=== PATIENT | male | born 1950 | race Two or more races ===

== ENCOUNTER 2017-09-17 18:50 | Emergency (ER) | payer MEDICARE, MEDICAID ==
[~2017-09-17] VITALS: Ht 177.8 cm; Wt 95.3 kg
[2017-09-17 22:44] VITALS: BP 144/87
[2017-09-17] MEDS ORDERED: KETOROLAC TROMETH 60MG/2ML VIAL IM ONE (22:45)
[2017-09-17] MEDS ORDERED: LIDOCAINE 1% HCL (LOCAL ANESTH.) INJ 20ML MDV IJ ONE (23:15)
[2017-09-17] MEDS ORDERED: TRIAMCINOLONE 40MG/ML 1ML VIAL IM ONE (23:15)
[2017-10-03] MEDS ORDERED: ALPR1TAB2 PO (08:05)
== END 2017-09-18 00:03 | disposition home or self-care (01) ==
LOC: ER 18:50
DX: M25.551 Pain in right hip (principal); M54.9 Dorsalgia, unspecified
CPT/HCPCS: 72100; 73502; 96372; 99284; J1885; J2001; J3301

== ENCOUNTER 2017-09-26 13:59 | Emergency (ER) | payer MEDICARE, MEDICAID ==
[~2017-09-26] VITALS: Ht 177.8 cm; Wt 99.8 kg
[2017-09-26 15:50] VITALS: BP 137/92
[2017-09-26] MEDS ORDERED: KETOROLAC TROMETH 60MG/2ML VIAL IM ONE (16:00)
[2017-09-26] MEDS ORDERED: HYDROcodone-ACET 5/325MG TAB PO ONE (16:00)
[2017-10-03] MEDS ORDERED: ALPR1TAB2 PO (08:05)
== END 2017-09-26 17:28 | disposition home or self-care (01) ==
LOC: ER 13:59
DX: S49.92XA Unspecified injury of left shoulder and upper arm, initial encounter (principal); G89.29 Other chronic pain; F12.10 Cannabis abuse, uncomplicated; X58.XXXA Exposure to other specified factors, initial encounter; Y99.8 Other external cause status; Y93.89 Activity, other specified; Y92.89 Other specified places as the place of occurrence of the external cause
CPT/HCPCS: 73110; 93005; 99284; J1885

== ENCOUNTER 2018-03-07 19:40 | Inpatient (IN) | payer MEDICARE, MEDICAID ==
[~2018-03-07] VITALS: Ht 175.3 cm; Wt 91.3 kg
[~2018-03-07 19:40] MED LIST: ALPR1TAB2 PO
[2018-03-07] MEDS ORDERED: SODIUM CHLORIDE 0.9% 1,000 ML IV ONE (20:00)
[2018-03-07 21:17] LABS: Urine Bacteria FEW /hpf (None Seen); Urine Blood TRACE /uL (Negative); Urine Budding Yeast MODERATE /hpf (None Seen); Urine Specific Gravity 1.009 (1.001-1.035); Urine WBC 42 /hpf (0 - 3)
[2018-03-07 21:21] LABS: Basophils # (auto) 0 uL; Basophils % (auto) 0.2 % (0.0-2.0); Eosinophils # (auto) 0.2 uL; Eosinophils % (auto) 2.1 % (0.0-7.0); Hematocrit 30.7 % (41.0-53.0); Hemoglobin 10.3 g/dL (13.5-17.5); Lymphocytes # (auto) 0.9 uL; Lymphocytes % (auto) 10.9 % (10.0-50.0); Mean Corpuscular Hemoglobin 26.2 pg (28.0-32.0); Mean Corpuscular Hgb Conc. 33.6 g/dL (32.0-36.0); Mean Corpuscular Volume 77.8 fL (80.0-100.0); Monocytes # (auto) 0.9 uL; Monocytes % (auto) 10.6 % (0.0-12.0); Neutrophils # (auto) 6.3 uL; Neutrophils % (auto) 76.2 % (37.0-80.0); Nucleated Red Blood Cells % 0.1 %; Platelet Count (auto) 155 10^3/uL (140-450); Red Blood Cells 3.95 10^6/uL (4.5-5.90); Red Cell Distribution Width 17.6 % (11.8-14.3); White Blood Cell 8.3 10^3/uL (4.4-10.8)
[2018-03-07 21:30] LABS: INR 1.2 (0.9-1.15); Partial Thromboplastin Time 27.4 sec (23.78-33.04); Prothrombin Time 12.7 sec (9.27-12.13)
[2018-03-07 21:38] LABS: Albumin 1.5 g/dL (3.4-5.0); BUN/Creatinine Ratio 35.8; Bilirubin, Total 0.7 mg/dL (0.2-1.0); Calcium 6.5 mg/dL (8.5-10.1); Total Protein 6.1 g/dL (6.4-8.2)
[2018-03-07] MEDS ORDERED: MORPHINE SULFATE 4 MG/ML SYR/VIAL IV ONE (21:45)
[2018-03-07] MEDS ORDERED: ONDANSETRON HCL 4 MG/2 ML VIAL IV ONE (21:45)
[2018-03-07] MEDS ORDERED: POTASSIUM CHL 20MEQ/100ML 100 ML IV SCH (22:00)
[2018-03-07] MEDS ORDERED: POTASSIUM EFFERVESENT TAB 25 MEQ PO ONE (22:00)
[2018-03-07] MEDS: POTASSIUM CHL 20MEQ/100ML 100 ML IV SCH (23:00)
[2018-03-08] VITALS (29 sets, daily range): BP systolic 83–128; BP diastolic 46–95
[2018-03-08] MEDS ORDERED: cefTRIAXone 1GM/10ml IVPUSH 10 ML IV ONE (01:30)
[2018-03-08] MEDS ORDERED: VANCOMYCIN 1GM/250ML 250 ML IV ONE (02:00)
[2018-03-08] MEDS ORDERED: ONDANSETRON HCL 4 MG/2 ML VIAL IV ONE (02:00)
[2018-03-08] MEDS ORDERED: MORPHINE SULFATE 4 MG/ML SYR/VIAL IV ONE (02:00)
[2018-03-08] MEDS ORDERED: SODIUM CHLORIDE 0.9% 1,000 ML IV ONE ×2 (02:30→14:30)
[2018-03-08] MEDS ORDERED: ACETAMINOPHEN 500 MG TAB PO PRN (03:00)
[2018-03-08] MEDS ORDERED: DEXTROSE (50%) 50ML SYRG IV PRN (03:00)
[2018-03-08] MEDS: POTASSIUM CHL 20MEQ/100ML 100 ML IV SCH ×3 (03:00→18:00)
[2018-03-08] MEDS ORDERED: SODIUM CHLORIDE 0.9% 1,000 ML IV SCH (04:00)
[2018-03-08] MEDS ORDERED: DOXYCYCLINE 100MG/250ML 250 ML IV SCH (06:00)
[2018-03-08] MEDS: IPRATROPIUM BROM 0.5 MG/2.5ML INH SOL NEB SCH ×3 (06:50→19:06)
[2018-03-08] MEDS: ALBUTEROL SULF 2.5 MG/0.5ML(0.5%) NEB SOLN NEB SCH ×3 (06:50→19:06)
[2018-03-08] MEDS: InsuLIN REG 1unit/0.01ml Soln (100units/ml) SC SCH ×4 (06:53→22:00)
[2018-03-08] MEDS: ACCU-CHEK COMFORT CURVE STRIP VI SCH ×4 (06:53→22:00)
[2018-03-08 07:04] LABS: Basophils # (auto) 0 uL; Eosinophils # (auto) 0.1 uL; Mean Corpuscular Hemoglobin 26.3 pg (28.0-32.0); Nucleated Red Blood Cells % 0.1 %; Red Cell Distribution Width 17.7 % (11.8-14.3)
[2018-03-08 07:07] LABS: Basophils % (auto) 0.3 % (0.0-2.0); Eosinophils % (auto) 1.4 % (0.0-7.0); Hematocrit 35.6 % (41.0-53.0); Hemoglobin 11.9 g/dL (13.5-17.5); Lymphocytes % (auto) 12.8 % (10.0-50.0); Mean Corpuscular Hgb Conc. 33.4 g/dL (32.0-36.0); Mean Corpuscular Volume 78.8 fL (80.0-100.0); Monocytes # (auto) 0.9 uL; Monocytes % (auto) 12.3 % (0.0-12.0); Neutrophils # (auto) 5.4 uL; Neutrophils % (auto) 73.2 % (37.0-80.0); Platelet Count (auto) 162 10^3/uL (140-450); Red Blood Cells 4.51 10^6/uL (4.5-5.90); White Blood Cell 7.4 10^3/uL (4.4-10.8)
[2018-03-08 07:21] LABS: BUN/Creatinine Ratio 23.3; Potassium 3.1 mmol/L (3.5-5.1)
[2018-03-08] MEDS: HYDROcodone-ACET 5/325MG TAB PO PRN (12:31)
[2018-03-08] MEDS: ONDANSETRON HCL 4 MG/2 ML VIAL IV PRN (12:31)
[2018-03-08] MEDS ORDERED: POTASSIUM CHL 20 Meq TABLET PO ONE (13:30)
[2018-03-08] MEDS ORDERED: VANCOMYCIN PER PHARMACY 0 MG IV SCH (14:30)
[2018-03-08] MEDS ORDERED: PIPERACILLIN-TAZOB 3.375GM 100 ML IV ONE (14:45)
[2018-03-08] MEDS ORDERED: MORPHINE SULFATE 4 MG/ML SYR/VIAL IV PRN (15:00)
[2018-03-08] MEDS ORDERED: VANCOMYCIN 1GM/250ML 250 ML IV SCH (15:00)
[2018-03-08] MEDS ORDERED: PANTOPRAZOLE 40 MG/10 ML VIAL IV ONE (15:00)
[2018-03-08] MEDS ORDERED: NITROGLYCERIN 0.4 MG SL TAB SL PRN (15:00)
[2018-03-08 15:38] LABS: Magnesium 1.8 mg/dL (1.6-2.6)
[2018-03-08 16:06] LABS: Lactic Acid w/Reflex 2.3 mmol/L (0.4-2.0)
[2018-03-08] MEDS: ALBUMIN 25% 100 ML IV SCH ×2 (16:41→21:16)
[2018-03-08] MEDS ORDERED: LIDOCAINE 1% (LOCAL ANESTH.) PF 5ml SDV ID ONE (17:00)
[2018-03-08] MEDS: VANCOMYCIN 1GM/250ML 250 ML IV SCH (17:30)
[2018-03-08] MEDS: SODIUM CHLORIDE 0.9% 1,000 ML IV SCH ×2 (17:30→17:51)
[2018-03-08] MEDS: NOREPINEPHRINE 8 MG/250ML KIT 250 ML IV SCH (17:51)
[2018-03-08] MEDS: PIPERACILLIN-TAZOB 3.375GM 100 ML IV SCH (18:00)
[2018-03-08] MEDS: SODIUM CHLOR 0.9% PF (SALINE LOCK) 10ML VIAL/SYR IV SCH ×2 (22:00)
[2018-03-08] MEDS ORDERED: cefTRIAXone 1GM/10ml IVPUSH 10 ML IV SCH (22:00)
[2018-03-08] MEDS: MORPHINE SULF INJ 2 MG/ML SYRINGE 1ML IV PRN (23:10)
[2018-03-08] MEDS: LORazepam 2MG/ML-1ML VIAL IV PRN (23:10)
[2018-03-09] VITALS (57 sets, daily range): BP systolic 76–133; BP diastolic 41–87
[2018-03-09] MEDS: IPRATROPIUM BROM 0.5 MG/2.5ML INH SOL NEB SCH ×4 (00:46→19:50)
[2018-03-09] MEDS: ALBUTEROL SULF 2.5 MG/0.5ML(0.5%) NEB SOLN NEB SCH ×4 (00:46→19:51)
[2018-03-09] MEDS: SODIUM CHLORIDE 0.9% 1,000 ML IV SCH ×2 (01:15→01:40)
[2018-03-09] MEDS: POTASSIUM CHL 20MEQ/100ML 100 ML IV SCH ×2 (03:46→05:16)
[2018-03-09 04:18] LABS: Basophils # (auto) 0 uL; Basophils % (auto) 0.4 % (0.0-2.0); Hematocrit 29.8 % (41.0-53.0); Lymphocytes # (auto) 0.7 uL
[2018-03-09] MEDS: VANCOMYCIN 1GM/250ML 250 ML IV SCH ×2 (04:20→16:02)
[2018-03-09 04:21] LABS: Eosinophils # (auto) 0.2 uL; Eosinophils % (auto) 1.8 % (0.0-7.0); Hemoglobin 9.5 g/dL (13.5-17.5); Lymphocytes % (auto) 8.7 % (10.0-50.0); Mean Corpuscular Hemoglobin 25.7 pg (28.0-32.0); Mean Corpuscular Volume 80.5 fL (80.0-100.0); Monocytes # (auto) 0.8 uL; Monocytes % (auto) 9.1 % (0.0-12.0); Neutrophils # (auto) 6.8 uL; Platelet Count (auto) 170 10^3/uL (140-450); Red Cell Distribution Width 17.8 % (11.8-14.3); White Blood Cell 8.5 10^3/uL (4.4-10.8)
[2018-03-09 04:37] LABS: Albumin 2.1 g/dL (3.4-5.0); BUN/Creatinine Ratio 17.1; Calcium 6.8 mg/dL (8.5-10.1)
[2018-03-09 04:40] LABS: Bilirubin, Total 0.6 mg/dL (0.2-1.0); Total Protein 6.1 g/dL (6.4-8.2)
[2018-03-09] MEDS: ALBUMIN 25% 100 ML IV SCH ×3 (05:16→20:58)
[2018-03-09] MEDS: MORPHINE SULF INJ 2 MG/ML SYRINGE 1ML IV PRN ×5 (06:02→22:00)
[2018-03-09] MEDS: SODIUM CHLOR 0.9% PF (SALINE LOCK) 10ML VIAL/SYR IV SCH ×3 (06:02→22:22)
[2018-03-09] MEDS: PIPERACILLIN-TAZOB 3.375GM 100 ML IV SCH ×4 (06:30→17:57)
[2018-03-09] MEDS: ACCU-CHEK COMFORT CURVE STRIP VI SCH ×4 (07:09→22:22)
[2018-03-09] MEDS: InsuLIN REG 1unit/0.01ml Soln (100units/ml) SC SCH ×4 (07:10→22:24)
[2018-03-09] MEDS: D5W 5% 1,000 ML IV SCH ×2 (08:30→18:15)
[2018-03-09] MEDS: PANTOPRAZOLE 40 MG/10 ML VIAL IV SCH (09:46)
[2018-03-09] MEDS: HYDROcodone-ACET 5/325MG TAB PO PRN (09:52)
[2018-03-09] MEDS ORDERED: ARTIFICIAL TEARS 15ml EACHEYE PRN (11:45)
[2018-03-09] MEDS ORDERED: ENOXAPARIN SOD 40 MG/0.4 ML SYRINGE SC ONE (11:45)
[2018-03-09] MEDS: MAGNESIUM SULFATE 1GM/100ML 100 ML IV SCH ×2 (11:59→13:03)
[2018-03-09] MEDS ORDERED: POTASSIUM EFFERVESENT TAB 25 MEQ PO ONE (12:00)
[2018-03-09 12:16] LABS: Alcohol, Urine < 3.0 mg/dL (0-5); Amphetamine Screen, Urine NEGATIVE (NEGATIVE); Barbiturate Scree,Urine NEGATIVE (NEGATIVE); Benzodiazephine Screen, Urine POSITIVE (NEGATIVE); Cannabinoid Screen, Urine POSITIVE (NEGATIVE); Cocaine Screen, Urine NEGATIVE (NEGATIVE); Opiate Scree,Urine POSITIVE (NEGATIVE); Phencyclidine Screen, Urine NEGATIVE (NEGATIVE)
[2018-03-09] MEDS: NOREPINEPHRINE 8 MG/250ML KIT 250 ML IV SCH (14:52)
[2018-03-09] MEDS ORDERED: MULTCAP45 PO (17:37)
[2018-03-09] MEDS ORDERED: HYDR-4683 GT (17:37)
[2018-03-09] MEDS ORDERED: MORP60TA25 PO (17:37)
[2018-03-09] MEDS ORDERED: ASCO500T11 PO (17:37)
[2018-03-09] MEDS ORDERED: INSLANTI SC (17:37)
[2018-03-09] MEDS ORDERED: INSDRIP SC (17:37)
[2018-03-10] VITALS (30 sets, daily range): BP systolic 91–141; BP diastolic 47–80
[2018-03-10] MEDS: IPRATROPIUM BROM 0.5 MG/2.5ML INH SOL NEB SCH ×5 (00:39→23:44)
[2018-03-10] MEDS: ALBUTEROL SULF 2.5 MG/0.5ML(0.5%) NEB SOLN NEB SCH ×5 (00:39→23:44)
[2018-03-10] MEDS: PIPERACILLIN-TAZOB 3.375GM 100 ML IV SCH ×5 (01:00→23:43)
[2018-03-10] MEDS: ALBUMIN 25% 100 ML IV SCH (03:30)
[2018-03-10 03:58] LABS: Basophils # (auto) 0 uL; Eosinophils # (auto) 0.3 uL; Hematocrit 28.4 % (41.0-53.0); Mean Corpuscular Hgb Conc. 31.7 g/dL (32.0-36.0); Monocytes # (auto) 0.7 uL
[2018-03-10 04:02] LABS: Basophils % (auto) 0.4 % (0.0-2.0); Eosinophils % (auto) 4.7 % (0.0-7.0); Lymphocytes # (auto) 1.1 uL; Monocytes % (auto) 10.6 % (0.0-12.0); Neutrophils # (auto) 4.5 uL; Neutrophils % (auto) 68.3 % (37.0-80.0); Nucleated Red Blood Cells % 0.1 %; Platelet Count (auto) 164 10^3/uL (140-450); Red Blood Cells 3.47 10^6/uL (4.5-5.90); Red Cell Distribution Width 18.4 % (11.8-14.3); White Blood Cell 6.6 10^3/uL (4.4-10.8)
[2018-03-10 04:15] LABS: BUN/Creatinine Ratio 9.4; Calcium 7.2 mg/dL (8.5-10.1); Potassium 3.2 mmol/L (3.5-5.1)
[2018-03-10] MEDS: D5W 5% 1,000 ML IV SCH (04:15)
[2018-03-10] MEDS: VANCOMYCIN 1GM/250ML 250 ML IV SCH (05:00)
[2018-03-10] MEDS: InsuLIN REG 1unit/0.01ml Soln (100units/ml) SC SCH ×4 (07:00→22:09)
[2018-03-10] MEDS: ACCU-CHEK COMFORT CURVE STRIP VI SCH ×4 (07:00→22:08)
[2018-03-10] MEDS: HYDROcodone-ACET 5/325MG TAB PO PRN ×2 (08:13)
[2018-03-10] MEDS: PANTOPRAZOLE 40 MG/10 ML VIAL IV SCH (09:49)
[2018-03-10] MEDS: SODIUM CHLOR 0.9% PF (SALINE LOCK) 10ML VIAL/SYR IV SCH ×2 (09:50→22:08)
[2018-03-10] MEDS: ENOXAPARIN SOD 40 MG/0.4 ML SYRINGE SC SCH (09:50)
[2018-03-10] MEDS: MORPHINE SULF INJ 2 MG/ML SYRINGE 1ML IV PRN ×4 (10:48→23:53)
[2018-03-10] MEDS ORDERED: HYDROcodone-ACET 10/325MG TAB PO PRN (13:30)
[2018-03-10] MEDS ORDERED: POTASSIUM CHL 20 Meq TABLET PO ONE (13:30)
[2018-03-10] MEDS ORDERED: FLUCONAZOLE 200MG/100ML 100 ML IV ONE (13:45)
[2018-03-10] MEDS ORDERED: IOHEXOL 300 MG/ML 100ML BOTTLE IJ ONE (13:48)
[2018-03-10] MEDS: VANCOMYCIN 1,250 MG in D5W 5% 250 ML IV SCH (16:23)
[2018-03-11] VITALS (7 sets, daily range): BP systolic 113–133; BP diastolic 70–86
[2018-03-11] MEDS: VANCOMYCIN 1,250 MG in D5W 5% 250 ML IV SCH ×2 (04:04→16:04)
[2018-03-11] MEDS: MORPHINE SULF INJ 2 MG/ML SYRINGE 1ML IV PRN ×4 (04:14→21:27)
[2018-03-11 05:50] LABS: Basophils # (auto) 0 uL; Basophils % (auto) 0.4 % (0.0-2.0); Eosinophils # (auto) 0.3 uL; Hemoglobin 10.2 g/dL (13.5-17.5); Lymphocytes # (auto) 1.3 uL; Monocytes # (auto) 0.3 uL; Red Cell Distribution Width 18.9 % (11.8-14.3)
[2018-03-11 05:53] LABS: Eosinophils % (auto) 6.5 % (0.0-7.0); Lymphocytes % (auto) 27.7 % (10.0-50.0); Mean Corpuscular Hemoglobin 26.4 pg (28.0-32.0); Mean Corpuscular Hgb Conc. 32.8 g/dL (32.0-36.0); Mean Corpuscular Volume 80.7 fL (80.0-100.0); Monocytes % (auto) 5.7 % (0.0-12.0); Neutrophils # (auto) 2.8 uL; Neutrophils % (auto) 59.7 % (37.0-80.0); Nucleated Red Blood Cells % 0.1 %; Platelet Count (auto) 171 10^3/uL (140-450); Red Blood Cells 3.84 10^6/uL (4.5-5.90); White Blood Cell 4.7 10^3/uL (4.4-10.8)
[2018-03-11] MEDS: ALBUTEROL SULF 2.5 MG/0.5ML(0.5%) NEB SOLN NEB SCH ×3 (06:03→18:00)
[2018-03-11] MEDS: IPRATROPIUM BROM 0.5 MG/2.5ML INH SOL NEB SCH ×3 (06:03→18:00)
[2018-03-11 06:09] LABS: BUN/Creatinine Ratio 9.1; Calcium 7.6 mg/dL (8.5-10.1); Potassium 3.8 mmol/L (3.5-5.1)
[2018-03-11] MEDS: PIPERACILLIN-TAZOB 3.375GM 100 ML IV SCH (06:11)
[2018-03-11] MEDS: InsuLIN REG 1unit/0.01ml Soln (100units/ml) SC SCH ×4 (06:18→22:00)
[2018-03-11] MEDS: ACCU-CHEK COMFORT CURVE STRIP VI SCH ×4 (06:18→22:23)
[2018-03-11] MEDS: FLUCONAZOLE 200MG/100ML 100 ML IV SCH (09:51)
[2018-03-11] MEDS: PANTOPRAZOLE 40 MG/10 ML VIAL IV SCH (09:51)
[2018-03-11] MEDS: ENOXAPARIN SOD 40 MG/0.4 ML SYRINGE SC SCH (09:51)
[2018-03-11] MEDS: SODIUM CHLOR 0.9% PF (SALINE LOCK) 10ML VIAL/SYR IV SCH ×2 (09:57→22:04)
[2018-03-11] MEDS ORDERED: MORPHINE SULF INJ 2 MG/ML SYRINGE 1ML IV PRN (12:15)
[2018-03-11] MEDS: MORPHINE SULF 15mg ER tab PO SCH ×2 (12:31→22:04)
[2018-03-11] MEDS: cefTRIAXone 1GM/10ml IVPUSH 10 ML IV SCH (12:31)
[2018-03-12] MEDS: ACCU-CHEK COMFORT CURVE STRIP VI SCH ×4 (00:01→17:15)
[2018-03-12] MEDS: VANCOMYCIN 1,250 MG in D5W 5% 250 ML IV SCH ×2 (04:00→16:09)
[2018-03-12] MEDS: InsuLIN REG 1unit/0.01ml Soln (100units/ml) SC SCH ×4 (07:00→22:00)
[2018-03-12] MEDS: IPRATROPIUM BROM 0.5 MG/2.5ML INH SOL NEB SCH ×4 (08:07→19:21)
[2018-03-12] MEDS: ALBUTEROL SULF 2.5 MG/0.5ML(0.5%) NEB SOLN NEB SCH ×4 (08:07→19:22)
[2018-03-12] MEDS: MORPHINE SULF INJ 2 MG/ML SYRINGE 1ML IV PRN ×4 (08:49→21:51)
[2018-03-12] MEDS: PANTOPRAZOLE 40 MG/10 ML VIAL IV SCH (10:12)
[2018-03-12] MEDS: ENOXAPARIN SOD 40 MG/0.4 ML SYRINGE SC SCH (10:12)
[2018-03-12] MEDS: cefTRIAXone 1GM/10ml IVPUSH 10 ML IV SCH (10:12)
[2018-03-12] MEDS: SODIUM CHLOR 0.9% PF (SALINE LOCK) 10ML VIAL/SYR IV SCH ×2 (10:13→22:00)
[2018-03-12] MEDS: MORPHINE SULF 15mg ER tab PO SCH ×2 (10:13→20:30)
[2018-03-12] MEDS: FLUCONAZOLE 200MG/100ML 100 ML IV SCH (10:14)
[2018-03-12 11:50] VITALS: BP 127/97
[2018-03-12 15:01] VITALS: BP 118/80
[2018-03-12 16:53] VITALS: BP 134/83
[2018-03-12] MEDS: LORazepam 2MG/ML-1ML VIAL IV PRN (20:41)
[2018-03-12 22:00] VITALS: BP 120/75
[2018-03-12] MEDS: MORPHINE SULFATE 10 MG/5 ML ORAL SOLN PO PRN (22:45)
[2018-03-13] MEDS: MORPHINE SULF INJ 2 MG/ML SYRINGE 1ML IV PRN ×4 (02:00→17:08)
[2018-03-13 05:00] VITALS: BP 134/85
[2018-03-13] MEDS: MORPHINE SULFATE 10 MG/5 ML ORAL SOLN PO PRN (05:30)
[2018-03-13] MEDS: InsuLIN REG 1unit/0.01ml Soln (100units/ml) SC SCH ×4 (06:52→21:09)
[2018-03-13] MEDS: ACCU-CHEK COMFORT CURVE STRIP VI SCH ×4 (06:52→21:08)
[2018-03-13] MEDS: ALBUTEROL SULF 2.5 MG/0.5ML(0.5%) NEB SOLN NEB SCH ×4 (06:57→19:37)
[2018-03-13] MEDS: IPRATROPIUM BROM 0.5 MG/2.5ML INH SOL NEB SCH ×4 (06:57→19:37)
[2018-03-13 07:03] LABS: Basophils # (auto) 0 uL; Basophils % (auto) 0.4 % (0.0-2.0); Eosinophils # (auto) 0.2 uL; Eosinophils % (auto) 4.7 % (0.0-7.0); Hematocrit 28.8 % (41.0-53.0); Hemoglobin 10.2 g/dL (13.5-17.5); Lymphocytes # (auto) 0.9 uL; Lymphocytes % (auto) 23.6 % (10.0-50.0); Mean Corpuscular Hemoglobin 28.2 pg (28.0-32.0); Mean Corpuscular Hgb Conc. 35.4 g/dL (32.0-36.0); Mean Corpuscular Volume 79.6 fL (80.0-100.0); Monocytes # (auto) 0.3 uL; Monocytes % (auto) 7.4 % (0.0-12.0); Neutrophils # (auto) 2.5 uL; Neutrophils % (auto) 63.9 % (37.0-80.0); Platelet Count (auto) 143 10^3/uL (140-450); Red Blood Cells 3.62 10^6/uL (4.5-5.90); Red Cell Distribution Width 18.9 % (11.8-14.3); White Blood Cell 3.9 10^3/uL (4.4-10.8)
[2018-03-13 07:15] LABS: BUN/Creatinine Ratio 12.8; Calcium 7.9 mg/dL (8.5-10.1); Potassium 3.7 mmol/L (3.5-5.1)
[2018-03-13 08:35] VITALS: BP 132/90
[2018-03-13] MEDS: PANTOPRAZOLE 40 MG/10 ML VIAL IV SCH (09:45)
[2018-03-13] MEDS: SODIUM CHLOR 0.9% PF (SALINE LOCK) 10ML VIAL/SYR IV SCH ×2 (09:46→21:08)
[2018-03-13] MEDS: MORPHINE SULF 15mg ER tab PO SCH ×2 (09:46→21:04)
[2018-03-13] MEDS: cefTRIAXone 1GM/10ml IVPUSH 10 ML IV SCH (09:46)
[2018-03-13] MEDS: ENOXAPARIN SOD 40 MG/0.4 ML SYRINGE SC SCH (09:47)
[2018-03-13] MEDS: FLUCONAZOLE 200MG/100ML 100 ML IV SCH (09:48)
[2018-03-13 11:53] VITALS: BP 145/86
[2018-03-13 16:47] VITALS: BP 145/99
[2018-03-13] MEDS: VANCOMYCIN 1GM/250ML 250 ML IV SCH (18:28)
[2018-03-13 20:00] VITALS: BP 146/82
[2018-03-13 22:00] VITALS: BP 146/82
[2018-03-14] VITALS (7 sets, daily range): BP systolic 127–147; BP diastolic 78–94
[2018-03-14] MEDS: MORPHINE SULF INJ 2 MG/ML SYRINGE 1ML IV PRN ×6 (00:23→23:45)
[2018-03-14] MEDS: ALBUTEROL SULF 2.5 MG/0.5ML(0.5%) NEB SOLN NEB SCH ×5 (01:37→23:30)
[2018-03-14 06:14] LABS: Basophils # (auto) 0 uL; Eosinophils # (auto) 0.2 uL; Hemoglobin 11.1 g/dL (13.5-17.5); Lymphocytes # (auto) 1.4 uL; Monocytes # (auto) 0.4 uL; Nucleated Red Blood Cells % 0.1 %; Red Blood Cells 4.19 10^6/uL (4.5-5.90)
[2018-03-14 06:17] LABS: Basophils % (auto) 0.5 % (0.0-2.0); Eosinophils % (auto) 3.9 % (0.0-7.0); Hematocrit 33.6 % (41.0-53.0); Lymphocytes % (auto) 28.4 % (10.0-50.0); Mean Corpuscular Hemoglobin 26.5 pg (28.0-32.0); Mean Corpuscular Volume 80.2 fL (80.0-100.0); Monocytes % (auto) 8.3 % (0.0-12.0); Neutrophils # (auto) 2.9 uL; Neutrophils % (auto) 58.9 % (37.0-80.0); Platelet Count (auto) 145 10^3/uL (140-450); Red Cell Distribution Width 18.8 % (11.8-14.3)
[2018-03-14] MEDS: VANCOMYCIN 1GM/250ML 250 ML IV SCH (06:18)
[2018-03-14] MEDS: ACCU-CHEK COMFORT CURVE STRIP VI SCH ×4 (06:22→21:40)
[2018-03-14] MEDS: InsuLIN REG 1unit/0.01ml Soln (100units/ml) SC SCH ×4 (06:22→21:40)
[2018-03-14 06:25] LABS: BUN/Creatinine Ratio 9.7; Calcium 8.4 mg/dL (8.5-10.1)
[2018-03-14] MEDS: IPRATROPIUM BROM 0.5 MG/2.5ML INH SOL NEB SCH ×5 (06:32→23:30)
[2018-03-14] MEDS: cefTRIAXone 1GM/10ml IVPUSH 10 ML IV SCH (09:29)
[2018-03-14] MEDS ORDERED: MORPHINE SULF INJ 2 MG/ML SYRINGE 1ML IV PRN (10:00)
[2018-03-14] MEDS ORDERED: SENNA 8.6 MG TAB PO PRN (10:15)
[2018-03-14] MEDS: MORPHINE SULF 15mg ER tab PO SCH ×2 (10:51→21:38)
[2018-03-14] MEDS: FLUCONAZOLE 200MG/100ML 100 ML IV SCH (10:51)
[2018-03-14] MEDS: SODIUM CHLOR 0.9% PF (SALINE LOCK) 10ML VIAL/SYR IV SCH ×2 (10:51→21:38)
[2018-03-14] MEDS: ENOXAPARIN SOD 40 MG/0.4 ML SYRINGE SC SCH (10:51)
[2018-03-14] MEDS: ceFAZolin 2 GM in D5W 5% 100 ML IV SCH ×2 (14:12→19:48)
[2018-03-14] MEDS: Glucerna Carbsteady SHAKE Stawberry 8oz PO SCH (18:07)
[2018-03-15] MEDS: ceFAZolin 2 GM in D5W 5% 100 ML IV SCH ×3 (03:53→21:11)
[2018-03-15] MEDS: MORPHINE SULF INJ 2 MG/ML SYRINGE 1ML IV PRN ×5 (06:03→23:04)
[2018-03-15] MEDS: IPRATROPIUM BROM 0.5 MG/2.5ML INH SOL NEB SCH ×3 (06:11→20:17)
[2018-03-15] MEDS: ALBUTEROL SULF 2.5 MG/0.5ML(0.5%) NEB SOLN NEB SCH ×3 (06:11→20:17)
[2018-03-15 06:20] VITALS: BP 135/79
[2018-03-15] MEDS: ACCU-CHEK COMFORT CURVE STRIP VI SCH ×4 (06:50→21:11)
[2018-03-15] MEDS: InsuLIN REG 1unit/0.01ml Soln (100units/ml) SC SCH ×4 (06:51→21:15)
[2018-03-15 07:58] LABS: Basophils # (auto) 0 uL; Basophils % (auto) 0.2 % (0.0-2.0); Eosinophils # (auto) 0.1 uL; Hemoglobin 10.2 g/dL (13.5-17.5); Lymphocytes # (auto) 1.1 uL; Nucleated Red Blood Cells % 0.1 %; White Blood Cell 4.5 10^3/uL (4.4-10.8)
[2018-03-15 08:00] LABS: Eosinophils % (auto) 3.1 % (0.0-7.0); Hematocrit 31.6 % (41.0-53.0); Lymphocytes % (auto) 24.9 % (10.0-50.0); Mean Corpuscular Hgb Conc. 32.3 g/dL (32.0-36.0); Mean Corpuscular Volume 80.4 fL (80.0-100.0); Monocytes # (auto) 0.3 uL; Monocytes % (auto) 7.7 % (0.0-12.0); Neutrophils # (auto) 2.9 uL; Neutrophils % (auto) 64.1 % (37.0-80.0); Platelet Count (auto) 121 10^3/uL (140-450); Red Blood Cells 3.93 10^6/uL (4.5-5.90)
[2018-03-15 08:01] LABS: Red Cell Distribution Width 18.6 % (11.8-14.3)
[2018-03-15 08:07] VITALS: BP 127/69
[2018-03-15 08:20] LABS: BUN/Creatinine Ratio 10.9; Calcium 8.1 mg/dL (8.5-10.1); Potassium 3.6 mmol/L (3.5-5.1)
[2018-03-15] MEDS: Glucerna Carbsteady SHAKE Stawberry 8oz PO SCH ×3 (09:18→18:00)
[2018-03-15] MEDS: Pro-Stat SF 30ml Vanilla PO SCH ×2 (10:00→18:00)
[2018-03-15] MEDS: SODIUM CHLOR 0.9% PF (SALINE LOCK) 10ML VIAL/SYR IV SCH ×2 (10:00→21:11)
[2018-03-15] MEDS: FLUCONAZOLE 200MG/100ML 100 ML IV SCH (10:30)
[2018-03-15] MEDS: ENOXAPARIN SOD 40 MG/0.4 ML SYRINGE SC SCH (10:30)
[2018-03-15] MEDS: PANTOPRAZOLE 40 MG TAB PO SCH (12:10)
[2018-03-15] MEDS: MORPHINE SULF 15mg ER tab PO SCH ×2 (12:10→21:11)
[2018-03-15 12:30] VITALS: BP 129/82
[2018-03-15 16:36] VITALS: BP 142/83
[2018-03-15 20:00] VITALS: BP 136/87
[2018-03-15 22:00] VITALS: BP 136/87
[2018-03-16] MEDS: MORPHINE SULFATE 10 MG/5 ML ORAL SOLN PO PRN (00:44)
[2018-03-16] MEDS: MORPHINE SULF INJ 2 MG/ML SYRINGE 1ML IV PRN ×4 (03:28→20:43)
[2018-03-16] MEDS: ceFAZolin 2 GM in D5W 5% 100 ML IV SCH ×3 (03:28→20:27)
[2018-03-16 05:44] VITALS: BP 130/78
[2018-03-16 06:31] LABS: Basophils # (auto) 0 uL; Eosinophils # (auto) 0.1 uL; Hemoglobin 10.9 g/dL (13.5-17.5); Lymphocytes # (auto) 1.2 uL; Neutrophils # (auto) 2.9 uL
[2018-03-16 06:34] LABS: Basophils % (auto) 0.2 % (0.0-2.0); Eosinophils % (auto) 2.2 % (0.0-7.0); Hematocrit 33.7 % (41.0-53.0); Lymphocytes % (auto) 25.6 % (10.0-50.0); Mean Corpuscular Hemoglobin 26.3 pg (28.0-32.0); Mean Corpuscular Hgb Conc. 32.3 g/dL (32.0-36.0); Mean Corpuscular Volume 81.4 fL (80.0-100.0); Monocytes # (auto) 0.4 uL; Monocytes % (auto) 9.1 % (0.0-12.0); Neutrophils % (auto) 62.9 % (37.0-80.0); Platelet Count (auto) 117 10^3/uL (140-450); Red Blood Cells 4.14 10^6/uL (4.5-5.90); Red Cell Distribution Width 18.7 % (11.8-14.3); White Blood Cell 4.6 10^3/uL (4.4-10.8)
[2018-03-16 06:53] LABS: BUN/Creatinine Ratio 14.5; Calcium 8.1 mg/dL (8.5-10.1); Potassium 3.4 mmol/L (3.5-5.1)
[2018-03-16] MEDS: ACCU-CHEK COMFORT CURVE STRIP VI SCH ×4 (06:56→22:00)
[2018-03-16] MEDS: InsuLIN REG 1unit/0.01ml Soln (100units/ml) SC SCH ×4 (06:56→22:00)
[2018-03-16] MEDS: ALBUTEROL SULF 2.5 MG/0.5ML(0.5%) NEB SOLN NEB SCH ×3 (07:00→19:21)
[2018-03-16] MEDS: IPRATROPIUM BROM 0.5 MG/2.5ML INH SOL NEB SCH ×3 (07:00→19:21)
[2018-03-16] MEDS ORDERED: POTASSIUM CHL 20 Meq TABLET PO ONE (08:45)
[2018-03-16 09:00] VITALS: BP 124/77
[2018-03-16] MEDS ORDERED: HYDROmorphone HCL 2 MG/ML VL IV ONE (10:30)
[2018-03-16] MEDS ORDERED: LORazepam 2MG/ML-1ML VIAL IV ONE (10:30)
[2018-03-16] MEDS: ASCORBIC ACID 500 MG TAB PO SCH ×2 (10:50→22:54)
[2018-03-16] MEDS: FLUCONAZOLE 200MG/100ML 100 ML IV SCH (10:50)
[2018-03-16] MEDS: PANTOPRAZOLE 40 MG TAB PO SCH (10:50)
[2018-03-16] MEDS: MULTIPLE VITAMINS W/ MINERALS TAB PO SCH (10:50)
[2018-03-16] MEDS: SODIUM CHLOR 0.9% PF (SALINE LOCK) 10ML VIAL/SYR IV SCH ×2 (10:51→22:00)
[2018-03-16] MEDS: Pro-Stat SF 30ml Vanilla PO SCH ×2 (10:52→18:08)
[2018-03-16] MEDS: Glucerna Carbsteady SHAKE Stawberry 8oz PO SCH ×3 (10:52→18:08)
[2018-03-16] MEDS ORDERED: ENOXAPARIN SOD 40 MG/0.4 ML SYRINGE SC ONE (11:00)
[2018-03-16 13:00] VITALS: BP 141/79
[2018-03-16] MEDS ORDERED: fentaNYL 50MCG/HR 50 MCG/HR PAT TD SCH ×2 (13:45→15:00)
[2018-03-16 17:00] VITALS: BP 135/76
[2018-03-16 20:00] VITALS: BP 150/83
[2018-03-16 20:22] LABS: Albumin 2.7 g/dL (3.4-5.0); BUN/Creatinine Ratio 19.4; Bilirubin, Total 0.4 mg/dL (0.2-1.0); CRP High Sensitivity 4.18 mg/dL (< 0.3); Potassium 3.6 mmol/L (3.5-5.1); Total Protein 7.8 g/dL (6.4-8.2)
[2018-03-16 20:53] LABS: INR 1.07 (0.9-1.15); Partial Thromboplastin Time 29.3 sec (23.78-33.04); Prothrombin Time 11.4 sec (9.27-12.13)
[2018-03-16 21:58] VITALS: BP 150/83
[2018-03-16] MEDS ORDERED: MORPHINE SULF 15mg ER tab PO SCH (22:00)
[2018-03-17] VITALS (7 sets, daily range): BP systolic 127–144; BP diastolic 76–90
[2018-03-17] MEDS: IPRATROPIUM BROM 0.5 MG/2.5ML INH SOL NEB SCH ×4 (00:13→19:54)
[2018-03-17] MEDS: ALBUTEROL SULF 2.5 MG/0.5ML(0.5%) NEB SOLN NEB SCH ×4 (00:13→19:54)
[2018-03-17 03:50] LABS: Urine Bacteria NONE SEEN /hpf (None Seen); Urine Blood Negative /uL (Negative); Urine Specific Gravity 1.008 (1.001-1.035); Urine WBC 4 /hpf (0 - 3)
[2018-03-17] MEDS: ceFAZolin 2 GM in D5W 5% 100 ML IV SCH ×3 (03:57→19:56)
[2018-03-17] MEDS: MORPHINE SULF INJ 2 MG/ML SYRINGE 1ML IV PRN ×4 (03:57→23:37)
[2018-03-17] MEDS: InsuLIN REG 1unit/0.01ml Soln (100units/ml) SC SCH ×4 (07:00→20:54)
[2018-03-17] MEDS: ACCU-CHEK COMFORT CURVE STRIP VI SCH ×4 (07:09→20:51)
[2018-03-17] MEDS: Pro-Stat SF 30ml Vanilla PO SCH ×2 (08:00→18:00)
[2018-03-17] MEDS: Glucerna Carbsteady SHAKE Stawberry 8oz PO SCH ×3 (08:00→18:00)
[2018-03-17 08:14] LABS: Basophils # (auto) 0 uL; Eosinophils # (auto) 0.1 uL; Eosinophils % (auto) 1.5 % (0.0-7.0); Lymphocytes # (auto) 1.2 uL; Monocytes # (auto) 0.5 uL; Neutrophils # (auto) 3.5 uL; White Blood Cell 5.3 10^3/uL (4.4-10.8)
[2018-03-17 08:17] LABS: Basophils % (auto) 0.8 % (0.0-2.0); Hematocrit 29.8 % (41.0-53.0); Lymphocytes % (auto) 22.1 % (10.0-50.0); Mean Corpuscular Hgb Conc. 31.9 g/dL (32.0-36.0); Monocytes % (auto) 8.9 % (0.0-12.0); Neutrophils % (auto) 66.7 % (37.0-80.0); Platelet Count (auto) 113 10^3/uL (140-450); Red Cell Distribution Width 19.6 % (11.8-14.3)
[2018-03-17 08:18] LABS: Mean Corpuscular Hemoglobin 25.9 pg (28.0-32.0)
[2018-03-17 08:19] LABS: Hemoglobin 9.6 g/dL (13.5-17.5); Mean Corpuscular Volume 80.7 fL (80.0-100.0)
[2018-03-17 08:52] LABS: Anion Gap 4 (5-15); BUN/Creatinine Ratio 18.6; Blood Urea Nitrogen 11 mg/dL (7-18); Calcium 8.2 mg/dL (8.5-10.1); Carbon Dioxide 25 mmol/L (21-32); Chloride 110 mmol/L (98-107); GFR African American 177 mL/min; GFR Non-African American 146 mL/min; Glucose 113 mg/dL (74-106); Potassium 3.5 mmol/L (3.5-5.1); Sodium 139 mmol/L (136-145)
[2018-03-17] MEDS ORDERED: ceFAZolin 1GM/50ML 50 ML IV ONE (09:02)
[2018-03-17] MEDS: FLUCONAZOLE 200MG/100ML 100 ML IV SCH (10:00)
[2018-03-17] MEDS: PANTOPRAZOLE 40 MG TAB PO SCH (10:00)
[2018-03-17] MEDS: ASCORBIC ACID 500 MG TAB PO SCH ×2 (10:00→20:50)
[2018-03-17] MEDS: ENOXAPARIN SOD 40 MG/0.4 ML SYRINGE SC SCH (10:00)
[2018-03-17] MEDS: SODIUM CHLOR 0.9% PF (SALINE LOCK) 10ML VIAL/SYR IV SCH ×2 (10:00→20:50)
[2018-03-17] MEDS: MULTIPLE VITAMINS W/ MINERALS TAB PO SCH (10:00)
[2018-03-17] MEDS ORDERED: fentaNYL CITRATE 100 MCG/2 ML VL ONE ×3 (10:06→10:39)
[2018-03-17] MEDS ORDERED: MIDAZOLAM HCL 1MG/1ML-2 ML VIAL ONE (10:06)
[2018-03-17] MEDS ORDERED: PROPOFOL 10 MG/ML 20 ML IV ONE (10:09)
[2018-03-17] MEDS ORDERED: SUCCINYLCHOLINE CHLORIDE 20 MG/ML 10ML VIAL IV ONE (10:11)
[2018-03-17] MEDS ORDERED: ROCURONIUM 10MG/ML 10ML VIAL IV ONE (10:16)
[2018-03-17] MEDS ORDERED: HYDROmorphone HCL 2 MG/ML VL ONE ×2 (11:25→12:50)
[2018-03-17] MEDS ORDERED: hydrALAZINE HCL 20 MG/ML VL IV PRN (12:45)
[2018-03-17] MEDS ORDERED: ePHEDrine SULFATE 50 MG/ML AMP IV PRN (12:45)
[2018-03-17] MEDS ORDERED: ONDANSETRON HCL 4 MG/2 ML VIAL IV ONE (12:45)
[2018-03-17] MEDS: HYDROmorphone HCL 2 MG/ML VL IV PRN ×4 (12:49→13:29)
[2018-03-17] MEDS: MORPHINE SULFATE 10 MG/5 ML ORAL SOLN PO PRN ×2 (16:48→20:50)
[2018-03-18] MEDS: IPRATROPIUM BROM 0.5 MG/2.5ML INH SOL NEB SCH ×4 (00:47→18:36)
[2018-03-18] MEDS: ALBUTEROL SULF 2.5 MG/0.5ML(0.5%) NEB SOLN NEB SCH ×4 (00:47→18:36)
[2018-03-18] MEDS: MORPHINE SULFATE 10 MG/5 ML ORAL SOLN PO PRN ×2 (01:40→06:26)
[2018-03-18] MEDS: MORPHINE SULF INJ 2 MG/ML SYRINGE 1ML IV PRN (04:42)
[2018-03-18] MEDS: ceFAZolin 2 GM in D5W 5% 100 ML IV SCH ×3 (04:42→22:20)
[2018-03-18 05:00] VITALS: BP 119/74
[2018-03-18] MEDS: ACCU-CHEK COMFORT CURVE STRIP VI SCH ×4 (06:29→22:23)
[2018-03-18] MEDS: InsuLIN REG 1unit/0.01ml Soln (100units/ml) SC SCH ×4 (06:29→22:00)
[2018-03-18 07:46] LABS: Hematocrit 28.7 % (41.0-53.0); Hemoglobin 9.4 g/dL (13.5-17.5)
[2018-03-18] MEDS: Glucerna Carbsteady SHAKE Stawberry 8oz PO SCH ×3 (08:00→18:37)
[2018-03-18] MEDS: Pro-Stat SF 30ml Vanilla PO SCH ×2 (08:00→18:37)
[2018-03-18 09:00] VITALS: BP 110/65
[2018-03-18] MEDS: ENOXAPARIN SOD 40 MG/0.4 ML SYRINGE SC SCH (09:07)
[2018-03-18] MEDS: FLUCONAZOLE 200MG/100ML 100 ML IV SCH (09:07)
[2018-03-18] MEDS: ASCORBIC ACID 500 MG TAB PO SCH ×2 (09:07→22:22)
[2018-03-18] MEDS: MULTIPLE VITAMINS W/ MINERALS TAB PO SCH (09:07)
[2018-03-18] MEDS: PANTOPRAZOLE 40 MG TAB PO SCH (09:07)
[2018-03-18] MEDS: SODIUM CHLOR 0.9% PF (SALINE LOCK) 10ML VIAL/SYR IV SCH ×2 (09:07→22:20)
[2018-03-18] MEDS: LORazepam 2MG/ML-1ML VIAL IV PRN (10:13)
[2018-03-18] MEDS: HYDROmorphone HCL 2 MG/ML VL IV PRN ×3 (11:19→20:08)
[2018-03-18 11:52] VITALS: BP 115/77
[2018-03-18] MEDS: MORPHINE SULF 30 mg ER tab PO SCH ×2 (14:55→22:20)
[2018-03-18 16:51] VITALS: BP 114/64
[2018-03-18 22:00] VITALS: BP 128/83
[2018-03-18] MEDS: SENNA 8.6 MG TAB PO SCH (22:22)
[2018-03-19] MEDS: ALBUTEROL SULF 2.5 MG/0.5ML(0.5%) NEB SOLN NEB SCH ×4 (00:49→18:36)
[2018-03-19] MEDS: IPRATROPIUM BROM 0.5 MG/2.5ML INH SOL NEB SCH ×4 (00:49→18:36)
[2018-03-19] MEDS: HYDROmorphone HCL 2 MG/ML VL IV PRN ×5 (01:50→22:40)
[2018-03-19] MEDS: ceFAZolin 2 GM in D5W 5% 100 ML IV SCH ×3 (04:56→20:18)
[2018-03-19 05:06] VITALS: BP 109/67
[2018-03-19 06:35] LABS: Hemoglobin 9.8 g/dL (13.5-17.5)
[2018-03-19] MEDS: MORPHINE SULF 30 mg ER tab PO SCH ×3 (06:37→22:51)
[2018-03-19 06:38] LABS: Hematocrit 30.4 % (41.0-53.0)
[2018-03-19] MEDS: InsuLIN REG 1unit/0.01ml Soln (100units/ml) SC SCH ×4 (06:38→22:00)
[2018-03-19] MEDS: ACCU-CHEK COMFORT CURVE STRIP VI SCH ×4 (06:38→22:53)
[2018-03-19 08:55] VITALS: BP 103/59
[2018-03-19] MEDS: ASCORBIC ACID 500 MG TAB PO SCH ×3 (09:58→22:52)
[2018-03-19] MEDS: MULTIPLE VITAMINS W/ MINERALS TAB PO SCH (09:58)
[2018-03-19] MEDS: PANTOPRAZOLE 40 MG TAB PO SCH (09:58)
[2018-03-19] MEDS: ENOXAPARIN SOD 40 MG/0.4 ML SYRINGE SC SCH (10:00)
[2018-03-19] MEDS: Pro-Stat SF 30ml Vanilla PO SCH ×2 (10:08→17:46)
[2018-03-19] MEDS: Glucerna Carbsteady SHAKE Stawberry 8oz PO SCH ×3 (10:08→17:46)
[2018-03-19] MEDS: FLUCONAZOLE 200MG/100ML 100 ML IV SCH (10:41)
[2018-03-19] MEDS: SODIUM CHLOR 0.9% PF (SALINE LOCK) 10ML VIAL/SYR IV SCH ×2 (10:42→22:51)
[2018-03-19] MEDS: LORazepam 2MG/ML-1ML VIAL IV PRN (11:37)
[2018-03-19 12:55] VITALS: BP 105/65
[2018-03-19] MEDS ORDERED: LACTULOSE 20Gm/30ML SOLN PO PRN (13:15)
[2018-03-19 16:58] VITALS: BP 114/71
[2018-03-19 22:00] VITALS: BP 125/77
[2018-03-19] MEDS: SENNA 8.6 MG TAB PO SCH (22:51)
[2018-03-19] MEDS: ONDANSETRON HCL 4 MG/2 ML VIAL IV PRN (23:00)
[2018-03-20] MEDS: IPRATROPIUM BROM 0.5 MG/2.5ML INH SOL NEB SCH ×5 (00:27→23:38)
[2018-03-20] MEDS: ALBUTEROL SULF 2.5 MG/0.5ML(0.5%) NEB SOLN NEB SCH ×5 (00:27→23:38)
[2018-03-20] MEDS: HYDROmorphone HCL 2 MG/ML VL IV PRN ×5 (03:38→23:51)
[2018-03-20] MEDS: ceFAZolin 2 GM in D5W 5% 100 ML IV SCH ×3 (03:39→21:27)
[2018-03-20] MEDS: MORPHINE SULF 30 mg ER tab PO SCH ×3 (06:00→21:29)
[2018-03-20] MEDS: InsuLIN REG 1unit/0.01ml Soln (100units/ml) SC SCH ×4 (06:25→21:43)
[2018-03-20] MEDS: ACCU-CHEK COMFORT CURVE STRIP VI SCH ×4 (06:26→21:29)
[2018-03-20 09:00] VITALS: BP 122/73
[2018-03-20] MEDS: ASCORBIC ACID 500 MG TAB PO SCH ×2 (09:17→21:28)
[2018-03-20] MEDS: PANTOPRAZOLE 40 MG TAB PO SCH (09:18)
[2018-03-20] MEDS: MULTIPLE VITAMINS W/ MINERALS TAB PO SCH (09:18)
[2018-03-20] MEDS: ENOXAPARIN SOD 40 MG/0.4 ML SYRINGE SC SCH (09:19)
[2018-03-20] MEDS: FLUCONAZOLE 200MG/100ML 100 ML IV SCH (09:20)
[2018-03-20] MEDS: ONDANSETRON HCL 4 MG/2 ML VIAL IV PRN ×3 (09:21→23:50)
[2018-03-20] MEDS: Pro-Stat SF 30ml Vanilla PO SCH ×2 (09:37→18:25)
[2018-03-20] MEDS: Glucerna Carbsteady SHAKE Stawberry 8oz PO SCH ×3 (09:37→18:25)
[2018-03-20 10:31] VITALS: BP 122/73
[2018-03-20] MEDS: SODIUM CHLOR 0.9% PF (SALINE LOCK) 10ML VIAL/SYR IV SCH ×2 (12:40→21:28)
[2018-03-20 12:43] LABS: Hematocrit 29.7 % (41.0-53.0); Hemoglobin 9.7 g/dL (13.5-17.5)
[2018-03-20 12:44] VITALS: BP 117/81
[2018-03-20 17:24] VITALS: BP 128/70
[2018-03-20] MEDS ORDERED: HYDROmorphone HCL 2 MG/ML VL IV PRN (20:00)
[2018-03-20] MEDS: SENNA 8.6 MG TAB PO SCH (21:28)
[2018-03-20 22:00] VITALS: BP 116/68
[2018-03-20 23:54] VITALS: BP 110/60
[2018-03-21 04:32] VITALS: BP 117/67
[2018-03-21] MEDS: ceFAZolin 2 GM in D5W 5% 100 ML IV SCH ×3 (04:42→20:38)
[2018-03-21] MEDS: HYDROmorphone HCL 2 MG/ML VL IV PRN ×4 (05:23→17:24)
[2018-03-21 05:25] VITALS: BP 97/63
[2018-03-21] MEDS: InsuLIN REG 1unit/0.01ml Soln (100units/ml) SC SCH ×4 (06:33→22:00)
[2018-03-21] MEDS: ACCU-CHEK COMFORT CURVE STRIP VI SCH ×4 (06:33→22:13)
[2018-03-21 06:39] VITALS: BP 102/61
[2018-03-21] MEDS: MORPHINE SULF 30 mg ER tab PO SCH ×4 (06:41→22:13)
[2018-03-21] MEDS: IPRATROPIUM BROM 0.5 MG/2.5ML INH SOL NEB SCH ×3 (06:42→18:41)
[2018-03-21] MEDS: ALBUTEROL SULF 2.5 MG/0.5ML(0.5%) NEB SOLN NEB SCH ×3 (06:43→18:41)
[2018-03-21 07:59] VITALS: BP 90/54
[2018-03-21] MEDS: Pro-Stat SF 30ml Vanilla PO SCH ×2 (08:00→18:00)
[2018-03-21] MEDS ORDERED: CATHFLO ACTIVASE (ALTEPLASE) 2 MG VIAL IV ONE (09:15)
[2018-03-21] MEDS: Glucerna Carbsteady SHAKE Stawberry 8oz PO SCH ×3 (09:40→18:39)
[2018-03-21] MEDS: PANTOPRAZOLE 40 MG TAB PO SCH (09:41)
[2018-03-21] MEDS: ASCORBIC ACID 500 MG TAB PO SCH ×2 (09:41→22:13)
[2018-03-21] MEDS: SODIUM CHLOR 0.9% PF (SALINE LOCK) 10ML VIAL/SYR IV SCH ×2 (09:41→22:13)
[2018-03-21] MEDS: ENOXAPARIN SOD 40 MG/0.4 ML SYRINGE SC SCH (09:42)
[2018-03-21] MEDS: MULTIPLE VITAMINS W/ MINERALS TAB PO SCH (09:42)
[2018-03-21] MEDS: LORazepam 0.5 MG TAB PO PRN (09:59)
[2018-03-21] MEDS: DULoxetine HCL 30 MG CAP PO SCH ×2 (09:59→22:13)
[2018-03-21] MEDS ORDERED: FLUCONAZOLE 200MG/100ML 100 ML IV SCH (10:00)
[2018-03-21 10:02] LABS: Hemoglobin 8.3 g/dL (13.5-17.5)
[2018-03-21 10:06] LABS: Hematocrit 25.4 % (41.0-53.0)
[2018-03-21] MEDS: FLUCONAZOLE 100 MG TAB PO SCH (10:12)
[2018-03-21 12:22] VITALS: BP 99/59
[2018-03-21 17:05] VITALS: BP 107/68
[2018-03-21] MEDS: SENNA 8.6 MG TAB PO SCH (22:14)
[2018-03-22] VITALS (11 sets, daily range): BP systolic 102–141; BP diastolic 64–96
[2018-03-22] MEDS: IPRATROPIUM BROM 0.5 MG/2.5ML INH SOL NEB SCH ×4 (00:23→18:52)
[2018-03-22] MEDS: ALBUTEROL SULF 2.5 MG/0.5ML(0.5%) NEB SOLN NEB SCH ×4 (00:23→18:52)
[2018-03-22] MEDS: HYDROmorphone HCL 2 MG/ML VL IV PRN ×5 (02:22→18:26)
[2018-03-22] MEDS: ceFAZolin 2 GM in D5W 5% 100 ML IV SCH (04:04)
[2018-03-22] MEDS: InsuLIN REG 1unit/0.01ml Soln (100units/ml) SC SCH ×4 (05:54→22:00)
[2018-03-22] MEDS: ACCU-CHEK COMFORT CURVE STRIP VI SCH ×4 (05:55→22:17)
[2018-03-22 06:03] LABS: Hemoglobin 7.6 g/dL (13.5-17.5)
[2018-03-22] MEDS: MORPHINE SULF 30 mg ER tab PO SCH ×3 (06:09→22:17)
[2018-03-22] MEDS: Glucerna Carbsteady SHAKE Stawberry 8oz PO SCH ×3 (08:56→18:26)
[2018-03-22] MEDS: Pro-Stat SF 30ml Vanilla PO SCH ×2 (08:56→18:26)
[2018-03-22] MEDS: DULoxetine HCL 30 MG CAP PO SCH ×2 (09:13→22:17)
[2018-03-22] MEDS: MULTIPLE VITAMINS W/ MINERALS TAB PO SCH (09:14)
[2018-03-22] MEDS: PANTOPRAZOLE 40 MG TAB PO SCH (09:14)
[2018-03-22] MEDS: ASCORBIC ACID 500 MG TAB PO SCH ×2 (09:14→22:00)
[2018-03-22] MEDS: ENOXAPARIN SOD 40 MG/0.4 ML SYRINGE SC SCH (09:15)
[2018-03-22] MEDS: FLUCONAZOLE 100 MG TAB PO SCH (09:15)
[2018-03-22] MEDS: SODIUM CHLOR 0.9% PF (SALINE LOCK) 10ML VIAL/SYR IV SCH ×2 (09:28→22:17)
[2018-03-22] MEDS: LEVOFLOXACIN 750MG 150 ML IV SCH (12:00)
[2018-03-22] MEDS: ONDANSETRON HCL 4 MG/2 ML VIAL IV PRN (14:27)
[2018-03-22] MEDS: SENNA 8.6 MG TAB PO SCH (22:17)
[2018-03-23] VITALS (7 sets, daily range): BP systolic 139–156; BP diastolic 76–97
[2018-03-23] MEDS: HYDROmorphone HCL 2 MG/ML VL IV PRN ×5 (00:35→19:56)
[2018-03-23] MEDS: ALBUTEROL SULF 2.5 MG/0.5ML(0.5%) NEB SOLN NEB SCH ×3 (00:54→12:00)
[2018-03-23] MEDS: IPRATROPIUM BROM 0.5 MG/2.5ML INH SOL NEB SCH ×3 (00:54→12:00)
[2018-03-23] MEDS: ACCU-CHEK COMFORT CURVE STRIP VI SCH ×3 (05:56→14:15)
[2018-03-23] MEDS: InsuLIN REG 1unit/0.01ml Soln (100units/ml) SC SCH ×3 (05:56→14:15)
[2018-03-23] MEDS: MORPHINE SULF 30 mg ER tab PO SCH ×3 (06:24→21:54)
[2018-03-23 08:05] LABS: Hematocrit 35.7 % (41.0-53.0); Hemoglobin 11.9 g/dL (13.5-17.5)
[2018-03-23] MEDS ORDERED: ENOXAPARIN SOD 40 MG/0.4 ML SYRINGE SC SCH (10:00)
[2018-03-23] MEDS: DULoxetine HCL 30 MG CAP PO SCH ×2 (10:01→21:53)
[2018-03-23] MEDS: ASCORBIC ACID 500 MG TAB PO SCH ×2 (10:01→21:54)
[2018-03-23] MEDS: LEVOFLOXACIN 750MG 150 ML IV SCH (10:01)
[2018-03-23] MEDS: MULTIPLE VITAMINS W/ MINERALS TAB PO SCH (10:01)
[2018-03-23] MEDS: Pro-Stat SF 30ml Vanilla PO SCH ×2 (10:02→18:20)
[2018-03-23] MEDS: FLUCONAZOLE 100 MG TAB PO SCH (10:02)
[2018-03-23] MEDS: Glucerna Carbsteady SHAKE Stawberry 8oz PO SCH ×3 (10:02→18:20)
[2018-03-23] MEDS: SODIUM CHLOR 0.9% PF (SALINE LOCK) 10ML VIAL/SYR IV SCH ×2 (10:03→21:54)
[2018-03-23] MEDS: PANTOPRAZOLE 40 MG TAB PO SCH (10:03)
[2018-03-23] MEDS: ENOXAPARIN SOD 40 MG/0.4 ML SYRINGE SC SCH (10:04)
[2018-03-23] MEDS ORDERED: ALBUTEROL SULF 2.5 MG/0.5ML(0.5%) NEB SOLN NEB PRN (13:15)
[2018-03-23] MEDS ORDERED: IPRATROPIUM BROM 0.5 MG/2.5ML INH SOL NEB PRN (13:15)
[2018-03-23] MEDS ORDERED: DEXTROSE (50%) 50ML SYRG IV PRN (14:15)
[2018-03-23] MEDS: ceFAZolin 1GM/50ML 50 ML IV SCH (21:52)
[2018-03-23] MEDS: SENNA 8.6 MG TAB PO SCH (21:53)
[2018-03-24] MEDS: ACCU-CHEK COMFORT CURVE STRIP VI SCH ×3 (01:09→23:58)
[2018-03-24] MEDS: InsuLIN REG 1unit/0.01ml Soln (100units/ml) SC SCH ×3 (01:09→23:58)
[2018-03-24] MEDS: HYDROmorphone HCL 2 MG/ML VL IV PRN ×2 (01:09→06:05)
[2018-03-24 05:00] VITALS: BP 148/78
[2018-03-24] MEDS: ceFAZolin 1GM/50ML 50 ML IV SCH (06:05)
[2018-03-24] MEDS: MORPHINE SULF 30 mg ER tab PO SCH ×3 (06:20→21:29)
[2018-03-24 08:00] VITALS: BP 143/94
[2018-03-24 08:25] VITALS: BP 143/94
[2018-03-24] MEDS: Pro-Stat SF 30ml Vanilla PO SCH ×2 (10:12→18:25)
[2018-03-24] MEDS: Glucerna Carbsteady SHAKE Stawberry 8oz PO SCH ×3 (10:12→18:25)
[2018-03-24] MEDS: LEVOFLOXACIN 750MG 150 ML IV SCH (10:13)
[2018-03-24] MEDS: SODIUM CHLOR 0.9% PF (SALINE LOCK) 10ML VIAL/SYR IV SCH ×2 (10:13→21:29)
[2018-03-24] MEDS: FLUCONAZOLE 100 MG TAB PO SCH (10:14)
[2018-03-24] MEDS: DULoxetine HCL 30 MG CAP PO SCH ×2 (10:14→21:29)
[2018-03-24] MEDS: ASCORBIC ACID 500 MG TAB PO SCH ×2 (10:15→21:29)
[2018-03-24] MEDS: PANTOPRAZOLE 40 MG TAB PO SCH (10:15)
[2018-03-24] MEDS: ENOXAPARIN SOD 40 MG/0.4 ML SYRINGE SC SCH (10:16)
[2018-03-24 12:31] VITALS: BP 124/87
[2018-03-24] MEDS: MULTIPLE VITAMINS W/ MINERALS TAB PO SCH (14:51)
[2018-03-24] MEDS: HYDROmorphone HCL 2 MG TAB PO PRN ×3 (15:05→23:58)
[2018-03-24 17:05] VITALS: BP 148/89
[2018-03-24] MEDS: SENNA 8.6 MG TAB PO SCH (21:29)
[2018-03-24 21:36] VITALS: BP 156/96
[2018-03-25] VITALS (7 sets, daily range): BP systolic 136–153; BP diastolic 87–98
[2018-03-25] MEDS: HYDROmorphone HCL 2 MG TAB PO PRN ×4 (04:37→18:50)
[2018-03-25] MEDS: MORPHINE SULF 30 mg ER tab PO SCH ×3 (06:22→21:48)
[2018-03-25] MEDS: Pro-Stat SF 30ml Vanilla PO SCH ×2 (09:05→18:35)
[2018-03-25] MEDS: LEVOFLOXACIN 750MG 150 ML IV SCH (09:05)
[2018-03-25] MEDS: ASCORBIC ACID 500 MG TAB PO SCH ×2 (09:06→21:47)
[2018-03-25] MEDS: SODIUM CHLOR 0.9% PF (SALINE LOCK) 10ML VIAL/SYR IV SCH ×2 (09:06→21:46)
[2018-03-25] MEDS: Glucerna Carbsteady SHAKE Stawberry 8oz PO SCH ×3 (09:06→18:35)
[2018-03-25] MEDS: FLUCONAZOLE 100 MG TAB PO SCH (09:06)
[2018-03-25] MEDS: PANTOPRAZOLE 40 MG TAB PO SCH (09:07)
[2018-03-25] MEDS: DULoxetine HCL 30 MG CAP PO SCH ×2 (09:07→21:48)
[2018-03-25] MEDS: ENOXAPARIN SOD 40 MG/0.4 ML SYRINGE SC SCH (09:07)
[2018-03-25] MEDS: MULTIPLE VITAMINS W/ MINERALS TAB PO SCH (09:07)
[2018-03-25] MEDS: InsuLIN REG 1unit/0.01ml Soln (100units/ml) SC SCH (14:15)
[2018-03-25] MEDS: ACCU-CHEK COMFORT CURVE STRIP VI SCH (15:12)
[2018-03-25] MEDS: SENNA 8.6 MG TAB PO SCH (21:51)
[2018-03-26] VITALS (7 sets, daily range): BP systolic 111–150; BP diastolic 65–95
[2018-03-26] MEDS: HYDROmorphone HCL 2 MG TAB PO PRN ×3 (00:07→09:57)
[2018-03-26] MEDS: ACCU-CHEK COMFORT CURVE STRIP VI SCH ×2 (02:15→14:15)
[2018-03-26] MEDS: InsuLIN REG 1unit/0.01ml Soln (100units/ml) SC SCH ×2 (02:15→14:15)
[2018-03-26 05:22] LABS: Basophils # (auto) 0 uL; Basophils % (auto) 0.2 % (0.0-2.0); Eosinophils # (auto) 0.1 uL; Hematocrit 35.8 % (41.0-53.0); Hemoglobin 11.7 g/dL (13.5-17.5); Lymphocytes # (auto) 1.3 uL; Lymphocytes % (auto) 28.5 % (10.0-50.0); Mean Corpuscular Hemoglobin 27.5 pg (28.0-32.0); Mean Corpuscular Hgb Conc. 32.7 g/dL (32.0-36.0); Mean Corpuscular Volume 84.1 fL (80.0-100.0); Monocytes # (auto) 0.7 uL; Monocytes % (auto) 16.1 % (0.0-12.0); Neutrophils # (auto) 2.3 uL; Neutrophils % (auto) 52.2 % (37.0-80.0); Nucleated Red Blood Cells % 0.1 %; Platelet Count (auto) 177 10^3/uL (140-450); Red Blood Cells 4.25 10^6/uL (4.5-5.90); Red Cell Distribution Width 19.3 % (11.8-14.3); White Blood Cell 4.5 10^3/uL (4.4-10.8)
[2018-03-26] MEDS: MORPHINE SULF 30 mg ER tab PO SCH ×3 (06:50→22:02)
[2018-03-26] MEDS: Pro-Stat SF 30ml Vanilla PO SCH ×2 (08:18→18:00)
[2018-03-26] MEDS: Glucerna Carbsteady SHAKE Stawberry 8oz PO SCH ×3 (08:18→18:00)
[2018-03-26] MEDS: MULTIPLE VITAMINS W/ MINERALS TAB PO SCH (09:56)
[2018-03-26] MEDS: DULoxetine HCL 30 MG CAP PO SCH ×2 (09:56→22:02)
[2018-03-26] MEDS: LEVOFLOXACIN 750MG 150 ML IV SCH (09:56)
[2018-03-26] MEDS: PANTOPRAZOLE 40 MG TAB PO SCH (09:56)
[2018-03-26] MEDS: ASCORBIC ACID 500 MG TAB PO SCH ×2 (09:57→22:02)
[2018-03-26] MEDS: ENOXAPARIN SOD 40 MG/0.4 ML SYRINGE SC SCH (09:57)
[2018-03-26] MEDS: SODIUM CHLOR 0.9% PF (SALINE LOCK) 10ML VIAL/SYR IV SCH ×2 (09:57→22:03)
[2018-03-26] MEDS ORDERED: PROMETHAZINE HCL 25 MG/ML 1ML IV PRN (10:45)
[2018-03-26] MEDS: LORazepam 0.5 MG TAB PO PRN (11:29)
[2018-03-26 19:31] LABS: Albumin 2.6 g/dL (3.4-5.0); BUN/Creatinine Ratio 7.7; Bilirubin, Total 0.5 mg/dL (0.2-1.0); Calcium 8.3 mg/dL (8.5-10.1); Potassium 3.4 mmol/L (3.5-5.1); Total Protein 7.7 g/dL (6.4-8.2)
[2018-03-26] MEDS: SENNA 8.6 MG TAB PO SCH (22:00)
[2018-03-27] MEDS: InsuLIN REG 1unit/0.01ml Soln (100units/ml) SC SCH ×2 (02:15→14:55)
[2018-03-27] MEDS: ACCU-CHEK COMFORT CURVE STRIP VI SCH ×2 (02:22→14:55)
[2018-03-27] MEDS: HYDROmorphone HCL 2 MG TAB PO PRN ×3 (02:23→18:53)
[2018-03-27 04:17] VITALS: BP 117/80
[2018-03-27] MEDS: MORPHINE SULF 30 mg ER tab PO SCH ×3 (06:34→22:29)
[2018-03-27 08:08] VITALS: BP 137/80
[2018-03-27] MEDS: Glucerna Carbsteady SHAKE Stawberry 8oz PO SCH ×3 (09:46→18:52)
[2018-03-27] MEDS: Pro-Stat SF 30ml Vanilla PO SCH ×2 (09:47→18:00)
[2018-03-27] MEDS: SODIUM CHLOR 0.9% PF (SALINE LOCK) 10ML VIAL/SYR IV SCH ×2 (09:47→22:28)
[2018-03-27] MEDS: LEVOFLOXACIN 750MG 150 ML IV SCH (09:47)
[2018-03-27] MEDS: MULTIPLE VITAMINS W/ MINERALS TAB PO SCH (09:48)
[2018-03-27] MEDS: ASCORBIC ACID 500 MG TAB PO SCH ×2 (09:48→22:29)
[2018-03-27] MEDS: PANTOPRAZOLE 40 MG TAB PO SCH (09:48)
[2018-03-27] MEDS: DULoxetine HCL 30 MG CAP PO SCH ×2 (09:48→22:28)
[2018-03-27] MEDS: ENOXAPARIN SOD 40 MG/0.4 ML SYRINGE SC SCH (09:49)
[2018-03-27] MEDS ORDERED: HYDROmorphone HCL 2 MG TAB PO PRN (10:00)
[2018-03-27] MEDS ORDERED: KETOROLAC TROMETH 30 MG/ML 1ML VIAL IV PRN (10:00)
[2018-03-27] MEDS ORDERED: KETOROLAC TROMETH 30 MG/ML 1ML VIAL IV ONE (10:00)
[2018-03-27 12:14] VITALS: BP 126/84
[2018-03-27] MEDS ORDERED: TEMAZEPAM 15 MG CAP PO PRN (16:30)
[2018-03-27] MEDS: SODIUM CHLORIDE 0.9% 1,000 ML IV SCH (18:52)
[2018-03-27 21:40] VITALS: BP 117/75
[2018-03-27] MEDS: SENNA 8.6 MG TAB PO SCH (22:29)
[2018-03-28] MEDS: InsuLIN REG 1unit/0.01ml Soln (100units/ml) SC SCH ×2 (02:15→14:15)
[2018-03-28] MEDS: ACCU-CHEK COMFORT CURVE STRIP VI SCH ×2 (03:04→14:15)
[2018-03-28] MEDS: HYDROmorphone HCL 2 MG TAB PO PRN ×5 (03:07→20:53)
[2018-03-28] MEDS: SODIUM CHLORIDE 0.9% 1,000 ML IV SCH ×3 (03:08→22:18)
[2018-03-28 04:40] VITALS: BP 142/90
[2018-03-28] MEDS: MORPHINE SULF 30 mg ER tab PO SCH ×3 (06:00→19:04)
[2018-03-28 09:20] VITALS: BP 137/81
[2018-03-28] MEDS ORDERED: LORazepam 0.5 MG TAB PO PRN (09:30)
[2018-03-28] MEDS: MULTIPLE VITAMINS W/ MINERALS TAB PO SCH (10:00)
[2018-03-28] MEDS: PANTOPRAZOLE 40 MG TAB PO SCH (10:00)
[2018-03-28] MEDS: SODIUM CHLOR 0.9% PF (SALINE LOCK) 10ML VIAL/SYR IV SCH ×2 (10:00→22:18)
[2018-03-28] MEDS: Glucerna Carbsteady SHAKE Stawberry 8oz PO SCH ×3 (10:00→19:04)
[2018-03-28] MEDS: DULoxetine HCL 30 MG CAP PO SCH ×2 (10:00→22:18)
[2018-03-28] MEDS: LEVOFLOXACIN 750MG 150 ML IV SCH (10:00)
[2018-03-28] MEDS: ASCORBIC ACID 500 MG TAB PO SCH ×2 (10:00→22:18)
[2018-03-28] MEDS: Pro-Stat SF 30ml Vanilla PO SCH ×2 (10:00→19:05)
[2018-03-28 12:30] VITALS: BP 135/68
[2018-03-28 13:55] LABS: Urine Bacteria FEW /hpf (None Seen); Urine Blood 2+ /uL (Negative); Urine Mucus FEW (None Seen); Urine Specific Gravity 1.014 (1.001-1.035); Urine WBC 40 /hpf (0 - 3)
[2018-03-28 16:42] VITALS: BP 136/85
[2018-03-28 22:04] VITALS: BP 137/87
[2018-03-28] MEDS: SENNA 8.6 MG TAB PO SCH (22:18)
[2018-03-29] MEDS: MORPHINE SULF 30 mg ER tab PO SCH ×4 (00:49→18:09)
[2018-03-29] MEDS: InsuLIN REG 1unit/0.01ml Soln (100units/ml) SC SCH ×2 (01:41→14:15)
[2018-03-29] MEDS: ACCU-CHEK COMFORT CURVE STRIP VI SCH ×2 (01:41→15:16)
[2018-03-29 04:40] VITALS: BP 147/94
[2018-03-29] MEDS: Glucerna Carbsteady SHAKE Stawberry 8oz PO SCH ×3 (07:55→18:10)
[2018-03-29] MEDS: Pro-Stat SF 30ml Vanilla PO SCH ×2 (07:56→18:10)
[2018-03-29 08:00] VITALS: BP 131/82
[2018-03-29] MEDS: SODIUM CHLORIDE 0.9% 1,000 ML IV SCH ×2 (09:03→18:10)
[2018-03-29] MEDS: ASCORBIC ACID 500 MG TAB PO SCH (09:20)
[2018-03-29] MEDS: LEVOFLOXACIN 750MG 150 ML IV SCH (09:20)
[2018-03-29] MEDS: PANTOPRAZOLE 40 MG TAB PO SCH (09:20)
[2018-03-29] MEDS: MULTIPLE VITAMINS W/ MINERALS TAB PO SCH (09:20)
[2018-03-29] MEDS: DULoxetine HCL 30 MG CAP PO SCH (09:20)
[2018-03-29] MEDS: HYDROmorphone HCL 2 MG TAB PO PRN ×2 (09:23→16:35)
[2018-03-29] MEDS: SODIUM CHLOR 0.9% PF (SALINE LOCK) 10ML VIAL/SYR IV SCH (09:27)
[2018-03-29 12:00] VITALS: BP 140/87
[2018-03-29 16:00] VITALS: BP 141/88
== END 2018-03-29 19:00 | disposition short-term general hospital (02) | DRG 853 ==
LOC: EDBD 19:40 → ER 19:40 → TELE 19:41 → TELE-EAST 03-08 13:33 → ICU WEST 03-08 18:26 → DOU IN ICU 03-10 17:04 → TELE-WESTW 03-12 14:44 → WEST WING 03-14 10:12
PROVIDERS: ADMIT Nurse Practitioner Family; ATTEND Internal Medicine
PROC: 0DBB0ZZ Excision of Ileum, Open Approach (ICD-10-PCS; 2018-03-17)
PROC: 0QB40ZZ Excision of Right Acetabulum, Open Approach (ICD-10-PCS; principal; 2018-03-17 08:45)
PROC: 30233N1 Transfusion of Nonautologous Red Blood Cells into Peripheral Vein, Percutaneous Approach (ICD-10-PCS; 2018-03-22)
DX: A41.01 Sepsis due to Methicillin susceptible Staphylococcus aureus (principal); E43 Unspecified severe protein-calorie malnutrition; R65.21 Severe sepsis with septic shock; J69.0 Pneumonitis due to inhalation of food and vomit; G93.41 Metabolic encephalopathy; J15.6 Pneumonia due to other Gram-negative bacteria; E87.1 Hypo-osmolality and hyponatremia; N30.00 Acute cystitis without hematuria; M87.9 Osteonecrosis, unspecified; B37.49 Other urogenital candidiasis; J98.19 Other pulmonary collapse; M00.9 Pyogenic arthritis, unspecified; T83.83XA Hemorrhage due to genitourinary prosthetic devices, implants and grafts, initial encounter; M86.8X6 Other osteomyelitis, lower leg; E87.6 Hypokalemia; D64.9 Anemia, unspecified; E86.0 Dehydration; E11.69 Type 2 diabetes mellitus with other specified complication; Z68.29 Body mass index [BMI] 29.0-29.9, adult; D50.9 Iron deficiency anemia, unspecified; E11.22 Type 2 diabetes mellitus with diabetic chronic kidney disease; E11.42 Type 2 diabetes mellitus with diabetic polyneuropathy; F12.90 Cannabis use, unspecified, uncomplicated; F17.200 Nicotine dependence, unspecified, uncomplicated; G89.4 Chronic pain syndrome; I12.9 Hypertensive chronic kidney disease with stage 1 through stage 4 chronic kidney disease, or unspecified chronic kidney disease; K59.00 Constipation, unspecified; M21.379 Foot drop, unspecified foot; M47.816 Spondylosis without myelopathy or radiculopathy, lumbar region; M54.18 Radiculopathy, sacral and sacrococcygeal region; M19.90 Unspecified osteoarthritis, unspecified site; M77.9 Enthesopathy, unspecified; N18.9 Chronic kidney disease, unspecified; Y84.6 Urinary catheterization as the cause of abnormal reaction of the patient, or of later complication, without mention of misadventure at the time of the procedure; Z82.3 Family history of stroke; Z79.4 Long term (current) use of insulin; Z83.3 Family history of diabetes mellitus; Z91.19 Patient's noncompliance with other medical treatment and regimen
CPT/HCPCS: 36415; 36569; 36600; 70450; 71045; 71260; 72125; 72131; 72192; 73502; 74176; 80048; 80053; 80202; 80307; 81001; 82550; 82805; 82962; 83036; 83605; 83615; 83735; 83880; 84132; 84484; 85014; 85018; 85025; 85610; 85652; 85730; 86141; 86850; 86900; 86901; 86920; 87040; 87070; 87075; 87077; 87081; 87086; 87147; 87186; 87205; 87493; 93005; 94640; 94761; 96361; 96365; 96375; 96376; 97110; 97163; 97530; C9113; J0330; J0690; J0696; J1450; J1815; J1885; J1956; J2250; J2405; J2543; J2704; J3480; J3490; J7060; P9047

== ENCOUNTER 2019-06-07 10:05 | Emergency (ER) | payer MEDICARE, MEDICAID ==
[~2019-06-07] VITALS: Ht 177.8 cm; Wt 99.8 kg
[2019-06-07] MEDS ORDERED: SODIUM CHLORIDE 0.9% 1,000 ML IVB ONE (10:27)
[2019-06-07] MEDS ORDERED: SODIUM CHLORIDE 0.9% 1,000 ML IV ONE ×2 (10:27→12:46)
[2019-06-07 11:01] LABS: Basophils # (auto) 0 uL; Basophils % (auto) 0.5 % (0.0-2.0); Eosinophils # (auto) 0.2 uL; Eosinophils % (auto) 2.2 % (0.0-7.0); Hematocrit 42.2 % (41.0-53.0); Hemoglobin 14.7 g/dL (13.5-17.5); Lymphocytes % (auto) 25.7 % (10.0-50.0); Mean Corpuscular Hemoglobin 29.4 pg (28.0-32.0); Mean Corpuscular Hgb Conc. 34.8 g/dL (32.0-36.0); Mean Corpuscular Volume 84.5 fL (80.0-100.0); Monocytes # (auto) 0.4 uL; Monocytes % (auto) 5.6 % (0.0-12.0); Neutrophils # (auto) 5.1 uL; Nucleated Red Blood Cells % 0.1 %; Platelet Count (auto) 140 10^3/uL (140-450); Red Blood Cells 4.99 10^6/uL (4.5-5.90); Red Cell Distribution Width 14.2 % (11.8-14.3); White Blood Cell 7.7 10^3/uL (4.4-10.8)
[2019-06-07 11:14] LABS: INR 1.16 (0.9-1.15); Partial Thromboplastin Time 27.4 sec (23.64-32.05)
[2019-06-07 11:34] VITALS: BP 133/74
[2019-06-07 11:40] LABS: Alanine Aminotransferase 37 U/L (16-61); Albumin 3.3 g/dL (3.4-5.0); Anion Gap 5 (5-15); Aspartate Aminotransferase 25 U/L (15-37); BUN/Creatinine Ratio 16.5; Blood Alcohol < 3.0 mg/dL (0-5); Blood Urea Nitrogen 14 mg/dL (7-18); Calcium 8.1 mg/dL (8.5-10.1); Carbon Dioxide 27 mmol/L (21-32); Chloride 108 mmol/L (98-107); GFR African American 116 mL/min; GFR Non-African American 96 mL/min; Glucose 107 mg/dL (74-106); Potassium 3.8 mmol/L (3.5-5.1); Sodium 140 mmol/L (136-145)
[2019-06-07 11:44] LABS: Alkaline Phosphatase 78 U/L (45-117); Bilirubin, Total 0.6 mg/dL (0.2-1.0); Total Protein 8.8 g/dL (6.4-8.2)
[2019-06-07 11:45] LABS: Lactic Acid w/Reflex 2.3 mmol/L (0.4-2.0)
[2019-06-07 12:13] LABS: Urine Bacteria FEW /hpf (None Seen); Urine Blood 1+ /uL (Negative); Urine Budding Yeast MODERATE /hpf (None Seen); Urine Mucus FEW (None Seen); Urine Specific Gravity 1.017 (1.001-1.035); Urine WBC 1099 /hpf (0 - 3); Urine WBC Clumps PRESENT /hpf (None Seen)
[2019-06-07 12:26] LABS: Alcohol, Urine < 3.0 mg/dL (0-5); Amphetamine Screen, Urine NEGATIVE (NEGATIVE); Barbiturate Scree,Urine NEGATIVE (NEGATIVE); Benzodiazephine Screen, Urine NEGATIVE (NEGATIVE); Cannabinoid Screen, Urine POSITIVE (NEGATIVE); Cocaine Screen, Urine NEGATIVE (NEGATIVE); Phencyclidine Screen, Urine NEGATIVE (NEGATIVE)
[2019-06-07 12:34] LABS: Opiate Scree,Urine POSITIVE (NEGATIVE)
[2019-06-07] MEDS ORDERED: cefTRIAXone 1GM/50ML D5W 50 ML IV ONE ×2 (13:00)
== END 2019-06-07 14:47 | disposition home or self-care (01) ==
LOC: EDBD 10:05 → ER 10:11
DX: F41.9 Anxiety disorder, unspecified (principal); K74.60 Unspecified cirrhosis of liver; N39.0 Urinary tract infection, site not specified; E87.2 Acidosis; E46 Unspecified protein-calorie malnutrition; I50.9 Heart failure, unspecified; E11.9 Type 2 diabetes mellitus without complications; Z68.31 Body mass index [BMI] 31.0-31.9, adult; Z90.49 Acquired absence of other specified parts of digestive tract
CPT/HCPCS: 36415; 70450; 71045; 74176; 80053; 80307; 80320; 81001; 82962; 83605; 84484; 85025; 85610; 85730; 87040; 87086; 96361; 96365; 99284; J0696; J7030

== ENCOUNTER 2019-07-17 15:22 | Inpatient (IN) | payer MEDICARE, MEDICAID ==
[~2019-07-17] VITALS: Ht 175.3 cm; Wt 91.0 kg
[2019-07-17] MEDS ORDERED: cloNIDine HCL 0.1 MG TAB PO ONE (16:00)
[2019-07-17] MEDS ORDERED: ASPirin 81 mg TAB PO ONE ×2 (16:00→16:15)
[2019-07-17 16:29] LABS: Basophils # (auto) 0 uL; Basophils % (auto) 0.3 % (0.0-2.0); Eosinophils # (auto) 0.1 uL; Eosinophils % (auto) 1.3 % (0.0-7.0); Hemoglobin 15.2 g/dL (13.5-17.5); Lymphocytes # (auto) 1.6 uL; Lymphocytes % (auto) 20.2 % (10.0-50.0); Mean Corpuscular Hemoglobin 29.1 pg (28.0-32.0); Mean Corpuscular Hgb Conc. 33.8 g/dL (32.0-36.0); Mean Corpuscular Volume 86.1 fL (80.0-100.0); Monocytes # (auto) 0.5 uL; Monocytes % (auto) 6.5 % (0.0-12.0); Neutrophils # (auto) 5.7 uL; Neutrophils % (auto) 71.7 % (37.0-80.0); Nucleated Red Blood Cells % 0.1 %; Platelet Count (auto) 152 10^3/uL (140-450); Red Blood Cells 5.23 10^6/uL (4.5-5.90); Red Cell Distribution Width 14.6 % (11.8-14.3); White Blood Cell 7.9 10^3/uL (4.4-10.8)
[2019-07-17 16:45] LABS: Alanine Aminotransferase 32 U/L (16-61); Albumin 3.5 g/dL (3.4-5.0); Anion Gap 4 (5-15); BUN/Creatinine Ratio 21.3; Blood Urea Nitrogen 17 mg/dL (7-18); Calcium 9.2 mg/dL (8.5-10.1); Carbon Dioxide 26 mmol/L (21-32); Chloride 107 mmol/L (98-107); GFR African American 124 mL/min; GFR Non-African American 102 mL/min; Glucose 171 mg/dL (74-106); Sodium 137 mmol/L (136-145)
[2019-07-17 16:54] LABS: Alkaline Phosphatase 79 U/L (45-117); Aspartate Aminotransferase 20 U/L (15-37); Bilirubin, Total 0.9 mg/dL (0.2-1.0); Total Protein 9.2 g/dL (6.4-8.2)
[2019-07-17] MEDS ORDERED: INSREGI (21:30)
[2019-07-17] MEDS ORDERED: HYDR2TAB2 PO (21:30)
[2019-07-17] MEDS ORDERED: INSU1INJ19 SC (21:30)
[2019-07-17] MEDS ORDERED: DULO1CAP5 PO (21:30)
[2019-07-17] MEDS ORDERED: LEV25T PO (21:30)
[2019-07-17] MEDS ORDERED: NITR100C6 PO (21:30)
[2019-07-17] MEDS ORDERED: MORP30TA5 PO (21:30)
[2019-07-17] MEDS ORDERED: NITROGLYCERIN 0.4 MG SL TAB SL PRN (21:45)
[2019-07-17] MEDS ORDERED: hydrALAZINE HCL 20 MG/ML VL IV PRN (21:45)
[2019-07-17] MEDS ORDERED: MORPHINE SULF INJ 2 MG/ML SYRINGE 1ML IV PRN (21:45)
--- NOTE | 2019-07-17 23:00 | NUR ---
Telemetry admit from [facility] admitted to Telemetry unit after SBAR received. Patient oriented to ABDIAZIZ QUIROS RN primary RN, unit, room, bed, and unit policies regarding patient care and visiting hours. Patient now on continuous telemetry monitoring, tele box # 3. Patient placed on bedside oxygen, weighed by bedscale and encouraged to call if they need something. All questions and concerns addressed, patient verbalized understanding.
--- NOTE | 2019-07-18 00:11 | NUR ---
Dr. Sanches paged: Dr. Sanches paged d/t patient complaining of back pain that is tolerable at this time but would like PRN pain medication in case his pain increases and is no longer tolerable.
[2019-07-18] MEDS ORDERED: DEXTROSE (50%) 50ML SYRG IV ONE (00:45)
--- NOTE | 2019-07-18 00:47 | NUR ---
Dr. Sanches returned page: informed of patient admission to [facility] floor and New orders received and verified.
[2019-07-18] MEDS ORDERED: PNEUMOCOCCAL VACC POLYS 25 MCG/0.5 ML VIAL IM ONE (01:15)
[2019-07-18 02:27] LABS: Urine Bacteria FEW /hpf (None Seen); Urine Blood Negative /uL (Negative); Urine Specific Gravity 1.017 (1.001-1.035); Urine WBC 236 /hpf (0 - 3); Urine WBC Clumps PRESENT /hpf (None Seen)
[2019-07-18] MEDS: HYDROmorphone HCL 2 MG/ML VL IV PRN ×4 (03:45→21:12)
[2019-07-18 04:53] VITALS: BP 133/89
[2019-07-18 06:27] LABS: Basophils # (auto) 0 uL; Basophils % (auto) 0.2 % (0.0-2.0); Eosinophils # (auto) 0.2 uL; Eosinophils % (auto) 2.7 % (0.0-7.0); Hematocrit 42.5 % (41.0-53.0); Hemoglobin 14.6 g/dL (13.5-17.5); Lymphocytes # (auto) 2.4 uL; Lymphocytes % (auto) 32.7 % (10.0-50.0); Mean Corpuscular Hemoglobin 29.2 pg (28.0-32.0); Mean Corpuscular Hgb Conc. 34.2 g/dL (32.0-36.0); Mean Corpuscular Volume 85.3 fL (80.0-100.0); Monocytes # (auto) 0.5 uL; Monocytes % (auto) 6.6 % (0.0-12.0); Neutrophils # (auto) 4.2 uL; Neutrophils % (auto) 57.8 % (37.0-80.0); Nucleated Red Blood Cells % 0.1 %; Platelet Count (auto) 166 10^3/uL (140-450); Red Blood Cells 4.99 10^6/uL (4.5-5.90); Red Cell Distribution Width 14.6 % (11.8-14.3); White Blood Cell 7.3 10^3/uL (4.4-10.8)
[2019-07-18 06:40] LABS: Albumin 3.3 g/dL (3.4-5.0); Calcium 8.8 mg/dL (8.5-10.1); Potassium 3.8 mmol/L (3.5-5.1)
[2019-07-18 06:44] LABS: BUN/Creatinine Ratio 25.8; Total Protein 8.8 g/dL (6.4-8.2)
[2019-07-18] MEDS ORDERED: InsuLIN REG 1unit/0.01ml Soln (100units/ml) SC ONE (07:00)
[2019-07-18] MEDS ORDERED: ACCU-CHEK COMFORT CURVE STRIP VI ONE (07:00)
[2019-07-18 08:00] VITALS: BP 145/92
[2019-07-18] MEDS ORDERED: DEXTROSE (50%) 50ML SYRG IV PRN (08:00)
[2019-07-18] MEDS ORDERED: LEVOTHYROXINE SODIUM 25 MCG TAB PO ONE (08:00)
--- NOTE | 2019-07-18 08:00 | NUR ---
ASSESSMENT NOTE PT IS ALERT ORIENTED X4, RESTING IN BED COMFORTABLY, NO DISTRESS NOTED, ABLE TO VERBALIS HIS NEEDS,SELF REPOSITION, PT SUFFER FROM CHRONIC PAIN ON FEET, RT HIP, AND BOTH FEET, CONTINUE ON PAIN MEDS AT ALL TIMES, CALL LIGHT WITHIN REACH
[2019-07-18 08:58] VITALS: BP 137/79
--- NOTE | 2019-07-18 11:15 | NUR ---
COMMERCIAL LAWN SPECIALIST AT BEDS DAMIEN
[2019-07-18] MEDS: InsuLIN REG 1unit/0.01ml Soln (100units/ml) SC SCH ×3 (11:37→21:39)
[2019-07-18] MEDS: ACCU-CHEK COMFORT CURVE STRIP VI SCH ×3 (11:37→21:39)
[2019-07-18 12:30] VITALS: BP 129/93
--- NOTE | 2019-07-18 14:21 | NUR ---
DR FRANKLIN THE [employer] BODY BUILDER AT BED SIDE FOLLOWING UP ON PT, ENCOURAGE PT TO FOLLOW UP WITH HIM OUTPATIENT AND HIS OFFICE IS CLOSE TO DR STANTON, MAY DISCHARGE HOME TOMORROW
--- NOTE | 2019-07-18 14:45 | NUR ---
DR STANTON AT BED SIDE FOLLOWING UP ON PT WITH NEW LAB ORDERS, INFORM PT THAT HE IS GOING HOME TOMORROW
--- NOTE | 2019-07-18 16:26 | NUR ---
assessment Patient is a 68 year old male who is alert and oriented. Patients cognitive abilities are intact. Prior to admission patient lived home with family and functioned with assistance. Per patient he will return home to his prior living arrangements post discharge and family will transport him home. Patient informed me his PCP is Dr Sanches. Patient informed me he is on service with [facility]. Patient will need a resumption order on discharge. Patient has a wheelchair for home use. I informed patient he has a right to speak to a social professionals regarding all care. I informed patient he has a right to participate in any and all discharge planning. Patient does not have a POA and advanced directive. I have offered patient information on POA and advanced directives. I informed the patient the advantages and benefits of having an Advanced Directive. Patient verbalized understanding and agreed to discharge plan. Addendum: 07/18/19 at 1629 by Carolyn YEN Amended: Links added.
--- NOTE | 2019-07-18 16:28 | NUR ---
Discharge planning per SS consult, patient has orders to resume home health. Patient was on services with [facility] [phone], and he was in agreement to return to them. Referral faxed, placed a follow up call, spoke with Rosalinda, and was advised that patient is okay to return to services upon discharge. Advised that patient is tentatively scheduled to discharge tomorrow 07.19.2019 per Jade-Nurse.
[2019-07-18 17:19] VITALS: BP 119/80
--- NOTE | 2019-07-18 18:47 | NUR ---
PATIENT CONTINUE STABLE, CONTINUE MONITORING
--- NOTE | 2019-07-18 19:00 | NUR ---
Opening Shift Note Assumed care of patient, awake and alert. No S/S of distress/SOB or pain. Instructed on POC and to call for assist PRN, will continue to monitor for changes Q1hr and PRN.
[2019-07-18 22:00] VITALS: BP 150/78
[2019-07-18] MEDS ORDERED: DULoxetine HCL 30 MG CAP PO SCH (22:00)
[2019-07-18] MEDS ORDERED: BISACODYL 5 MG EC TAB PO SCH (22:00)
[2019-07-19] MEDS: HYDROmorphone HCL 2 MG/ML VL IV PRN ×4 (02:07→14:11)
[2019-07-19 05:00] VITALS: BP 131/74
[2019-07-19] MEDS: ACCU-CHEK COMFORT CURVE STRIP VI SCH ×2 (06:32→13:21)
[2019-07-19] MEDS: InsuLIN REG 1unit/0.01ml Soln (100units/ml) SC SCH ×2 (06:33→11:30)
[2019-07-19] MEDS ORDERED: LEVOTHYROXINE SODIUM 25 MCG TAB PO SCH (07:00)
[2019-07-19 07:13] LABS: Cholesterol 114 mg/dL (< 200); HDL Cholesterol 33 mg/dL (40-59); LDL Cholesterol 66 mg/dL (< 100); Triglycerides 82 mg/dL (< 150)
[2019-07-19 08:00] VITALS: BP 145/92
--- NOTE | 2019-07-19 08:00 | NUR ---
ASSESSMENT NOTE PT IS ALERT ORIENTED X4, RESTING IN BED COMFORTABLY, NO DISTRESS NOTED, ABLE TO VERBALIS HIS NEEDS,SELF REPOSITION NEEDED, CONTINUE ON PAIN MEDS AT ALL TIMES, PT AWARE THAT DR STANTON WILL DISCHARGE HIM HOME [facility] [place] WITHIN REACH
[2019-07-19 09:16] VITALS: BP 124/88
[2019-07-19 12:52] VITALS: BP 138/83
--- NOTE | 2019-07-19 13:20 | NUR ---
NAUSEA AND VOMITING NEW ORDERS FOR NAUSEA MEDS OBTAIN, GIVEN TO PT, RE ENFORCE SIDE EFFECT OF DILAUDID
[2019-07-19] MEDS ORDERED: PROMETHAZINE HCL 25 MG/ML 1ML IV PRN (13:30)
[2019-07-19 13:35] VITALS: BP 145/92
--- NOTE | 2019-07-19 14:14 | NUR ---
FAMILY PATIENT'S AT BED SIDE AWARE OF THE DISCHARGE HOME
[2019-07-19] MEDS ORDERED: PNEUMOCOCCAL VACC POLYS 25 MCG/0.5 ML VIAL IM ONE (16:15)
--- NOTE | 2019-07-19 16:38 | NUR ---
Discharge instructions given as ordered. Encourage to follow up with PMD as instructed. All questions and concerns addressed. Patient verbalized understanding. Medication reconciliation form completed and copy given to patient. Home medications held in Pharmacy returned to patient, and needed vaccines given. IV removed with catheter intact, pressure dressing applied.Telemetry unit returned to ICU. Patient taken to vehicle via wheelchair with all personal belongings, accompanied by staff and family member. No distress noted at time of departure.
== END 2019-07-19 16:40 | disposition home or self-care (01) | DRG 683 ==
LOC: ER 15:22 → TELE 15:23 → TELE-EAST 23:06
PROVIDERS: ADMIT Internal Medicine; ATTEND Internal Medicine
DX: I12.9 Hypertensive chronic kidney disease with stage 1 through stage 4 chronic kidney disease, or unspecified chronic kidney disease (principal); I20.0 Unstable angina; N39.0 Urinary tract infection, site not specified; N18.9 Chronic kidney disease, unspecified; E11.22 Type 2 diabetes mellitus with diabetic chronic kidney disease; E11.40 Type 2 diabetes mellitus with diabetic neuropathy, unspecified; Z99.3 Dependence on wheelchair; M19.90 Unspecified osteoarthritis, unspecified site; E03.9 Hypothyroidism, unspecified; M54.9 Dorsalgia, unspecified; G89.29 Other chronic pain; Z23 Encounter for immunization; Z83.3 Family history of diabetes mellitus; Z87.442 Personal history of urinary calculi; Z90.49 Acquired absence of other specified parts of digestive tract
CPT/HCPCS: 36415; 70450; 71045; 80053; 80061; 81001; 82962; 83036; 84443; 84484; 85025; 93306; 96372; 96374; 96375; 99291; G0378; J1815

== ENCOUNTER → 2019-09-09 | Emergency (ER) | payer MEDICARE, MEDICAID ==
[~2019-09-09] MED LIST changes: -ALPR1TAB2 PO; +DULO1CAP5 PO; +HYDR2TAB2 PO; +INSREGI; +INSU1INJ19 SC; +LEV25T PO; +MORP30TA5 PO; +NITR100C6 PO
== END | disposition left against medical advice (07) ==
LOC: ER 01:04
DX: R05 Cough (principal); Z53.21 Procedure and treatment not carried out due to patient leaving prior to being seen by health care provider

== ENCOUNTER 2020-11-25 13:18 | Inpatient (IN) | payer MEDICARE, MEDICAID ==
[~2020-11-25] VITALS: Ht 177.8 cm; Wt 111.0 kg
[2020-11-25 13:57] LABS: Basophils # (auto) 0 10 ^3/uL (0-0.2); Basophils % (auto) 0.1 % (0.0-2.0); Eosinophils # (auto) 0.1 10 ^3/uL (0-0.8); Eosinophils % (auto) 1.4 % (0.0-7.0); Hematocrit 44.2 % (41.0-53.0); Lymphocytes # (auto) 1.3 10 ^3/uL (0.4-5.4); Lymphocytes % (auto) 16.2 % (10.0-50.0); Mean Corpuscular Hemoglobin 28.4 pg (28.0-32.0); Mean Corpuscular Hgb Conc. 33.9 g/dL (32.0-36.0); Mean Corpuscular Volume 83.8 fL (80.0-100.0); Monocytes # (auto) 0.5 10 ^3/uL (0-1.3); Neutrophils # (auto) 6.2 10 ^3/uL (1.6-8.6); Neutrophils % (auto) 76.3 % (37.0-80.0); Nucleated Red Blood Cells % 0.2 %; Platelet Count (auto) 145 10^3/uL (140-450); Red Blood Cells 5.28 10^6/uL (4.5-5.90); Red Cell Distribution Width 16.2 % (11.8-14.3); White Blood Cell 8.1 10^3/uL (4.4-10.8)
[2020-11-25 14:20] LABS: Albumin 3.5 g/dL (3.4-5.0); Calcium 8.3 mg/dL (8.5-10.1); Potassium 3.9 mmol/L (3.5-5.1)
[2020-11-25 14:26] LABS: BUN/Creatinine Ratio 22.8; Bilirubin, Total 1.1 mg/dL (0.2-1.0)
[2020-11-25] MEDS ORDERED: PANTOPRAZOLE 40 MG/10 ML VIAL INJ IV STA (14:27)
[2020-11-25 16:23] LABS: Urine Bacteria FEW /hpf (None Seen); Urine Blood Negative /uL (Negative); Urine Specific Gravity 1.022 (1.001-1.035); Urine WBC 563 /hpf (0 - 3)
[2020-11-25] MEDS ORDERED: cefTRIAXone 1GM/50ML D5W 50 ML IV ONE (17:15)
[2020-11-25] MEDS ORDERED: DEXTROSE (50%) 50ML SYRG IV PRN (18:45)
[2020-11-25] MEDS ORDERED: MORPHINE SULF INJ 2 MG/ML SYRINGE 1ML IV PRN (18:45)
[2020-11-25] MEDS ORDERED: NITROGLYCERIN 0.4 MG SL TAB SL PRN (18:45)
[2020-11-25] MEDS ORDERED: HYDROcodone-ACET 5/325MG TAB PO PRN (18:45)
[2020-11-25] MEDS ORDERED: DOCUSATE SOD 100 MG CAP PO PRN (18:45)
[2020-11-25] MEDS: MORPHINE SULF INJ 2 MG/ML SYRINGE 1ML IV PRN (20:40)
[2020-11-25] MEDS: ONDANSETRON HCL 4 MG/2 ML VIAL IV PRN (20:40)
[2020-11-25] MEDS ORDERED: TEMAZEPAM 15 MG CAP PO PRN (22:00)
[2020-11-25] MEDS: InsuLIN REG 1unit/0.01ml Soln (100units/ml) SC SCH (22:16)
[2020-11-25] MEDS: ACCU-CHEK COMFORT CURVE STRIP VI SCH (22:16)
[2020-11-25] MEDS: FAMOTIDINE 20 MG TAB PO SCH (22:16)
[2020-11-25] MEDS: DULoxetine HCL 30 MG CAP PO SCH (22:16)
[2020-11-25 22:45] VITALS: BP 134/54
[2020-11-26] MEDS ORDERED: CHOL20007 PO (00:47)
[2020-11-26] MEDS ORDERED: HYDR2TAB58 PO (00:47)
[2020-11-26] MEDS: ONDANSETRON HCL 4 MG/2 ML VIAL IV PRN ×2 (03:04→13:38)
[2020-11-26] MEDS: MORPHINE SULF INJ 2 MG/ML SYRINGE 1ML IV PRN ×4 (03:04→22:02)
[2020-11-26 05:00] VITALS: BP 165/96
[2020-11-26] MEDS: LEVOTHYROXINE SODIUM 25 MCG TAB PO SCH (06:00)
[2020-11-26] MEDS: InsuLIN REG 1unit/0.01ml Soln (100units/ml) SC SCH ×4 (06:00→22:06)
[2020-11-26] MEDS: ACCU-CHEK COMFORT CURVE STRIP VI SCH ×4 (06:00→22:02)
[2020-11-26] MEDS: ACETAMINOPHEN 325 MG TAB PO PRN ×2 (06:35→13:22)
[2020-11-26 06:47] LABS: Basophils # (auto) 0 10 ^3/uL (0-0.2); Eosinophils # (auto) 0 10 ^3/uL (0-0.8); Eosinophils % (auto) 0.4 % (0.0-7.0); Hematocrit 39.8 % (41.0-53.0); Hemoglobin 14.1 g/dL (13.5-17.5); Lymphocytes % (auto) 12.9 % (10.0-50.0); Mean Corpuscular Hemoglobin 29.5 pg (28.0-32.0); Mean Corpuscular Hgb Conc. 35.4 g/dL (32.0-36.0); Mean Corpuscular Volume 83.4 fL (80.0-100.0); Monocytes # (auto) 0.5 10 ^3/uL (0-1.3); Monocytes % (auto) 6.2 % (0.0-12.0); Neutrophils # (auto) 6.5 10 ^3/uL (1.6-8.6); Neutrophils % (auto) 80.5 % (37.0-80.0); Nucleated Red Blood Cells % 0.2 %; Platelet Count (auto) 121 10^3/uL (140-450); Red Blood Cells 4.77 10^6/uL (4.5-5.90); Red Cell Distribution Width 15.6 % (11.8-14.3); White Blood Cell 8.1 10^3/uL (4.4-10.8)
[2020-11-26 07:05] LABS: Potassium 3.9 mmol/L (3.5-5.1)
[2020-11-26 07:12] LABS: Albumin 3.4 g/dL (3.4-5.0); BUN/Creatinine Ratio 20.6; Bilirubin, Total 1.2 mg/dL (0.2-1.0); Calcium 8.3 mg/dL (8.5-10.1); Total Protein 8.5 g/dL (6.4-8.2)
[2020-11-26 08:00] VITALS: BP 156/90
[2020-11-26 08:56] VITALS: BP 156/90
[2020-11-26] MEDS: cefTRIAXone 1GM/50ML D5W 50 ML IV SCH (10:02)
[2020-11-26] MEDS: FAMOTIDINE 20 MG TAB PO SCH ×2 (10:02→22:01)
[2020-11-26] MEDS: LISINOPRIL 10 MG TAB PO SCH (10:03)
[2020-11-26] MEDS ORDERED: hydrALAZINE HCL 20 MG/ML VL IV PRN (11:45)
[2020-11-26 12:38] VITALS: BP 151/86
[2020-11-26 16:43] VITALS: BP 143/89
[2020-11-26] MEDS: DULoxetine HCL 30 MG CAP PO SCH (22:01)
[2020-11-26 22:03] VITALS: BP 159/87
[2020-11-27] MEDS: ACETAMINOPHEN 325 MG TAB PO PRN ×2 (00:31→09:17)
[2020-11-27] MEDS: MORPHINE SULF INJ 2 MG/ML SYRINGE 1ML IV PRN ×4 (02:48→15:25)
[2020-11-27 05:09] VITALS: BP 142/79
[2020-11-27] MEDS: LEVOTHYROXINE SODIUM 25 MCG TAB PO SCH (06:30)
[2020-11-27] MEDS: ACCU-CHEK COMFORT CURVE STRIP VI SCH ×2 (06:31→11:37)
[2020-11-27] MEDS: InsuLIN REG 1unit/0.01ml Soln (100units/ml) SC SCH ×2 (06:32→11:38)
[2020-11-27] MEDS ORDERED: SODIUM CHLORIDE 0.9% 1,000 ML IV SCH (07:30)
[2020-11-27] MEDS ORDERED: TAMSULOSIN HYDROCHLORIDE 0.4 MG CAP PO ONE (07:30)
[2020-11-27 09:00] VITALS: BP 151/93
[2020-11-27] MEDS: FAMOTIDINE 20 MG TAB PO SCH (09:15)
[2020-11-27] MEDS: cefTRIAXone 1GM/50ML D5W 50 ML IV SCH (09:15)
[2020-11-27] MEDS: LISINOPRIL 10 MG TAB PO SCH (09:16)
[2020-11-27 12:18] VITALS: BP 151/93
[2020-11-27 13:00] VITALS: BP 129/81
[2020-11-27 17:00] VITALS: BP 125/66
== END 2020-11-27 17:00 | disposition home or self-care (01) | DRG 690 ==
LOC: ER 13:18 → TELE 18:40 → TELE-WESTW 22:44
PROVIDERS: ADMIT Nurse Practitioner; ATTEND Nurse Practitioner
DX: N39.0 Urinary tract infection, site not specified (principal); E11.65 Type 2 diabetes mellitus with hyperglycemia; Z20.822 Contact with and (suspected) exposure to COVID-19; E11.40 Type 2 diabetes mellitus with diabetic neuropathy, unspecified; N18.9 Chronic kidney disease, unspecified; E11.22 Type 2 diabetes mellitus with diabetic chronic kidney disease; K74.60 Unspecified cirrhosis of liver; I12.9 Hypertensive chronic kidney disease with stage 1 through stage 4 chronic kidney disease, or unspecified chronic kidney disease; Z80.9 Family history of malignant neoplasm, unspecified; Z79.4 Long term (current) use of insulin; Z86.73 Personal history of transient ischemic attack (TIA), and cerebral infarction without residual deficits; Z87.442 Personal history of urinary calculi; N20.0 Calculus of kidney
CPT/HCPCS: 36415; 74176; 80053; 81001; 82962; 83690; 85025; 87086; 87426; 93005; 96365; 96366; 96375; C9113; G0378; J0696; J1815; J2405

== ENCOUNTER 2021-05-18 03:29 | Emergency (ER) | payer MEDICARE, MEDICAID ==
[~2021-05-18] VITALS: Ht 180.3 cm; Wt 124.7 kg
[~2021-05-18 03:29] MED LIST changes: +CHOL20007 PO; -HYDR2TAB2 PO; +HYDR2TAB58 PO; -NITR100C6 PO
[2021-05-18 05:39] VITALS: BP 127/80
== END 2021-05-18 06:16 | disposition home or self-care (01) ==
LOC: ER 03:29
DX: J18.9 Pneumonia, unspecified organism (principal); J02.9 Acute pharyngitis, unspecified; R51.9 Headache, unspecified; R53.83 Other fatigue; E11.9 Type 2 diabetes mellitus without complications; I10 Essential (primary) hypertension; Z87.442 Personal history of urinary calculi; Z90.89 Acquired absence of other organs; Z87.440 Personal history of urinary (tract) infections
CPT/HCPCS: 71045

== ENCOUNTER 2021-11-14 00:59 | Inpatient (IN) | payer MEDICARE, MEDICAID ==
[~2021-11-14] VITALS: Ht 177.8 cm; Wt 107.0 kg
[2021-11-14] MEDS ORDERED: fentaNYL CITRATE 100 MCG/2 ML VL IV ONE ×2 (02:45→06:15)
[2021-11-14] MEDS ORDERED: SODIUM CHLORIDE 0.9% 1,000 ML IV ONE (02:45)
[2021-11-14 03:08] LABS: Urine Bacteria NONE SEEN /hpf (None Seen); Urine Blood Negative /uL (Negative); Urine Specific Gravity 1.021 (1.001-1.035); Urine WBC 111 /hpf (0 - 3)
[2021-11-14 04:50] LABS: Basophils # (auto) 0 10 ^3/uL (0-0.2); Basophils % (auto) 0.1 % (0.0-2.0); Eosinophils # (auto) 0 10 ^3/uL (0-0.8); Eosinophils % (auto) 0.2 % (0.0-7.0); Hematocrit 37.3 % (41.0-53.0); Hemoglobin 12.9 g/dL (13.5-17.5); Lymphocytes # (auto) 0.8 10 ^3/uL (0.4-5.4); Lymphocytes % (auto) 8.4 % (10.0-50.0); Mean Corpuscular Hemoglobin 28.5 pg (28.0-32.0); Mean Corpuscular Hgb Conc. 34.5 g/dL (32.0-36.0); Mean Corpuscular Volume 82.6 fL (80.0-100.0); Monocytes # (auto) 0.5 10 ^3/uL (0-1.3); Monocytes % (auto) 6.1 % (0.0-12.0); Neutrophils # (auto) 7.6 10 ^3/uL (1.6-8.6); Neutrophils % (auto) 85.2 % (37.0-80.0); Nucleated Red Blood Cells % 0.1 %; Red Blood Cells 4.52 10^6/uL (4.5-5.90); Red Cell Distribution Width 15.1 % (11.8-14.3); White Blood Cell 8.9 10^3/uL (4.4-10.8)
[2021-11-14 05:03] LABS: Potassium 4.1 mmol/L (3.5-5.1)
[2021-11-14 05:12] LABS: Albumin 3.1 g/dL (3.4-5.0); BUN/Creatinine Ratio 16.2; Calcium 8.4 mg/dL (8.5-10.1)
[2021-11-14 05:19] LABS: Bilirubin, Total 1.3 mg/dL (0.2-1.0); Total Protein 7.9 g/dL (6.4-8.2)
[2021-11-14] MEDS ORDERED: cefTRIAXone 1GM/50ML D5W 50 ML IV ONE (05:30)
[2021-11-14] MEDS ORDERED: hydrALAZINE HCL 20 MG/ML VL IV PRN (09:45)
[2021-11-14] MEDS ORDERED: MORPHINE SULFATE INJECTION 2 MG/ML SYRG IV PRN (09:45)
[2021-11-14] MEDS ORDERED: NITROGLYCERIN 0.4 MG SL TAB SL PRN (09:45)
[2021-11-14] MEDS ORDERED: ONDANSETRON HCL 4 MG/2 ML VIAL IV PRN (09:45)
[2021-11-14] MEDS: SODIUM CHLORIDE 0.9% 1,000 ML IV SCH ×2 (10:13→16:25)
[2021-11-14] MEDS ORDERED: ACCU-CHEK COMFORT CURVE STRIP VI ONE ×2 (12:15→12:30)
[2021-11-14] MEDS ORDERED: DEXTROSE (50%) 50ML SYRG IV PRN ×2 (12:15)
[2021-11-14] MEDS ORDERED: DEXTROSE (50%) 50ML SYRG IV ONE ×2 (12:15→12:30)
[2021-11-14 13:00] VITALS: BP 133/76
[2021-11-14 13:06] VITALS: BP 161/85
[2021-11-14] MEDS ORDERED: LISI2.5T47 PO (13:34)
[2021-11-14] MEDS ORDERED: PRAV20TA3 PO (13:35)
[2021-11-14] MEDS: MORPHINE SULFATE INJECTION 2 MG/ML SYRG IV PRN ×2 (14:30→20:43)
[2021-11-14] MEDS ORDERED: ACCU-CHEK COMFORT CURVE STRIP VI SCH ×2 (16:00→17:00)
[2021-11-14] MEDS: InsuLIN REG 1unit/0.01ml Soln (100units/ml) SC SCH ×3 (16:00→23:59)
[2021-11-14 17:13] VITALS: BP 145/76
[2021-11-14] MEDS: HYDROmorphone HCL 2 MG/ML VL/or syr IV PRN ×2 (17:45→22:55)
[2021-11-14 21:53] VITALS: BP 157/75
[2021-11-14] MEDS: DULoxetine HCL 30 MG CAP PO SCH (22:00)
[2021-11-14] MEDS ORDERED: InsuLIN REG 1unit/0.01ml Soln (100units/ml) SC SCH (22:00)
[2021-11-15] MEDS: MORPHINE SULFATE INJECTION 2 MG/ML SYRG IV PRN (03:23)
[2021-11-15] MEDS: SODIUM CHLORIDE 0.9% 1,000 ML IV SCH ×4 (03:45→19:05)
[2021-11-15] MEDS: InsuLIN REG 1unit/0.01ml Soln (100units/ml) SC SCH ×6 (03:50→23:42)
[2021-11-15 05:00] VITALS: BP 166/72
[2021-11-15 06:20] LABS: Basophils # (auto) 0 10 ^3/uL (0-0.2); Basophils % (auto) 0.1 % (0.0-2.0); Eosinophils # (auto) 0.2 10 ^3/uL (0-0.8); Eosinophils % (auto) 2.7 % (0.0-7.0); Hematocrit 38.6 % (41.0-53.0); Hemoglobin 13.8 g/dL (13.5-17.5); Lymphocytes # (auto) 1.5 10 ^3/uL (0.4-5.4); Lymphocytes % (auto) 16.9 % (10.0-50.0); Mean Corpuscular Hemoglobin 29.2 pg (28.0-32.0); Mean Corpuscular Hgb Conc. 35.6 g/dL (32.0-36.0); Mean Corpuscular Volume 81.8 fL (80.0-100.0); Monocytes # (auto) 0.7 10 ^3/uL (0-1.3); Monocytes % (auto) 7.3 % (0.0-12.0); Neutrophils # (auto) 6.6 10 ^3/uL (1.6-8.6); Nucleated Red Blood Cells % 0.1 %; Potassium 3.9 mmol/L (3.5-5.1); Red Blood Cells 4.72 10^6/uL (4.5-5.90); Red Cell Distribution Width 14.9 % (11.8-14.3)
[2021-11-15 06:26] LABS: BUN/Creatinine Ratio 16.9; Bilirubin, Total 1.4 mg/dL (0.2-1.0); Calcium 8.8 mg/dL (8.5-10.1); Total Protein 8.4 g/dL (6.4-8.2)
[2021-11-15] MEDS: HYDROmorphone HCL 2 MG/ML VL/or syr IV PRN ×4 (06:32→23:43)
[2021-11-15 09:28] VITALS: BP 130/91
[2021-11-15] MEDS ORDERED: LEVOTHYROXINE SODIUM 25 MCG TAB PO SCH (10:00)
[2021-11-15] MEDS: LEVOTHYROXINE SODIUM 25 MCG TAB PO SCH (10:57)
[2021-11-15 13:00] VITALS: BP 132/98
[2021-11-15 17:13] VITALS: BP 152/92
[2021-11-15] MEDS: DULoxetine HCL 30 MG CAP PO SCH (21:15)
[2021-11-15 22:00] VITALS: BP 154/95
[2021-11-16] MEDS: SODIUM CHLORIDE 0.9% 1,000 ML IV SCH ×4 (01:59→21:45)
[2021-11-16] MEDS: InsuLIN REG 1unit/0.01ml Soln (100units/ml) SC SCH ×5 (04:00→20:29)
[2021-11-16] MEDS: HYDROmorphone HCL 2 MG/ML VL/or syr IV PRN (04:13)
[2021-11-16 05:00] VITALS: BP 152/86
[2021-11-16 06:28] LABS: Potassium 3.7 mmol/L (3.5-5.1)
[2021-11-16 06:45] LABS: Albumin 2.9 g/dL (3.4-5.0); BUN/Creatinine Ratio 20.6; Bilirubin, Total 1.1 mg/dL (0.2-1.0); Calcium 8.2 mg/dL (8.5-10.1)
[2021-11-16 08:00] VITALS: BP 137/95
[2021-11-16] MEDS: MORPHINE SULFATE INJECTION 2 MG/ML SYRG IV PRN ×4 (08:15→20:37)
[2021-11-16] MEDS: LEVOTHYROXINE SODIUM 25 MCG TAB PO SCH (08:15)
[2021-11-16 12:51] VITALS: BP 129/81
[2021-11-16 16:00] VITALS: BP 149/88
[2021-11-16] MEDS: levoFLOXacin 500MG 100 ML IV SCH (16:04)
[2021-11-16] MEDS: LISINOPRIL 10 MG TAB PO SCH (16:06)
[2021-11-16] MEDS: DULoxetine HCL 30 MG CAP PO SCH (21:24)
[2021-11-16 22:00] VITALS: BP 163/95
[2021-11-17] MEDS: MORPHINE SULFATE INJECTION 2 MG/ML SYRG IV PRN ×4 (00:24→12:45)
[2021-11-17] MEDS: SODIUM CHLORIDE 0.9% 1,000 ML IV SCH ×2 (03:34→11:36)
[2021-11-17] MEDS: InsuLIN REG 1unit/0.01ml Soln (100units/ml) SC SCH ×4 (04:35→11:42)
[2021-11-17 05:00] VITALS: BP 151/71
[2021-11-17] MEDS ORDERED: LEVO500T31 PO (07:13)
[2021-11-17] MEDS: LEVOTHYROXINE SODIUM 25 MCG TAB PO SCH (07:54)
[2021-11-17 08:41] VITALS: BP 168/88
[2021-11-17] MEDS: levoFLOXacin 500MG 100 ML IV SCH (08:46)
[2021-11-17] MEDS: LISINOPRIL 10 MG TAB PO SCH (08:47)
[2021-11-17 12:12] VITALS: BP 155/92
[2021-11-17 13:00] VITALS: BP 164/89
[2021-11-17 13:15] VITALS: BP 155/82
== END 2021-11-17 14:50 | disposition home or self-care (01) | DRG 689 ==
LOC: EDUNIT# 00:59 → EDBD 00:59 → ER 01:13 → TELE 09:44 → TELE-WESTW 11:08
PROVIDERS: ADMIT Nurse Practitioner; ATTEND Nurse Practitioner
DX: N39.0 Urinary tract infection, site not specified (principal); K85.90 Acute pancreatitis without necrosis or infection, unspecified; E11.22 Type 2 diabetes mellitus with diabetic chronic kidney disease; E78.5 Hyperlipidemia, unspecified; I12.9 Hypertensive chronic kidney disease with stage 1 through stage 4 chronic kidney disease, or unspecified chronic kidney disease; N18.9 Chronic kidney disease, unspecified; Z87.442 Personal history of urinary calculi; Z90.49 Acquired absence of other specified parts of digestive tract; Z83.3 Family history of diabetes mellitus; Z82.49 Family history of ischemic heart disease and other diseases of the circulatory system; Z82.3 Family history of stroke; Z80.41 Family history of malignant neoplasm of ovary; Z81.8 Family history of other mental and behavioral disorders; Z20.822 Contact with and (suspected) exposure to COVID-19; Z79.4 Long term (current) use of insulin
CPT/HCPCS: 36415; 74176; 74181; 80053; 81001; 82962; 83690; 84484; 85025; 93005; 96361; 96365; 96375; 96376; 99291; G0378; J0696; J1815; J1956

== ENCOUNTER 2021-12-22 18:56 | Inpatient (IN) | payer MEDICARE, MEDICAID ==
[~2021-12-22] VITALS: Ht 170.2 cm; Wt 109.5 kg
[~2021-12-22 18:56] MED LIST changes: -HYDR2TAB58 PO; +LEVO500T31 PO; +LISI2.5T47 PO; +PRAV20TA3 PO
[2021-12-22] MEDS ORDERED: AZITHROMYCIN 500MG/ 250ML 250 ML IV ONE (19:30)
[2021-12-22] MEDS ORDERED: cefTRIAXone 1GM/50ML D5W 50 ML IV ONE (19:30)
[2021-12-22] MEDS ORDERED: SODIUM CHLORIDE 0.9% 1,000 ML IV ONE ×3 (19:30→21:30)
[2021-12-22 20:07] LABS: Basophils # (auto) 0.2 10 ^3/uL (0-0.2); Basophils % (auto) 1.4 % (0.0-2.0); Eosinophils # (auto) 0.1 10 ^3/uL (0-0.8); Eosinophils % (auto) 0.4 % (0.0-7.0); Hematocrit 41.8 % (41.0-53.0); Hemoglobin 13.8 g/dL (13.5-17.5); Lymphocytes # (auto) 1.5 10 ^3/uL (0.4-5.4); Lymphocytes % (auto) 9.6 % (10.0-50.0); Mean Corpuscular Hemoglobin 28.3 pg (28.0-32.0); Mean Corpuscular Volume 85.9 fL (80.0-100.0); Monocytes % (auto) 6.4 % (0.0-12.0); Neutrophils # (auto) 12.7 10 ^3/uL (1.6-8.6); Neutrophils % (auto) 82.2 % (37.0-80.0); Red Blood Cells 4.86 10^6/uL (4.5-5.90); Red Cell Distribution Width 15.4 % (11.8-14.3); White Blood Cell 15.4 10^3/uL (4.4-10.8)
[2021-12-22 20:29] LABS: Alanine Aminotransferase 33 U/L (16-61); Albumin 3.6 g/dL (3.4-5.0); Anion Gap 10 (5-15); Aspartate Aminotransferase 22 U/L (15-37); BUN/Creatinine Ratio 9.1; Blood Urea Nitrogen 18 mg/dL (7-18); Calcium 8.5 mg/dL (8.5-10.1); Carbon Dioxide 23 mmol/L (21-32); Chloride 107 mmol/L (98-107); GFR African American 43 mL/min; GFR Non-African American 36 mL/min; Glucose 166 mg/dL (74-106); Potassium 4.2 mmol/L (3.5-5.1); Sodium 140 mmol/L (136-145)
[2021-12-22 20:31] LABS: Alkaline Phosphatase 78 U/L (45-117); Bilirubin, Total 1.6 mg/dL (0.2-1.0); Total Protein 8.7 g/dL (6.4-8.2)
[2021-12-22 20:34] LABS: Lactic Acid w/Reflex 4.6 mmol/L (0.4-2.0)
[2021-12-22] MEDS ORDERED: HYDROcodone-ACET 10/325MG TAB PO ONE (21:30)
[2021-12-22] MEDS ORDERED: IOHEXOL 350 MG/ML 100ML IJ ONE (21:41)
[2021-12-22] MEDS ORDERED: HYDROcodone-ACET 5/325MG TAB PO PRN (22:15)
[2021-12-22] MEDS ORDERED: MORPHINE SULFATE INJ 2 MG/ml SYRG IV PRN (22:15)
[2021-12-22] MEDS ORDERED: ACETAMINOPHEN 325 MG TAB PO PRN (22:15)
[2021-12-22] MEDS ORDERED: NITROGLYCERIN 0.4 MG SL TAB SL PRN (22:15)
[2021-12-23 01:05] LABS: Urine Bacteria NONE SEEN /hpf (None Seen); Urine Blood 1+ /uL (Negative); Urine Budding Yeast FEW /hpf (None Seen); Urine Hyaline Cast FEW /lpf (0 - 2); Urine Mucus FEW (None Seen); Urine Specific Gravity 1.011 (1.001-1.035); Urine WBC 61 /hpf (0 - 3)
[2021-12-23 01:35] VITALS: BP 120/45
[2021-12-23] MEDS: MORPHINE SULFATE INJ 2 MG/ml SYRG IV PRN ×4 (01:59→14:36)
[2021-12-23 04:44] LABS: Basophils # (auto) 0 10 ^3/uL (0-0.2); Basophils % (auto) 0.2 % (0.0-2.0); Eosinophils # (auto) 0 10 ^3/uL (0-0.8); Eosinophils % (auto) 0.5 % (0.0-7.0); Hematocrit 33.8 % (41.0-53.0); Hemoglobin 11.3 g/dL (13.5-17.5); Lymphocytes % (auto) 13.7 % (10.0-50.0); Mean Corpuscular Hemoglobin 28.5 pg (28.0-32.0); Mean Corpuscular Hgb Conc. 33.5 g/dL (32.0-36.0); Monocytes # (auto) 0.6 10 ^3/uL (0-1.3); Monocytes % (auto) 8.6 % (0.0-12.0); Neutrophils # (auto) 5.8 10 ^3/uL (1.6-8.6); Red Blood Cells 3.98 10^6/uL (4.5-5.90); Red Cell Distribution Width 15.5 % (11.8-14.3); White Blood Cell 7.6 10^3/uL (4.4-10.8)
[2021-12-23 05:00] VITALS: BP 122/75
[2021-12-23 05:08] LABS: Albumin 2.7 g/dL (3.4-5.0); Anion Gap 5 (5-15); Blood Urea Nitrogen 18 mg/dL (7-18); Calcium 7.4 mg/dL (8.5-10.1); Carbon Dioxide 23 mmol/L (21-32); Chloride 109 mmol/L (98-107); Glucose 294 mg/dL (74-106); Sodium 137 mmol/L (136-145)
[2021-12-23 05:10] LABS: BUN/Creatinine Ratio 11.6; GFR African American 57 mL/min; GFR Non-African American 47 mL/min
[2021-12-23 05:18] LABS: Alanine Aminotransferase 26 U/L (16-61); Alkaline Phosphatase 61 U/L (45-117); Aspartate Aminotransferase 32 U/L (15-37); Bilirubin, Total 0.8 mg/dL (0.2-1.0); Total Protein 6.5 g/dL (6.4-8.2)
[2021-12-23 05:34] LABS: Potassium 5.9 mmol/L (3.5-5.1)
[2021-12-23 09:00] VITALS: BP 125/65
[2021-12-23] MEDS: ASCORBIC ACID 500 MG TAB PO SCH ×2 (09:06→23:13)
[2021-12-23] MEDS: ZINC SULFATE 220mg CAP or TAB PO SCH (09:06)
[2021-12-23] MEDS: ENOXAPARIN SOD 40 MG/0.4 ML SYRINGE SC SCH (09:06)
[2021-12-23] MEDS: MULTIPLE VITAMIN TAB PO SCH (09:06)
[2021-12-23 13:00] VITALS: BP 106/46
[2021-12-23] MEDS ORDERED: DEXTROSE (50%) 50ML SYRG IV PRN (15:30)
[2021-12-23] MEDS ORDERED: HYDR2TAB2 PO (16:37)
[2021-12-23] MEDS ORDERED: CALCIUM GLUC 1,000mg/50ml-NS 50 ML IV ONE (16:45)
[2021-12-23] MEDS ORDERED: SODIUM ZIRCONIUM CYCL 10 GM PAK PO ONE (16:45)
[2021-12-23] MEDS ORDERED: ALBUTEROL SULF 2.5 MG/0.5ML(0.5%) NEB SOLN NEB ONE (16:45)
[2021-12-23] MEDS ORDERED: InsuLIN REG 1unit/0.01ml Soln (100units/ml) IV ONE (16:45)
[2021-12-23] MEDS ORDERED: DEXTROSE (50%) 50ML SYRG IV ONE (16:45)
[2021-12-23] MEDS: PIPERACILLIN-TAZOB 3.375GM 100 ML IV SCH ×2 (16:50→23:10)
[2021-12-23 17:00] VITALS: BP 131/65
[2021-12-23] MEDS: InsuLIN REG 1unit/0.01ml Soln (100units/ml) SC SCH ×2 (17:00→23:14)
[2021-12-23] MEDS: ACCU-CHEK COMFORT CURVE STRIP VI SCH ×2 (17:00→22:00)
[2021-12-23] MEDS: HYDROmorphone HCL 2 MG TAB PO SCH ×2 (18:39→23:10)
[2021-12-23 22:00] VITALS: BP 111/65
[2021-12-23] MEDS: MUPIROCIN 2% OINT 15gm or 22gm EACHNOSTRI SCH (23:11)
[2021-12-23] MEDS: DULoxetine HCL 30 MG CAP PO SCH (23:12)
[2021-12-23] MEDS: MORPHINE SULF 30 mg ER tab PO SCH (23:13)
[2021-12-23] MEDS: INSULIN LANTUS (GLARGINE) 1 /0.01ml (100units/ml) SC SCH (23:15)
[2021-12-24 04:34] VITALS: BP 155/78
[2021-12-24] MEDS: InsuLIN REG 1unit/0.01ml Soln (100units/ml) SC SCH ×4 (06:34→21:33)
[2021-12-24] MEDS: ACCU-CHEK COMFORT CURVE STRIP VI SCH ×4 (06:36→21:21)
[2021-12-24] MEDS: PIPERACILLIN-TAZOB 3.375GM 100 ML IV SCH ×3 (06:47→21:21)
[2021-12-24] MEDS: HYDROmorphone HCL 2 MG TAB PO SCH ×4 (06:47→21:20)
[2021-12-24 09:00] VITALS: BP 163/85
[2021-12-24] MEDS: MULTIPLE VITAMIN TAB PO SCH (09:46)
[2021-12-24] MEDS: ASCORBIC ACID 500 MG TAB PO SCH ×2 (09:46→21:21)
[2021-12-24] MEDS: ZINC SULFATE 220mg CAP or TAB PO SCH (09:46)
[2021-12-24] MEDS: LEVOTHYROXINE SODIUM 25 MCG TAB PO SCH (09:46)
[2021-12-24] MEDS: PRAVASTATIN SODIUM 20 MG TAB PO SCH (09:46)
[2021-12-24] MEDS: MORPHINE SULF 30 mg ER tab PO SCH ×2 (09:47→22:30)
[2021-12-24] MEDS: CHOLECALCIFEROL (VITD3) 2,000 UNIT CAP/TAB PO SCH (09:47)
[2021-12-24] MEDS: ENOXAPARIN SOD 40 MG/0.4 ML SYRINGE SC SCH (09:48)
[2021-12-24] MEDS: MUPIROCIN 2% OINT 15gm or 22gm EACHNOSTRI SCH ×2 (09:50→21:21)
[2021-12-24 12:49] VITALS: BP 140/75
[2021-12-24] MEDS ORDERED: ONDANSETRON HCL 4 MG/2 ML VIAL IV PRN (15:30)
[2021-12-24 16:51] VITALS: BP 125/67
[2021-12-24] MEDS: DULoxetine HCL 30 MG CAP PO SCH (21:21)
[2021-12-24] MEDS: INSULIN LANTUS (GLARGINE) 1 /0.01ml (100units/ml) SC SCH (21:34)
[2021-12-24 22:00] VITALS: BP 130/80
[2021-12-25 04:34] VITALS: BP 136/83
[2021-12-25 05:46] LABS: Basophils # (auto) 0 10 ^3/uL (0-0.2); Basophils % (auto) 0.1 % (0.0-2.0); Eosinophils # (auto) 0.3 10 ^3/uL (0-0.8); Eosinophils % (auto) 6.9 % (0.0-7.0); Hematocrit 36.4 % (41.0-53.0); Hemoglobin 12.5 g/dL (13.5-17.5); Lymphocytes # (auto) 1.1 10 ^3/uL (0.4-5.4); Mean Corpuscular Hemoglobin 28.5 pg (28.0-32.0); Mean Corpuscular Hgb Conc. 34.4 g/dL (32.0-36.0); Mean Corpuscular Volume 82.8 fL (80.0-100.0); Monocytes # (auto) 0.4 10 ^3/uL (0-1.3); Monocytes % (auto) 8.2 % (0.0-12.0); Neutrophils # (auto) 3.2 10 ^3/uL (1.6-8.6); Neutrophils % (auto) 62.8 % (37.0-80.0); Nucleated Red Blood Cells % 0.1 %; Red Blood Cells 4.39 10^6/uL (4.5-5.90)
[2021-12-25 06:00] LABS: Albumin 2.9 g/dL (3.4-5.0); Calcium 8.1 mg/dL (8.5-10.1); Potassium 4.5 mmol/L (3.5-5.1)
[2021-12-25] MEDS: ACCU-CHEK COMFORT CURVE STRIP VI SCH ×2 (06:02→11:45)
[2021-12-25] MEDS: HYDROmorphone HCL 2 MG TAB PO SCH ×2 (06:02→11:45)
[2021-12-25] MEDS: PIPERACILLIN-TAZOB 3.375GM 100 ML IV SCH (06:03)
[2021-12-25 06:04] LABS: BUN/Creatinine Ratio 13.1; Bilirubin, Total 0.9 mg/dL (0.2-1.0); Total Protein 7.6 g/dL (6.4-8.2)
[2021-12-25] MEDS: InsuLIN REG 1unit/0.01ml Soln (100units/ml) SC SCH ×2 (06:09→11:46)
[2021-12-25] MEDS ORDERED: CEPH-322 PO (07:50)
[2021-12-25 08:00] VITALS: BP 143/76
[2021-12-25] MEDS: MULTIPLE VITAMIN TAB PO SCH (09:55)
[2021-12-25] MEDS: ZINC SULFATE 220mg CAP or TAB PO SCH (09:55)
[2021-12-25] MEDS: MUPIROCIN 2% OINT 15gm or 22gm EACHNOSTRI SCH (09:55)
[2021-12-25] MEDS: LEVOTHYROXINE SODIUM 25 MCG TAB PO SCH (09:56)
[2021-12-25] MEDS: ENOXAPARIN SOD 40 MG/0.4 ML SYRINGE SC SCH (09:56)
[2021-12-25] MEDS: PRAVASTATIN SODIUM 20 MG TAB PO SCH (09:56)
[2021-12-25] MEDS: CHOLECALCIFEROL (VITD3) 2,000 UNIT CAP/TAB PO SCH (09:56)
[2021-12-25] MEDS: ASCORBIC ACID 500 MG TAB PO SCH (09:56)
[2021-12-25] MEDS: MORPHINE SULF 30 mg ER tab PO SCH (09:56)
[2021-12-25 10:41] VITALS: BP 145/76
[2021-12-25 12:00] VITALS: BP 150/90
== END 2021-12-25 12:32 | disposition home health service (06) | DRG 872 ==
LOC: EDBD 18:56 → ER 18:56 → TELE 22:15 → TELE-EAST 23:47
PROVIDERS: ADMIT Internal Medicine; ATTEND Internal Medicine
DX: A41.9 Sepsis, unspecified organism (principal); N39.0 Urinary tract infection, site not specified; N17.9 Acute kidney failure, unspecified; E11.65 Type 2 diabetes mellitus with hyperglycemia; R06.03 Acute respiratory distress; Z20.822 Contact with and (suspected) exposure to COVID-19; I12.9 Hypertensive chronic kidney disease with stage 1 through stage 4 chronic kidney disease, or unspecified chronic kidney disease; E11.22 Type 2 diabetes mellitus with diabetic chronic kidney disease; N18.31 Chronic kidney disease, stage 3a; Z87.442 Personal history of urinary calculi; Z83.3 Family history of diabetes mellitus; Z82.49 Family history of ischemic heart disease and other diseases of the circulatory system; Z81.8 Family history of other mental and behavioral disorders; Z82.3 Family history of stroke
CPT/HCPCS: 36415; 71045; 80053; 81001; 82962; 83605; 83880; 84132; 84484; 85025; 85379; 87040; 87081; 87086; 87088; 87186; 93005; 94640; 96361; 96365; 96368; 99291; G0378; J0696; J1815; J2405; J2543

== ENCOUNTER 2022-10-27 00:06 | Inpatient (IN) | payer MEDICARE, MEDICAID ==
[~2022-10-27] VITALS: Ht 177.8 cm; Wt 102.0 kg
[~2022-10-27 00:06] MED LIST changes: +HYDR2TAB2 PO; -LEVO500T31 PO; +LISI-716 PO; -LISI2.5T47 PO; -MORP30TA5 PO
[2022-10-27 00:59] LABS: Basophils # (auto) 0 10 ^3/uL (0-0.2); Basophils % (auto) 0.2 % (0.0-2.0); Eosinophils # (auto) 0 10 ^3/uL (0-0.8); Eosinophils % (auto) 0.2 % (0.0-7.0); Hematocrit 43.3 % (41.0-53.0); Hemoglobin 14.4 g/dL (13.5-17.5); Lymphocytes # (auto) 0.9 10 ^3/uL (0.4-5.4); Lymphocytes % (auto) 10.8 % (10.0-50.0); Mean Corpuscular Hemoglobin 28.1 pg (28.0-32.0); Mean Corpuscular Hgb Conc. 33.4 g/dL (32.0-36.0); Mean Corpuscular Volume 84.2 fL (80.0-100.0); Monocytes # (auto) 0.4 10 ^3/uL (0-1.3); Monocytes % (auto) 4.6 % (0.0-12.0); Neutrophils # (auto) 6.7 10 ^3/uL (1.6-8.6); Neutrophils % (auto) 84.2 % (37.0-80.0); Nucleated Red Blood Cells % 0.3 %; Red Blood Cells 5.14 10^6/uL (4.5-5.90); Red Cell Distribution Width 15.3 % (11.8-14.3)
[2022-10-27 01:14] LABS: INR 1.13 (0.9-1.15); Partial Thromboplastin Time 24.9 sec (24.6-33.4)
[2022-10-27 01:37] LABS: Alanine Aminotransferase 72 U/L (16-61); Albumin 3.3 g/dL (3.4-5.0); Anion Gap 7 (5-15); Aspartate Aminotransferase 45 U/L (15-37); Blood Urea Nitrogen 16 mg/dL (7-18); Calcium 8.8 mg/dL (8.5-10.1); Carbon Dioxide 20 mmol/L (21-32); Chloride 110 mmol/L (98-107); GFR African American 109 mL/min; GFR Non-African American 90 mL/min; Glucose 154 mg/dL (74-106); Lipase 69 U/L (73-393); Sodium 137 mmol/L (136-145)
[2022-10-27 01:39] LABS: Alkaline Phosphatase 63 U/L (45-117); Bilirubin, Total 0.9 mg/dL (0.2-1.0); Total Protein 8.7 g/dL (6.4-8.2)
[2022-10-27] MEDS ORDERED: LACTATED RINGER'S 1,000 ML IV ONE (03:00)
[2022-10-27] MEDS ORDERED: cefTRIAXone 1GM/50ML D5W 50 ML IV ONE (03:00)
[2022-10-27] MEDS ORDERED: ONDANSETRON HCL 4 MG/2 ML VIAL IV ONE (04:30)
[2022-10-27] MEDS ORDERED: fentaNYL CITRATE 100 MCG/2 ML VL IV ONE (04:30)
[2022-10-27] MEDS ORDERED: MORPHINE SULFATE INJ 2 MG/ml SYRG IV PRN (07:00)
[2022-10-27] MEDS ORDERED: ACCU-CHEK COMFORT CURVE STRIP VI SCH (07:00)
[2022-10-27] MEDS: ACCU-CHEK COMFORT CURVE STRIP VI SCH ×4 (07:23→21:41)
[2022-10-27] MEDS: InsuLIN REG 1unit/0.01ml Soln (100units/ml) SC SCH ×4 (07:36→22:00)
[2022-10-27] MEDS: PIPERACILLIN-TAZOB 3.375GM 100 ML IV SCH ×3 (07:54→22:55)
[2022-10-27] MEDS ORDERED: MANNITOL FTV 25% 12.5 GM/50 ML 50 ML IV ONE (09:00)
[2022-10-27] MEDS ORDERED: PIPERACILLIN-TAZOB 2.25GM 50 ML IV SCH (10:00)
[2022-10-27] MEDS: SODIUM CHLORIDE 0.9% 1,000 ML IV SCH ×2 (12:27→20:15)
[2022-10-27] MEDS: TAMSULOSIN HYDROCHLORIDE 0.4 MG CAP PO SCH (12:38)
[2022-10-27] MEDS: ONDANSETRON HCL 4 MG/2 ML VIAL IV PRN ×2 (13:43→18:33)
[2022-10-27] MEDS: HYDROmorphone HCL 2 MG/ML VL/or syr IV PRN ×3 (13:46→22:54)
[2022-10-27 16:00] VITALS: BP 115/69
[2022-10-27 16:40] VITALS: BP 115/69
[2022-10-27 18:02] LABS: Urine Bacteria NONE SEEN /hpf (None Seen); Urine Blood 1+ /uL (Negative); Urine Budding Yeast OCCASIONAL /hpf (None Seen); Urine Specific Gravity 1.023 (1.001-1.035); Urine WBC 191 /hpf (0 - 3)
[2022-10-27 20:00] VITALS: BP 98/54
[2022-10-27] MEDS: DULoxetine HCL 30 MG CAP PO SCH (21:38)
[2022-10-27 22:00] VITALS: BP 98/54
[2022-10-27] MEDS ORDERED: InsuLIN REG 1unit/0.01ml Soln (100units/ml) SC SCH (22:00)
[2022-10-28] MEDS: HYDROmorphone HCL 2 MG/ML VL/or syr IV PRN ×4 (02:56→19:43)
[2022-10-28] MEDS: SODIUM CHLORIDE 0.9% 1,000 ML IV SCH ×3 (04:15→19:49)
[2022-10-28 05:00] VITALS: BP 132/61
[2022-10-28] MEDS: ACCU-CHEK COMFORT CURVE STRIP VI SCH ×4 (06:41→21:34)
[2022-10-28] MEDS: InsuLIN REG 1unit/0.01ml Soln (100units/ml) SC SCH ×4 (06:43→22:00)
[2022-10-28] MEDS ORDERED: ceFAZolin 1GM/50ML 100 ML IV ONE (07:11)
[2022-10-28] MEDS ORDERED: SUCCINYLCHOLINE CHLORIDE 20 MG/ML 10ML VIAL IV ONE (07:34)
[2022-10-28] MEDS ORDERED: fentaNYL CITRATE 100 MCG/2 ML VL ONE (07:38)
[2022-10-28] MEDS ORDERED: ONDANSETRON HCL 4 MG/2 ML VIAL ONE (07:40)
[2022-10-28] MEDS ORDERED: LIDOCAINE 2% (LOCAL ANESTH.) PF 5ml SDV ONE (07:40)
[2022-10-28] MEDS ORDERED: MIDAZOLAM HCL 2MG/2ML 2ml VIAL (1mg/ml) ONE (07:40)
[2022-10-28] MEDS: PIPERACILLIN-TAZOB 3.375GM 100 ML IV SCH ×3 (07:44→22:35)
[2022-10-28] MEDS ORDERED: HYDROmorphone HCL 2 MG/ML VL/or syr IV PRN ×2 (08:30)
[2022-10-28] MEDS ORDERED: ONDANSETRON HCL 4 MG/2 ML VIAL IV PRN (08:30)
[2022-10-28] MEDS ORDERED: MANNITOL FTV 25% 12.5 GM/50 ML 50 ML IV ONE (08:45)
[2022-10-28] MEDS ORDERED: PROPOFOL 10 MG/ML 20 ML IV ONE (08:49)
[2022-10-28] MEDS: ONDANSETRON HCL 4 MG/2 ML VIAL IV PRN ×2 (09:57→15:34)
[2022-10-28] MEDS: LEVOTHYROXINE SODIUM 25 MCG TAB PO SCH (09:58)
[2022-10-28] MEDS: TAMSULOSIN HYDROCHLORIDE 0.4 MG CAP PO SCH (09:58)
[2022-10-28] MEDS: LISINOPRIL 10 MG TAB PO SCH (09:58)
[2022-10-28] MEDS: PRAVASTATIN SODIUM 20 MG TAB PO SCH (09:58)
[2022-10-28] MEDS ORDERED: PANTOPRAZOLE 40 MG TAB PO SCH (10:00)
[2022-10-28 12:39] VITALS: BP 133/59
[2022-10-28 16:51] VITALS: BP 138/69
[2022-10-28 20:00] VITALS: BP 132/61
[2022-10-28] MEDS: DULoxetine HCL 30 MG CAP PO SCH (22:36)
[2022-10-28 23:15] VITALS: BP 133/70
[2022-10-29] MEDS: HYDROmorphone HCL 2 MG/ML VL/or syr IV PRN ×4 (00:08→14:20)
[2022-10-29] MEDS: SODIUM CHLORIDE 0.9% 1,000 ML IV SCH ×2 (04:15→12:15)
[2022-10-29 04:37] VITALS: BP 141/71
[2022-10-29] MEDS: ACCU-CHEK COMFORT CURVE STRIP VI SCH ×3 (06:30→17:43)
[2022-10-29] MEDS: InsuLIN REG 1unit/0.01ml Soln (100units/ml) SC SCH ×3 (06:31→17:43)
[2022-10-29 09:00] VITALS: BP 139/82
[2022-10-29] MEDS: TAMSULOSIN HYDROCHLORIDE 0.4 MG CAP PO SCH (09:01)
[2022-10-29] MEDS: LEVOTHYROXINE SODIUM 25 MCG TAB PO SCH (09:01)
[2022-10-29] MEDS: PRAVASTATIN SODIUM 20 MG TAB PO SCH (09:01)
[2022-10-29] MEDS: LISINOPRIL 10 MG TAB PO SCH (09:05)
[2022-10-29] MEDS: PIPERACILLIN-TAZOB 3.375GM 100 ML IV SCH ×2 (09:09→17:42)
[2022-10-29 13:00] VITALS: BP 141/76
[2022-10-29] MEDS ORDERED: TAM04C PO (14:13)
[2022-10-29] MEDS ORDERED: OXY5T GT (14:13)
[2022-10-29 17:00] VITALS: BP 139/78
[2022-10-29 17:16] VITALS: BP 141/76
[2022-10-30] MEDS ORDERED: CEPH500C PO (14:57)
[2022-10-30] MEDS ORDERED: CYCL-611 PO (14:57)
[2022-10-30] MEDS ORDERED: MELO1TAB56 PO (14:57)
== END 2022-10-29 18:20 | disposition home or self-care (01) | DRG 694 ==
LOC: ER 00:06 → TELE 06:52 → TELE-WESTW 15:18
PROVIDERS: ADMIT Internal Medicine; ATTEND Internal Medicine
PROC: BT171ZZ Fluoroscopy of Left Ureter using Low Osmolar Contrast (ICD-10-PCS; 2022-10-28)
PROC: 0TF7XZZ Fragmentation in Left Ureter, External Approach (ICD-10-PCS; principal; 2022-10-28 07:35)
DX: N13.2 Hydronephrosis with renal and ureteral calculous obstruction (principal); D69.6 Thrombocytopenia, unspecified; E11.65 Type 2 diabetes mellitus with hyperglycemia; E78.5 Hyperlipidemia, unspecified; E87.5 Hyperkalemia; F32.A Depression, unspecified; I10 Essential (primary) hypertension; K74.60 Unspecified cirrhosis of liver; Z81.8 Family history of other mental and behavioral disorders; Z82.3 Family history of stroke; Z82.49 Family history of ischemic heart disease and other diseases of the circulatory system; Z83.3 Family history of diabetes mellitus; Z87.442 Personal history of urinary calculi
CPT/HCPCS: 36415; 71045; 74176; 80053; 81001; 82962; 83690; 83735; 83880; 84484; 85025; 85610; 85730; 87081; 93005; 96361; 96365; 96375; G0378; J0330; J0690; J0696; J1815; J2001; J2250; J2405; J2543; J2704

== ENCOUNTER 2022-10-30 00:06 | Emergency (ER) | payer MEDICARE, MEDICAID ==
[~2022-10-30] VITALS: Ht 180.3 cm; Wt 125.0 kg
[~2022-10-30 00:06] MED LIST changes: +OXY5T GT; +TAM04C PO
[2022-10-30 01:38] LABS: Basophils # (auto) 0 10 ^3/uL (0-0.2); Basophils % (auto) 0.2 % (0.0-2.0); Eosinophils # (auto) 0 10 ^3/uL (0-0.8); Eosinophils % (auto) 0.2 % (0.0-7.0); Hematocrit 41.5 % (41.0-53.0); Lymphocytes # (auto) 0.6 10 ^3/uL (0.4-5.4); Lymphocytes % (auto) 8.7 % (10.0-50.0); Mean Corpuscular Hemoglobin 28.4 pg (28.0-32.0); Mean Corpuscular Hgb Conc. 33.8 g/dL (32.0-36.0); Monocytes # (auto) 0.4 10 ^3/uL (0-1.3); Monocytes % (auto) 6.3 % (0.0-12.0); Neutrophils # (auto) 5.8 10 ^3/uL (1.6-8.6); Neutrophils % (auto) 84.6 % (37.0-80.0); Nucleated Red Blood Cells % 0.1 %; Red Blood Cells 4.94 10^6/uL (4.5-5.90); Red Cell Distribution Width 14.9 % (11.8-14.3); White Blood Cell 6.9 10^3/uL (4.4-10.8)
[2022-10-30 02:23] LABS: Albumin 3.2 g/dL (3.4-5.0); Calcium 8.6 mg/dL (8.5-10.1); Potassium 3.6 mmol/L (3.5-5.1)
[2022-10-30 02:25] LABS: BUN/Creatinine Ratio 13.8 (10.0-20.0)
[2022-10-30 02:28] LABS: Bilirubin, Total 1.9 mg/dL (0.2-1.0); Total Protein 8.4 g/dL (6.4-8.2)
[2022-10-30] MEDS ORDERED: KETOROLAC TROMETH 60MG/2ML VIAL IM ONE (05:30)
[2022-10-30] MEDS ORDERED: CYCLOBENZAPRINE HCL 10 MG TAB PO ONE (06:30)
[2022-10-30] MEDS ORDERED: SODIUM CHLORIDE 0.9% 500 ML IV ONE (09:45)
[2022-10-30 12:14] LABS: Urine Bacteria NONE SEEN /hpf (None Seen); Urine Blood 1+ /uL (Negative); Urine Budding Yeast MODERATE /hpf (None Seen); Urine Specific Gravity 1.014 (1.001-1.035); Urine WBC 80 /hpf (0 - 3)
[2022-10-30] MEDS ORDERED: MELO1TAB56 PO (14:57)
[2022-10-30] MEDS ORDERED: CYCL-611 PO (14:57)
[2022-10-30] MEDS ORDERED: CEPH500C PO (14:57)
[2022-10-30 15:05] VITALS: BP 136/73
== END 2022-10-30 15:44 | disposition home or self-care (01) ==
LOC: ER 00:06 → EDBD 00:06 → ER 15:44
DX: R10.9 Unspecified abdominal pain (principal); N99.89 Other postprocedural complications and disorders of genitourinary system
CPT/HCPCS: 36415; 80053; 81001; 83690; 83880; 84484; 85025; 93005; 96360; 96372; 99285; J1885; J7040

== ENCOUNTER 2023-08-09 09:01 | Emergency (ER) | payer MEDICARE, OTHER ==
[~2023-08-09] VITALS: Ht 177.8 cm; Wt 102.0 kg
[~2023-08-09 09:01] MED LIST changes: +CEPH500C PO; +CYCL-611 PO; -LISI-716 PO; +LISI10TA34 PO; +MELO-335 PO; -TAM04C PO; +TAMS-35 PO
[2023-08-09 10:27] LABS: Basophils # (auto) 0 10 ^3/uL (0-0.2); Basophils % (auto) 0.2 % (0.0-2.0); Eosinophils # (auto) 0.1 10 ^3/uL (0-0.8); Eosinophils % (auto) 1.3 % (0.0-7.0); Hematocrit 43.5 % (41.0-53.0); Lymphocytes # (auto) 0.8 10 ^3/uL (0.4-5.4); Mean Corpuscular Hemoglobin 27.8 pg (28.0-32.0); Mean Corpuscular Hgb Conc. 32.3 g/dL (32.0-36.0); Monocytes # (auto) 0.4 10 ^3/uL (0-1.3); Monocytes % (auto) 5.7 % (0.0-12.0); Neutrophils # (auto) 5.6 10 ^3/uL (1.6-8.6); Neutrophils % (auto) 80.8 % (37.0-80.0); Nucleated Red Blood Cells % 0.1 %; Red Blood Cells 5.06 10^6/uL (4.5-5.90); Red Cell Distribution Width 15.1 % (11.8-14.3)
[2023-08-09] MEDS: ONDANSETRON ODT 4 MG TAB PO ONE (10:33)
[2023-08-09 10:47] LABS: Alanine Aminotransferase 10 U/L (7-40); Albumin 4.1 g/dL (3.2-4.8); Alkaline Phosphatase 72 U/L (46-116); Anion Gap 5 (5-15); Aspartate Aminotransferase 17 U/L (13-40); BUN/Creatinine Ratio 12.2 (10.0-20.0); Bilirubin, Total 1.3 mg/dL (0.2-1.0); Blood Urea Nitrogen 11 mg/dL (9-23); Carbon Dioxide 24 mmol/L (20-30); Chloride 108 mmol/L (98-107); Glucose 186 mg/dL (74-106); Lipase 29 U/L (12-53); Potassium 4.3 mmol/L (3.5-5.1); Sodium 137 mmol/L (136-145); Total Protein 8.2 g/dL (5.7-8.2)
[2023-08-09 12:38] LABS: Urine Bacteria NONE SEEN /hpf (None Seen); Urine Blood 1+ /uL (Negative); Urine Clarity HAZY (Clear); Urine Color Yellow (Yellow); Urine Protein, UAD 1+ (Negative); Urine Specific Gravity 1.018 (1.001-1.035); Urine Urobilinogen Normal (Negative); Urine WBC 323 /hpf (0 - 3); Urine WBC Clumps PRESENT /hpf (None Seen); Urine pH 6.5 (5.0-8.0)
[2023-08-09] MEDS ORDERED: NITR-87 PO (12:59)
[2023-08-09] MEDS ORDERED: POLY335015 PO (13:01)
[2023-08-09] MEDS ORDERED: LIDOCAINE 1% HCL (LOCAL ANESTH.) INJ 20ML MDV ONE (13:14)
[2023-08-09 13:18] VITALS: BP 130/83; PULSE 81; RESP 19; TEMP 98.3; O2SAT 96
[2023-08-09] MEDS: cefTRIAXone SOD 1,000 MG VL IM ONE (13:18)
== END 2023-08-09 13:29 | disposition home or self-care (01) ==
LOC: ER 09:01
DX: N39.0 Urinary tract infection, site not specified (principal); K59.00 Constipation, unspecified; E11.22 Type 2 diabetes mellitus with diabetic chronic kidney disease; I12.9 Hypertensive chronic kidney disease with stage 1 through stage 4 chronic kidney disease, or unspecified chronic kidney disease; N18.9 Chronic kidney disease, unspecified; E78.5 Hyperlipidemia, unspecified; Z87.891 Personal history of nicotine dependence; Z57.31 Occupational exposure to environmental tobacco smoke; Z77.22 Contact with and (suspected) exposure to environmental tobacco smoke (acute) (chronic); Z87.442 Personal history of urinary calculi
CPT/HCPCS: 36415; 74018; 76705; 80053; 81001; 83690; 84484; 85025; 96372; 99285; J0696; J2001

== ENCOUNTER 2024-11-17 18:31 | Inpatient (IN) | payer MEDICARE, OTHER ==
[~2024-11-17] VITALS: Ht 177.8 cm; Wt 112.5 kg
[~2024-11-17 18:31] MED LIST changes: -MELO-335 PO; +MELO15TA29 PO; +NITR-87 PO; +POLY335015 PO
[2024-11-17 19:10] LABS: Basophils # (auto) 0 10 ^3/uL (0-0.2); Basophils % (auto) 0.1 % (0.0-2.0); Eosinophils # (auto) 0.2 10 ^3/uL (0-0.8); Eosinophils % (auto) 0.9 % (0.0-7.0); Hematocrit 41.6 % (41.0-53.0); Hemoglobin 13.8 g/dL (13.5-17.5); Lymphocytes # (auto) 1.7 10 ^3/uL (0.4-5.4); Lymphocytes % (auto) 9.7 % (10.0-50.0); Mean Corpuscular Hemoglobin 27.7 pg (28.0-32.0); Mean Corpuscular Hgb Conc. 33.1 g/dL (32.0-36.0); Mean Corpuscular Volume 83.8 fL (80.0-100.0); Monocytes # (auto) 0.8 10 ^3/uL (0-1.3); Monocytes % (auto) 4.5 % (0.0-12.0); Neutrophils # (auto) 14.6 10 ^3/uL (1.6-8.6); Neutrophils % (auto) 84.8 % (37.0-80.0); Nucleated Red Blood Cells % 0.2 %; Platelet Count (auto) 221 10^3/uL (140-450); Red Blood Cells 4.96 10^6/uL (4.5-5.90); Red Cell Distribution Width 15.2 % (11.8-14.3); White Blood Cell 17.2 10^3/uL (4.4-10.8)
[2024-11-17 19:24] LABS: Albumin 4.3 g/dL (3.2-4.8); Alkaline Phosphatase 69 U/L (46-116); Anion Gap 12 (5-15); BUN/Creatinine Ratio 16.5 (10.0-20.0); Calcium 9.6 mg/dL (8.7-10.4); Carbon Dioxide 24 mmol/L (20-31); Potassium 3.5 mmol/L (3.5-5.1); Sodium 144 mmol/L (136-145); Total Protein 7.9 g/dL (5.7-8.2)
[2024-11-17 19:25] LABS: Bilirubin, Total 0.7 mg/dL (0.2-1.0)
[2024-11-17 19:30] VITALS: PULSE 94; O2SAT 94
[2024-11-17 19:56] LABS: Alanine Aminotransferase 9 U/L (7-40); Aspartate Aminotransferase 13 U/L (13-40); Blood Urea Nitrogen 32 mg/dL (9-23); Chloride 108 mmol/L (98-107); Glucose 51 mg/dL (74-106)
[2024-11-17 19:57] LABS: Blood Alcohol < 3.0 mg/dL (<10)
[2024-11-17 20:00] LABS: Lactic Acid w/Reflex 3.5 mmol/L (0.4-2.0)
[2024-11-17] MEDS: DEXTROSE (50%) 50ML SYRG IV ONE (20:54)
[2024-11-17] MEDS: ACCU-CHEK COMFORT CURVE STRIP VI SCH (21:00)
[2024-11-17] MEDS: DexAMETHasone INJECTION 10 MG in D5W 5% 50 ML IV ONE (21:30)
[2024-11-17] MEDS: SODIUM CHLORIDE 0.9% 2,000 ML IV ONE (21:30)
[2024-11-17] MEDS ORDERED: VANCOMYCIN PER PHARMACY 0 MG IV SCH (21:30)
[2024-11-17] MEDS: ALBUTEROL SULF 2.5 MG/0.5ML(0.5%) NEB SOLN NEB ONE (21:33)
[2024-11-17] MEDS: IPRATROPIUM BROM 0.5 MG/2.5ML INH SOL NEB ONE (21:33)
--- NOTE | 2024-11-17 21:42 | ED.PDOC ---
History of Present Illness HPI Comments This patient is a morbidly obese 74-year-old male who is in poor overall health who arrives to the ED today via EMS due to complaints of a LOC at home approximately 1 hour prior to arrival. According to , patient was at home and passed out. Patient is an insulin-dependent diabetic and may have dispensed additional insulin. At time of arrival to the home, EMS states the patient was hypoglycemic and hypotensive. Patient received glucose in route as well as fluids. Patient was coherent at time of evaluation. Patient was hypotensive and tachycardic. Chief Complaint: Low Blood Pressure Time Seen by MD: 18:39 Primary Care Provider: MAXIMINO Reviewed Notes: Nurses Notes, Medical Artist Notes Allergies: Coded Allergies: NO KNOWN ALLERGIES (Unverified , 12/22/21) Home Meds Active Scripts Polyethylene Glycol 3350 (Miralax) 17 Gm Pow, 17 GM PO DAILY@BREAKFAST for 30 Days, #120 POW Prov:JR WYATT MD 08/09/23 Nitrofurantoin Monohydrate Mac (Macrobid) 100 Mg Cap, 100 MG PO BID for 10 Days, #20 CAP Prov:JR WYATT MD 08/09/23 Cephalexin Monohydrate (Cephalexin) 500 Mg Cap, 1 CAP PO QID, #20 CAP Prov:MARGIE MARSHALL MD 10/30/22 Cyclobenzaprine HCl (Cyclobenzaprine Hydrochlo) 10 Mg Tab, 10 MG PO BID PRN, #20 TAB Prov:MARGIE MARSHALL MD 10/30/22 Meloxicam (Meloxicam) 15 Mg Tab, 15 MG PO DAILY PRN, #10 TAB Prov:MARGIE MARSHALL MD 10/30/22 Tamsulosin Hcl (Flomax) 0.4 Mg Cap, 1 CAP PO DAILY, #30 CAP 11 Refills Prov:SALINA GARCIA NP 10/29/22 Oxycodone Hcl (OXYCODONE HCL) 5 Mg Tb, 5 MG GT Q6HP PRN for 5 Days, #20 TAB Prov:SALINA GARCIA NP 10/29/22 Reported Medications Lisinopril (Lisinopril) 10 Mg Tab, 10 MG PO DAILY for 30 Days, MG 09/05/22 Hydromorphone Hcl (Hydromorphone Hcl) 2 Mg Tab, 1 TAB PO QID 12/23/21 Pravastatin Sodium (PRAVACHOL TABLET) 20 Mg Tb, 20 MG PO DAILY, TAB 11/14/21 Cholecalciferol (VITAMIN D3) 2,000 Unit Tab, 1 TAB PO DAILY, #30 TAB 5 Refills 11/26/20 Duloxetine HCl (Duloxetine HCl) 30 Mg Cap, 30 MG PO HS 07/17/19 Levothyroxine Sodium (Levothyroxine Sodium) 25 Mcg Tab, 25 MG PO DAILY 07/17/19 Insulin Regular (Human) (Novolin R) 100 Unit/Ml Inj SLIDING SCALE 07/17/19 Insulin Glargine (Basaglar Kwikpen) 100 Unit/Ml Inj, 25 UNITS SC HS 07/17/19 Information Source: Patient, Emergency Med Personnel Mode of Arrival: EMS Severity: Moderate Timing: Minutes Duration: Since onset Prehospital treatment: Treatment Past Medical History PAST MEDICAL HISTORY: CKF, DM, High Lipids, HTN, Kidney Stones, Thyroid, UTI'S Surgical History: Appendectomy, Tonsillectomy Family History Family History: Reviewed,noncontributory to illness, Family hx of DM, Family hx of Cancer, Family hx of stroke Social History Smoker: Non-Smoker Alcohol: Denies ETOH Use Drugs: Denies Drug Use Lives In: Home Constitutional: reports: fatigue, weakness; denies: chills, diaphoresis, fever, malaise, sweats, others EENTM: denies: blurred vision, double vision, ear bleeding, ear discharge, ear drainage, ear pain, ear ringing, eye pain, eye redness, hearing loss, mouth pain, mouth swelling, nasal discharge, nose bleeding, nose congestion, nose pain, photophobia, tearing, throat pain, throat swelling, voice changes, others Respiratory: denies: cough, hemoptysis, orthopnea, SOB at rest, shortness of breath, SOB with excertion, stridor, wheezing, others Cardiovascular: denies: chest pain, dizzy spells, diaphoresis, Dyspnea on exertion, edema, irregular heart beat, left arm pain, lightheadedness, palpitations, PND, syncope, others Gastrointestinal: denies: abdomen distended, abdominal pain, blood streaked bowels, constipated, diarrhea, dysphagia, difficulty swallowing, hematemesis, melena, nausea, poor appetite, poor fluid intake, rectal bleeding, rectal pain, vomiting, others Genitourinary: denies: burning, dysuria, flank pain, frequency, hematuria, incontinence, penile discharge, penile sore, pain, testicle pain, testicle sw elling, urgency, others Neurological: denies: dizziness, fainting, headache, left sided numbness, left sided weakness, numbness, paresthesia, pre-existing deficit, right sided numbness, right sided weakness, seizure, speech problems, tingling, tremors, weakness, others Musculoskeletal: denies: back pain, gout, joint pain, joint swelling, muscle pain, muscle stiffness, neck pain, others Integumetry: denies: bruises, change in color, change in hair/nails, dryness, laceration, lesions, lumps, rash, wounds, others Allergic/Immunocompromised: denies: Difficulty Healing, Frequent Infections, Hives, Itching, others Hematologic/Lymphatic: denies: anemia, blood clots, easy bleeding, easy bruising, swollen glands, others Endocrine: denies: excessive hunger, excessive sweating, excessive thirst, excessive urination, flushing, intolerance to cold, intolerance to heat, unexplained weight gain, unexplained weight loss, others Psychiatric: denies: anxiety, bipolar disorder, depression, hopeless, panic disorder, schizophrenia, sleepless, suicidal, others Unable to Obtain due to: Altered Mental Status Physical Exam General Appearance: Moderate Distress (Patient was in kebg-ob-bdryumdn distress due to glucose concerns. Patient appears to be in poor overall health.) HEENT: Normal ENT Inspection, Pharynx Normal, TMs Normal Neck: Full Range of Motion, Non-Tender, Normal, Normal Inspection Respiratory: Chest Non-Tender, No Accessory Muscle Use, No Respiratory Distress, Wheezing (Patient displays some patchy wheezing and right middle lobe, right upper lobe and left upper lobe. No accessory muscle use. No signs of respiratory distress.) Cardiovascular: No Edema, No JVD, No Murmur, No Gallop, Normal Peripheral Pulses, Regular Rate/Rhythm Breast Exam: Deferred Gastrointestinal: No Organomegaly, Non Tender, No Pulsatile Mass, Normal Bowel Sounds, Soft Genitalia: Deferred Pelvic: Deferred Rectal: Deferred Extremities: NOT DONE Neurologic: Alert Cerebellar Function: NOT DONE Reflexes: NOT DONE Skin: Dry, Normal Color, Warm Lymphatic: No Adenopathy Was a procedure done? Was a procedure done?: No Differential Dx Considerations may include: Insulin overdose, hyperglycemia, hypotension, sepsis, electrolyte abnormality, urinary tract infection X-Ray, Labs, Meds, VS Vital Signs Date Time Temp Pulse Resp B/P (MAP) Pulse Ox O2 Delivery O2 Flow Rate FiO2 11/17/24 20:00 105 11/17/24 18:49 98.2 112 16 75/43 (54) 96 98.2 Lab Test 11/17/24 20:05 11/17/24 18:59 Range/Units Troponin I High Sensitivity 7 5 </=54 ng/L White Blood Count 17.2 H 4.4-10.8 10^3/uL Red Blood Count 4.96 4.5-5.90 10^6/uL Hemoglobin 13.8 13.5-17.5 g/dL Hematocrit 41.6 41.0-53.0 % Mean Corpuscular Volume 83.8 80.0-100.0 fL Mean Corpuscular Hemoglobin 27.7 L 28.0-32.0 pg Mean Corpuscular Hemoglobin Concent 33.1 32.0-36.0 g/dL Red Cell Distribution Width 15.2 H 11.8-14.3 % Platelet Count 221 140-450 10^3/uL Mean Platelet Volume 8.7 6.9-10.8 fL Neutrophils (%) (Auto) 84.8 H 37.0-80.0 % Lymphocytes (%) (Auto) 9.7 L 10.0-50.0 % Monocytes (%) (Auto) 4.5 0.0-12.0 % Eosinophils (%) (Auto) 0.9 0.0-7.0 % Basophils (%) (Auto) 0.1 0.0-2.0 % Neutrophils # (Auto) 14.6 H 1.6-8.6 10 ^3/uL Lymphocytes # (Auto) 1.7 0.4-5.4 10 ^3/uL Monocytes # (Auto) 0.8 0-1.3 10 ^3/uL Eosinophils # (Auto) 0.2 0-0.8 10 ^3/uL Basophils # (Auto) 0 0-0.2 10 ^3/uL Nucleated Red Blood Cells 0.2 % Sodium Level 144 136-145 mmol/L Potassium Level 3.5 3.5-5.1 mmol/L Chloride Level 108 H 98-107 mmol/L Carbon Dioxide Level 24 20-31 mmol/L Anion Gap 12 5-15 Blood Urea Nitrogen 32 H 9-23 mg/dL Creatinine 1.94 H 0.700-1.30 mg/dL Glomerular Filtration Rate Calc 36 >90 mL/min BUN/Creatinine Ratio 16.5 10.0-20.0 Serum Glucose 51 L 74-106 mg/dL Lactic Acid Level 3.5 *H 0.4-2.0 mmol/L Calcium Level 9.6 8.7-10.4 mg/dL Total Bilirubin 0.7 0.2-1.0 mg/dL Aspartate Amino Transferase (AST) 13 13-40 U/L Alanine Aminotransferase (ALT) 9 7-40 U/L Alkaline Phosphatase 69 46-116 U/L B-Type Natriuretic Peptide 106.25 0-100 pg/mL Total Protein 7.9 5.7-8.2 g/dL Albumin 4.3 3.2-4.8 g/dL Plasma/Serum Blood Alcohol < 3.0 <10 mg/dL Current Medications Medications (Trade) Dose Ordered Sig/Ren Route Start Time Stop Time Status Last Admin Dextrose 50 ml ONCE ONCE IV 11/17/24 18:45 11/17/24 18:46 DC 11/17/24 20:54 X-Ray, Labs, Meds, VS Comment While at the facility, patient continued to decompensate to the point of initiating a septic protocol. Laboratories that had returned at time of this note revealed a hypoglycemia, leukocytosis of 70.2, elevated lactic acid and w hat appears to be in acute on chronic renal concern. EKG revealed a sinus tachycardia with a rate of 100. Low voltage in the precordial leads as well as abnormal R-wave progression. CT interval of 143 and QT interval of 347. Patient will be admitted for sepsis as well as needing nephrology consultation deal with kidney concerns. Additional laboratories and studies will be eval uated as received. Time of 1ST Reevaluation: 21:39 Reevaluation 1ST: Improved Consultation: PCP, Cardiology, Pulmonary Patient Education/Counseling: Diagnosis, Treatment Family Education/Counseling: Diagnosis, Treatment Sepsis Sepsis Reasesment Focused Exam Sepsis focused exam: time: (21:30) Departure 1 Departure Time of Disposition: 21:41 Impression: Primary Impression: Sepsis Additional Impressions: Acute respiratory distress Hypoglycemia Lrbid-zh-sqokkek kidney injury Hypotension Disposition: ADMITTED INPATIENT Condition: Fair Discharged With: Self Critical Care Note Critical Care Time?: Yes (1 hr-critical care time only) Critical care comment: Due to the high probability of a clinically significant and possibly life- threatening deterioration, the patient required my highest level preparedness to intervene emergently and therefore, I personally provided 1 hour of critical care time exclusive of time spent on separate billable procedures. This critical care time includes, but is not limited to, obtaining additional history, re-examination of the patient, evaluation of pulse oximetry, ordering and reviewing of additional studies, arrangement of an urgent treatment with the development of a management plan, evaluation of the patient's response to treatment as well as frequent reassessments and discussions with other providers. Stability Stability form required: No Heart Score Heart Score: Heart Score Response (Comments) Value History Slightly Suspicious 0 EKG Repolarization Disturb 1 Age >65 2 Risk Factors 1 or 2 risk factors 1 Troponin Normal limit 0 Total 4 MICHAEL ROGER PAC November 17, 2024 21:42
--- NOTE | 2024-11-17 22:05 | DVH ---
CHEST RADIOGRAPH Indication: Shortness of breath Technique: Single frontal view of the chest was obtained COMPARISON: XY CHEST PORTABLE on DOS: 10/28/22 FINDINGS: Lines and Tubes: None Lungs: Clear Pleura: No effusion. No pneumothorax. Cardiomediastinal contours: Unremarkable IMPRESSION: No acute disease. No significant change compared to the prior chest x-ray from October 2022.
[2024-11-17] MEDS: PIPERACILLIN-TAZOB 3.375GM 100 ML IV ONE (22:06)
[2024-11-17] MEDS ORDERED: DEXTROSE (50%) 50ML SYRG IV PRN (23:00)
[2024-11-17] MEDS ORDERED: ONDANSETRON HCL 4 MG/2 ML VIAL IV PRN (23:00)
[2024-11-17] MEDS ORDERED: MORPHINE SULFATE INJ 2 MG/ml SYRG IV PRN (23:00)
[2024-11-17] MEDS ORDERED: DOCUSATE SOD 100 MG CAP PO PRN (23:00)
[2024-11-17] MEDS ORDERED: NITROGLYCERIN 0.4 MG SL TAB SL PRN (23:00)
--- NOTE | 2024-11-17 23:09 | DVHHP2 ---
History of Present Illness Reason for Visit: Acute respiratory distress History of Present Illness The patient is a 74-year-old male morbidly obese with multiple past medical history including DM, hyperlipidemia, hypertension, and thyroid disease who presented to [facility] ED for evaluation of altered level of consciousness and shortness of breaths. As reported by , patient was at home when he passed out, currently he is an insulin-dependent diabetic and may have dispense additional insulin. Patient was seen and evaluated in the ED, laboratory data shows WBC 17.2, platelets 221, sodium 144, potassium 3.5, BUN 32, creatinine 1.94, glucose 51, lactic acid 3.5 trending down to 2.5, BNP 106.25, troponin 7 trending up to 58, blood pressure 74/43 trending up to 117/95, heart rate 104, temperature 98.2 F, O2 saturation 97% on simple mask. Patient was started on IV antibiotic regimen vancomycin, please see medication orders section in the computer. On my assessment, patient denied chest pain, no headache, no dizziness, no diaphoresis, currently on oxygen, no nausea, no vomiting, no fever, no chills. Patient was admitted for further evaluation and medical management. Past Medical History CKF, DM, High Lipids, HTN, Kidney Stones, Thyroid, UTI'S Past Surgical History Appendectomy, Tonsillectomy Family History Reviewed, noncontributory to the management of this case. Past Social History The patient lives at home, denies smoking, alcohol or illicit drugs abuse. Review of Systems Constitutional: Yes: Weakness, Other (Fatigue); No: Fever, Chills, Sweats, Malaise Eyes: No: Pain, Vision change, Conjunctivae inflammation, Eyelid inflammation, Other, Redness ENT: No: Ear pain, Ear discharge, Nose pain, Nose discharge, Nose congestion, M outh pain, Mouth swelling, Throat pain, Throat swelling, Other Respiratory: Shortness of breath, Other (SOB at rest); No: Cough, Dry, SOB with excertion, Wheezing, Hemoptysis, Pleuritic Pain, Sputum, Wheezing Cardiovascular: No: Chest Pain, Palpitations, Orthopnea, Paroxysmal Noc. Dyspnea, Edema, Lt Headedness, Other Gastrointestinal: No: Nausea, Vomiting, Abdominal Pain, Diarrhea, Constipation, Melena, Hematochezia, Other Genitourinary: No Dysuria, No Frequency, No Incontinence, No Hematuria, No Retention, No Other Musculoskeletal: No: other, neck pain, shoulder pain, arm pain, back pain, hand pain, leg pain, foot pain Skin: No: Rash, Lesions, Jaundice, Bruising, Other Neurological: No: Weakness, Numbness, Incoordination, Change in speech, Confusion, Seizures, Other Allergies: Coded Allergies: NO KNOWN ALLERGIES (Unverified , 12/22/21) Medications Current Medications Medications Dose Ordered Sig/Ren Route Start Time Stop Time Status Last Admin Dose Admin Vancomycin HCl 0 ml @ 0 mls/hr UD IV 11/17/24 21:30 UNV Vancomycin HCl 200 ml @ 200 mls/hr Q2H IV 11/17/24 21:30 11/18/24 00:29 Exam Vital Signs Vital Signs Date Time Temp Pulse Resp B/P (MAP) Pulse Ox O2 Delivery O2 Flow Rate FiO2 11/17/24 21:36 18 98 Simple Mask* 10 99 11/17/24 20:00 105 11/17/24 18:49 98.2 75/43 (54) 98.2 General Appearance: Alert, Oriented X3, Cooperative, No acute distress HEENT: Atraumatic, PERRLA, EOMI, Mucous membr. moist/pink Respiratory: Clear to auscultation, Normal air movement Cardiovascular: Regular rate, Normal S1, Normal S2, No murmurs Abdominal: Normal bowel sounds, Soft, No tenderness, No hepatospenomegaly, No masses Extremities: No clubbing, No cyanosis, No edema, Normal pulses, No tenderness/swelling Skin: No rashes, No breakdown, No significant lesion Neuro: Normal speech, Normal tone, Sensation intact, Cranial nerves 3-12 NL, Reflexes 2+, Other (Generalized weakness) Psych/Mental Status: Mental status NL, Mood NL Labs/Xrays Labs Test 11/17/24 22:00 11/17/24 18:59 Range/Units Lactic Acid Level 2.5 *H 0.4-2.0 mmol/L Troponin I High Sensitivity 58 *H </=54 ng/L White Blood Count 17.2 H 4.4-10.8 10^3/uL Red Blood Count 4.96 4.5-5.90 10^6/uL Hemoglobin 13.8 13.5-17.5 g/dL Hematocrit 41.6 41.0-53.0 % Mean Corpuscular Volume 83.8 80.0-100.0 fL Mean Corpuscular Hemoglobin 27.7 L 28.0-32.0 pg Mean Corpuscular Hemoglobin Concent 33.1 32.0-36.0 g/dL Red Cell Distribution Width 15.2 H 11.8-14.3 % Platelet Count 221 140-450 10^3/uL Mean Platelet Volume 8.7 6.9-10.8 fL Neutrophils (%) (Auto) 84.8 H 37.0-80.0 % Lymphocytes (%) (Auto) 9.7 L 10.0-50.0 % Monocytes (%) (Auto) 4.5 0.0-12.0 % Eosinophils (%) (Auto) 0.9 0.0-7.0 % Basophils (%) (Auto) 0.1 0.0-2.0 % Neutrophils # (Auto) 14.6 H 1.6-8.6 10 ^3/uL Lymphocytes # (Auto) 1.7 0.4-5.4 10 ^3/uL Monocytes # (Auto) 0.8 0-1.3 10 ^3/uL Eosinophils # (Auto) 0.2 0-0.8 10 ^3/uL Basophils # (Auto) 0 0-0.2 10 ^3/uL Nucleated Red Blood Cells 0.2 % Sodium Level 144 136-145 mmol/L Potassium Level 3.5 3.5-5.1 mmol/L Chloride Level 108 H 98-107 mmol/L Carbon Dioxide Level 24 20-31 mmol/L Anion Gap 12 5-15 Blood Urea Nitrogen 32 H 9-23 mg/dL Creatinine 1.94 H 0.700-1.30 mg/dL Glomerular Filtration Rate Calc 36 >90 mL/min BUN/Creatinine Ratio 16.5 10.0-20.0 Serum Glucose 51 L 74-106 mg/dL Calcium Level 9.6 8.7-10.4 mg/dL Total Bilirubin 0.7 0.2-1.0 mg/dL Aspartate Amino Transferase (AST) 13 13-40 U/L Alanine Aminotransferase (ALT) 9 7-40 U/L Alkaline Phosphatase 69 46-116 U/L B-Type Natriuretic Peptide 106.25 0-100 pg/mL Total Protein 7.9 5.7-8.2 g/dL Albumin 4.3 3.2-4.8 g/dL Plasma/Serum Blood Alcohol < 3.0 <10 mg/dL PATIENT: MARCUS GUNTER ACCT: [id number] UNIT: [id number] : 1950 LOC: ER ROOM / BED: / AGE / SEX: 74 / M ADM STATUS: REG ER SERVICE 26 ORDERING PHYSICIAN: MICHAEL ROGER PAC PROCEDURE(s): CXRP - CHEST PORTABLE REASON: Shortness of breath ORDER NUMBER(s): [id number], ACCESSION NUMBER(s): [id number] CHEST RADIOGRAPH Indication: Shortness of breath Technique: Single frontal view of the chest was obtained COMPARISON: XY CHEST PORTABLE on DOS: 10/28/22 FINDINGS: Lines and Tubes: None Lungs: Clear Pleura: No effusion. No pneumothorax. Cardiomediastinal contours: Unremarkable IMPRESSION: No acute disease. No significant change compared to the prior chest x-ray from October 2022. Assessment/Plan Assessment/Plan Sepsis, unspecified organism Hypotension Acute respiratory distress Hypoglycemia Cotnh-eq-xsykifl kidney injury Plan 1. Admit to telemetry unit 2. Breathing treatment 3. Pain control management 4. IV antibiotic management 5. Management of fluids and electrolytes 6. Consultation for hospitalist 7. Diagnostic test chest x-ray 8. DVT prophylaxis-on aspirin 9. Repeat labs CBC, CMP in a.m. 10. Home medication reviewed and reconciled 11. Continue with current medical management 12. Treatment plan discussed with patient and RN. Patient verbalized understanding. Plan discussed with: Patient, Other (RN) Problem List: (1) Sepsis, unspecified organism (2) Hypotension (3) Acute respiratory distress (4) Hypoglycemia (5) Bjkdw-ox-rowokqv kidney injury Date of Service: November 17, 2024 Billing Provider: BARI OCHOA DNP Common Visit Codes: [id number] INP/OBS CARE (HIGH) BARI OCHOA DNP November 17, 2024 23:09
[2024-11-17 23:45] LABS: Base Excess -6.6 mmol/L (-2.0-3.0)
[2024-11-17 23:46] VITALS: BP 75/43; PULSE 105; RESP 16; TEMP 98.2; O2SAT 98
[2024-11-18] MEDS: InsuLIN REG 1unit/0.01ml Soln (100units/ml) SC SCH (00:27)
[2024-11-18 01:33] LABS: Urine Bacteria FEW /hpf (None Seen); Urine Blood 1+ /uL (Negative); Urine Budding Yeast LOADED /hpf (None Seen); Urine Clarity Ex.Turbid (Clear); Urine Color Light-Brown (Yellow); Urine Protein, UAD 1+ (Negative); Urine Specific Gravity 1.016 (1.001-1.035); Urine Squamous Epithelial Cell FEW /hpf (<5); Urine Urobilinogen Normal (Negative); Urine WBC 4064 /HPF (0-3); Urine WBC Clumps PRESENT /hpf (None Seen); Urine pH 5.5 (5.0-9.0)
[2024-11-18 01:43] LABS: Amphetamine Screen, Urine Neg (NEGATIVE); Barbiturate Scree,Urine Neg (NEGATIVE); Benzodiazephine Screen, Urine Neg (NEGATIVE); Cannabinoid Screen, Urine Neg (NEGATIVE); Cocaine Screen, Urine Neg (NEGATIVE); Opiate Scree,Urine Pos (NEGATIVE); Phencyclidine Screen, Urine Neg (NEGATIVE)
[2024-11-18 02:42] VITALS: BP 90/55; PULSE 78; RESP 16; RESP 57; TEMP 98.4; O2SAT 95
[2024-11-18 03:37] LABS: Alanine Aminotransferase < 9 U/L (7-40); Albumin 3.6 g/dL (3.2-4.8); Alkaline Phosphatase 55 U/L (46-116); Anion Gap 10 (5-15); Aspartate Aminotransferase 14 U/L (13-40); BUN/Creatinine Ratio 15.5 (10.0-20.0); Bilirubin, Total 1.2 mg/dL (0.2-1.0); Blood Urea Nitrogen 32 mg/dL (9-23); Calcium 8.2 mg/dL (8.7-10.4); Carbon Dioxide 22 mmol/L (20-31); Chloride 106 mmol/L (98-107); Glucose 159 mg/dL (74-106); Potassium 4.7 mmol/L (3.5-5.1); Sodium 138 mmol/L (136-145); Total Protein 6.5 g/dL (5.7-8.2)
[2024-11-18] MEDS: ASPirin 81 mg TAB PO ONE (03:42)
[2024-11-18] MEDS: DexAMETHasone INJECTION 10 MG in D5W 5% 50 ML IV ONE (03:52)
[2024-11-18] MEDS: DexAMETHasone SOD PHOS 10MG/1ML VIAL INJ ONE (03:53)
[2024-11-18] MEDS ORDERED: cefTRIAXone 1GM/50ML D5W 50 ML IV SCH (04:00)
[2024-11-18 04:17] LABS: Basophils # (auto) 0 10 ^3/uL (0-0.2); Basophils % (auto) 0.1 % (0.0-2.0); Eosinophils # (auto) 0 10 ^3/uL (0-0.8); Eosinophils % (auto) 0.2 % (0.0-7.0); Hematocrit 36.9 % (41.0-53.0); Lymphocytes # (auto) 1.1 10 ^3/uL (0.4-5.4); Lymphocytes % (auto) 8.2 % (10.0-50.0); Mean Corpuscular Hemoglobin 27.6 pg (28.0-32.0); Mean Corpuscular Hgb Conc. 32.6 g/dL (32.0-36.0); Mean Corpuscular Volume 84.6 fL (80.0-100.0); Monocytes # (auto) 0.7 10 ^3/uL (0-1.3); Monocytes % (auto) 4.9 % (0.0-12.0); Neutrophils # (auto) 11.9 10 ^3/uL (1.6-8.6); Neutrophils % (auto) 86.6 % (37.0-80.0); Nucleated Red Blood Cells % 0.1 %; Platelet Count (auto) 104 10^3/uL (140-450); Red Blood Cells 4.36 10^6/uL (4.5-5.90); Red Cell Distribution Width 15.3 % (11.8-14.3); White Blood Cell 13.8 10^3/uL (4.4-10.8)
[2024-11-18] MEDS: SODIUM CHLORIDE 0.9% 500 ML IV ONE (04:49)
[2024-11-18] MEDS: SODIUM CHLOR 0.9% PF (SALINE LOCK) 10ML VIAL/SYR IV SCH (06:14)
[2024-11-18] MEDS: methylPREDNISolone SOD SUCC 40 MG/ML VL IV SCH (06:18)
[2024-11-18] MEDS: cefTRIAXone 1GM/50ML D5W 50 ML IV SCH (06:18)
[2024-11-18] MEDS: LEVOTHYROXINE SODIUM 25 MCG TAB PO SCH (06:18)
[2024-11-18 07:07] VITALS: O2SAT 98
--- NOTE | 2024-11-18 07:14 | ECG ---
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
[2024-11-18] MEDS: ASPirin 81 mg TAB PO SCH (10:17)
[2024-11-18] MEDS: FAMOTIDINE (10MG/ML) 2ML VL IV SCH (10:17)
--- NOTE | 2024-11-18 13:17 | DVHPN2 ---
Reviewed: Care Plan, H&P, Labs, Medications, Previous Orders, Radiology Changes from previous H/P or p: No Changes Eyes: No Pain, No Vision change, No Conjunctivae inflammation, No Eyelid inflammation, No Other, No Redness ENT: No Ear pain, No Ear discharge, No Nose pain, No Nose discharge, No Nose congestion, No Mouth pain, No Mouth swelling, No Throat pain, No Throat swelling, No Other Cardiovascular: No Chest Pain, No Palpitations, No Orthopnea, No Paroxysmal Noc. Dyspnea, No Edema, No Lt Headedness, No Other Respiratory: No Cough, No Dry; Shortness of breath; No SOB with excertion, No Wheezing, No Hemoptysis, No Pleuritic Pain, No Sputum; Other (SOB at rest) Gastrointestinal: No Nausea, No Vomiting, No Abdominal Pain, No Diarrhea, No Constipation, No Melena, No Hematochezia, No Other Genitourinary: No Dysuria, No Frequency, No Incontinence, No Hematuria, No Retention, No Other Musculoskeletal: No other, No neck pain, No shoulder pain, No arm pain, No back pain, No hand pain, No leg pain, No foot pain Skin: No Rash, No Lesions, No Jaundice, No Bruising, No Other Objective Vitals Vital Signs Date Time Temp Pulse Resp B/P (MAP) Pulse Ox O2 Delivery O2 Flow Rate FiO2 11/18/24 12:00 55 11/18/24 08:00 98.3 14 116/71 (86) 96 98.3 11/18/24 08:00 Nasal Cannula* 4 36 Intake/Output Intake and Output 11/18/24 07:00 Intake Total 2350 ml Balance 2350 ml Intake IV Total 2350 ml Medications Current Medications Medications Dose Ordered Sig/Ren Route Start Time Stop Time Status Last Admin Dose Admin Vancomycin HCl 0 ml @ 0 mls/hr UD IV 11/17/24 21:30 Albuterol 2.5 mg Q4HPRN PRN NEB 11/17/24 23:00 Ipratropium [place] 0.5 mg Q4HPRN PRN NEB 11/17/24 23:00 Levothyroxine Sodium 25 mcg QAM@0600 PO 11/18/24 06:00 11/18/24 06:18 25 MCG Methylprednisolone Sodium Succinate 40 mg Q8HR IV 11/18/24 06:00 11/18/24 06:18 40 MG Famotidine 20 mg DAILY IV 11/18/24 10:00 11/18/24 10:17 20 MG Atorvastatin Calcium 10 mg HS PO 11/18/24 22:00 Diagnostic Test (Pha) 1 strip IQ4HR 11/18/24 00:00 11/18/24 12:30 1 STRIP Insulin Human Regular IQ4HR SC 11/18/24 00:00 11/18/24 12:34 6 UNITS Dextrose 50 ml UD PRN IV 11/17/24 23:00 Sodium Chloride 10 ml Q8HR IV 11/18/24 06:00 11/18/24 06:14 10 ML Acetaminophen/ Hydrocodone Bitart 1 tab Q4HP PRN PO 11/17/24 23:00 Ondansetron HCl 4 mg Q4HP PRN IV 11/17/24 23:00 Docusate Sodium 100 mg BIDPRN PRN PO 11/17/24 23:00 Acetaminophen 650 mg Q6HP PRN PO 11/17/24 23:00 Nitroglycerin 0.4 mg Q5MINP PRN SL 11/17/24 23:00 Morphine Sulfate 2 mg Q30M PRN IV 11/17/24 23:00 Aspirin 81 mg DAILY PO 11/18/24 10:00 11/18/24 10:17 81 MG Ceftriaxone Sodium 50 ml @ 100 mls/hr DAILY@0600 IV 11/18/24 06:00 11/18/24 06:18 100 MLS/HR Laboratory Results Laboratory Tests 11/18/24 02:37 11/18/24 04:02 Chemistry Test 11/17/24 18:59 11/18/24 02:37 Albumin 4.3 g/dL (3.2-4.8) 3.6 g/dL (3.2-4.8) Calcium Level 9.6 mg/dL (8.7-10.4) 8.2 mg/dL (8.7-10.4) L Total Protein 7.9 g/dL (5.7-8.2) 6.5 g/dL (5.7-8.2) Cardiac Markers Test 11/17/24 18:59 B-Type Natriuretic Peptide 106.25 pg/mL (0-100) LFT Test 11/17/24 18:59 11/18/24 02:37 Alanine Aminotransferase (ALT) 9 U/L (7-40) < 9 U/L (7-40) Alkaline Phosphatase 69 U/L (46-116) 55 U/L (46-116) Aspartate Amino Transferase (AST) 13 U/L (13-40) 14 U/L (13-40) Total Bilirubin 0.7 mg/dL (0.2-1.0) 1.2 mg/dL (0.2-1.0) H HgA1c, TSH Test 11/18/24 02:37 Thyroid Stimulating Hormone (TSH) 2.97 uIU/mL (0.55-4.78) Urinalysis Test 11/18/24 01:02 Urine Color Light-brown (Yellow) Urine Clarity Ex.turbid (Clear) Urine pH 5.5 (5.0-9.0) Urine Specific [place] 1.016 (1.001-1.035) Urine Protein 1+ (Negative) H Urine Ketones Negative (Negative) Urine Blood 1+ /uL (Negative) H Urine Nitrite Negative (Negative) Urine Bilirubin Negative (Negative) Urine Urobilinogen Normal mg/dL (Negative) Urine Leukocyte Esterase 3+ /uL (Negative) Urine RBC 50 /hpf (0 - 3) Urine WBC Clumps Present /hpf (None Seen) Urine Microscopic WBC 4064 /HPF (0-3) H Urine Squamous Epithelial Cells Few /hpf (<5) Urine Bacteria Few /hpf (None Seen) H Urine Yeast (Budding) Loaded /hpf (None Seen) Urine Glucose Normal mg/dL (Normal) Blood Gas Results Test 11/17/24 22:43 Arterial Blood pH 7.319 (7.350-7.450) FiO2 % 50.0 Labs and/or images reviewed: Labs reviewed by me, Image(s) reviewed by me Assessment/Plan Assessment/Plan Septic shock secondary to urinary tract infection Metabolic encephalopathy Acute urinary tract infection: Blood cultures urine cultures Rocephin Uncontrolled diabetes: Insulin sliding scale Hypercholesterolemia Hypertension Hypothyroidism History of kidney stones Chronic kidney disease X-ray negative Flu test pending Nguyen test pending D-dimer pending Time spent 70 minutes Patient is full code Advanced care planning time 20 minutes Plan discussed with: Patient My Orders Orders - CHAVEZ ARRIAZA MD Procedure Category Date Status Time Hemoglobin A1c LAB 11/18/24 Logged 13:10 Urine Bacterial GAURAV 11/18/24 Transmitted Culture 13:11 Rapid Influenza A&B LAB 11/18/24 Verified 13:12 Covid19 Antigen Divya LAB 11/18/24 Verified Date of Service: November 18, 2024 Billing Provider: CHAVEZ ARRIAZA MD Common Visit Codes: [id number] CARE 30-74 MIN CHAVEZ ARRIAZA MD November 18, 2024 13:17
--- NOTE | 2024-11-18 14:02 | DVH ---
CLINICAL INFORMATION: 74 years old, Male; Syncope and fall. TECHNIQUE: Axial imaging was obtained through the brain without contrast. Coronal and sagittal reform atted images were obtained, reviewed, and stored. Images were reviewed in brain and bone windows. Al l CT scans at this medical facility are performed using dose modulation techniques as appropriate to a performed exam including the following: Automated exposure control was utilized; adjustment of the MA and/or KV according to patient size; and use of iterative reconstruction technique. CTDIvol = 58.1 6 mGy DLP = 1048.64 mGy-cm COMPARISON: None FINDINGS: There is no acute intracranial hemorrhage. No mass effect or midline shift. Scattered areas of hypoattenuation are seen in the periventricular and subcortical white matter, which are nonspecif ic but most likely sequelae of small vessel ischemic disease.The ventricles and sulci are within norm al limits in size for age. Basal cisterns are patent. The calvarium is unremarkable. Paranasal sinus es and mastoid air cells are clear. IMPRESSION: 1. No CT evidence of acute intracranial abnormality. 2. Nonacute findings as described above.
[2024-11-18 19:45] VITALS: PULSE 82; RESP 23; O2SAT 93
[2024-11-18 20:10] VITALS: O2SAT 94
[2024-11-18] MEDS: HYDROcodone-ACET 5/325MG TAB PO PRN (20:36)
[2024-11-18] MEDS: ATORVASTATIN 20 MG TAB PO SCH (20:36)
[2024-11-18] MEDS ORDERED: TAMS1CAP25 PO (23:18)
[2024-11-18] MEDS ORDERED: LIDO3CRE35 TOP (23:18)
[2024-11-18] MEDS ORDERED: LEVO25TA6 PO (23:18)
[2024-11-18] MEDS ORDERED: GABA-1250 PO (23:18)
[2024-11-19] VITALS (9 sets, daily range): BP systolic 141–159; BP diastolic 16–82; PULSE 48–60; RESP 17–19; TEMP 97.5–98.3; O2SAT 93–96
[2024-11-19 00:16] LABS: COVID19 ANTIGEN SOFIA FIA NEGATIVE (NEGATIVE); Rapid Influenza A Negative (Negative); Rapid Influenza B Negative (Negative)
--- NOTE | 2024-11-19 13:01 | DVHPN2 ---
Reviewed: Care Plan, H&P, Labs, Medications, Previous Orders, Radiology Changes from previous H/P or p: No Changes Eyes: No Pain, No Vision change, No Conjunctivae inflammation, No Eyelid inflammation, No Other, No Redness ENT: No Ear pain, No Ear discharge, No Nose pain, No Nose discharge, No Nose congestion, No Mouth pain, No Mouth swelling, No Throat pain, No Throat swelling, No Other Cardiovascular: No Chest Pain, No Palpitations, No Orthopnea, No Paroxysmal Noc. Dyspnea, No Edema, No Lt Headedness, No Other Respiratory: No Cough, No Dry; Shortness of breath; No SOB with excertion, No Wheezing, No Hemoptysis, No Pleuritic Pain, No Sputum; Other (SOB at rest) Gastrointestinal: No Nausea, No Vomiting, No Abdominal Pain, No Diarrhea, No Constipation, No Melena, No Hematochezia, No Other Genitourinary: No Dysuria, No Frequency, No Incontinence, No Hematuria, No Retention, No Other Musculoskeletal: No other, No neck pain, No shoulder pain, No arm pain, No back pain, No hand pain, No leg pain, No foot pain Skin: No Rash, No Lesions, No Jaundice, No Bruising, No Other Objective Vitals Vital Signs Date Time Temp Pulse Resp B/P (MAP) Pulse Ox O2 Delivery O2 Flow Rate FiO2 11/19/24 09:00 97.9 52 17 141/16 (57) 93 97.9 11/19/24 08:00 Nasal Cannula* 2 28 Intake/Output Intake and Output 11/19/24 07:00 Intake Total 50 ml Output Total 1700 ml Balance -1650 ml Intake Oral 0 ml IV Total 50 ml Output Urine Total 1700 ml Medications Current Medications Medications Dose Ordered Sig/Ren Route Start Time Stop Time Status Last Admin Dose Admin Vancomycin HCl 0 ml @ 0 mls/hr UD IV 11/17/24 21:30 Albuterol 2.5 mg Q4HPRN PRN NEB 11/17/24 23:00 Ipratropium [place] 0.5 mg Q4HPRN PRN NEB 11/17/24 23:00 Levothyroxine Sodium 25 mcg QAM@0600 PO 11/18/24 06:00 11/19/24 06:03 25 MCG Methylprednisolone Sodium Succinate 40 mg Q8HR IV 11/18/24 06:00 11/19/24 06:03 40 MG Famotidine 20 mg DAILY IV 11/18/24 10:00 11/19/24 11:34 20 MG Atorvastatin Calcium 10 mg HS PO 11/18/24 22:00 11/18/24 20:36 10 MG Diagnostic Test (Pha) 1 strip IQ4HR 11/18/24 00:00 11/19/24 11:35 1 STRIP Insulin Human Regular IQ4HR SC 11/18/24 00:00 11/19/24 12:00 4 UNITS Dextrose 50 ml UD PRN IV 11/17/24 23:00 Sodium Chloride 10 ml Q8HR IV 11/18/24 06:00 11/19/24 12:00 10 ML Acetaminophen/ Hydrocodone Bitart 1 tab Q4HP PRN PO 11/17/24 23:00 11/19/24 08:06 1 TAB Ondansetron HCl 4 mg Q4HP PRN IV 11/17/24 23:00 Docusate Sodium 100 mg BIDPRN PRN PO 11/17/24 23:00 Acetaminophen 650 mg Q6HP PRN PO 11/17/24 23:00 Nitroglycerin 0.4 mg Q5MINP PRN SL 11/17/24 23:00 Morphine Sulfate 2 mg Q30M PRN IV 11/17/24 23:00 Aspirin 81 mg DAILY PO 11/18/24 10:00 11/19/24 11:34 81 MG Ceftriaxone Sodium 50 ml @ 100 mls/hr DAILY@0600 IV 11/18/24 06:00 11/19/24 06:04 100 MLS/HR Laboratory Results Laboratory Tests 11/18/24 02:37 11/18/24 04:02 11/19/24 06:05 Coagulation Test 11/18/24 14:01 D-Dimer, Quantitative 0.51 mg/L FEU (0.0-0.49) H Urinalysis Test 11/18/24 01:02 Urine Color Light-brown (Yellow) Urine Clarity Ex.turbid (Clear) Urine pH 5.5 (5.0-9.0) Urine Specific [place] 1.016 (1.001-1.035) Urine Protein 1+ (Negative) H Urine Ketones Negative (Negative) Urine Blood 1+ /uL (Negative) H Urine Nitrite Negative (Negative) Urine Bilirubin Negative (Negative) Urine Urobilinogen Normal mg/dL (Negative) Urine Leukocyte Esterase 3+ /uL (Negative) Urine RBC 50 /hpf (0 - 3) Urine WBC Clumps Present /hpf (None Seen) Urine Microscopic WBC 4064 /HPF (0-3) H Urine Squamous Epithelial Cells Few /hpf (<5) Urine Bacteria Few /hpf (None Seen) H Urine Yeast (Budding) Loaded /hpf (None Seen) Urine Glucose Normal mg/dL (Normal) Microbiology Microbiology Date/Time Source Procedure Growth Status 11/18/24 01:02 Voided Urine Urine Culture - Preliminary Resulted 11/17/24 22:00 Blood Blood Culture - Preliminary Resulted Labs and/or images reviewed: Labs reviewed by me, Image(s) reviewed by me Assessment/Plan Assessment/Plan Septic shock secondary to urinary tract infection Metabolic encephalopathy Acute urinary tract infection: Blood cultures pending, urine cultures growing history, start Diflucan 200 mg IV daily, continue Rocephin Uncontrolled diabetes: Insulin sliding scale Hypercholesterolemia Hypertension Hypothyroidism History of kidney stones Chronic kidney disease X-ray negative Flu test negative Nguyen test negative D-dimer normal Time spent 50 minutes Patient is full code Advanced care planning time 20 minutes Plan discussed with: Patient My Orders Orders - CHAVEZ ARRIAZA MD Procedure Category Date Status Time Urine Bacterial GAURAV 11/18/24 In Process Culture 13:[address] 11/18/24 Resulted 13:14 Date of Service: November 19, 2024 Billing Provider: CHAVEZ ARRIAZA MD Common Visit Codes: [id number] INP/OBS CARE(HIGH) CHAVEZ ARRIAZA MD November 19, 2024 13:01
[2024-11-19] MEDS: SODIUM CHLORIDE 0.9% 1,000 ML IV SCH (15:54)
[2024-11-19] MEDS: VANCOMYCIN 1GM/200ML PM 200 ML IV ONE (17:44)
[2024-11-20] VITALS (15 sets, daily range): BP systolic 119–176; BP diastolic 63–89; PULSE 46–88; RESP 14–20; TEMP 97.7–98; O2SAT 96–100
[2024-11-20] MEDS: IPRATROPIUM BROM 0.5 MG/2.5ML INH SOL NEB PRN (02:18)
[2024-11-20] MEDS: ALBUTEROL SULF 2.5 MG/0.5ML(0.5%) NEB SOLN NEB PRN (02:18)
[2024-11-20 07:52] LABS: Alanine Aminotransferase 12 U/L (7-40); Albumin 3.9 g/dL (3.2-4.8); Alkaline Phosphatase 53 U/L (46-116); Anion Gap 9 (5-15); Aspartate Aminotransferase 15 U/L (13-40); BUN/Creatinine Ratio 24.8 (10.0-20.0); Bilirubin, Total 0.7 mg/dL (0.2-1.0); Calcium 9.2 mg/dL (8.7-10.4); Carbon Dioxide 22 mmol/L (20-31); Potassium 4.2 mmol/L (3.5-5.1); Sodium 144 mmol/L (136-145); Total Protein 7.3 g/dL (5.7-8.2)
[2024-11-20 07:53] LABS: Blood Urea Nitrogen 34 mg/dL (9-23); Chloride 113 mmol/L (98-107); Glucose 207 mg/dL (74-106)
[2024-11-20 07:57] LABS: Hematocrit 37.4 % (41.0-53.0); Hemoglobin 12.4 g/dL (13.5-17.5); Mean Corpuscular Hemoglobin 27.9 pg (28.0-32.0); Mean Corpuscular Hgb Conc. 33.3 g/dL (32.0-36.0); Mean Corpuscular Volume 83.8 fL (80.0-100.0); Platelet Count (auto) 106 10^3/uL (140-450); Red Blood Cells 4.46 10^6/uL (4.5-5.90); Red Cell Distribution Width 15.4 % (11.8-14.3); White Blood Cell 13.9 10^3/uL (4.4-10.8)
[2024-11-20 08:17] LABS: Band Neutrophils % (manual) 0; Basophils % (manual) 0 (0.0-2.0); Blast Cells 0; Eosinophils % (manual) 0 (0-7); Metamyelocytes % 0; Myelocytes % 0; Promyelocytes % 0; Reactive Lymphocytes 0
[2024-11-20 09:16] LABS: Lymphocytes % (manual) 2 (10.0-50.0); Monocytes % (manual) 1 (0-12)
[2024-11-20 09:17] LABS: Large Platelets FEW; Platelet Estimate Decreased
[2024-11-20] MEDS: FAMOTIDINE (10MG/ML) 2ML VL IV SCH (12:19)
[2024-11-20] MEDS ORDERED: DEXTROSE (50%) 50ML SYRG IV PRN (13:00)
--- NOTE | 2024-11-20 13:09 | DVHPN2 ---
Reviewed: Care Plan, H&P, Labs, Medications, Previous Orders, Radiology Changes from previous H/P or p: No Changes Eyes: No Pain, No Vision change, No Conjunctivae inflammation, No Eyelid inflammation, No Other, No Redness ENT: No Ear pain, No Ear discharge, No Nose pain, No Nose discharge, No Nose congestion, No Mouth pain, No Mouth swelling, No Throat pain, No Throat swelling, No Other Cardiovascular: No Chest Pain, No Palpitations, No Orthopnea, No Paroxysmal Noc. Dyspnea, No Edema, No Lt Headedness, No Other Respiratory: No Cough, No Dry; Shortness of breath; No SOB with excertion, No Wheezing, No Hemoptysis, No Pleuritic Pain, No Sputum; Other (SOB at rest) Gastrointestinal: No Nausea, No Vomiting, No Abdominal Pain, No Diarrhea, No Constipation, No Melena, No Hematochezia, No Other Genitourinary: No Dysuria, No Frequency, No Incontinence, No Hematuria, No Retention, No Other Musculoskeletal: No other, No neck pain, No shoulder pain, No arm pain, No back pain, No hand pain, No leg pain, No foot pain Skin: No Rash, No Lesions, No Jaundice, No Bruising, No Other Objective Vitals Vital Signs Date Time Temp Pulse Resp B/P (MAP) Pulse Ox O2 Delivery O2 Flow Rate FiO2 11/20/24 09:50 98 Nasal Cannula* 2 28 11/20/24 09:00 98.0 55 16 119/86 (97) 98.0 Intake/Output Intake and Output 11/20/24 07:00 Intake Total 700 ml Output Total 500 ml Balance 200 ml Intake Oral 500 ml IV Total 200 ml Output Urine Total 500 ml Medications Current Medications Medications Dose Ordered Sig/Ren Route Start Time Stop Time Status Last Admin Dose Admin Vancomycin HCl 0 ml @ 0 mls/hr UD IV 11/17/24 21:30 Albuterol 2.5 mg Q4HPRN PRN NEB 11/17/24 23:00 11/20/24 02:18 2.5 MG Ipratropium [place] 0.5 mg Q4HPRN PRN NEB 11/17/24 23:00 11/20/24 02:18 0.5 MG Levothyroxine Sodium 25 mcg QAM@0600 PO 11/18/24 06:00 11/20/24 05:41 25 MCG Methylprednisolone Sodium Succinate 40 mg Q8HR IV 11/18/24 06:00 11/20/24 05:40 40 MG Atorvastatin Calcium 10 mg HS PO 11/18/24 22:00 11/19/24 21:25 10 MG Diagnostic Test (Pha) 1 strip IQ4HR 11/18/24 00:00 11/20/24 12:22 1 STRIP Insulin Human Regular IQ4HR SC 11/18/24 00:00 11/20/24 12:23 8 UNITS Dextrose 50 ml UD PRN IV 11/17/24 23:00 Sodium Chloride 10 ml Q8HR IV 11/18/24 06:00 11/20/24 05:40 10 ML Acetaminophen/ Hydrocodone Bitart 1 tab Q4HP PRN PO 11/17/24 23:00 11/20/24 09:17 1 TAB Ondansetron HCl 4 mg Q4HP PRN IV 11/17/24 23:00 Docusate Sodium 100 mg BIDPRN PRN PO 11/17/24 23:00 Acetaminophen 650 mg Q6HP PRN PO 11/17/24 23:00 Nitroglycerin 0.4 mg Q5MINP PRN SL 11/17/24 23:00 Morphine Sulfate 2 mg Q30M PRN IV 11/17/24 23:00 Aspirin 81 mg DAILY PO 11/18/24 10:00 11/20/24 09:17 81 MG Ceftriaxone Sodium 50 ml @ 100 mls/hr DAILY@0600 IV 11/18/24 06:00 11/20/24 05:40 100 MLS/HR Fluconazole 100 ml @ 100 mls/hr DAILY IV 11/20/24 10:00 Sodium Chloride 1,000 ml @ 125 mls/hr Q8H IV 11/19/24 13:15 11/20/24 05:40 125 MLS/HR Famotidine 10 mg DAILY IV 11/20/24 10:00 Laboratory Results Laboratory Tests 11/20/24 07:05 Chemistry Test 11/20/24 07:05 Albumin 3.9 g/dL (3.2-4.8) Calcium Level 9.2 mg/dL (8.7-10.4) Total Protein 7.3 g/dL (5.7-8.2) LFT Test 11/20/24 07:05 Alanine Aminotransferase (ALT) 12 U/L (7-40) Alkaline Phosphatase 53 U/L (46-116) Aspartate Amino Transferase (AST) 15 U/L (13-40) Total Bilirubin 0.7 mg/dL (0.2-1.0) Urinalysis Test 11/18/24 01:02 Urine Color Light-brown (Yellow) Urine Clarity Ex.turbid (Clear) Urine pH 5.5 (5.0-9.0) Urine Specific [place] 1.016 (1.001-1.035) Urine Protein 1+ (Negative) H Urine Ketones Negative (Negative) Urine Blood 1+ /uL (Negative) H Urine Nitrite Negative (Negative) Urine Bilirubin Negative (Negative) Urine Urobilinogen Normal mg/dL (Negative) Urine Leukocyte Esterase 3+ /uL (Negative) Urine RBC 50 /hpf (0 - 3) Urine WBC Clumps Present /hpf (None Seen) Urine Microscopic WBC 4064 /HPF (0-3) H Urine Squamous Epithelial Cells Few /hpf (<5) Urine Bacteria Few /hpf (None Seen) H Urine Yeast (Budding) Loaded /hpf (None Seen) Urine Glucose Normal mg/dL (Normal) Microbiology Microbiology Date/Time Source Procedure Growth Status 11/18/24 01:02 Voided Urine Urine Culture - Preliminary Presumptive [place] albicans Resulted 11/17/24 22:00 Blood Blood Culture - Final Staphylococcus epidermidis Complete Labs and/or images reviewed: Labs reviewed by me, Image(s) reviewed by me Assessment/Plan Assessment/Plan Septic shock secondary to urinary tract infection Metabolic encephalopathy Acute urinary tract infection: Blood cultures contaminated, urine cultures growing yeast start Diflucan 200 mg IV daily, continue Rocephin Uncontrolled diabetes: Insulin sliding scale Hypercholesterolemia Hypertension Hypothyroidism History of kidney stones Chronic kidney disease X-ray negative Flu test negative Nguyen test negative D-dimer normal Time spent 50 minutes Patient is full code Advanced care planning time 20 minutes Repeat Blood cultures CT chest without contrast, pulmonary consult for Increase insulin to aggressive sliding scale, add Lantus DC vancomycin Plan discussed with: Patient My Orders Orders - CHAVEZ ARRIAZA MD Procedure Category Date Status Time Fluconazole PHA 11/20/24 In Process 200mg/100ml (Diflucan 10:00 Sodium Chloride 0.9% PHA 11/19/24 In Process 13:15 Date of Service: November 20, 2024 Billing Provider: CHAVEZ ARRIAZA MD Common Visit Codes: [id number] INP/OBS CARE(HIGH) CHAVEZ ARRIAZA MD November 20, 2024 13:09
--- NOTE | 2024-11-20 13:21 | ECG ---
[facility] Test Date: 2024-11-20 Test Time: 02:27:33 Pat Name: MARCUS GUNTER Department: Room: [facility] A Gender: M Protective Clothing Issuer: [email or web address] : 1950 Requested By: ARCHANA WEI Order Number: [id number] Reading MD: Rui Olmos Measurements Intervals [place] Rate: 53 P: 178 MD: 160 QRS: 177 QRSD: 92 T: 180 QT: 438 QTc: 412 Interpretive Statements Right and left arm electrode reversal, interpretation assumes no reversal Sinus or ectopic atrial rhythm Probable lateral infarct, age indeterminate Abnrm T, probable ischemia, anterolateral lds Electronically Signed On 11-21-2024 11:59:19 PDT by Rui Olmos Please click the below link to view image of tracing.
[2024-11-20] MEDS ORDERED: VANCOMYCIN 750mg/150ml 150 ML IV ONE (14:00)
--- NOTE | 2024-11-20 14:12 | DVH ---
Procedure: CT CHEST WITHOUT CONTRAST Study Date and Requested Time: 11/20 01:21 PM History: sob Comparison: None Dose: CTDI: 25.24 mGy DLP: 1000.61 mGycm Technique: Multiplanar images obtained through the chest without contrast. Findings: The thyroid gland is unremarkable. Heart size is within normal limits. No evidence of aortic aneurysm. Dilated pulmonary trunk measuring up to 3.9 cm. Correlate for pulmonary arterial hypertension. No significant lymphadenopathy. Patchy bilateral upper lobe opacities with right lower lobe ground-glass opacity. Lingula atelectasis . Trace bilateral pleural effusions with associated atelectasis. No pneumothorax. Mild emphysematous changes. Right middle lobe and right lower lobe blebs. Micronodular contour of the liver with recanalization of the umbilical vein. Correlate for cirrhosis . Questionable mild fat stranding adjacent to the pancreatic head. Mild wall thickening of the mid an d distal esophagus. Mild gastric wall thickening. Otherwise, Partial view of the upper abdomen is un remarkable. Minimal body wall edema. Multiple right-sided old rib fracture deformities. Multilevel [id number] te degenerative changes of the thoracic spine. Impression: Patchy opacities of bilateral upper lobes with ground-glass opacity of the right lower lobe which ma y represent pneumonia in the right clinical setting. Trace bilateral pleural effusions with associated atelectasis. Cirrhotic appearing liver. Mild wall thickening of the distal esophagus and stomach. Correlate for esophagitis and gastritis re spectively. Questionable minimal fat stranding adjacent to The pancreatic head. Correlation with lipase is recomm ended.
[2024-11-20] MEDS: FLUCONAZOLE 200MG/100ML 100 ML IV SCH (16:24)
[2024-11-20] MEDS ORDERED: ACCU-CHEK COMFORT CURVE STRIP VI SCH (17:00)
[2024-11-20] MEDS: InsuLIN REG 1unit/0.01ml Soln (100units/ml) SC SCH ×2 (18:00→21:54)
[2024-11-20] MEDS: ACCU-CHEK COMFORT CURVE STRIP VI SCH (18:00)
--- NOTE | 2024-11-20 21:33 | DVHINCON2 ---
Date of service: November 20, [address] Axel Horowitz Reason for Consultation Abnormal CT chest History of Present Illness 74-year-old man history of morbid obesity, diabetes mellitus type 2, hyperlipidemia, hypertension, thyroid disease who presented with altered mental status and shortness of breath. He was found to have leukocytosis in the emergency department. He had an abnormal chest x-ray. He was initiated on antibiotics and antifungals. He is also initiated on bronchodilators and IV steroids. Pulmonary consultation is called for evaluation of pneumonia and shortness of breath. Review of systems: 14 point review of systems is negative unless otherwise noted above. Past medical history: Chronic kidney disease, hyperlipidemia, hypertension, nephrolithiasis, thyroiditis, diabetes mellitus type 2 Past surgical history: Appendectomy, tonsillectomy Medications: Reviewed Allergies: No known drug allergies. Family history: No family history of premature CAD. No family history of lung disease Social history: None smoker. No alcohol or illicit drug use. Lives at home with family. Family History: Cerebrovascular accident (CVA) G8 FATHER Depression G8 MOTHER Diabetes mellitus FH: ovarian cancer G8 MOTHER Hypertension G8 MOTHER Allergies: Coded Allergies: NO KNOWN ALLERGIES (Unverified , 12/22/21) Home Meds Active Scripts Polyethylene Glycol 3350 (Miralax) 17 Gm Pow, 17 GM PO DAILY@BREAKFAST for 30 Days, #120 POW Prov:JR WYATT MD 08/09/23 Nitrofurantoin Monohydrate Mac (Macrobid) 100 Mg Cap, 100 MG PO BID for 10 Days, #20 CAP Prov:JR WYATT MD 08/09/23 Cephalexin Monohydrate (Cephalexin) 500 Mg Cap, 1 CAP PO QID, #20 CAP Prov:MARGIE MARSHALL MD 10/30/22 Cyclobenzaprine HCl (Cyclobenzaprine Hydrochlo) 10 Mg Tab, 10 MG PO BID PRN, #20 TAB Prov:MARGIE MARSHALL MD 10/30/22 Meloxicam (Meloxicam) 15 Mg Tab, 15 MG PO DAILY PRN, #10 TAB Prov:MARGIE MARSHALL MD 10/30/22 Tamsulosin Hcl (Flomax) 0.4 Mg Cap, 1 CAP PO DAILY, #30 CAP 11 Refills Prov:SALINA GARCIA NP 10/29/22 Oxycodone Hcl (OXYCODONE HCL) 5 Mg Tb, 5 MG GT Q6HP PRN for 5 Days, #20 TAB Prov:SALINA GARCIA FOOD SAFETY MANAGER 10/29/22 Reported Medications Lidocaine HCl (Lidocaine Hydrochloride) 3 % Cre, TOP 11/18/24 Tamsulosin HCl (Tamsulosin Hydrochloride) 0.4 Mg Cap, CAP PO 11/18/24 Levothyroxine Sodium (Levothyroxine Sodium) 25 Mcg Tab, 1 TAB PO DAILY 11/18/24 Gabapentin (Gabapentin) 300 Mg Cap, 1 CAP PO TID 11/18/24 Lisinopril (Lisinopril) 10 Mg Tab, 10 MG PO DAILY for 30 Days, MG 09/05/22 Hydromorphone Hcl (Hydromorphone Hcl) 2 Mg Tab, 1 TAB PO QID 12/23/21 Pravastatin Sodium (PRAVACHOL TABLET) 20 Mg Tb, 20 MG PO DAILY, TAB 11/14/21 Cholecalciferol (VITAMIN D3) 2,000 Unit Tab, 1 TAB PO DAILY, #30 TAB 5 Refills 11/26/20 Duloxetine HCl (Duloxetine HCl) 30 Mg Cap, 30 MG PO HS 07/17/19 Levothyroxine Sodium (Levothyroxine Sodium) 25 Mcg Tab, 25 MG PO DAILY 07/17/19 Insulin Regular (Human) (Novolin R) 100 Unit/Ml Inj SLIDING SCALE 07/17/19 Insulin Glargine (Basaglar Kwikpen) 100 Unit/Ml Inj, 25 UNITS SC HS 07/17/19 Current Medications Current Medications Medications (Trade) Dose Ordered Sig/Ren Route PRN Reason Start Time Stop Time Status Last Admin Fluconazole 100 ml @ 100 mls/hr DAILY IV 11/20/24 10:00 11/20/24 16:24 Famotidine (Pepcid Injection) 10 mg DAILY IV 11/20/24 10:00 Diagnostic Test (Pha) (Accu-Chek Comfort Curve T) 1 strip ACHS 11/20/24 17:00 11/20/24 13:00 DC Diagnostic Test (Pha) (Accu-Chek Comfort Curve T) 1 strip ACHS 11/20/24 17:00 11/20/24 18:00 Insulin Human Regular (InsuLIN R) AC SC 11/20/24 17:00 11/20/24 18:00 Insulin Human Regular (InsuLIN R) HS SC 11/20/24 22:00 Dextrose 50 ml UD PRN IV Blood Sugar LESS THAN 60 11/20/24 13:00 Insulin Glargine (Lantus) 30 units [facility] 11/20/24 22:00 Vital Signs Vital Signs Date Time Temp Pulse Resp B/P (MAP) Pulse Ox O2 Delivery O2 Flow Rate FiO2 11/20/24 16:55 97.8 53 16 145/63 (90) 96 97.8 11/20/24 09:50 Nasal Cannula* 2 28 Physical Exam Gen.: Patient lying in bed in no apparent distress. On supplemental oxygen. Head: Normocephalic, atraumatic Eyes: EOMI/PERRLA. Ears: Normal hearing. Normal anatomy. Neck/trachea: Trachea midline, supple. Nose: Normal external anatomy. Mouth: Moist mucous membranes. Chest: Decreased air entry bilaterally. No wheezing or rhonchi. Cardio vascular: Positive S1, positive S2. Regular rate and rhythm. Abdomen: Positive bowel sounds in all 4 quadrants. Soft, non-tender, non- distended. : Deferred. Rectal: Deferred Skin: Warm, dry. Extremities: 2+ radial pulses bilaterally. No lower extremity edema. Neuro: Awake, alert. No gross motor or sensory deficits. Cranial nerves II through XII intact. Gait not assessed. Labs/Diagnostic Data Labs Test 11/20/24 17:30 11/20/24 07:05 11/18/24 23:45 11/18/24 14:01 Range/Units POC Glucose 308 H 70-106 mg/dl White Blood Count 13.9 H 4.4-10.8 10^3/uL Red Blood Count 4.46 L 4.5-5.90 10^6/uL Hemoglobin 12.4 L 13.5-17.5 g/dL Hematocrit 37.4 L 41.0-53.0 % Mean Corpuscular Volume 83.8 80.0-100.0 fL Mean Corpuscular Hemoglobin 27.9 L 28.0-32.0 pg Mean Corpuscular Hemoglobin Concent 33.3 32.0-36.0 g/dL Red Cell Distribution Width 15.4 H 11.8-14.3 % Platelet Count 106 L 140-450 10^3/uL Mean Platelet Volume 9.3 6.9-10.8 fL Neutrophils (%) (Auto) 37.0-80.0 % Lymphocytes (%) (Auto) 10.0-50.0 % Monocytes (%) (Auto) 0.0-12.0 % Basophils (%) (Auto) 0.0-2.0 % Neutrophils # (Auto) 1.6-8.6 10 ^3/uL Lymphocytes # (Auto) 0.4-5.4 10 ^3/uL Monocytes # (Auto) 0-1.3 10 ^3/uL Differential Total Cells Counted 100.0 100 Neutrophils % (Manual) 97 H 37.0-80.0 Band Neutrophils % (Manual) 0 Lymphocytes % (Manual) 2 L 10.0-50.0 Monocytes % (Manual) 1 0-12 Eosinophils % (Manual) 0 0-7 Basophils % (Manual) 0 0.0-2.0 Metamyelocytes % (manual) 0 Myelocytes % (Manual) 0 Promyelocytes % (Manual) 0 Blast Cells % (Manual) 0 Reactive Lymphocytes 0 Platelet Estimate Decreased Large Platelets Few Sodium Level 144 # 136-145 mmol/L Potassium Level 4.2 3.5-5.1 mmol/L Chloride Level 113 H 98-107 mmol/L Carbon Dioxide Level 22 20-31 mmol/L Anion Gap 9 5-15 Blood Urea Nitrogen 34 H 9-23 mg/dL Creatinine 1.37 H 0.700-1.30 mg/dL Glomerular Filtration Rate Calc 54 >90 mL/min BUN/Creatinine Ratio 24.8 H 10.0-20.0 Serum Glucose 207 H 74-106 mg/dL Calcium Level 9.2 8.7-10.4 mg/dL Total Bilirubin 0.7 0.2-1.0 mg/dL Aspartate Amino Transferase (AST) 15 13-40 U/L Alanine Aminotransferase (ALT) 12 7-40 U/L Alkaline Phosphatase 53 46-116 U/L Total Protein 7.3 5.7-8.2 g/dL Albumin 3.9 3.2-4.8 g/dL Random Vancomycin Level 14.4 H 5-10 ug/mL Influenza Type A Antigen Negative Negative Influenza Type B Antigen Negative Negative SARS-CoV-2 Antigen (Rapid) Negative NEGATIVE D-Dimer, Quantitative 0.51 H 0.0-0.49 mg/L FEU Test 11/18/24 04:02 11/18/24 02:37 11/18/24 01:02 11/17/24 22:43 Range/Units Eosinophils (%) (Auto) 0.2 0.0-7.0 % Eosinophils # (Auto) 0 0-0.8 10 ^3/uL Basophils # (Auto) 0 0-0.2 10 ^3/uL Nucleated Red Blood Cells 0.1 % Hemoglobin A1c 7.4 H <5.7 % A1C Thyroid Stimulating Hormone (TSH) 2.97 0.55-4.78 uIU/mL Hepatitis B Surface Antigen Negative Negative Urine Color Light-brown Yellow Urine Clarity Ex.turbid Clear Urine pH 5.5 5.0-9.0 Urine Specific [place] 1.016 1.001-1.035 Urine Protein 1+ H Negative Urine Ketones Negative Negative Urine Blood 1+ H Negative /uL Urine Nitrite Negative Negative Urine Bilirubin Negative Negative Urine Urobilinogen Normal Negative mg/dL Urine Leukocyte Esterase 3+ Negative /uL Urine RBC 50 0 - 3 /hpf Urine WBC Clumps Present None Seen /hpf Urine Microscopic WBC 4064 H 0-3 /HPF Urine Squamous Epithelial Cells Few <5 /hpf Urine Bacteria Few H None Seen /hpf Urine Yeast (Budding) Loaded None Seen /hpf Urine Glucose Normal Normal mg/dL Urine Opiates Screen Pos NEGATIVE Urine Fentanyl Screen Neg NEGATIVE Urine Barbiturates Screen Neg NEGATIVE Urine Phencyclidine Screen Neg NEGATIVE Urine Amphetamines Screen Neg NEGATIVE Urine Benzodiazepines Screen Neg NEGATIVE Urine Cocaine Screen Neg NEGATIVE Urine Cannabinoids Screen Neg NEGATIVE Blood Gas Specimen Type Arterial Blood Gas Sample Site Right radial Blood Gas Patient Temperature 37.0 Arterial Blood Date Drawn [id number] Arterial Blood pH 7.319 L 7.350-7.450 Arterial Blood Partial Pressure CO2 37.5 35.0-48.0 mmHg Arterial Blood Partial Pressure O2 162.2 H 83.0-108.0 mmHg Arterial Blood HCO3 18.8 L 21.0-28.0 mmol/L Arterial Blood Oxygen Saturation 99.0 H 94.0-98.0 % Arterial Blood Base Excess -6.6 L -2.0-3.0 mmol/L Arterial Blood Oxyhemoglobin 98.4 H 94.0-98.0 % Arterial Blood Carboxyhemoglobin 0.0 L 0.5-1.5 % Arterial Blood Methemoglobin 0.6 0.0-1.5 % Terrell Test Yes Blood Gas Total Hemoglobin 13.10 L 13.5-17.5 g/dL Blood Gas Modality Mask - simple FiO2 % 50.0 Test 11/17/24 22:00 11/17/24 18:59 Range/Units Lactic Acid Level 2.5 *H 0.4-2.0 mmol/L Troponin I High Sensitivity 58 *H </=54 ng/L B-Type Natriuretic Peptide 106.25 0-100 pg/mL Plasma/Serum Blood Alcohol < 3.0 <10 mg/dL Microbiology Date/Time Source Procedure Growth Status 11/18/24 01:02 Voided Urine Urine Culture - Preliminary Presumptive [place] albicans Resulted 11/17/24 22:00 Blood Blood Culture - Final Staphylococcus epidermidis Complete Assessment Impression: Acute hypoxic respiratory failure Pneumonia likely Gram-negative/Gram-positive Ground-glass opacities on imaging Pleural effusions, trace Atelectasis Cirrhosis of the liver Plan: ABG reviewed. Acidemia due to metabolic acidosis. On 2 L/min via nasal cannula Keep O2 saturation above 92%. Continue bronchodilators Continue IV steroids Continue Antibiotics and antifungal. Follow up cultures WBC count trending down Monitor hemoglobin Monitor platelets Monitor renal function Creatinine trending down. Monitor ins and outs Monitor electrolytes. Supplement as necessary. Accu-Cheks, insulin sliding scale Diet and lifestyle modifications recommended for weight loss Obesity complicates all care GI prophylaxis Prognosis: Poor given multiple comorbidities. Rest of plan per hospitalist and other consultants. Thank you Dr. Axel Horowitz for allowing me to participate in this patient's care. Further recommendations will depend on patient's clinical course. Please do not hesitate to contact me if you have any questions or concerns. This medical document was created using an electronic medical record system with [employer] dictation system. Although this document has been carefully reviewed, there may still be some phonetic and typographical errors. These areas are purely typographical due to imperfections of the software programs, and do not reflect any compromise in the patient's medical care. Plan discussed with: Patient, Other (COLTON Peñaloza MD) JUDY FORMAN MD November 20, 2024 21:33
[2024-11-20] MEDS: INSULIN LANTUS (GLARGINE) 1 /0.01ml (100units/ml) SC SCH (21:54)
[2024-11-20] MEDS: hydrALAZINE HCL 20 MG/ML VL IV ONE (23:47)
[2024-11-21] VITALS (10 sets, daily range): BP systolic 111–171; BP diastolic 67–97; PULSE 48–81; RESP 16–20; TEMP 97.8–98.3; O2SAT 91–100
[2024-11-21] MEDS: ACETAMINOPHEN 325 MG TAB PO PRN (05:54)
--- NOTE | 2024-11-21 11:07 | DVHPN2 ---
Reviewed: Care Plan, H&P, Labs, Medications, Previous Orders, Radiology Changes from previous H/P or p: No Changes Eyes: No Pain, No Vision change, No Conjunctivae inflammation, No Eyelid inflammation, No Other, No Redness ENT: No Ear pain, No Ear discharge, No Nose pain, No Nose discharge, No Nose congestion, No Mouth pain, No Mouth swelling, No Throat pain, No Throat swelling, No Other Cardiovascular: No Chest Pain, No Palpitations, No Orthopnea, No Paroxysmal Noc. Dyspnea, No Edema, No Lt Headedness, No Other Respiratory: No Cough, No Dry; Shortness of breath; No SOB with excertion, No Wheezing, No Hemoptysis, No Pleuritic Pain, No Sputum; Other (SOB at rest) Gastrointestinal: No Nausea, No Vomiting, No Abdominal Pain, No Diarrhea, No Constipation, No Melena, No Hematochezia, No Other Genitourinary: No Dysuria, No Frequency, No Incontinence, No Hematuria, No Retention, No Other Musculoskeletal: No other, No neck pain, No shoulder pain, No arm pain, No back pain, No hand pain, No leg pain, No foot pain Skin: No Rash, No Lesions, No Jaundice, No Bruising, No Other Objective Vitals Vital Signs Date Time Temp Pulse Resp B/P (MAP) Pulse Ox O2 Delivery O2 Flow Rate FiO2 11/21/24 08:36 100 Nasal Cannula* 4 36 11/21/24 08:36 80 16 11/21/24 07:52 98.2 171/97 (121) 98.2 Intake/Output Intake and Output 11/21/24 07:00 Intake Total 2225 ml Output Total 750 ml Balance 1475 ml Intake Oral 1125 ml IV Total 1100 ml Output Urine Total 750 ml # Voids 3 # Bowel Movements 1 Medications Current Medications Medications Dose Ordered Sig/Ren Route Start Time Stop Time Status Last Admin Dose Admin Albuterol 2.5 mg Q4HPRN PRN NEB 11/17/24 23:00 11/21/24 08:36 2.5 MG Ipratropium [place] 0.5 mg Q4HPRN PRN NEB 11/17/24 23:00 11/21/24 08:36 0.5 MG Levothyroxine Sodium 25 mcg QAM@0600 PO 11/18/24 06:00 11/21/24 05:38 25 MCG Methylprednisolone Sodium Succinate 40 mg Q8HR IV 11/18/24 06:00 11/21/24 05:38 40 MG Atorvastatin Calcium 10 mg HS PO 11/18/24 22:00 11/20/24 21:55 10 MG Dextrose 50 ml UD PRN IV 11/17/24 23:00 Cancel Sodium Chloride 10 ml Q8HR IV 11/18/24 06:00 11/21/24 05:45 10 ML Acetaminophen/ Hydrocodone Bitart 1 tab Q4HP PRN PO 11/17/24 23:00 11/21/24 00:53 1 TAB Ondansetron HCl 4 mg Q4HP PRN IV 11/17/24 23:00 Docusate Sodium 100 mg BIDPRN PRN PO 11/17/24 23:00 Acetaminophen 650 mg Q6HP PRN PO 11/17/24 23:00 11/21/24 05:54 650 MG Nitroglycerin 0.4 mg Q5MINP PRN SL 11/17/24 23:00 Morphine Sulfate 2 mg Q30M PRN IV 11/17/24 23:00 Aspirin 81 mg DAILY PO 11/18/24 10:00 11/21/24 09:12 81 MG Ceftriaxone Sodium 50 ml @ 100 mls/hr DAILY@0600 IV 11/18/24 06:00 11/21/24 05:39 100 MLS/HR Fluconazole 100 ml @ 100 mls/hr DAILY IV 11/20/24 10:00 11/21/24 09:12 100 MLS/HR Sodium Chloride 1,000 ml @ 125 mls/hr Q8H IV 11/19/24 13:15 11/20/24 16:24 125 MLS/HR Famotidine 10 mg DAILY IV 11/20/24 10:00 11/21/24 09:12 10 MG Diagnostic Test (Pha) 1 strip ACHS 11/20/24 17:00 11/21/24 05:40 1 STRIP Insulin Human Regular AC SC 11/20/24 17:00 11/21/24 06:09 16 UNITS Insulin Human Regular HS SC 11/20/24 22:00 11/20/24 21:54 8 UNITS Dextrose 50 ml UD PRN IV 11/20/24 13:00 Insulin Glargine 30 units HS SC 11/20/24 22:00 11/20/24 21:54 30 UNITS Laboratory Results Laboratory Tests 11/20/24 07:05 Urinalysis Test 11/18/24 01:02 Urine Color Light-brown (Yellow) Urine Clarity Ex.turbid (Clear) Urine pH 5.5 (5.0-9.0) Urine Specific [place] 1.016 (1.001-1.035) Urine Protein 1+ (Negative) H Urine Ketones Negative (Negative) Urine Blood 1+ /uL (Negative) H Urine Nitrite Negative (Negative) Urine Bilirubin Negative (Negative) Urine Urobilinogen Normal mg/dL (Negative) Urine Leukocyte Esterase 3+ /uL (Negative) Urine RBC 50 /hpf (0 - 3) Urine WBC Clumps Present /hpf (None Seen) Urine Microscopic WBC 4064 /HPF (0-3) H Urine Squamous Epithelial Cells Few /hpf (<5) Urine Bacteria Few /hpf (None Seen) H Urine Yeast (Budding) Loaded /hpf (None Seen) Urine Glucose Normal mg/dL (Normal) Microbiology Microbiology Date/Time Source Procedure Growth Status 11/18/24 01:02 Voided Urine Urine Culture - Final Presumptive [place] albicans Complete 11/17/24 22:00 Blood Blood Culture - Final Staphylococcus epidermidis Complete Labs and/or images reviewed: Labs reviewed by me, Image(s) reviewed by me Assessment/Plan Assessment/Plan Septic shock secondary to urinary tract infection Metabolic encephalopathy Bilateral Community-acquired pneumonia: Rocephin azithromycin albuterol Atrovent Solu-Medrol, pulmonary consult by Dr. You appreciated Acute urinary tract infection: Blood cultures contaminated, urine cultures growing yeast start Diflucan 200 mg IV daily, continue Rocephin repeat blood cultures pending Uncontrolled diabetes: Insulin sliding scale Hypercholesterolemia Hypertension Cirrhosis of liver. Patient says he never drinks alcohol. Liver function tests normal Hypothyroidism History of kidney stones Chronic kidney disease BPH: Flomax X-ray negative Flu test negative Nguyen test negative Rule out congestive heart failure: Echocardiogram cardiology consult D-dimer normal Time spent 70 minutes Patient is full code Advanced care planning time 20 minutes Repeat Blood cultures Increase insulin to aggressive sliding scale, add Lantus Plan discussed with: Patient My Orders Orders - CHAVEZ ARRIAZA MD Procedure Category Date Status Time Chest Without Contrast CT 11/20/24 Resulted 12:53 *Consult CONS 11/20/24 Transmitted / 12:53 Blood Culture GAURAV 11/20/24 In Process 12:53 Glucose Blood PHA 11/20/24 In Process (Accu-Chek Comfort 17:00 Insulin R (Human) PHA 11/20/24 In Process (Insulin R) 17:00 Insulin R (Human) PHA 11/20/24 In Process (Insulin R) 22:00 Dextrose 50% Syringe PHA 11/20/24 In Process 13:00 Insulin Lantus PHA 11/20/24 In Process (Glargine) (Lantus) 22:00 Date of Service: November 21, 2024 Billing Provider: CHAVEZ ARRIAZA MD Common Visit Codes: 19671-GHM/OBS DISCH DAY <30MIN CHAVEZ ARRIAZA MD November 21, 2024 11:07
[2024-11-21] MEDS: KETOROLAC TROMETH 30 MG/ML 1ML VIAL IV PRN (12:28)
[2024-11-21] MEDS: AZITHROMYCIN 500MG/ 250ML 250 ML IV ONE (12:28)
--- NOTE | 2024-11-21 13:34 | DVHINCON2 ---
JANAK MORSE RESDIENT 11/21/24 1334: Date Seen: November 21, 2024 Referring Physician MD Carlos Manuel Reason for Consultation SOB History of Present Illness This is a 74-year-old obese male with past medical history of hypertension, diabetes, dyslipidemia, hypothyroidism brought to the hospital due to altered mental status. Patient was admitted to the hospital 5 days back on the line of septic shock secondary to pulmonary infection/UTI. Cardiology is consulted for shortness of breath and possible heart failure. Currently, the patient is oriented reports and reports mild shortness of breaths. Per patient, before admission he had cough, shortness of breaths, fever, dysuria, and urgency. He denies chest pain, palpitation, orthopnea, PND, nausea and vomiting. PMHx: hypertension, diabetes, dyslipidemia, hypothyroidism PSHx: Back surgery, due to traumatic injury Family history: Noncontributory Social history: Ex-smoker with 5 pack year history, denies current smoking or any other drug use Home medication: Omeprazole 20 mg, gabapentin 300 mg t.i.d., levothyroxine 25 mEq daily neck, vitamin-D, lisinopril 10 mg daily, tamsulosin 0.4 mg, vitamin B12, hydromorphone and morphine sulfate for back pain Allergic history: No known allergy Patient seen and examined at the bedside. Patient is complaining of mild shortness of breaths. Past Medical History Per H&P Past Surgical History Per H&P Family History: Cerebrovascular accident (CVA) G8 FATHER Depression G8 MOTHER Diabetes mellitus FH: ovarian cancer G8 MOTHER Hypertension G8 MOTHER Family History Per H&P Social History Per H&P Allergies: Coded Allergies: NO KNOWN ALLERGIES (Unverified , 12/22/21) Allergies Per H&P Home Meds Active Scripts Polyethylene Glycol 3350 (Miralax) 17 Gm Pow, 17 GM PO DAILY@BREAKFAST for 30 Days, #120 POW Prov:JR WYATT MD 08/09/23 Nitrofurantoin Monohydrate Mac (Macrobid) 100 Mg Cap, 100 MG PO BID for 10 Days, #20 CAP Prov:JR WYATT MD 08/09/23 Cephalexin Monohydrate (Cephalexin) 500 Mg Cap, 1 CAP PO QID, #20 CAP Prov:MARGIE MARSHALL MD 10/30/22 Cyclobenzaprine HCl (Cyclobenzaprine Hydrochlo) 10 Mg Tab, 10 MG PO BID PRN, #20 TAB Prov:MARGIE MARSHALL MD 10/30/22 Meloxicam (Meloxicam) 15 Mg Tab, 15 MG PO DAILY PRN, #10 TAB Prov:MARGIE MARSHALL MD 10/30/22 Tamsulosin Hcl (Flomax) 0.4 Mg Cap, 1 CAP PO DAILY, #30 CAP 11 Refills Prov:SALINA GARCIA Boris SPRAY MIXER 10/29/22 Oxycodone Hcl (OXYCODONE HCL) 5 Mg Tb, 5 MG GT Q6HP PRN for 5 Days, #20 TAB Prov:JOSEMISTYSALINA Escalante SPRAY MIXER 10/29/22 Reported Medications Lidocaine HCl (Lidocaine Hydrochloride) 3 % Cre, TOP 11/18/24 Tamsulosin HCl (Tamsulosin Hydrochloride) 0.4 Mg Cap, CAP PO 11/18/24 Levothyroxine Sodium (Levothyroxine Sodium) 25 Mcg Tab, 1 TAB PO DAILY 11/18/24 Gabapentin (Gabapentin) 300 Mg Cap, 1 CAP PO TID 11/18/24 Lisinopril (Lisinopril) 10 Mg Tab, 10 MG PO DAILY for 30 Days, MG 09/05/22 Hydromorphone Hcl (Hydromorphone Hcl) 2 Mg Tab, 1 TAB PO QID 12/23/21 Pravastatin Sodium (PRAVACHOL TABLET) 20 Mg Tb, 20 MG PO DAILY, TAB 11/14/21 Cholecalciferol (VITAMIN D3) 2,000 Unit Tab, 1 TAB PO DAILY, #30 TAB 5 Refills 11/26/20 Duloxetine HCl (Duloxetine HCl) 30 Mg Cap, 30 MG PO HS 07/17/19 Levothyroxine Sodium (Levothyroxine Sodium) 25 Mcg Tab, 25 MG PO DAILY 07/17/19 Insulin Regular (Human) (Novolin R) 100 Unit/Ml Inj SLIDING SCALE 07/17/19 Insulin Glargine (Basaglar Kwikpen) 100 Unit/Ml Inj, 25 UNITS SC HS 07/17/19 Current Medications Current Medications Medications (Trade) Dose Ordered Sig/Ren Route PRN Reason Start Time Stop Time Status Last Admin Diagnostic Test (Pha) (Accu-Chek Comfort Curve T) 1 strip ACHS 11/20/24 17:00 11/20/24 13:00 DC Diagnostic Test (Pha) (Accu-Chek Comfort Curve T) 1 strip ACHS 11/20/24 17:00 11/21/24 11:30 Insulin Human Regular (InsuLIN R) AC SC 11/20/24 17:00 11/21/24 12:29 Insulin Human Regular (InsuLIN R) HS SC 11/20/24 22:00 11/20/24 21:54 Insulin Glargine (Lantus) 30 units HS SC 11/20/24 22:00 11/20/24 21:54 Azithromycin 250 ml @ 125 mls/hr DAILY@1200 IV 11/22/24 12:00 Ketorolac Tromethamine (Toradol Injection) 15 mg Q6HPRN PRN IV MODERATE PAIN (4-6 PAIN SCALE) 11/21/24 11:00 11/26/24 10:59 11/21/24 12:28 Hydralazine HCl (Apresoline Injection) 10 mg Q6HP PRN IV SBP>150 11/21/24 11:00 Tamsulosin HCl (Flomax) 0.4 mg QPM PO 11/21/24 18:00 Lisinopril (Zestril Tablet) 20 mg DAILY PO 11/22/24 10:00 Gabapentin (Neurontin Capsule) 300 mg TID PO 11/21/24 14:00 Duloxetine HCl (Cymbalta Capsule) 30 mg DAILY PO 11/22/24 10:00 Cyclobenzaprine HCl (Flexeril Tablet) 10 mg BID PO 11/21/24 22:00 Review of Systems Per H&P Vital Signs Vital Signs Date Time Temp Pulse Resp B/P (MAP) Pulse Ox O2 Delivery O2 Flow Rate FiO2 11/21/24 12:33 98.3 72 18 111/67 (82) 91 98.3 11/21/24 08:36 Nasal Cannula* 4 36 Physical Exam General Appearance: Alert, Oriented X3, Cooperative, No acute distress HEENT: Atraumatic, PERRLA, EOMI, Mucous membrane moist/pink Respiratory: Bilateral mid and lower zone crackles Cardiovascular: Regular rate, Normal S1, Normal S2, No murmurs, no chest wall tenderness Abdominal: Normal bowel sounds, Soft, No tenderness, No hepatospenomegaly, No masses Extremities: No clubbing, No cyanosis, No edema, Normal pulses, No tenderness/swelling Skin: No rashes, No breakdown, No significant lesion Neuro: Normal gait, Normal speech, Strength at 5/5 X4 ext, Normal tone, Sensation intact, Cranial nerves 3-12 NL, Reflexes 2+ Psych/Mental Status: Mental status NL, Mood NL Labs/Diagnostic Data Labs Test 11/21/24 12:00 11/20/24 07:05 11/18/24 23:45 11/18/24 14:01 Range/Units POC Glucose 242 H 70-106 mg/dl White Blood Count 13.9 H 4.4-10.8 10^3/uL Red Blood Count 4.46 L 4.5-5.90 10^6/uL Hemoglobin 12.4 L 13.5-17.5 g/dL Hematocrit 37.4 L 41.0-53.0 % Mean Corpuscular Volume 83.8 80.0-100.0 fL Mean Corpuscular Hemoglobin 27.9 L 28.0-32.0 pg Mean Corpuscular Hemoglobin Concent 33.3 32.0-36.0 g/dL Red Cell Distribution Width 15.4 H 11.8-14.3 % Platelet Count 106 L 140-450 10^3/uL Mean Platelet Volume 9.3 6.9-10.8 fL Neutrophils (%) (Auto) 37.0-80.0 % Lymphocytes (%) (Auto) 10.0-50.0 % Monocytes (%) (Auto) 0.0-12.0 % Basophils (%) (Auto) 0.0-2.0 % Neutrophils # (Auto) 1.6-8.6 10 ^3/uL Lymphocytes # (Auto) 0.4-5.4 10 ^3/uL Monocytes # (Auto) 0-1.3 10 ^3/uL Differential Total Cells Counted 100.0 100 Neutrophils % (Manual) 97 H 37.0-80.0 Band Neutrophils % (Manual) 0 Lymphocytes % (Manual) 2 L 10.0-50.0 Monocytes % (Manual) 1 0-12 Eosinophils % (Manual) 0 0-7 Basophils % (Manual) 0 0.0-2.0 Metamyelocytes % (manual) 0 Myelocytes % (Manual) 0 Promyelocytes % (Manual) 0 Blast Cells % (Manual) 0 Reactive Lymphocytes 0 Platelet Estimate Decreased Large Platelets Few Sodium Level 144 # 136-145 mmol/L Potassium Level 4.2 3.5-5.1 mmol/L Chloride Level 113 H 98-107 mmol/L Carbon Dioxide Level 22 20-31 mmol/L Anion Gap 9 5-15 Blood Urea Nitrogen 34 H 9-23 mg/dL Creatinine 1.37 H 0.700-1.30 mg/dL Glomerular Filtration Rate Calc 54 >90 mL/min BUN/Creatinine Ratio 24.8 H 10.0-20.0 Serum Glucose 207 H 74-106 mg/dL Calcium Level 9.2 8.7-10.4 mg/dL Total Bilirubin 0.7 0.2-1.0 mg/dL Aspartate Amino Transferase (AST) 15 13-40 U/L Alanine Aminotransferase (ALT) 12 7-40 U/L Alkaline Phosphatase 53 46-116 U/L Total Protein 7.3 5.7-8.2 g/dL Albumin 3.9 3.2-4.8 g/dL Random Vancomycin Level 14.4 H 5-10 ug/mL Influenza Type A Antigen Negative Negative Influenza Type B Antigen Negative Negative SARS-CoV-2 Antigen (Rapid) Negative NEGATIVE D-Dimer, Quantitative 0.51 H 0.0-0.49 mg/L FEU Test 11/18/24 04:02 11/18/24 02:37 11/18/24 01:02 11/17/24 22:43 Range/Units Eosinophils (%) (Auto) 0.2 0.0-7.0 % Eosinophils # (Auto) 0 0-0.8 10 ^3/uL Basophils # (Auto) 0 0-0.2 10 ^3/uL Nucleated Red Blood Cells 0.1 % Hemoglobin A1c 7.4 H <5.7 % A1C Thyroid Stimulating Hormone (TSH) 2.97 0.55-4.78 uIU/mL Hepatitis B Surface Antigen Negative Negative Urine Color Light-brown Yellow Urine Clarity Ex.turbid Clear Urine pH 5.5 5.0-9.0 Urine Specific [place] 1.016 1.001-1.035 Urine Protein 1+ H Negative Urine Ketones Negative Negative Urine Blood 1+ H Negative /uL Urine Nitrite Negative Negative Urine Bilirubin Negative Negative Urine Urobilinogen Normal Negative mg/dL Urine Leukocyte Esterase 3+ Negative /uL Urine RBC 50 0 - 3 /hpf Urine WBC Clumps Present None Seen /hpf Urine Microscopic WBC 4064 H 0-3 /HPF Urine Squamous Epithelial Cells Few <5 /hpf Urine Bacteria Few H None Seen /hpf Urine Yeast (Budding) Loaded None Seen /hpf Urine Glucose Normal Normal mg/dL Urine Opiates Screen Pos NEGATIVE Urine Fentanyl Screen Neg NEGATIVE Urine Barbiturates Screen Neg NEGATIVE Urine Phencyclidine Screen Neg NEGATIVE Urine Amphetamines Screen Neg NEGATIVE Urine Benzodiazepines Screen Neg NEGATIVE Urine Cocaine Screen Neg NEGATIVE Urine Cannabinoids Screen Neg NEGATIVE Blood Gas Specimen Type Arterial Blood Gas Sample Site Right radial Blood Gas Patient Temperature 37.0 Arterial Blood Date Drawn [id number] Arterial Blood pH 7.319 L 7.350-7.450 Arterial Blood Partial Pressure CO2 37.5 35.0-48.0 mmHg Arterial Blood Partial Pressure O2 162.2 H 83.0-108.0 mmHg Arterial Blood HCO3 18.8 L 21.0-28.0 mmol/L Arterial Blood Oxygen Saturation 99.0 H 94.0-98.0 % Arterial Blood Base Excess -6.6 L -2.0-3.0 mmol/L Arterial Blood Oxyhemoglobin 98.4 H 94.0-98.0 % Arterial Blood Carboxyhemoglobin 0.0 L 0.5-1.5 % Arterial Blood Methemoglobin 0.6 0.0-1.5 % Terrell Test Yes Blood Gas Total Hemoglobin 13.10 L 13.5-17.5 g/dL Blood Gas Modality Mask - simple FiO2 % 50.0 Test 11/17/24 22:00 11/17/24 18:59 Range/Units Lactic Acid Level 2.5 *H 0.4-2.0 mmol/L Troponin I High Sensitivity 58 *H </=54 ng/L B-Type Natriuretic Peptide 106.25 0-100 pg/mL Plasma/Serum Blood Alcohol < 3.0 <10 mg/dL Microbiology Date/Time Source Procedure Growth Status 11/18/24 01:02 Voided Urine Urine Culture - Final Presumptive [place] albicans Complete 11/17/24 22:00 Blood Blood Culture - Final Staphylococcus epidermidis Complete Assessment Acute Metabolic encephalopathy due to septic shock, improved Septic shock, likely due to pneumonia/UTI, improved Acute hypoxic respiratory failure, likely due to pneumonia, on oxygen through NC Shortness of breaths, likely due to pneumonia NSTEMI likely type 2, due to above Complicated UTI Hypertension Hypothyroidism Dyslipidemia SCOT, on CKD, likely via VMN Uncontrolled diabetes type 2 with hyperglycemia * CT scan shows, patchy opacities of bilateral upper lobes with ground-glass opacity of the right lower lobe which may represent pneumonia , trace b ilateral pleural effusions with associated atelectasis.Cirrhotic appearing liver * EKGs shows, normal sinus rhythm with no significant ST or T-wave changes * Trop I is mild raised, BNP in mild raised at 106 Plan/Recommendation (Case discussed with Dr. Marie) * Radiant HF Creteria is negative for HF * Continue lisinopril * Keep K above 4, and Mag above 2 * Considering patient's current status, EKG, echo, and labs, no cardiology workup needed at the moment, follow up on out patient basis * Rest of plan, per primary team/vessel liner Thank you for allowing us to participate in this patient's care. Please call if you have any questions or concerns. Plan discussed with: Patient, Other (RN) NYHA Physical activity limitations: NA Date of Service: November 21, 2024 Billing Provider: DANIELLA MARIE DO Cardiology Common Codes: [id number] INP/OBS CARE (High) DANIELLA MARIE DO 11/21/242134: Date Seen: November 21, 2024 Family History: Cerebrovascular accident (CVA) G8 FATHER Depression G8 MOTHER Diabetes mellitus FH: ovarian cancer G8 MOTHER Hypertension G8 MOTHER Allergies: Coded Allergies: NO KNOWN ALLERGIES (Unverified , 12/22/21) Home Meds Active Scripts Polyethylene Glycol 3350 (Miralax) 17 Gm Pow, 17 GM PO DAILY@BREAKFAST for 30 Days, #120 POW Prov:JR WYATT MD 08/09/23 Nitrofurantoin Monohydrate Mac (Macrobid) 100 Mg Cap, 100 MG PO BID for 10 Days, #20 CAP Prov:JR WYATT MD 08/09/23 Cephalexin Monohydrate (Cephalexin) 500 Mg Cap, 1 CAP PO QID, #20 CAP Prov:MARGIE MARSHALL MD 10/30/22 Cyclobenzaprine HCl (Cyclobenzaprine Hydrochlo) 10 Mg Tab, 10 MG PO BID PRN, #20 TAB Prov:MARGIE MARSHALL MD 10/30/22 Meloxicam (Meloxicam) 15 Mg Tab, 15 MG PO DAILY PRN, #10 TAB Prov:MARGIE MARSHALL MD 10/30/22 Tamsulosin Hcl (Flomax) 0.4 Mg Cap, 1 CAP PO DAILY, #30 CAP 11 Refills Prov:SALINA GARCIA SPRAY M[employer]ER 10/29/22 Oxycodone Hcl (OXYCODONE HCL) 5 Mg Tb, 5 MG GT Q6HP PRN for 5 Days, #20 TAB Prov:SALINA GARCIA SPRAY M[employer]ER 10/29/22 Reported Medications Lidocaine HCl (Lidocaine Hydrochloride) 3 % Cre, TOP 11/18/24 Tamsulosin HCl (Tamsulosin Hydrochloride) 0.4 Mg Cap, CAP PO 11/18/24 Levothyroxine Sodium (Levothyroxine Sodium) 25 Mcg Tab, 1 TAB PO DAILY 11/18/24 Gabapentin (Gabapentin) 300 Mg Cap, 1 CAP PO TID 11/18/24 Lisinopril (Lisinopril) 10 Mg Tab, 10 MG PO DAILY for 30 Days, MG 09/05/22 Hydromorphone Hcl (Hydromorphone Hcl) 2 Mg Tab, 1 TAB PO QID 12/23/21 Pravastatin Sodium (PRAVACHOL TABLET) 20 Mg Tb, 20 MG PO DAILY, TAB 11/14/21 Cholecalciferol (VITAMIN D3) 2,000 Unit Tab, 1 TAB PO DAILY, #30 TAB 5 Refills 11/26/20 Duloxetine HCl (Duloxetine HCl) 30 Mg Cap, 30 MG PO HS 07/17/19 Levothyroxine Sodium (Levothyroxine Sodium) 25 Mcg Tab, 25 MG PO DAILY 07/17/19 Insulin Regular (Human) (Novolin R) 100 Unit/Ml Inj SLIDING SCALE 07/17/19 Insulin Glargine (Basaglar Kwikpen) 100 Unit/Ml Inj, 25 UNITS SC HS 07/17/19 Plan/Recommendation Patient was discussed with Resident Physician Dr. Janak Morse. I agree with his Assessment and Plan, which was formulated with me. Plan discussed with: Patient Date of Service: November 21, 2024 Billing Provider: DANIELLA MARIE DO Cardiology Common Codes: [id number] INP/OBS CARE (High) JANAK MORSE RESDIENT November 21, 2024 13:34 DANIELLA MARIE DO November 21, 2024 21:35
[2024-11-21] MEDS: GABAPENTIN 300 MG CAP PO SCH (17:41)
[2024-11-21] MEDS: hydrALAZINE HCL 20 MG/ML VL IV PRN (17:42)
[2024-11-21] MEDS: TAMSULOSIN HYDROCHLORIDE 0.4 MG CAP PO SCH (17:58)
--- NOTE | 2024-11-21 22:17 | DVHPN2 ---
Progress Note - Dictate Date Seen: November 21, 2024 Medical Necessity Reason Pt with a Central, PICC or Fol: No Subjective Patient seen and examined at bedside. Remains on supplemental oxygen Overnight events reviewed. vital signs Vital Sign Date Time Temp Pulse Resp B/P (MAP) Pulse Ox O2 Delivery O2 Flow Rate FiO2 11/21/24 21:00 97.8 55 19 154/72 (99) 98 97.8 11/21/24 18:35 Nasal Cannula 4.0 11/21/24 18:35 36 Total Intake and Output 11/20/24 11/20/24 11/21/24 15:00 23:00 07:00 Intake Total 1600 ml 625 ml Output Total 750 ml Balance 1600 ml -125 ml medications Current Medications Medications Dose Ordered Sig/Ren Route Start Time Stop Time Status Last Admin Dose Admin Albuterol 2.5 mg Q4HPRN PRN NEB 11/17/24 23:00 11/21/24 18:35 2.5 MG Ipratropium [place] 0.5 mg Q4HPRN PRN NEB 11/17/24 23:00 11/21/24 18:35 0.5 MG Levothyroxine Sodium 25 mcg QAM@0600 PO 11/18/24 06:00 11/21/24 05:38 25 MCG Methylprednisolone Sodium Succinate 40 mg Q8HR IV 11/18/24 06:00 11/21/24 17:41 40 MG Atorvastatin Calcium 10 mg HS PO 11/18/24 22:00 11/20/24 21:55 10 MG Dextrose 50 ml UD PRN IV 11/17/24 23:00 Cancel Sodium Chloride 10 ml Q8HR IV 11/18/24 06:00 11/21/24 14:00 10 ML Acetaminophen/ Hydrocodone Bitart 1 tab Q4HP PRN PO 11/17/24 23:00 11/21/24 00:53 1 TAB Ondansetron HCl 4 mg Q4HP PRN IV 11/17/24 23:00 Docusate Sodium 100 mg BIDPRN PRN PO 11/17/24 23:00 Acetaminophen 650 mg Q6HP PRN PO 11/17/24 23:00 11/21/24 05:54 650 MG Nitroglycerin 0.4 mg Q5MINP PRN SL 11/17/24 23:00 Morphine Sulfate 2 mg Q30M PRN IV 11/17/24 23:00 Aspirin 81 mg DAILY PO 11/18/24 10:00 11/21/24 09:12 81 MG Ceftriaxone Sodium 50 ml @ 100 mls/hr DAILY@0600 IV 11/18/24 06:00 11/21/24 05:39 100 MLS/HR Fluconazole 100 ml @ 100 mls/hr DAILY IV 11/20/24 10:00 11/21/24 09:12 100 MLS/HR Sodium Chloride 1,000 ml @ 125 mls/hr Q8H IV 11/19/24 13:15 11/21/24 13:15 125 MLS/HR Famotidine 10 mg DAILY IV 11/20/24 10:00 11/21/24 09:12 10 MG Diagnostic Test (Pha) 1 strip ACHS 11/20/24 17:00 11/21/24 17:00 1 STRIP Insulin Human Regular AC SC 11/20/24 17:00 11/21/24 17:46 12 UNITS Insulin Human Regular HS SC 11/20/24 22:00 11/20/24 21:54 8 UNITS Dextrose 50 ml UD PRN IV 11/20/24 13:00 Insulin Glargine 30 units HS SC 11/20/24 22:00 11/20/24 21:54 30 UNITS Azithromycin 250 ml @ 125 mls/hr DAILY@1200 IV 11/22/24 12:00 Ketorolac Tromethamine 15 mg Q6HPRN PRN IV 11/21/24 11:00 11/26/24 10:59 11/21/24 12:28 15 MG Hydralazine HCl 10 mg Q6HP PRN IV 11/21/24 11:00 11/21/24 17:42 10 MG Tamsulosin HCl 0.4 mg QPM PO 11/21/24 18:00 11/21/24 17:58 0.4 MG Lisinopril 20 mg DAILY PO 11/22/24 10:00 Gabapentin 300 mg TID PO 11/21/24 14:00 11/21/24 17:41 300 MG Duloxetine HCl 30 mg DAILY PO 11/22/24 10:00 Cyclobenzaprine HCl 10 mg BID PO 11/21/24 22:00 objective Gen.: Patient lying in bed in no apparent distress. On supplemental oxygen. Head: Normocephalic, atraumatic. Eyes: EOMI/PERRLA. Ears: Normal hearing. Normal anatomy. Neck/trachea: Trachea midline, supple. Nose: Normal external anatomy. Mouth: Moist mucous membranes. Chest: Decreased air entry bilaterally. No wheezing or rhonchi. Cardiovascular: Positive S1, positive S2. Regular rate and rhythm. Abdomen: Positive bowel sounds in all 4 quadrants. Soft, non-tender, non- distended. : Deferred. Rectal: Deferred. Skin: Warm, dry. Intact. Extremities: 2+ radial pulses bilaterally. No lower extremity edema. Neuro: Awake, alert, oriented x3. No gross motor or sensory deficits. Cranial nerves II through XII intact. Gait not assessed. laboratory and microbiology Laboratory Tests 11/20/24 07:05 Test 11/20/24 07:05 Range/Units Serum Glucose 207 H 74-106 mg/dL Assessment/Plan Impression: Acute hypoxic respiratory failure Pneumonia likely Gram-negative/Gram-positive Ground-glass opacities on imaging Pleural effusions, trace Atelectasis Cirrhosis of the liver Events: Remains on supplemental oxygen, 2 LPM NC Taper O2 as tolerated Continue bronchodilators Continue IV steroids Continue antibiotics Continue Diflucan Incentive spirometry Labs and imaging reviewed. Rest of plan as noted below. Plan: ABG reviewed. Acidemia due to metabolic acidosis. Supplemental oxygen via nasal cannula Keep O2 saturation above 92%. Continue bronchodilators Continue IV steroids Continue Antibiotics and antifungal. Follow up cultures WBC count trending down Monitor hemoglobin Monitor platelets Monitor renal function Creatinine trending down. Monitor ins and outs Monitor electrolytes. Supplement as necessary. Accu-Cheks, insulin sliding scale Diet and lifestyle modifications recommended for weight loss Obesity complicates all care GI prophylaxis Prognosis: Poor given multiple comorbidities. Rest of plan per hospitalist and other consultants. Thank you Dr. Axel Horowitz for allowing me to participate in this patient's care. Further recommendations will depend on patient's clinical course. Please do not hesitate to contact me if you have any questions or concerns. This medical document was created using an electronic medical record system with [employer] system. Although this document has been carefully reviewed, there may still be some phonetic and typographical errors. These areas are purely typographical due to imperfections of the software programs, and do not reflect any compromise in the patient's medical care. Plan discussed with: Patient, Other (COLTON Arana) JUDY FORMAN MD November 21, 2024 22:17
[2024-11-21] MEDS: CYCLOBENZAPRINE HCL 10 MG TAB PO SCH (22:23)
[2024-11-22] VITALS (12 sets, daily range): BP systolic 112–174; BP diastolic 62–90; PULSE 49–63; RESP 16–20; TEMP 97.8–98.4; O2SAT 93–99
[2024-11-22] MEDS: DULoxetine HCL 30 MG CAP PO SCH (10:01)
[2024-11-22] MEDS: LISINOPRIL 20 MG TAB PO SCH (10:01)
--- NOTE | 2024-11-22 11:05 | DVHPN2 ---
Progress Note - Dictate Date Seen: November 22, 2024 Medical Necessity Reason Pt with a Central, PICC or Fol: No vital signs Vital Sign Date Time Temp Pulse Resp B/P (MAP) Pulse Ox O2 Delivery O2 Flow Rate FiO2 11/22/24 10:01 137/62 11/22/24 09:00 98.3 62 16 93 98.3 11/22/24 08:10 Nasal Cannula* 2 28 Total Intake and Output 11/21/24 11/21/24 11/22/24 15:00 23:00 07:00 Intake Total 2300 ml 290 ml Output Total 1200 ml 440 ml Balance 1100 ml -150 ml medications Current Medications Medications Dose Ordered Sig/Ren Route Start Time Stop Time Status Last Admin Dose Admin Albuterol 2.5 mg Q4HPRN PRN NEB 11/17/24 23:00 11/21/24 18:35 2.5 MG Ipratropium [place] 0.5 mg Q4HPRN PRN NEB 11/17/24 23:00 11/21/24 18:35 0.5 MG Levothyroxine Sodium 25 mcg QAM@0600 PO 11/18/24 06:00 11/22/24 05:59 25 MCG Methylprednisolone Sodium Succinate 40 mg Q8HR IV 11/18/24 06:00 11/22/24 05:58 40 MG Atorvastatin Calcium 10 mg HS PO 11/18/24 22:00 11/21/24 22:23 10 MG Dextrose 50 ml UD PRN IV 11/17/24 23:00 Cancel Sodium Chloride 10 ml Q8HR IV 11/18/24 06:00 11/22/24 06:00 10 ML Acetaminophen/ Hydrocodone Bitart 1 tab Q4HP PRN PO 11/17/24 23:00 11/22/24 07:03 1 TAB Ondansetron HCl 4 mg Q4HP PRN IV 11/17/24 23:00 Docusate Sodium 100 mg BIDPRN PRN PO 11/17/24 23:00 Acetaminophen 650 mg Q6HP PRN PO 11/17/24 23:00 11/21/24 05:54 650 MG Nitroglycerin 0.4 mg Q5MINP PRN SL 11/17/24 23:00 Morphine Sulfate 2 mg Q30M PRN IV 11/17/24 23:00 Aspirin 81 mg DAILY PO 11/18/24 10:00 11/22/24 10:01 81 MG Ceftriaxone Sodium 50 ml @ 100 mls/hr DAILY@0600 IV 11/18/24 06:00 11/22/24 05:58 100 MLS/HR Fluconazole 100 ml @ 100 mls/hr DAILY IV 11/20/24 10:00 11/22/24 10:02 100 MLS/HR Sodium Chloride 1,000 ml @ 125 mls/hr Q8H IV 11/19/24 13:15 11/21/24 13:15 125 MLS/HR Famotidine 10 mg DAILY IV 11/20/24 10:00 11/22/24 10:02 10 MG Diagnostic Test (Pha) 1 strip ACHS 11/20/24 17:00 11/22/24 05:59 1 STRIP Insulin Human Regular AC SC 11/20/24 17:00 11/22/24 06:24 12 UNITS Insulin Human Regular HS SC 11/20/24 22:00 11/21/24 22:33 6 UNITS Dextrose 50 ml UD PRN IV 11/20/24 13:00 Insulin Glargine 30 units HS SC 11/20/24 22:00 11/21/24 22:34 30 UNITS Azithromycin 250 ml @ 125 mls/hr DAILY@1200 IV 11/22/24 12:00 Ketorolac Tromethamine 15 mg Q6HPRN PRN IV 11/21/24 11:00 11/26/24 10:59 11/21/24 12:28 15 MG Hydralazine HCl 10 mg Q6HP PRN IV 11/21/24 11:00 11/21/24 17:42 10 MG Tamsulosin HCl 0.4 mg QPM PO 11/21/24 18:00 11/21/24 17:58 0.4 MG Lisinopril 20 mg DAILY PO 11/22/24 10:00 11/22/24 10:01 20 MG Gabapentin 300 mg TID PO 11/21/24 14:00 11/22/24 05:59 300 MG Duloxetine HCl 30 mg DAILY PO 11/22/24 10:00 11/22/24 10:01 30 MG Cyclobenzaprine HCl 10 mg BID PO 11/21/24 22:00 11/22/24 10:00 10 MG objective General Appearance: alert, no distress HEENT: EOMI, PERRLA, normal external inspect of ears, no icterus, no nasal drainage Neck: no carotid bruit, no jugular venous distention (JVD), no lymphadenopathy Chest: normal thorax Respiratory: clear to auscultation, normal air movement Cardiovascular: regular rate and rhythm, no diastolic murmur, no jugular venous distention (JVD), no rub, no systolic murmur Abdominal: soft, no hepatomegaly, no mass, no splenomegaly, no tenderness Genitourinary: grossly normal external Musculoskeletal: no joint tenderness, no swelling Extremities: normal pulses, no calf tenderness, no clubbing, no cyanosis, no edema Skin: no bruising, no jaundice, no rash Neurological: alert, No focal deficit laboratory and microbiology Laboratory Tests 11/20/24 07:05 Test 11/20/24 07:05 Range/Units Serum Glucose 207 H 74-106 mg/dL Problem List 1. Sepsis Monitor, continue antibiotics 2. Septic shock Monitor, IV fluids 3. Metabolic encephalopathy Monitor neurostatus 4. Uncontrolled diabetes Monitor, insulin ss 5. Hypoglycemia Monitor, glucose checks: resolved 6. Liver cirrhosis Monitor 7. SCOT superimposed on CKD III A Monitor 8. BPH Monitor, Flomax 9. Hypothyroid Monitor, continue Synthroid 10. Thrombocytopenia Monitor 11. Community acquired pneumonia Monitor 12. Complicated UTI Monitor 13. Acute hypoxic respiratory failure Monitor, continue supplemental O2 Assessment/Plan Subjective: Patient is awake and alert. Objective: Patient was admitted for sepsis and septic shock related to community-acquired pneumonia and complicated UTI. Patient had hypoglycemia on first admission, however that has since resolved. Patient has a history of diabetes, hemoglobin A1c 7.1. Patient found to have a cirrhotic liver. He denies any alcohol abuse. Platelet count is 106. Plan: Continue current treatment. Repeat chest x-ray ordered. Continue incentive spirometer and DC planning. Plan discussed with: Patient, Other SALINA GARCIA NP November 22, 2024 11:05
[2024-11-22] MEDS: AZITHROMYCIN 500MG/ 250ML 250 ML IV SCH (12:17)
--- NOTE | 2024-11-22 15:07 | DVH ---
CLINICAL INFORMATION: 74 years old, Male; f/u. TECHNIQUE: Single AP portable chest radiograph was obtained. COMPARISON: XY CHEST PORTABLE on DOS: 11/17/24, XY CHEST PORTABLE on DOS: 10/28/22, CXRP on DOS: 2 FINDINGS: Small left pleural effusion, more conspicuous compared to the prior radiographs, with overlying atele ctasis and consolidation. Mild ground-glass opacities and patchy opacities in the right lung base. Lo w lung volumes. No pneumothorax. No other significant interval change. IMPRESSION: 1. Small left pleural effusion with overlying atelectasis and consolidation, more conspicuous compare d to the prior radiographs. 2. Ground-glass opacities and ill-defined opacities in the right lung base, possibly infectious or in flammatory in nature.
--- NOTE | 2024-11-22 17:45 | DVHSR ---
APPROVED REPORT EXAM: Two-dimensional and M-mode echocardiogram with Doppler and color Doppler. Blood Pressure: 171/97 mmHg INDICATION possible CHF RISK FACTORS Height: 70, Weight: 226 DIMENSIONS LVDd4.8 (3.8-5.7cm)LA (2D)4.9 (1.9-4.0cm)Aortic Root3.7 (2.0-3.7cm) LVDs2.9 (2.5-4.0cm)LA (MM) (1.9-4.0cm)Aortic Cusp Exc1.7 (1.5-2.0cm) EF (%) 70.0 (55-70%)Rt. Atrium4.2 (1.9-4.0cm)Asc. Aorta cm IVSd1.3 (0.7-1.1cm)RV (D) (1.8-2.4cm) PWd1.5 (0.7-1.1cm) Mitral Valve MitralMitral Stenosis E wave0.98m/sMV Mean GR.mmHg A wave0.62m/sMV Peak GR.119mmHg E/A ratio1.62D MVAcm2 DECEL [id number] 1/2 [id number] IVRTmsDop MVA3.63cm2 Aortic Valve Aortic ValveAortic Stenosis V11.20m/Eveline Mean GR.5mmHg V21.49m/Eveline Peak GR.9mmHg LVOT Diameter2.2 (1.8-2.4cm)Doppler AVA3.06cm2 Pulmonic Valve V20.95m/s Tricuspid Valve TR Velocity2.85m/s [id number] Conclusion Technically good study. Sinus rhythm. Biatrial enlargement with concentric left ventricular hypertrophy. The mitral valve appears to be st ructurally normal. There is no significant thickening of the anterior posterior mitral leaflets. Ao rtic valve appears to be structurally normal. It is a trileaflet valve. The tricuspid is structural ly normal. The pulmonic valve appears to be normal. Left ventricular systolic performance is preserved. EF is approximately 65% with normal right ventri cular function. Interventricular straightening/doming of the interventricular septum in systole and diastole suggest a both pressure and volume overload of the left ventricle. Inflow patterns suggest adequate diastolic function. There appears to be moderate pulmonic insuffici ency. Moderate tricuspid insufficiency with right ventricular systolic pressures of up to 60 mmHg co nsistent with pulmonary hypertension. No intracardiac masses thrombi and/or vegetations discernible. Pericardial fat pad noted.
--- NOTE | 2024-11-22 23:01 | DVHPN2 ---
Progress Note - Dictate Date Seen: November 22, 2024 Medical Necessity Reason Pt with a Central, PICC or Fol: No Subjective Patient seen and examined at bedside. Remains on supplemental oxygen Overnight events reviewed. vital signs Vital Sign Date Time Temp Pulse Resp B/P (MAP) Pulse Ox O2 Delivery O2 Flow Rate FiO2 11/22/24 22:00 58 20 98 Nasal Cannula* 2 28 11/22/24 20:49 172/84 11/22/24 17:00 98.4 98.4 Total Intake and Output 11/21/24 11/21/24 11/22/24 15:00 23:00 07:00 Intake Total 2300 ml 290 ml Output Total 1200 ml 440 ml Balance 1100 ml -150 ml medications Current Medications Medications Dose Ordered Sig/Ren Route Start Time Stop Time Status Last Admin Dose Admin Albuterol 2.5 mg Q4HPRN PRN NEB 11/17/24 23:00 11/21/24 18:35 2.5 MG Levothyroxine Sodium 25 mcg QAM@0600 PO 11/18/24 06:00 11/22/24 05:59 25 MCG Methylprednisolone Sodium Succinate 40 mg Q8HR IV 11/18/24 06:00 11/22/24 21:30 40 MG Atorvastatin Calcium 10 mg HS PO 11/18/24 22:00 11/22/24 21:31 10 MG Dextrose 50 ml UD PRN IV 11/17/24 23:00 Cancel Sodium Chloride 10 ml Q8HR IV 11/18/24 06:00 11/22/24 22:20 10 ML Acetaminophen/ Hydrocodone Bitart 1 tab Q4HP PRN PO 11/17/24 23:00 11/22/24 11:58 1 TAB Ondansetron HCl 4 mg Q4HP PRN IV 11/17/24 23:00 Docusate Sodium 100 mg BIDPRN PRN PO 11/17/24 23:00 Acetaminophen 650 mg Q6HP PRN PO 11/17/24 23:00 11/21/24 05:54 650 MG Nitroglycerin 0.4 mg Q5MINP PRN SL 11/17/24 23:00 Morphine Sulfate 2 mg Q30M PRN IV 11/17/24 23:00 Aspirin 81 mg DAILY PO 11/18/24 10:00 11/22/24 10:01 81 MG Ceftriaxone Sodium 50 ml @ 100 mls/hr DAILY@0600 IV 11/18/24 06:00 11/22/24 05:58 100 MLS/HR Fluconazole 100 ml @ 100 mls/hr DAILY IV 11/20/24 10:00 11/22/24 10:02 100 MLS/HR Sodium Chloride 1,000 ml @ 125 mls/hr Q8H IV 11/19/24 13:15 11/21/24 13:15 125 MLS/HR Famotidine 10 mg DAILY IV 11/20/24 10:00 11/22/24 10:02 10 MG Diagnostic Test (Pha) 1 strip ACHS 11/20/24 17:00 11/22/24 21:31 1 STRIP Insulin Human Regular AC SC 11/20/24 17:00 11/22/24 17:00 12 UNITS Insulin Human Regular HS SC 11/20/24 22:00 11/22/24 21:38 6 UNITS Dextrose 50 ml UD PRN IV 11/20/24 13:00 Insulin Glargine 30 units HS SC 11/20/24 22:00 11/22/24 21:38 30 UNITS Azithromycin 250 ml @ 125 mls/hr DAILY@1200 IV 11/22/24 12:00 11/22/24 12:17 125 MLS/HR Ketorolac Tromethamine 15 mg Q6HPRN PRN IV 11/21/24 11:00 11/26/24 10:59 11/22/24 20:40 15 MG Hydralazine HCl 10 mg Q6HP PRN IV 11/21/24 11:00 11/22/24 20:49 10 MG Tamsulosin HCl 0.4 mg QPM PO 11/21/24 18:00 11/22/24 17:52 0.4 MG Lisinopril 20 mg DAILY PO 11/22/24 10:00 11/22/24 10:01 20 MG Gabapentin 300 mg TID PO 11/21/24 14:00 11/22/24 21:30 300 MG Duloxetine HCl 30 mg DAILY PO 11/22/24 10:00 11/22/24 10:01 30 MG Cyclobenzaprine HCl 10 mg BID PO 11/21/24 22:00 11/22/24 21:30 10 MG Ipratropium [place] 0.5 mg BID NEB 11/22/24 22:00 objective Gen.: Patient lying in bed in no apparent distress. On supplemental oxygen. Head: Normocephalic, atraumatic. Eyes: EOMI/PERRLA. Ears: Normal hearing. Normal anatomy. Neck/trachea: Trachea midline, supple. Nose: Normal external anatomy. Mouth: Moist mucous membranes. Chest: Decreased air entry bilaterally. No wheezing or rhonchi. Cardiovascular: Positive S1, positive S2. Regular rate and rhythm. Abdomen: Positive bowel sounds in all 4 quadrants. Soft, non-tender, non- distended. : Deferred. Rectal: Deferred. Skin: Warm, dry. Intact. Extremities: 2+ radial pulses bilaterally. No lower extremity edema. Neuro: Awake, alert, oriented x3. No gross motor or sensory deficits. Cranial nerves II through XII intact. Gait not assessed. laboratory and microbiology Laboratory Tests 11/20/24 07:05 Test 11/20/24 07:05 Range/Units Serum Glucose 207 H 74-106 mg/dL Assessment/Plan Impression: Acute hypoxic respiratory failure Pneumonia likely Gram-negative/Gram-positive Ground-glass opacities on imaging Pleural effusions, trace Atelectasis Cirrhosis of the liver Events: Remains on supplemental oxygen, 2 LPM NC Taper O2 as tolerated Obtain chest x-ray in AM for interval changes. Continue bronchodilators PRN Continue IV steroids Continue antibiotics Continue Diflucan Antitussive for cough Incentive spirometry Labs and imaging reviewed. Rest of plan as noted below. Plan: Supplemental oxygen via nasal cannula Keep O2 saturation above 92%. Continue bronchodilators Continue IV steroids Continue Antibiotics and antifungal. Follow up cultures WBC count trending down Monitor hemoglobin Monitor platelets Monitor renal function Creatinine trending down. Monitor ins and outs Monitor electrolytes. Supplement as necessary. Accu-Cheks, insulin sliding scale Diet and lifestyle modifications recommended for weight loss Obesity complicates all care GI prophylaxis Prognosis: Poor given multiple comorbidities. Rest of plan per hospitalist and other consultants. Thank you Dr. Axel Horowitz for allowing me to participate in this patient's care. Further recommendations will depend on patient's clinical course. Please do not hesitate to contact me if you have any questions or concerns. This medical document was created using an electronic medical record system with [employer] system. Although this document has been carefully reviewed, there may still be some phonetic and typographical errors. These areas are purely typographical due to imperfections of the software programs, and do not reflect any compromise in the patient's medical care. Plan discussed with: Patient, Other (COLTON Mcpherson) JUDY FORMAN MD November 22, 2024 23:01
[2024-11-23] VITALS (9 sets, daily range): BP systolic 132–151; BP diastolic 70–86; PULSE 50–65; RESP 12–19; TEMP 97.7–98.3; O2SAT 95–100
[2024-11-23] MEDS: IPRATROPIUM BROM 0.5 MG/2.5ML INH SOL NEB SCH (06:21)
--- NOTE | 2024-11-23 10:41 | DVH ---
EXAM: XY CHEST PORTABLE Indication: INTERVAL CHANGES Technique: Single frontal view of the chest was obtained Comparison: XY CHEST XRAY 1 VIEW on DOS: 11/22/24, XY CHEST PORTABLE on DOS: 11/17/24, XY CHEST PORTABL E on DOS: 10/28/22, CXRP on DOS: 12/22/21, CHEST PORTABLE on DOS: 12/22/21 FINDINGS: Lines and Tubes: None Lungs: Small left pleural effusion left basilar opacity. No pneumothorax. Cardiomediastinal contours: Unchanged. Bones: No acute osseous abnormality. IMPRESSION: Small left pleural effusion and left basilar opacity.
[2024-11-23] MEDS ORDERED: CEPH500C PO (10:54)
[2024-11-23] MEDS ORDERED: DOXY100C79 PO (10:54)
--- NOTE | 2024-11-23 10:57 | DVHDS2 ---
Discharge Summary Date of Admission November 17, 2024 at 22:59 Date of Discharge: November 23, 2024 Labs/Diagnostic Data: Laboratory Results Test 11/23/24 06:09 11/20/24 07:05 11/18/24 23:45 11/18/24 14:01 POC Glucose 161 mg/dl (70-106) White Blood Count 13.9 10^3/uL (4.4-10.8) Red Blood Count 4.46 10^6/uL (4.5-5.90) Hemoglobin 12.4 g/dL (13.5-17.5) Hematocrit 37.4 % (41.0-53.0) Mean Corpuscular Volume 83.8 fL (80.0-100.0) Mean Corpuscular Hemoglobin 27.9 pg (28.0-32.0) Mean Corpuscular Hemoglobin Concent 33.3 g/dL (32.0-36.0) Red Cell Distribution Width 15.4 % (11.8-14.3) Platelet Count 106 10^3/uL (140-450) Mean Platelet Volume 9.3 fL (6.9-10.8) Neutrophils (%) (Auto) % (37.0-80.0) Lymphocytes (%) (Auto) % (10.0-50.0) Monocytes (%) (Auto) % (0.0-12.0) Basophils (%) (Auto) % (0.0-2.0) Neutrophils # (Auto) 10 ^3/uL (1.6-8.6) Lymphocytes # (Auto) 10 ^3/uL (0.4-5.4) Monocytes # (Auto) 10 ^3/uL (0-1.3) Differential Total Cells Counted 100.0 (100) Neutrophils % (Manual) 97 (37.0-80.0) Band Neutrophils % (Manual) 0 Lymphocytes % (Manual) 2 (10.0-50.0) Monocytes % (Manual) 1 (0-12) Eosinophils % (Manual) 0 (0-7) Basophils % (Manual) 0 (0.0-2.0) Metamyelocytes % (manual) 0 Myelocytes % (Manual) 0 Promyelocytes % (Manual) 0 Blast Cells % (Manual) 0 Reactive Lymphocytes 0 Platelet Estimate Decreased Large Platelets Few Sodium Level 144 mmol/L (136-145) Potassium Level 4.2 mmol/L (3.5-5.1) Chloride Level 113 mmol/L (98-107) Carbon Dioxide Level 22 mmol/L (20-31) Anion Gap 9 (5-15) Blood Urea Nitrogen 34 mg/dL (9-23) Creatinine 1.37 mg/dL (0.700-1.30) Glomerular Filtration Rate Calc 54 mL/min (>90) BUN/Creatinine Ratio 24.8 (10.0-20.0) Serum Glucose 207 mg/dL (74-106) Calcium Level 9.2 mg/dL (8.7-10.4) Total Bilirubin 0.7 mg/dL (0.2-1.0) Aspartate Amino Transferase (AST) 15 U/L (13-40) Alanine Aminotransferase (ALT) 12 U/L (7-40) Alkaline Phosphatase 53 U/L (46-116) Total Protein 7.3 g/dL (5.7-8.2) Albumin 3.9 g/dL (3.2-4.8) Random Vancomycin Level 14.4 ug/mL (5-10) Influenza Type A Antigen Negative (Negative) Influenza Type B Antigen Negative (Negative) SARS-CoV-2 Antigen (Rapid) Negative (NEGATIVE) D-Dimer, Quantitative 0.51 mg/L FEU (0.0-0.49) Test 11/18/24 04:02 11/18/24 02:37 11/18/24 01:02 11/17/24 22:43 Eosinophils (%) (Auto) 0.2 % (0.0-7.0) Eosinophils # (Auto) 0 10 ^3/uL (0-0.8) Basophils # (Auto) 0 10 ^3/uL (0-0.2) Nucleated Red Blood Cells 0.1 % Hemoglobin A1c 7.4 % A1C (<5.7) Thyroid Stimulating Hormone (TSH) 2.97 uIU/mL (0.55-4.78) Hepatitis B Surface Antigen Negative (Negative) Urine Color Light-brown (Yellow) Urine Clarity Ex.turbid (Clear) Urine pH 5.5 (5.0-9.0) Urine Specific [place] 1.016 (1.001-1.035) Urine Protein 1+ (Negative) Urine Ketones Negative (Negative) Urine Blood 1+ /uL (Negative) Urine Nitrite Negative (Negative) Urine Bilirubin Negative (Negative) Urine Urobilinogen Normal mg/dL (Negative) Urine Leukocyte Esterase 3+ /uL (Negative) Urine RBC 50 /hpf (0 - 3) Urine WBC Clumps Present /hpf (None Seen) Urine Microscopic WBC 4064 /HPF (0-3) Urine Squamous Epithelial Cells Few /hpf (<5) Urine Bacteria Few /hpf (None Seen) Urine Yeast (Budding) Loaded /hpf (None Seen) Urine Glucose Normal mg/dL (Normal) Urine Opiates Screen Pos (NEGATIVE) Urine Fentanyl Screen Neg (NEGATIVE) Urine Barbiturates Screen Neg (NEGATIVE) Urine Phencyclidine Screen Neg (NEGATIVE) Urine Amphetamines Screen Neg (NEGATIVE) Urine Benzodiazepines Screen Neg (NEGATIVE) Urine Cocaine Screen Neg (NEGATIVE) Urine Cannabinoids Screen Neg (NEGATIVE) Blood Gas Specimen Type Arterial Blood Gas Sample Site Right radial Blood Gas Patient Temperature 37.0 Arterial Blood Date Drawn [id number] Arterial Blood pH 7.319 (7.350-7.450) Arterial Blood Partial Pressure CO2 37.5 mmHg (35.0-48.0) Arterial Blood Partial Pressure O2 162.2 mmHg (83.0-108.0) Arterial Blood HCO3 18.8 mmol/L (21.0-28.0) Arterial Blood Oxygen Saturation 99.0 % (94.0-98.0) Arterial Blood Base Excess -6.6 mmol/L (-2.0-3.0) Arterial Blood Oxyhemoglobin 98.4 % (94.0-98.0) Arterial Blood Carboxyhemoglobin 0.0 % (0.5-1.5) Arterial Blood Methemoglobin 0.6 % (0.0-1.5) Terrell Test Yes Blood Gas Total Hemoglobin 13.10 g/dL (13.5-17.5) Blood Gas Modality Mask - simple FiO2 % 50.0 Test 11/17/24 22:00 11/17/24 18:59 Lactic Acid Level 2.5 mmol/L (0.4-2.0) Troponin I High Sensitivity 58 ng/L (</=54) B-Type Natriuretic Peptide 106.25 pg/mL (0-100) Plasma/Serum Blood Alcohol < 3.0 mg/dL (<10) Other Laboratory Tests 11/20/24 07:05 Brief Hx & Hospital Course: The patient is a 74-year-old male morbidly obese with multiple past medical history including DM, hyperlipidemia, hypertension, and thyroid disease who presented to [facility] ED for evaluation of altered level of consciousness and shortness of breaths. As reported by , patient was at home when he passed out, currently he is an insulin-dependent diabetic and may have dispense additional insulin. Patient was seen and evaluated in the ED, laboratory data shows WBC 17.2, platelets 221, sodium 144, potassium 3.5, BUN 32, creatinine 1.94, glucose 51, lactic acid 3.5 trending down to 2.5, BNP 106.25, troponin 7 trending up to 58, blood pressure 74/43 trending up to 117/95, heart rate 104, temperature 98.2 F, O2 saturation 97% on simple mask. Patient was started on IV antibiotic regimen vancomycin, please see medication orders section in the computer. On my assessment, patient denied chest pain, no headache, no dizziness, no diaphoresis, currently on oxygen, no nausea, no vomiting, no fever, no chills. Patient was admitted for further evaluation and medical management. While in the emergency department the patient was evaluated by the provider, As per provider: Labs, vital signs, and imagining monitored. Patient was admitted on November 17, 2024 with sepsis and septic shock related to community acquired pneumonia and complicated UTI. Patient had metabolic encephalopathy, which has since resolved. Patient was noted to have hypoglycemia upon arrival to the emergency room, and it has also since resolved. Patient had acute renal failure superimposed on CKD stage 3A. Patient was at his baseline at the time of discharge. Patient also found to have liver cirrhosis. Patient denies any alcohol use. Patient most likely has ROSS and he will have GI follow up outpatient. Patient was given antibiotics and med neb treatments during hospital stay. Oxygen was weaned off. Patient was deemed stable. Home health was arranged for hospital discharge follow up. Patient was prescribed keflex and doxycycline. He will follow up with Doctor Sanches in one week. There were no complaints or new complaints upon discharge, all questions and concerns were answered. Patient was advised to return to the ER or call 911 if any headaches, dizziness, shortness of breath, chest pain, bleeding, fevers, or worsening of medical condition. Patient/Family was counseled about treatment plan, medications, possible side effects, patientverbalized understanding. All questions were answered to the best of my ability. The patient symptoms improved and they are okay to be DC. Condition at Discharge: Stable Final Diagnosis/Problems List Sepsis wit septic shock Community aquired PNA Complicated UTI SCOT-resolved Hypoglycemia-resolved Liver cirrhosis- outpt follow up Discharge Disposition: Home with Health Services Discharge Instruct/Medications Diet: Cardiac 2g Na,low cholest Activity: No Restrictions, As Tolerated Discharge Statement: "Patient was advised to return to the ER or call 911 if any headaches, dizziness, shortness of breath, chest pain, abdominal pain, bleeding, fevers, or worsening of medical condition. Patient was counseled about treatment plan, medications, possible side effects, patientverbalized understanding. All questions were answered to the best of my ability. This discharge took greater then 30 minutes in planning, reviewing documentation, counseling the patient, and discussing with other team members." ASSESSMENT ASSESSMENT Assessment Sepsis wit septic shock Community aquired PNA Complicated UTI SCOT-resolved Hypoglycemia-resolved Liver cirrhosis- outpt follow up SALINA GARCIA NP November 23, 2024 10:57
--- NOTE | 2024-11-23 22:17 | DVHPN2 ---
Progress Note - Dictate Date Seen: November 23, 2024 Medical Necessity Reason Pt with a Central, PICC or Fol: No Subjective Patient seen and examined at bedside. Breathing comfortably on room air. Overnight events reviewed. vital signs Vital Sign Date Time Temp Pulse Resp B/P (MAP) Pulse Ox O2 Delivery O2 Flow Rate FiO2 11/23/24 13:35 97.7 65 18 95 11/23/24 13:00 148/86 (106) 11/23/24 08:08 Nasal Cannula* 2 28 Total Intake and Output 11/22/24 11/22/24 11/23/24 15:00 23:00 07:00 Intake Total 350 ml 1175 ml 150 ml Output Total 1055 ml 500 ml Balance 350 ml 120 ml -350 ml medications Current Medications Medications Dose Ordered Sig/Ren Route Start Time Stop Time Status Last Admin Dose Admin Dextrose 50 ml UD PRN IV 11/17/24 23:00 Cancel objective Gen.: Patient lying in bed in no apparent distress. Breathing on room air. Head: Normocephalic, atraumatic. Eyes: EOMI/PERRLA. Ears: Normal hearing. Normal anatomy. Neck/trachea: Trachea midline, supple. Nose: Normal external anatomy. Mouth: Moist mucous membranes. Chest: Decreased air entry bilaterally. No wheezing or rhonchi. Cardiovascular: Positive S1, positive S2. Regular rate and rhythm. Abdomen: Positive bowel sounds in all 4 quadrants. Soft, non-tender, non- distended. : Deferred. Rectal: Deferred. Skin: Warm, dry. Intact. Extremities: 2+ radial pulses bilaterally. No lower extremity edema. Neuro: Awake, alert, oriented x3. No gross motor or sensory deficits. Cranial nerves II through XII intact. Gait not assessed. laboratory and microbiology Laboratory Tests 11/20/24 07:05 Test 11/20/24 07:05 Range/Units Serum Glucose 207 H 74-106 mg/dL Assessment/Plan Impression: Acute hypoxic respiratory failure Pneumonia likely Gram-negative/Gram-positive Ground-glass opacities on imaging Pleural effusions, trace Atelectasis Cirrhosis of the liver Events: Tapered off supplemental oxygen 2 LPM NC --> room air. Supplemental oxygen PRN No distress Chest x-ray reviewed, demonstrates small left pleural effusion and left basilar opacity. Continue bronchodilators PRN Continue IV steroids Continue antibiotics Continue Diflucan Antitussive for cough Incentive spirometry Patient is stable for discharge from the pulmonary standpoint. Follow up in 2-3 weeks in Pulmonary Clinic. Labs and imaging reviewed. Rest of plan as noted below. Plan: Supplemental oxygen PRN Keep O2 saturation above 92%. Continue bronchodilators Continue IV steroids Continue antibiotics and antifungal. Follow up cultures WBC count trending down Monitor hemoglobin Monitor platelets Monitor renal function Creatinine trending down. Monitor ins and outs Monitor electrolytes. Supplement as necessary. Accu-Cheks, insulin sliding scale Diet and lifestyle modifications recommended for weight loss Obesity complicates all care GI prophylaxis Prognosis: Poor given multiple comorbidities. Rest of plan per hospitalist and other consultants. Thank you Dr. Axel Horowitz for allowing me to participate in this patient's care. Further recommendations will depend on patient's clinical course. Please do not hesitate to contact me if you have any questions or concerns. This medical document was created using an electronic medical record system with [employer] dictation system. Although this document has been carefully reviewed, there may still be some phonetic and typographical errors. These areas are purely typographical due to imperfections of the software programs, and do not reflect any compromise in the patient's medical care. Plan discussed with: Patient, Other (COLTON Linder) JUDY FORMAN MD November 23, 2024 22:17
== END 2024-11-23 16:20 | disposition home health service (06) | DRG 871 ==
LOC: ER 18:31 → EDUNIT# 18:31 → EDBD 18:31 → OVERFLOW 22:59 → TELE-WESTW 11-18 21:27
PROVIDERS: ADMIT Family Medicine; ATTEND Internal Medicine
PROC: 05HB33Z Insertion of Infusion Device into Right Basilic Vein, Percutaneous Approach (ICD-10-PCS; principal; 2024-11-20)
PROC: B54MZZA Ultrasonography of Right Upper Extremity Veins, Guidance (ICD-10-PCS; 2024-11-20)
DX: A41.9 Sepsis, unspecified organism (principal); G93.41 Metabolic encephalopathy; R65.21 Severe sepsis with septic shock; J15.69 Pneumonia due to other Gram-negative bacteria; J96.01 Acute respiratory failure with hypoxia; I21.A1 Myocardial infarction type 2; J15.9 Unspecified bacterial pneumonia; N17.9 Acute kidney failure, unspecified; N39.0 Urinary tract infection, site not specified; J90 Pleural effusion, not elsewhere classified; J98.11 Atelectasis; E11.649 Type 2 diabetes mellitus with hypoglycemia without coma; E03.9 Hypothyroidism, unspecified; E78.00 Pure hypercholesterolemia, unspecified; N40.0 Benign prostatic hyperplasia without lower urinary tract symptoms; N18.31 Chronic kidney disease, stage 3a; I12.9 Hypertensive chronic kidney disease with stage 1 through stage 4 chronic kidney disease, or unspecified chronic kidney disease; E66.01 Morbid (severe) obesity due to excess calories; E11.22 Type 2 diabetes mellitus with diabetic chronic kidney disease; Z68.35 Body mass index [BMI] 35.0-35.9, adult; D69.6 Thrombocytopenia, unspecified; E11.65 Type 2 diabetes mellitus with hyperglycemia; K74.60 Unspecified cirrhosis of liver; Z20.822 Contact with and (suspected) exposure to COVID-19; Z87.891 Personal history of nicotine dependence; Z87.442 Personal history of urinary calculi; Z83.3 Family history of diabetes mellitus; Z82.49 Family history of ischemic heart disease and other diseases of the circulatory system; Z82.3 Family history of stroke; Z81.8 Family history of other mental and behavioral disorders; Z79.899 Other long term (current) drug therapy; Z79.4 Long term (current) use of insulin; Z90.49 Acquired absence of other specified parts of digestive tract
CPT/HCPCS: 36415; 36600; 70450; 71045; 71250; 80053; 80202; 80307; 80320; 81001; 82565; 82805; 82962; 83036; 83605; 83880; 84443; 84484; 85007; 85025; 85027; 85379; 87040; 87077; 87086; 87088; 87186; 87340; 87426; 87804; 93005; 93306; 94640; 96360; G0378; J1100; J1450; J1815; J1885; J2543; J3490; J7060

== ENCOUNTER 2025-02-12 14:01 | Inpatient (IN) | payer MEDICARE, OTHER ==
[~2025-02-12] VITALS: Ht 177.8 cm; Wt 112.2 kg
[~2025-02-12 14:01] MED LIST changes: +DOXY100C79 PO; +GABA-1250 PO; +LIDO3CRE35 TOP; -NITR-87 PO
--- NOTE | 2025-02-12 14:25 | ED.PDOC ---
HPI (NEURO) HPI Comments 74y M who presents to the ED via EMS for chief complaint of generalized weakness. Pt was at home and states he had labs earlier today and was at home resting. Pt states he started to feel dizzy and weak and pt told and pt had his BP checked and states it was low. Pt also has noted history of DM and blood sugar was in 50's and pt took oral glucose and called EMS. EMS arrived on scene with noted systolic BP in the 70's and pt had IV established and fluids were started and pt brought to the ED. Pt in the ED, is alert and oriented x4 and able to answer all questions. Pt states he had these symptoms 1 months prior and states he was hospitalized and treated for sepsis. Pt otherwise denies any other symptoms at this time. Pt is noted to be bed-ridden. 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, Medications, Allergies Information Source: Patient, Emergency Med Personnel Mode of Arrival: EMS Brought in by: EMS Severity: Moderate Dizziness/Weakness Severity: Bedridden Headache Severity: Moderate Timing: Hours Duration: Since onset Prehospital treatment: IVF Weakness Location: Generalized Onset: At rest Circumstances: Spontaneous Symptoms: Weakness History of: DM, Hypertension Modifying factors: Nothing Associated Signs and Symptoms: Weakness Past Medical History PAST MEDICAL HISTORY: CKF, DM, High Lipids, HTN, Kidney Stones, Thyroid, UTI'S Surgical History: Appendectomy, Tonsillectomy Family History Family History: Reviewed,noncontributory to illness, Family hx of DM, Family hx of Cancer, Family hx of stroke Social History Smoker: Non-Smoker Alcohol: Denies ETOH Use Drugs: Denies Drug Use Lives In: Home Constitutional: reports: malaise, weakness; denies: chills, diaphoresis, fatigue, fever, sweats, others EENTM: denies: blurred vision, double vision, ear bleeding, ear discharge, ear drainage, ear pain, ear ringing, eye pain, eye redness, hearing loss, mouth pain, mouth swelling, nasal discharge, nose bleeding, nose congestion, nose pain, photophobia, tearing, throat pain, throat swelling, voice changes, others Respiratory: denies: cough, hemoptysis, orthopnea, SOB at rest, shortness of breath, SOB with excertion, stridor, wheezing, others Cardiovascular: denies: chest pain, dizzy spells, diaphoresis, Dyspnea on exe rtion, edema, irregular heart beat, left arm pain, lightheadedness, palpitations, PND, syncope, others Gastrointestinal: denies: abdomen distended, abdominal pain, blood streaked bowels, constipated, diarrhea, dysphagia, difficulty swallowing, hematemesis, melena, nausea, poor appetite, poor fluid intake, rectal bleeding, rectal pain, vomiting, others Genitourinary: denies: burning, dysuria, flank pain, frequency, hematuria, incontinence, penile discharge, penile sore, pain, testicle pain, testicle swelling, urgency, others Neurological: denies: dizziness, fainting, headache, left sided numbness, left sided weakness, numbness, paresthesia, pre-existing deficit, right sided numbness, right sided weakness, seizure, speech problems, tingling, tremors, weakness, others Musculoskeletal: denies: back pain, gout, joint pain, joint swelling, muscle pain, muscle stiffness, neck pain, others Integumetry: denies: bruises, change in color, change in hair/nails, dryness, laceration, lesions, lumps, rash, wounds, others Allergic/Immunocompromised: denies: Difficulty Healing, Frequent Infections, Hives, Itching, others Hematologic/Lymphatic: denies: anemia, blood clots, easy bleeding, easy bruising, swollen glands, others Endocrine: denies: excessive hunger, excessive sweating, excessive thirst, excessive urination, flushing, intolerance to cold, intolerance to heat, unexplained weight gain, unexplained weight loss, others Psychiatric: denies: anxiety, bipolar disorder, depression, hopeless, panic disorder, schizophrenia, sleepless, suicidal, others All Other Systems: Reviewed and Negative Physical Exam General Appearance: Moderate Distress HEENT: Normal ENT Inspection, Pharynx Normal, TMs Normal Neck: Full Range of Motion, Non-Tender, Normal, Normal Inspection Respiratory: Chest Non-Tender, Lungs Clear, No Accessory Muscle Use, No Respira tory Distress, Normal Breath Sounds Cardiovascular: No Edema, No JVD, No Murmur, No Gallop, Normal Peripheral Pulses, Regular Rate/Rhythm Breast Exam: Deferred Gastrointestinal: No Organomegaly, Non Tender, No Pulsatile Mass, Normal Bowel Sounds, Soft Genitalia: Deferred Pelvic: Deferred Rectal: Deferred Extremities: No calf tenderness, Normal capillary refill, Normal inspection, Normal range of motion, Non-tender, No pedal edema Musculoskeletal : Apperance: Normal Neurologic: Alert, class a regional drivers II-XII nml as Tested, No Motor Deficits, Normal Affect, Normal Mood, No Sensory Deficits Cerebellar Function: Normal Reflexes: Normal Skin: Dry, Normal Color, Warm Lymphatic: No Adenopathy EKG EKG : Pulse Rate (adult): 97 [place]: Normal Cardiac Rhythm: NSR Block: None Hypertrophy: None ST: Normal Comments low voltage Was a procedure done? Was a procedure done?: No Differential Diagnosis (SZ) Seizure: N/A General Weakness: Anemia, Dehydration, Electrolyte imbalance, Hypoglycemia, Hypotension, Hypovolemia, TIA, Other (uncontrolled DM, ) X-Ray, Labs, Meds, VS Vital Signs Date Time Temp Pulse Resp B/P (MAP) Pulse Ox O2 Delivery O2 Flow Rate FiO2 02/12/25 15:35 98.0 90 16 136/95 (109) 96 98.0 02/12/25 15:35 Room Air* 0 21 02/12/25 15:18 136/95 (109) 02/12/25 14:28 98.1 81 18 64/72 96 98.1 02/12/25 14:25 97 02/12/25 14:08 97 Lab Test 02/12/25 14:45 Range/Units White Blood Count 9.3 4.4-10.8 10^3/uL Red Blood Count 4.83 4.5-5.90 10^6/uL Hemoglobin 13.7 13.5-17.5 g/dL Hematocrit 41.1 41.0-53.0 % Mean Corpuscular Volume 85.2 80.0-100.0 fL Mean Corpuscular Hemoglobin 28.5 28.0-32.0 pg Mean Corpuscular Hemoglobin Concent 33.4 32.0-36.0 g/dL Red Cell Distribution Width 15.9 H 11.8-14.3 % Platelet Count 203 140-450 10^3/uL Mean Platelet Volume 9.1 6.9-10.8 fL Neutrophils (%) (Auto) 73.7 37.0-80.0 % Lymphocytes (%) (Auto) 16.8 10.0-50.0 % Monocytes (%) (Auto) 8.5 0.0-12.0 % Eosinophils (%) (Auto) 0.9 0.0-7.0 % Basophils (%) (Auto) 0.1 0.0-2.0 % Neutrophils # (Auto) 6.8 1.6-8.6 10 ^3/uL Lymphocytes # (Auto) 1.6 0.4-5.4 10 ^3/uL Monocytes # (Auto) 0.8 0-1.3 10 ^3/uL Eosinophils # (Auto) 0.1 0-0.8 10 ^3/uL Basophils # (Auto) 0 0-0.2 10 ^3/uL Nucleated Red Blood Cells 0.0 % Sodium Level 142 136-145 mmol/L Potassium Level 3.6 3.5-5.1 mmol/L Chloride Level 107 98-107 mmol/L Carbon Dioxide Level 24 20-31 mmol/L Anion Gap 11 5-15 Blood Urea Nitrogen 16 9-23 mg/dL Creatinine 1.71 H 0.700-1.30 mg/dL Glomerular Filtration Rate Calc 42 >90 mL/min BUN/Creatinine Ratio 9.4 L 10.0-20.0 Serum Glucose 95 74-106 mg/dL Lactic Acid Level 2.5 *H 0.4-2.0 mmol/L Calcium Level 8.9 8.7-10.4 mg/dL Current Medications Medications (Trade) Dose Ordered Sig/Ren Route Start Time Stop Time Status Last Admin Sodium Chloride 2,000 ml @ 1,000 mls/hr Q2H ONCE IV 02/12/25 14:15 02/12/25 16:14 02/12/25 15:22 The chest x-ray shows: IMPRESSION: 1. Stable cardiomegaly. 2. Resolved pulmonary vascular congestion and left pleural effusion when compared to my November 23, 2024 The patient is given 2 L of normal saline. The lactic acid level is 2.5 The patient's CBC and chemistry panel are within normal limits except for creatinine of 1.71 The urine test is pending. The patient is being admitted at this time Images Reviewed?: Images reviewed and evaluated by me Time of 1ST Reevaluation: 16:05 Reevaluation 1ST: Unchanged Patient Education/Counseling: Diagnosis, Treatment, Prognosis Family Education/Counseling: No Family Present Departure 1 Departure Time of Disposition: 16:04 Impression: Primary Impression: Generalized weakness Additional Impressions: Elevated lactic acid level Autonomic dysfunction Hypotension Qualified Codes: I95.9 - Hypotension, unspecified Disposition: 09 ADMITTED INPATIENT Admit to: Med Surg Condition: Fair Critical Care Note Critical Care Time?: Yes (45 min-critical care time only) Stability Stability form required: Yes Unstable for transfer: Telemetry monitoring (Telemetry monitoring required), ED Physician Assesment (Clinical assesment) Heart Score Heart Score: Heart Score Response (Comments) Value History Slightly Suspicious 0 EKG Normal 0 Age >65 2 Risk Factors >3 or Hx ASHD 2 Troponin Normal limit 0 Total 4 I personally scribed for MANUEL MADRIGAL MD ([email or web address]) on 02/12/25 at 14:25. Electronically submitted by Ana Moreira ([facility]). MANUEL MADRIGAL MD Feb 12, 2025 14:25
[2025-02-12 15:08] LABS: Hematocrit 41.1 % (41.0-53.0); Hemoglobin 13.7 g/dL (13.5-17.5); Mean Corpuscular Hemoglobin 28.5 pg (28.0-32.0); Mean Corpuscular Volume 85.2 fL (80.0-100.0); Nucleated Red Blood Cells % 0.0 %
[2025-02-12 15:20] LABS: Chloride 107 mmol/L (98-107); Potassium 3.6 mmol/L (3.5-5.1)
[2025-02-12 15:21] LABS: Calcium 8.9 mg/dL (8.7-10.4); Carbon Dioxide 24 mmol/L (20-31)
[2025-02-12 15:22] LABS: Anion Gap 11 (5-15); Sodium 142 mmol/L (136-145)
[2025-02-12] MEDS: SODIUM CHLORIDE 0.9% 2,000 ML IV ONE (15:22)
[2025-02-12 15:26] LABS: BUN/Creatinine Ratio 9.4 (10.0-20.0); Blood Urea Nitrogen 16 mg/dL (9-23); Glucose 95 mg/dL (74-106)
[2025-02-12 15:29] LABS: Lactic Acid w/Reflex 2.5 mmol/L (0.4-2.0)
--- NOTE | 2025-02-12 15:30 | DVH ---
CHEST RADIOGRAPH Indication: weakness Technique: Single frontal view of the chest was obtained Comparison: XY CHEST PORTABLE on DOS: 11/23/24, XY CHEST XRAY 1 VIEW on DOS: 11/22/24, CT CHEST WITHOUT CONTRAST on DOS: 11/20/24 FINDINGS: Lines and Tubes: None Lungs: Resolved pulmonary vascularity and pleural effusions. Pleura: No effusion. No pneumothorax. Cardiomediastinal contours: Stable cardiac size Bones: No acute osseous abnormality. IMPRESSION: 1. Stable cardiomegaly. 2. Resolved pulmonary vascular congestion and left pleural effusion when compared to my November 23, 2024
[2025-02-12] MEDS ORDERED: DOCUSATE SOD 100 MG CAP PO PRN (21:15)
[2025-02-12] MEDS ORDERED: MORPHINE SULFATE INJ 2 MG/ml SYRG IV PRN (21:15)
[2025-02-12] MEDS ORDERED: HYDROcodone-ACET 5/325MG TAB PO PRN (21:15)
[2025-02-12] MEDS ORDERED: ONDANSETRON HCL 4 MG/2 ML VIAL IV PRN (21:15)
[2025-02-12] MEDS ORDERED: ACETAMINOPHEN 325 MG TAB PO PRN (21:15)
[2025-02-12] MEDS ORDERED: NITROGLYCERIN 0.4 MG SL TAB SL PRN (21:15)
[2025-02-12] MEDS: SODIUM CHLORIDE 0.9% 1,000 ML IV SCH (23:16)
[2025-02-12] MEDS: cefTRIAXone 1GM/50ML D5W 50 ML IV SCH (23:16)
[2025-02-13 05:53] LABS: Alanine Aminotransferase 11 U/L (7-40); Albumin 3.9 g/dL (3.2-4.8); Alkaline Phosphatase 68 U/L (46-116); Anion Gap 12 (5-15); BUN/Creatinine Ratio 14.6 (10.0-20.0); Blood Urea Nitrogen 22 mg/dL (9-23); Carbon Dioxide 22 mmol/L (20-31); Hematocrit 39.9 % (41.0-53.0); Hemoglobin 13.0 g/dL (13.5-17.5); Mean Corpuscular Hemoglobin 28.7 pg (28.0-32.0); Mean Corpuscular Volume 88.0 fL (80.0-100.0); Nucleated Red Blood Cells % 0.1 %; Potassium 4.3 mmol/L (3.5-5.1); Sodium 143 mmol/L (136-145); Total Protein 6.4 g/dL (5.7-8.2)
[2025-02-13 05:54] LABS: Bilirubin, Total 1.3 mg/dL (0.2-1.0); Calcium 8.3 mg/dL (8.7-10.4); Chloride 109 mmol/L (98-107); Glucose 111 mg/dL (74-106)
[2025-02-13] MEDS: MORPHINE SULFATE INJ 2 MG/ml SYRG IV PRN (06:09)
--- NOTE | 2025-02-13 07:13 | DVHINCON2 ---
Date of service: Feb 13, 2025 History of Present Illness HPI Patient is a 74-year-old gentleman was brought to the hospital for generalized weakness. He is poor historian. Reportedly the patient had generalized weakness with more affecting in the lower extremities and EMS were called by the . EMS found her blood pressure in 70s and brought the patient to the hospital. Patient herself denies any chest pain/shortness of breath/palpitations. He himself is very poor historian and denies any previous medical problems. But review of the old chart reveals history of liver cir rhosis, CKD, hepatitis-C, old history of pneumonia, pulmonary hypertension and also history of septic shock. Patient himself denies any of the above. Home Meds Active Scripts Cephalexin Monohydrate (Cephalexin) 500 Mg Cap, 1 CAP PO QID for 7 Days, #28 CAP Prov:SALINA GARCIA NP 11/23/24 Doxycycline (Monohydrate) (Doxycycline) 100 Mg Cap, 100 MG PO BID for 7 Days, #14 CAP Prov:SALINA GARCIA NP 11/23/24 Polyethylene Glycol 3350 (Miralax) 17 Gm Pow, 17 GM PO DAILY@BREAKFAST for 30 Days, #120 POW Prov:RJ WYATT MD 08/09/23 Cyclobenzaprine HCl (Cyclobenzaprine Hydrochlo) 10 Mg Tab, 10 MG PO BID PRN, #20 TAB Prov:MARGIE MARSHALL MD 10/30/22 Meloxicam (Meloxicam) 15 Mg Tab, 15 MG PO DAILY PRN, #10 TAB Prov:MARGIE MARSHALL MD 10/30/22 Tamsulosin Hcl (Flomax) 0.4 Mg Cap, 1 CAP PO DAILY, #30 CAP 11 Refills Prov:SALINA GARCIA NP 10/29/22 Oxycodone Hcl (OXYCODONE HCL) 5 Mg Tb, 5 MG GT Q6HP PRN for 5 Days, #20 TAB Prov:SALINA GARCIA NP 10/29/22 Reported Medications Lidocaine HCl (Lidocaine Hydrochloride) 3 % Cre, TOP 11/18/24 Gabapentin (Gabapentin) 300 Mg Cap, 1 CAP PO TID 11/18/24 Lisinopril (Lisinopril) 10 Mg Tab, 10 MG PO DAILY for 30 Days, MG 09/05/22 Hydromorphone Hcl (Hydromorphone Hcl) 2 Mg Tab, 1 TAB PO QID 12/23/21 Pravastatin Sodium (PRAVACHOL TABLET) 20 Mg Tb, 20 MG PO DAILY, TAB 11/14/21 Cholecalciferol (VITAMIN D3) 2,000 Unit Tab, 1 TAB PO DAILY, #30 TAB 5 Refills 11/26/20 Duloxetine HCl (Duloxetine HCl) 30 Mg Cap, 30 MG PO HS 07/17/19 Levothyroxine Sodium (Levothyroxine Sodium) 25 Mcg Tab, 25 MG PO DAILY 07/17/19 Insulin Regular (Human) (Novolin R) 100 Unit/Ml Inj SLIDING SCALE 07/17/19 Insulin Glargine (Basaglar Kwikpen) 100 Unit/Ml Inj, 25 UNITS SC HS 07/17/19 Past Medical History Others Past medical history reportedly includes hypertension, hyperlipidemia, diabetes mellitus, CKD, old history of CKD, old history of kidney stone, liver cirrhosis, old history of hepatitis-C, old history of pancreatitis, repeated UTIs, history of septic shock, hypothyroidism, history of appendectomy/tonsillectomy and also history of pneumonias. Patient Family History: Cerebrovascular accident (CVA) G8 FATHER Depression G8 MOTHER Diabetes mellitus FH: ovarian cancer G8 MOTHER Hypertension G8 MOTHER Smoker: Quit Alocohol: None Review of Systems Constitutional: Diaphoresis, Malaise, Weakness Pulmonary/Respiratory: No symptom reported Cardiovascular: No symptom reported All Other Systems Fourteen point review of system was performed. Relevant findings as per above and as per HPI. Otherwise negative. H&P Exam Vital Signs Vital Signs Date Time Temp Pulse Resp B/P (MAP) Pulse Ox O2 Delivery O2 Flow Rate FiO2 02/13/25 06:39 57 14 103/72 02/13/25 05:30 97 02/13/25 03:30 97.6 97.6 02/13/25 01:30 Room Air* 0 21 General Appeara: Mild distress Head Exam: Normal inspection Eye Exam: bilateral eye PERRL Pulmonary/Respiratory: Lungs clear Cardiovascular/Chest: Regular rate, Systolic murmur Peripheral Pulses: 2+ carotid (R), 2+ carotid (L), 2+ femoral (R), 2+ femoral (L), 2+ dorsalis pedis (R), 2+ dorsalis pedis (L), 2+ Radial (R), 2+ Radial (L) Abdominal Exam: Normal bowel sounds, Soft Neuro/Mental St: Alert Eye contact/ Speech: Cooperative Labs/Xrays Labs Test 02/13/25 05:04 02/12/25 16:53 Range/Units White Blood Count 6.5 # 4.4-10.8 10^3/uL Red Blood Count 4.54 4.5-5.90 10^6/uL Hemoglobin 13.0 L 13.5-17.5 g/dL Hematocrit 39.9 L 41.0-53.0 % Mean Corpuscular Volume 88.0 80.0-100.0 fL Mean Corpuscular Hemoglobin 28.7 28.0-32.0 pg Mean Corpuscular Hemoglobin Concent 32.6 32.0-36.0 g/dL Red Cell Distribution Width 15.8 H 11.8-14.3 % Platelet Count 116 L 140-450 10^3/uL Mean Platelet Volume 9.1 6.9-10.8 fL Neutrophils (%) (Auto) 66.9 37.0-80.0 % Lymphocytes (%) (Auto) 22.4 10.0-50.0 % Monocytes (%) (Auto) 7.5 0.0-12.0 % Eosinophils (%) (Auto) 3.1 0.0-7.0 % Basophils (%) (Auto) 0.1 0.0-2.0 % Neutrophils # (Auto) 4.4 1.6-8.6 10 ^3/uL Lymphocytes # (Auto) 1.5 0.4-5.4 10 ^3/uL Monocytes # (Auto) 0.5 0-1.3 10 ^3/uL Eosinophils # (Auto) 0.2 0-0.8 10 ^3/uL Basophils # (Auto) 0 0-0.2 10 ^3/uL Nucleated Red Blood Cells 0.1 % Sodium Level 143 136-145 mmol/L Potassium Level 4.3 3.5-5.1 mmol/L Chloride Level 109 H 98-107 mmol/L Carbon Dioxide Level 22 20-31 mmol/L Anion Gap 12 5-15 Blood Urea Nitrogen 22 9-23 mg/dL Creatinine 1.51 H 0.700-1.30 mg/dL Glomerular Filtration Rate Calc 48 >90 mL/min BUN/Creatinine Ratio 14.6 10.0-20.0 Serum Glucose 111 H 74-106 mg/dL Calcium Level 8.3 L 8.7-10.4 mg/dL Total Bilirubin 1.3 H 0.2-1.0 mg/dL Aspartate Amino Transferase (AST) 17 13-40 U/L Alanine Aminotransferase (ALT) 11 7-40 U/L Alkaline Phosphatase 68 46-116 U/L Total Protein 6.4 5.7-8.2 g/dL Albumin 3.9 3.2-4.8 g/dL Lactic Acid Level 1.8 0.4-2.0 mmol/L Assessment/Plan Plan Patient is a 74-year-old gentleman was brought to the hospital for generalized weakness. He is poor historian. Reportedly the patient had generalized weakness with more affecting in the lower extremities and EMS were called by the . EMS found her blood pressure in 70s and brought the patient to the hospital. Patient herself denies any chest pain/shortness of breath/palpitations. He himself is very poor historian and denies any previous medical problems. But review of the old chart reveals history of liver cirrhosis, CKD, hepatitis-C, old history of pneumonia, pulmonary hypertension and also history of septic shock. Patient himself denies any of the above. Not in acute distress. Mucosa is pink and wet. No carotid bruit. No goiter. Not using accessory muscles of breathing. Lungs are clear to auscultation. Cardiac: Regular, no thrill. Systolic murmur 2/6 in left sternal border is heard. Abdomen is soft and distended. Questionable hepatomegaly, no mass, extremities do not reveal edema. Dorsalis pedis is 2+ bilateral. Past medical history reportedly includes hypertension, hyperlipidemia, diabetes mellitus, CKD, old history of CKD, old history of kidney stone, liver cirrhosis, old history of hepatitis-C, old history of pancreatitis, repeated UTIs, history of septic shock, hypothyroidism, history of appendectomy/tonsillectomy and also history of pneumonias. Echocardiogram of November 21, 2024 reported ejection fraction of 65%, biatrial enlargement, concentric left ventricular hypertrophy, moderate pulmonary valve insufficiency and right ventricular systolic pressure of 60 mm Hg Creatinine: 1.71 - 1.51 Potassium: 3.6 - 4.3 Lactic acid: 2.5 - 1.8 Chest x-ray revealed: IMPRESSION: 1. Stable cardiomegaly. 2. Resolved pulmonary vascular congestion and left pleural effusion when compared to my November 23, 2024 EKG revealed sinus rhythm with no ST-T changes Patient is a 74-year-old gentleman who presented with generalized weakness. Reportedly the patient's blood pressure was low at home. Patient does have history of septic shock/repeated UTIs and pneumonia. He is poor historian. Lactic acid was high at the time of admission and later improved. Sepsis/pneumonia could have contributed to the clinical picture? It is of note the patient does have history of liver cirrhosis and is poor historian. Could component of encephalopathy contributed to the clinical picture? Patient also has been found to have pulmonary hypertension recently which in the correct clinical setting may result in generalized hypotension Hypotension Encephalopathy SCOT on CKD Lactic acidosis Pulmonary hypertension, history of Diabetes mellitus History of liver cirrhosis Hyperlipidemia History of UTIs Cardiac suggestion for management: Manage on telemetry Fluid resuscitation is advised Follow-up electrolytes and kidney function tests and correct abnormalities. Keep potassium above 4 and magnesium above 2 Request for BNP Request for serial troponin Echocardiogram is advised Consider urinalysis. Consider CT of the abdomen You may consider Neurology evaluation for encephalopathy Further evaluation and management depends on the above and clinical course Thank you for consultation A total of 75 minutes was spent reviewing the patient record, examining the patient, making a diagnostic and therapeutic plan, discussing this plan with medical personnel, following up on diagnostic studies and following the patient for clinical stability excluding any and all procedures. At least 50% of this time was spent in direct, [id number] contact. Thank you for allowing me to participate in this patient's care. Further recommendations will depend on patient's clinical course. Please do not hesitate to contact me if you have any questions or concerns. This medical document was created using electronic medical record system with [email or web address] dictation system. Although this document has been carefully reviewed, there may still be some phonetic and typographical errors. These areas are purely typographical due to the imperfection of the software programs, and do not reflect any compromise in the patient's medical care. Plan discussed with: Patient, Other (nurse) MICHAEL FIELD MD Feb 13, 2025 07:13
[2025-02-13 09:00] VITALS: PULSE 56; RESP 14; O2SAT 96
--- NOTE | 2025-02-13 09:42 | DVH ---
Exam: CT CT AB PEL WO CON-NO ORAL OR IV History: History of cirrhosis Comparison Study: CT CT AB PEL WO CON-NO ORAL OR IV on DOS: 10/27/22 Technique: Multidetector spiral CT of the abdomen and pelvis was performed from lung bases to pubic s ymphysis. Imaging was performed without intravenous contrast. Coronal and sagittal multiplanar reform ats were obtained from the axial data set by the technologist. Radiation Dose : 1. Abdomen/Pelvis: CTDIvol 23.69 mGy, DLP 1181.58 mGy*cm. Findings: Evaluation of vasculature and solid organs is limited due to lack of intravenous contrast use. Lung Bases: Lung bases are clear. Visualized portions of the heart and pericardium are unremarkable. Liver: The liver is nodular in contour. No focal lesions. Gallbladder and Biliary Tree: The gallbladder is unremarkable. No intrahepatic or extrahepatic bilia ry ductal dilatation. Spleen: Borderline splenomegaly. Pancreas: The pancreas is grossly unremarkable. Adrenal Glands: Unremarkable Kidneys: Kidneys are unremarkable without calculi or hydronephrosis. GI tract: The stomach is grossly normal in appearance. No evidence of small bowel wall thickening or abnormal dilatation to suggest bowel obstruction. There is colonic diverticulosis without acute diver ticulitis. Wall thickening in the rectum. Normal appendix. Peritoneum/mesentery/retroperitoneum. No evidence of free intraperitoneal air. No ascites. No evidenc e of suspicious lymphadenopathy. Abdominal Wall: Unremarkable. Vasculature: The visualized abdominal aorta is normal in size and caliber. Evaluation of abdominal a nd pelvic vessels is limited due to lack of intravenous contrast. Urinary Bladder: There is a left inguinal hernia containing a portion of the left anterior bladder. M ild wall thickening of the portion of the urinary bladder within the hernias. Pelvic Organs: Unremarkable Musculoskeletal: No acute fracture. Absent right femoral head. Superior subluxation of the right fem ur relative to the acetabulum. Multilevel lumbar spondylosis. Soft tissues: Bilateral fat containing inguinal hernias. The left inguinal hernia also contains a po rtion of the urinary bladder as described above. IMPRESSION: 1. Left inguinal hernia containing a portion of the anterior urinary bladder wall. Mild thickening o f the urinary bladder wall within the hernia which may reflect inflammation. 2. Rectal wall thickening, nonspecific however proctocolitis is not excluded. 3. Borderline splenomegaly. 4. Colonic diverticulosis without acute diverticulitis. 5. 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 Cirrhosis.
[2025-02-13] MEDS: ENOXAPARIN SOD 40 MG/0.4 ML SYRINGE SC SCH (10:11)
--- NOTE | 2025-02-13 13:35 | ECG ---
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
[2025-02-13] MEDS ORDERED: DEXTROSE (50%) 50ML SYRG IV PRN (16:00)
--- NOTE | 2025-02-13 16:05 | DVHPN2 ---
Progress Note - Dictate Date Seen: Feb 13, 2025 Medical Necessity Reason Pt with a Central, PICC or Fol: No vital signs Vital Sign Date Time Temp Pulse Resp B/P (MAP) Pulse Ox O2 Delivery O2 Flow Rate FiO2 02/13/25 14:01 76 16 133/82 02/13/25 09:00 96 Room Air* 0 21 02/13/25 08:54 97.3 97.3 Total Intake and Output 02/12/25 02/12/25 02/13/25 15:00 23:00 07:00 Intake Total 2000 ml 650 ml Balance 2000 ml 650 ml medications Current Medications Medications Dose Ordered Sig/Ren Route Start Time Stop Time Status Last Admin Dose Admin Sodium Chloride 1,000 ml @ 120 mls/hr Q8H20M IV 02/12/25 21:15 02/13/25 14:10 Acetaminophen 325 mg Q4HP PRN PO 02/12/25 21:15 Acetaminophen/ Hydrocodone Bitart 1 tab Q4HP PRN PO 02/12/25 21:15 Ondansetron HCl 4 mg Q4HP PRN IV 02/12/25 21:15 Docusate Sodium 100 mg BIDPRN PRN PO 02/12/25 21:15 Morphine Sulfate 2 mg Q4HPRN PRN IV 02/12/25 21:15 02/13/25 12:18 Nitroglycerin 0.4 mg Q5MINP PRN SL 02/12/25 21:15 Morphine Sulfate 2 mg Q30M PRN IV 02/12/25 21:15 Ceftriaxone Sodium 50 ml @ 100 mls/hr DAILY@09 IV 02/12/25 21:36 02/13/25 09:16 Diagnostic Test (Pha) 1 strip ACHS 02/13/25 17:00 UNV Insulin Human Regular ACHS SC 02/13/25 17:00 UNV Dextrose 50 ml UD PRN IV 02/13/25 16:00 UNV Famotidine 20 mg Q12HR PO 02/13/25 22:00 UNV Duloxetine HCl 30 mg HS PO 02/13/25 22:00 UNV Gabapentin 300 mg TID PO 02/13/25 22:00 UNV Levothyroxine Sodium 25,000 mcg DAILY PO 02/14/25 10:00 UNV Pravastatin Sodium 20 mg DAILY PO 02/14/25 10:00 UNV laboratory and microbiology Laboratory Tests 02/13/25 05:04 Test 02/13/25 05:04 Range/Units Serum Glucose 111 H 74-106 mg/dL Problem List 1. Fatty liver Monitor 2. HLD Monitor 3. DM II with hyperglycemia Monitor, diabetic diet 4. Morbid obesity Monitor 5. Hypotension Monitor, hold BP meds, hold anticoagulation 6. SCOT with vmn Monitor, daily labs 7. Thrombocytopenia r/t liver cirrhosis Monitor, daily labs, obtain TSH level Assessment/Plan Subjective Patient is awake and alert. Objective Patient was admitted for hypotension. Patient has a mild SCOT. Plan Obtain urinalysis. Patient has a history of UTIs in the past. Repeat lactic level and start rocephin antibiotics. Plan discussed with: Patient, Other SALINA GARCIA NP Feb 13, 2025 16:05
--- NOTE | 2025-02-13 16:05 | DVHHP2 ---
Admitting Diagnosis: generalized weakness History of Present Illness 74y M who presents to the ED via EMS for chief complaint of generalized weakness. Pt states he started to feel dizzy and weak and pt told and pt had his BP checked and states it was low Pt states he had these symptoms 1 months prior and states he was hospitalized and treated for sepsis. Pt otherwise denies any other symptoms at this time. Pt is noted to be bed-ridden. While in the emergency department the patient was evaluated by the provider, As per provider: Labs, vital signs, and imagining monitored. Patient will be admitted for further evaluation and treatment. I discussed admission with the patient/family and is in agreement to treatment plan. Patient Family History: Cerebrovascular accident (CVA) G8 FATHER Depression G8 MOTHER Diabetes mellitus FH: ovarian cancer G8 MOTHER Hypertension G8 MOTHER Allergies: Coded Allergies: NO KNOWN ALLERGIES (Unverified , 12/22/21) Home Meds Active Scripts Cephalexin Monohydrate (Cephalexin) 500 Mg Cap, 1 CAP PO QID for 7 Days, #28 CAP Prov:SALINA GARCIA NP 11/23/24 Doxycycline (Monohydrate) (Doxycycline) 100 Mg Cap, 100 MG PO BID for 7 Days, #14 CAP Prov:SALINA GARCIA NP 11/23/24 Polyethylene Glycol 3350 (Miralax) 17 Gm Pow, 17 GM PO DAILY@BREAKFAST for 30 Days, #120 POW Prov:JR WYATT MD 08/09/23 Cyclobenzaprine HCl (Cyclobenzaprine Hydrochlo) 10 Mg Tab, 10 MG PO BID PRN, #20 TAB Prov:MARGIE MARSHALL MD 10/30/22 Meloxicam (Meloxicam) 15 Mg Tab, 15 MG PO DAILY PRN, #10 TAB Prov:MARGIE MARSHALL MD 10/30/22 Tamsulosin Hcl (Flomax) 0.4 Mg Cap, 1 CAP PO DAILY, #30 CAP 11 Refills Prov:SALINA GARCIA NP 10/29/22 Oxycodone Hcl (OXYCODONE HCL) 5 Mg Tb, 5 MG GT Q6HP PRN for 5 Days, #20 TAB Prov:SALINA GARCIA NP 10/29/22 Reported Medications Lidocaine HCl (Lidocaine Hydrochloride) 3 % Cre, TOP 11/18/24 Gabapentin (Gabapentin) 300 Mg Cap, 1 CAP PO TID 11/18/24 Lisinopril (Lisinopril) 10 Mg Tab, 10 MG PO DAILY for 30 Days, MG 09/05/22 Hydromorphone Hcl (Hydromorphone Hcl) 2 Mg Tab, 1 TAB PO QID 12/23/21 Pravastatin Sodium (PRAVACHOL TABLET) 20 Mg Tb, 20 MG PO DAILY, TAB 11/14/21 Cholecalciferol (VITAMIN D3) 2,000 Unit Tab, 1 TAB PO DAILY, #30 TAB 5 Refills 11/26/20 Duloxetine HCl (Duloxetine HCl) 30 Mg Cap, 30 MG PO HS 07/17/19 Levothyroxine Sodium (Levothyroxine Sodium) 25 Mcg Tab, 25 MG PO DAILY 07/17/19 Insulin Regular (Human) (Novolin R) 100 Unit/Ml Inj SLIDING SCALE 07/17/19 Insulin Glargine (Basaglar Kwikpen) 100 Unit/Ml Inj, 25 UNITS SC HS 07/17/19 Current Medications Current Medications Medications (Trade) Dose Ordered Sig/Ren Route PRN Reason Start Time Stop Time Status Last Admin Sodium Chloride 1,000 ml @ 120 mls/hr Q8H20M IV 02/12/25 21:15 02/13/25 14:10 Acetaminophen (Tylenol Tablet) 325 mg Q4HP PRN PO MILD PAIN (1-3 PAIN SCALE) 02/12/25 21:15 Acetaminophen/ Hydrocodone Bitart ([place] 5/325MG Tab) 1 tab Q4HP PRN PO MODERATE PAIN (4-6 PAIN SCALE) 02/12/25 21:15 Ondansetron HCl (Zofran) 4 mg Q4HP PRN IV NAUSEA / VOMITING 02/12/25 21:15 Docusate Sodium (Colace Capsule) 100 mg BIDPRN PRN PO FOR CONSTIPATION 02/12/25 21:15 Enoxaparin Sodium (Lovenox) 40 mg DAILY SC 02/13/25 10:00 02/13/25 16:02 DC 02/13/25 10:11 Morphine Sulfate 2 mg Q4HPRN PRN IV SEVERE PAIN (7-10 PAIN SCALE) 02/12/25 21:15 02/13/25 19:50 Nitroglycerin (Ntrostat Sublingual) 0.4 mg Q5MINP PRN SL FOR CHEST PAIN 02/12/25 21:15 Morphine Sulfate 2 mg Q30M PRN IV FOR CHEST PAIN 02/12/25 21:15 Ceftriaxone Sodium 50 ml @ 100 mls/hr DAILY@09 IV 02/12/25 21:36 02/13/25 09:16 Diagnostic Test (Pha) (Accu-Chek Comfort Curve T) 1 strip ACHS 02/13/25 17:00 02/13/25 17:27 Insulin Human Regular (InsuLIN R) ACHS SC 02/13/25 17:00 02/13/25 17:32 Dextrose 50 ml UD PRN IV Blood Sugar LESS THAN 60 02/13/25 16:00 Famotidine (Pepcid Tablet) 20 mg DAILY PO 02/13/25 22:00 Duloxetine HCl (Cymbalta Capsule) 30 mg HS PO 02/13/25 22:00 Gabapentin (Neurontin Capsule) 300 mg TID PO 02/13/25 22:00 Levothyroxine Sodium (Synthroid Tablet) 25 mcg DAILY PO 02/14/25 10:00 Pravastatin Sodium (Pravachol Tablet) 20 mg DAILY PO 02/14/25 10:00 Review of Systems Constitutional: denies chills, denies fever, denies malaise Eyes: denies eye pain, denies vision change ENT: denies ear pain, denies headache, denies nasal congestion, denies painful swallowing, denies voice change Cardiovascular: denies chest pain, denies edema, denies orthopnea, denies palpitations, denies paroxysmal nocturnal dyspnea Respiratory: denies cough, denies shortness of breath Gastrointestinal: denies constipation, denies diarrhea, denies nausea, denies vomiting Genitourinary: denies dysuria, denies frequent urination, denies urethral discharge Musculoskeletal: denies back pain, denies joint pain, denies muscle pain Skin: denies bruising, denies itching, denies rash Neurological: denies focal weakness, denies headache, denies sensory changes Psychiatric: denies anxiety, denies depression Endocrine: denies polydipsia, denies polyuria Hematologic/Lymphatic: denies easy bleeding, denies easy bruising, denies enlarged lymph nodes Allergic/Immunologic: denies allergy, denies hives Vital Signs Vital Signs Date Time Temp Pulse Resp B/P (MAP) Pulse Ox O2 Delivery O2 Flow Rate FiO2 02/13/25 19:50 60 18 102/62 02/13/25 18:13 Room Air* 0 21 02/13/25 17:32 98.3 96 98.3 Physical Exam General Appearance: alert, no distress HEENT: EOMI, PERRLA, normal external inspect of ears, no icterus, no nasal drainage Neck: no carotid bruit, no jugular venous distention (JVD), no lymphadenopathy Chest: normal thorax Respiratory: clear to auscultation, normal air movement Cardiovascular: regular rate and rhythm, no diastolic murmur, no jugular venous distention (JVD), no rub, no systolic murmur Abdominal: soft, no hepatomegaly, no mass, no splenomegaly, no tenderness Genitourinary: grossly normal external Musculoskeletal: no joint tenderness, no swelling Extremities: normal pulses, no calf tenderness, no clubbing, no cyanosis, no edema Skin: no bruising, no jaundice, no rash Neurological: alert, No focal deficit SEPSIS Sepsis Screen Date sepsis recognized/suspect: Feb 13, 2025 Time Sepsis recognized/suspect: 129 Recent Procedure: No On Antibiotic Therapy: Yes Respiratory Rate >20: No Heart Rate >90: No Temp<36 C (96.8 F) or >38.3 C: No SBP <90 or MAP <65 mmHG: No New Acute Mental Status Change: No Is the patient on CPAP, BIPAP,: No Physician Orders Chest Portable (02/12/25 14:08) Evaluation Assistant (02/12/25 14:08) Pulse Oximetry (02/12/25 14:08) Blood Pressure (02/12/25 14:08) Heplock Iv (02/12/25 14:08) Blood Culture (02/12/25 14:08) Admit (02/12/25 21:13) Sodium Chloride 0.9% (02/12/25 21:15) Oxygen Per Hour (02/12/25 21:13) Acetaminophen Tablet (Tylenol Tablet) (02/12/25 21:15) Hydrocodone-Acet 5/325mg Tab ([place] (02/12/25 21:15) Ondansetron Hcl (Zofran) (02/12/25 21:15) Docusate Sodium Capsule (Colace Capsule) (02/12/25 21:15) Morphine Sulfate Injection (02/12/25 21:15) Nitroglycerin Sublingual (Ntrostat Subli (02/12/25 21:15) Morphine Sulfate Injection (02/12/25 21:15) Stat Ekg For Chest Pain (02/12/25 21:13) Notify Md Of Changes From Base (02/12/25 21:13) Industrial Machinery Mechanic For 24 Hours (02/12/25 21:13) Emergency Dysrhythmia Protocol (02/12/25 21:13) Rhythm Strips Once Every Shift (02/12/25 21:13) Oxygen By Nasal Cannula (02/12/25 21:13) * Cardiology Consult (02/12/25 21:19) Ceftriaxone 1gm/50ml D5w (Rocephin) (02/12/25 21:36) Echo 2d Mode Cardiac Dop (02/13/25 06:54) Ct Ab Pel Wo Con-No Oral Or Iv (02/13/25 06:54) Lipid Panel (02/14/25 04:00) Hemoglobin A1c (02/14/25 04:00) Thyroid Stimulating Hormone (02/14/25 04:00) Glucose Blood (Accu-Chek Comfort Curve T (02/13/25 17:00) Insulin R (Human) (Insulin R) (02/13/25 17:00) Dextrose 50% Syringe (02/13/25 16:00) Cardiac Diet-2gna,Lofat,Lochol (02/13/25 Dinner) Famotidine Tablet (Pepcid Tablet) (02/13/25 22:00) Duloxetine Hcl Capsule (Cymbalta Capsule (02/13/25 22:00) Gabapentin Capsule (Neurontin Capsule) (02/13/25 22:00) Levothyroxine Tablet (Synthroid Tablet) (02/14/25 10:00) Pravastatin Sodium Tablet (Pravachol Tab (02/14/25 10:00) Sequential Compression Device (02/13/25 16:04) Vital Signs Date Time Temp Pulse Resp B/P (MAP) Pulse Ox O2 Delivery O2 Flow Rate FiO2 02/13/25 19:50 60 18 102/62 02/13/25 18:13 Room Air* 0 21 02/13/25 17:32 98.3 77 16 137/81 (99) 96 98.3 02/13/25 14:01 76 16 133/82 02/13/25 14:00 98.5 76 16 133/82 (99) 96 98.5 02/13/25 12:18 60 16 121/67 02/13/25 09:00 56 14 96 Room Air* 0 21 02/13/25 08:54 97.3 56 14 99/54 (69) 96 97.3 02/13/25 06:39 57 14 103/72 02/13/25 06:09 51 16 113/71 02/13/25 05:30 51 14 113/71 (85) 97 02/13/25 03:30 97.6 82 14 115/85 (95) 96 97.6 02/13/25 01:30 Room Air* 0 21 02/13/25 01:30 98.3 88 14 111/88 (96) 96 98.3 02/13/25 01:00 77 16 96/50 (65) 95 02/12/25 15:35 98.0 90 16 136/95 (109) 96 98.0 02/12/25 15:35 Room Air* 0 21 02/12/25 15:18 136/95 (109) 02/12/25 14:28 98.1 81 18 64/72 96 98.1 02/12/25 14:25 97 02/12/25 14:08 97 Laboratory Tests Test 02/12/25 14:45 02/12/25 16:53 02/13/25 05:04 02/13/25 17:15 Lactic Acid Level 2.5 mmol/L (0.4-2.0) *H 1.8 mmol/L (0.4-2.0) 0.9 mmol/L (0.4-2.0) White Blood Count 9.3 10^3/uL (4.4-10.8) 6.5 10^3/uL (4.4-10.8) # Medications Medications Dose Ordered Sig/Ren Route Start Time Stop Time Status Last Admin Dose Admin Diagnostic Test (Pha) 1 strip ACHS 02/13/25 17:00 02/13/25 17:27 Enoxaparin Sodium 40 mg DAILY SC 02/13/25 10:00 02/13/25 16:02 DC 02/13/25 10:11 Insulin Human Regular ACHS SC 02/13/25 17:00 02/13/25 17:32 Results Labs Test 02/13/25 19:20 02/13/25 17:26 02/13/25 17:15 02/13/25 07:09 Range/Units Urine Color Yellow Yellow Urine Clarity Clear Clear Urine pH 5.0 5.0-9.0 Urine Specific [place] 1.021 1.001-1.035 Urine Protein Negative Negative Urine Ketones Negative Negative Urine Blood Negative Negative /uL Urine Nitrite Negative Negative Urine Bilirubin Negative Negative Urine Urobilinogen Normal Negative mg/dL Urine Leukocyte Esterase Negative Negative /uL Urine RBC 1 0 - 3 /hpf Urine Microscopic WBC 2 0-3 /HPF Urine Squamous Epithelial Cells Few <5 /hpf Urine Bacteria None seen None Seen /hpf Urine Hyaline Casts Few 0 - 2 /lpf Urine Mucus Few None Seen Urine Glucose 1+ H Normal mg/dL POC Glucose 163 H 70-106 mg/dl Lactic Acid Level 0.9 0.4-2.0 mmol/L Troponin I High Sensitivity 4 </=54 ng/L Test 02/13/25 05:04 Range/Units White Blood Count 6.5 # 4.4-10.8 10^3/uL Red Blood Count 4.54 4.5-5.90 10^6/uL Hemoglobin 13.0 L 13.5-17.5 g/dL Hematocrit 39.9 L 41.0-53.0 % Mean Corpuscular Volume 88.0 80.0-100.0 fL Mean Corpuscular Hemoglobin 28.7 28.0-32.0 pg Mean Corpuscular Hemoglobin Concent 32.6 32.0-36.0 g/dL Red Cell Distribution Width 15.8 H 11.8-14.3 % Platelet Count 116 L 140-450 10^3/uL Mean Platelet Volume 9.1 6.9-10.8 fL Neutrophils (%) (Auto) 66.9 37.0-80.0 % Lymphocytes (%) (Auto) 22.4 10.0-50.0 % Monocytes (%) (Auto) 7.5 0.0-12.0 % Eosinophils (%) (Auto) 3.1 0.0-7.0 % Basophils (%) (Auto) 0.1 0.0-2.0 % Neutrophils # (Auto) 4.4 1.6-8.6 10 ^3/uL Lymphocytes # (Auto) 1.5 0.4-5.4 10 ^3/uL Monocytes # (Auto) 0.5 0-1.3 10 ^3/uL Eosinophils # (Auto) 0.2 0-0.8 10 ^3/uL Basophils # (Auto) 0 0-0.2 10 ^3/uL Nucleated Red Blood Cells 0.1 % Sodium Level 143 136-145 mmol/L Potassium Level 4.3 3.5-5.1 mmol/L Chloride Level 109 H 98-107 mmol/L Carbon Dioxide Level 22 20-31 mmol/L Anion Gap 12 5-15 Blood Urea Nitrogen 22 9-23 mg/dL Creatinine 1.51 H 0.700-1.30 mg/dL Glomerular Filtration Rate Calc 48 >90 mL/min BUN/Creatinine Ratio 14.6 10.0-20.0 Serum Glucose 111 H 74-106 mg/dL Calcium Level 8.3 L 8.7-10.4 mg/dL Total Bilirubin 1.3 H 0.2-1.0 mg/dL Aspartate Amino Transferase (AST) 17 13-40 U/L Alanine Aminotransferase (ALT) 11 7-40 U/L Alkaline Phosphatase 68 46-116 U/L B-Type Natriuretic Peptide 43.05 0-100 pg/mL Total Protein 6.4 5.7-8.2 g/dL Albumin 3.9 3.2-4.8 g/dL Microbiology Date/Time Source Procedure Growth Status 02/12/25 14:45 Blood Blood Culture - Preliminary NO GROWTH AFTER 24 HOURS OF INCUBATION. Resulted Plan 1. Fatty liver Monitor 2. HLD Monitor 3. DM II with hyperglycemia Monitor, diabetic diet 4. Morbid obesity Monitor 5. Hypotension Monitor, hold BP meds, hold anticoagulation 6. SCOT with vmn Monitor, daily labs 7. Thrombocytopenia r/t liver cirrhosis Monitor, daily labs, obtain TSH level Plan discussed with: Patient, Other RADHASALINARUTH Escalante NP Feb 13, 2025 16:05
[2025-02-13] MEDS: ACCU-CHEK COMFORT CURVE STRIP VI SCH (17:27)
[2025-02-13] MEDS: InsuLIN REG 1unit/0.01ml Soln (100units/ml) SC SCH (17:32)
[2025-02-13 19:58] LABS: Urine Protein, UAD Negative (Negative)
[2025-02-13 20:00] VITALS: PULSE 53; PULSE 63; RESP 18; O2SAT 95
[2025-02-13 21:00] VITALS: BP 112/70; PULSE 63; RESP 18; TEMP 97.9; O2SAT 96
[2025-02-13] MEDS: GABAPENTIN 300 MG CAP PO SCH (22:40)
[2025-02-13] MEDS: FAMOTIDINE 20 MG TAB PO SCH (22:41)
[2025-02-14] VITALS (8 sets, daily range): BP systolic 130–153; BP diastolic 68–97; PULSE 45–60; RESP 16–19; TEMP 96.9–97.9; O2SAT 90–100
[2025-02-14 06:53] LABS: Triglycerides 100 mg/dL (< 150)
[2025-02-14 06:55] LABS: Cholesterol 87 mg/dL (< 200)
[2025-02-14 06:56] LABS: HDL Cholesterol 28 mg/dL (40-59)
[2025-02-14 06:58] LABS: Urine Protein, UAD Negative (Negative)
--- NOTE | 2025-02-14 07:19 | DVHPN2 ---
Progress Note - Dictate Date Seen: Feb 14, 2025 Medical Necessity Reason Pt with a Central, PICC or Fol: No vital signs Vital Sign Date Time Temp Pulse Resp B/P (MAP) Pulse Ox O2 Delivery O2 Flow Rate FiO2 02/14/25 04:59 97.2 58 17 148/70 (96) 97 97.2 02/13/25 20:00 Room Air* 0 21 Total Intake and Output 02/13/25 02/13/25 02/14/25 15:00 23:00 07:00 Intake Total 460 ml 1340 ml Output Total 875 ml Balance 460 ml 465 ml medications Current Medications Medications Dose Ordered Sig/Ren Route Start Time Stop Time Status Last Admin Dose Admin Sodium Chloride 1,000 ml @ 120 mls/hr Q8H20M IV 02/12/25 21:15 02/14/25 06:21 120 MLS/HR Acetaminophen 325 mg Q4HP PRN PO 02/12/25 21:15 Acetaminophen/ Hydrocodone Bitart 1 tab Q4HP PRN PO 02/12/25 21:15 Ondansetron HCl 4 mg Q4HP PRN IV 02/12/25 21:15 Docusate Sodium 100 mg BIDPRN PRN PO 02/12/25 21:15 Morphine Sulfate 2 mg Q4HPRN PRN IV 02/12/25 21:15 02/14/25 03:13 2 MG Nitroglycerin 0.4 mg Q5MINP PRN SL 02/12/25 21:15 Morphine Sulfate 2 mg Q30M PRN IV 02/12/25 21:15 Ceftriaxone Sodium 50 ml @ 100 mls/hr DAILY@09 IV 02/12/25 21:36 02/13/25 09:16 100 MLS/HR Diagnostic Test (Pha) 1 strip ACHS 02/13/25 17:00 02/14/25 06:36 1 STRIP Insulin Human Regular ACHS SC 02/13/25 17:00 02/13/25 22:40 3 UNITS Dextrose 50 ml UD PRN IV 02/13/25 16:00 Famotidine 20 mg DAILY PO 02/13/25 22:00 02/13/25 22:41 20 MG Duloxetine HCl 30 mg HS PO 02/13/25 22:00 02/13/25 22:40 30 MG Gabapentin 300 mg TID PO 02/13/25 22:00 02/14/25 06:16 300 MG Levothyroxine Sodium 25 mcg DAILY PO 02/14/25 10:00 Pravastatin Sodium 20 mg DAILY PO 02/14/25 10:00 laboratory and microbiology Laboratory Tests 02/13/25 05:04 Test 02/13/25 05:04 Range/Units Serum Glucose 111 H 74-106 mg/dL Assessment/Plan Patient is a 74-year-old gentleman was brought to the hospital for generalized weakness. He is poor historian. Reportedly the patient had generalized weakness with more affecting in the lower extremities and EMS were called by the . EMS found her blood pressure in 70s and brought the patient to the hospital. Patient herself denies any chest pain/shortness of breath/palpitations. He himself is very poor historian and denies any previous medical problems. But review of the old chart reveals history of liver cirrhosis, CKD, hepatitis-C, old history of pneumonia, pulmonary hypertension and also history of septic shock. Patient himself denies any of the above. Not in acute distress. Mucosa is pink and wet. No carotid bruit. No goiter. Not using accessory muscles of breathing. Lungs are clear to auscultation. Cardiac: Regular, no thrill. Systolic murmur 2/6 in left sternal border is heard. Abdomen is soft and distended. Questionable hepatomegaly, no mass, extremities do not reveal edema. Dorsalis pedis is 2+ bilateral. Past medical history reportedly includes hypertension, hyperlipidemia, diabetes mellitus, CKD, old history of CKD, old history of kidney stone, liver cirrhosis, old history of hepatitis-C, old history of pancreatitis, repeated UTIs, history of septic shock, hypothyroidism, history of appendectomy/tonsillectomy and also history of pneumonias. Echocardiogram of November 21, 2024 reported ejection fraction of 65%, biatrial enlargement, concentric left ventricular hypertrophy, moderate pulmonary valve insufficiency and right ventricular systolic pressure of 60 mm Hg Creatinine: 1.71 - 1.51 Potassium: 3.6 - 4.3 Lactic acid: 2.5 - 1.8 - 0.9 TSH: 1.30 BNP: 43.05 Trop (high sensitive): 4 - 5 U/A: wnl Chest x-ray revealed: IMPRESSION: 1. Stable cardiomegaly. 2. Resolved pulmonary vascular congestion and left pleural effusion when compared to my November 23, [address] revealed: IMPRESSION: 1. Left inguinal hernia containing a portion of the anterior urinary bladder wall. Mild thickening of the urinary bladder wall within the hernia which may reflect inflammation. 2. Rectal wall thickening, nonspecific however proctocolitis is not excluded. 3. Borderline splenomegaly. 4. Colonic diverticulosis without acute diverticulitis. 5. 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 Cirrhosis. EKG revealed sinus rhythm with no ST-T changes Patient is a 74-year-old gentleman who presented with generalized weakness. Reportedly the patient's blood pressure was low at home. Patient does have history of septic shock/repeated UTIs and pneumonia. He is poor historian. Lactic acid was high at the time of admission and later improved. Sepsis/pneumonia could have contributed to the clinical picture? It is of note the patient does have history of liver cirrhosis and is poor historian. Could component of encephalopathy contributed to the clinical picture? Patient also has been found to have pulmonary hypertension recently which in the correct clinical setting may result in generalized hypotension. ACS is not considered. Hypotension Encephalopathy SCOT on CKD Lactic acidosis Pulmonary hypertension, history of Diabetes mellitus History of liver cirrhosis Hyperlipidemia History of UTIs Cardiac suggestion for management: Manage on telemetry Fluid resuscitation is advised Follow-up electrolytes and kidney function tests and correct abnormalities. Keep potassium above 4 and magnesium above 2 Echocardiogram is advised You may consider Neurology evaluation for encephalopathy Further evaluation and management depends on the above and clinical course A total of 55 minutes was spent reviewing the patient record, examining the patient, making a diagnostic and therapeutic plan, discussing this plan with medical personnel, following up on diagnostic studies and following the patient for clinical stability excluding any and all procedures. At least 50% of this time was spent in direct, [id number] contact. Thank you for allowing me to participate in this patient's care. Further recommendations will depend on patient's clinical course. Please do not hesitate to contact me if you have any questions or concerns. This medical document was created using electronic medical record system with [employer] dictation system. Although this document has been carefully reviewed, there may still be some phonetic and typographical errors. These areas are purely typographical due to the imperfection of the software programs, and do not reflect any compromise in the patient's medical care. Plan discussed with: Patient, Other (nurse) MICHAEL FIELD MD Feb 14, 2025 07:19
[2025-02-14] MEDS: LEVOTHYROXINE SODIUM 25 MCG TAB PO SCH (08:27)
[2025-02-14] MEDS: PRAVASTATIN SODIUM 20 MG TAB PO SCH (08:28)
--- NOTE | 2025-02-14 18:03 | DVH ---
PROCEDURE: MRI BRAIN HEAD WO CONTRAST INDICATION: r/o cva EXAM DATE: 02/14/2025 05:05 PM COMPARISON: CT HEAD WITHOUT CONTRAST on DOS: 11/18/24, MRCP on DOS: 11/14/21, MRCP MRI on DOS: 11/14/21 TECHNIQUE: MRI of the brain without intravenous contrast. FINDINGS: Diffusion weighted images of the brain demonstrate no evidence of acute infarction. There is no evidence of acute intracranial hemorrhage, extra-axial collection, mass effect, midline s hift, herniation or hydrocephalus. The ventricles, sulci and cisterns appear age appropriate. [id number] changes of chronic microvascular ischemic disease. There are no signal abnormalities on the susceptibility weighted sequences. The major vascular flow voids are present. The visualized paranasal sinuses and mastoid air cells are clear. Left parotid mass measuring up to 24 mm. IMPRESSION: 1. No evidence of acute infarction, intracranial hemorrhage, mass effect or hydrocephalus. Mild-to-mo derate changes of chronic microvascular ischemic disease. Left parotid mass. Recommend further eval uation with ultrasound and ultrasound-guided biopsy. HS:Y
--- NOTE | 2025-02-14 18:25 | DVH ---
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 FINDINGS: There is no abnormal diffusion restriction. There is no intracranial bilateral optic nerves unremark able in morphology. Optic chiasm unremarkable. No mass effect upon the optic chiasm. The bilateral r etrobulbar fat is unremarkable. The extraocular muscles are appear unremarkable. Bilateral Meckel's c ave appears unremarkable. Left parotid mass measuring 2.2 cm. IMPRESSION: Grossly unremarkable MRI of the orbits without contrast. A 2.2 cm left parotid mass. Recommend ENT consultation for further evaluation
--- NOTE | 2025-02-14 20:23 | DVHPN2 ---
Progress Note - Dictate Date Seen: Feb 14, 2025 Medical Necessity Reason Pt with a Central, PICC or Fol: No vital signs Vital Sign Date Time Temp Pulse Resp B/P (MAP) Pulse Ox O2 Delivery O2 Flow Rate FiO2 02/14/25 17:10 97.9 45 19 135/68 (90) 100 97.9 02/14/25 08:30 Room Air* 0 21 Total Intake and Output 02/13/25 02/13/25 02/14/25 15:00 23:00 07:00 Intake Total 460 ml 1340 ml Output Total 875 ml Balance 460 ml 465 ml medications Current Medications Medications Dose Ordered Sig/Ren Route Start Time Stop Time Status Last Admin Dose Admin Sodium Chloride 1,000 ml @ 120 mls/hr Q8H20M IV 02/12/25 21:15 02/14/25 15:38 120 MLS/HR Acetaminophen 325 mg Q4HP PRN PO 02/12/25 21:15 Acetaminophen/ Hydrocodone Bitart 1 tab Q4HP PRN PO 02/12/25 21:15 Ondansetron HCl 4 mg Q4HP PRN IV 02/12/25 21:15 Docusate Sodium 100 mg BIDPRN PRN PO 02/12/25 21:15 Morphine Sulfate 2 mg Q4HPRN PRN IV 02/12/25 21:15 02/14/25 15:50 2 MG Nitroglycerin 0.4 mg Q5MINP PRN SL 02/12/25 21:15 Morphine Sulfate 2 mg Q30M PRN IV 02/12/25 21:15 Ceftriaxone Sodium 50 ml @ 100 mls/hr DAILY@09 IV 02/12/25 21:36 02/14/25 08:27 100 MLS/HR Diagnostic Test (Pha) 1 strip ACHS 02/13/25 17:00 02/14/25 11:30 1 STRIP Insulin Human Regular ACHS SC 02/13/25 17:00 02/14/25 11:30 2 UNITS Dextrose 50 ml UD PRN IV 02/13/25 16:00 Famotidine 20 mg DAILY PO 02/13/25 22:00 02/14/25 08:27 20 MG Duloxetine HCl 30 mg HS PO 02/13/25 22:00 02/13/25 22:40 30 MG Gabapentin 300 mg TID PO 02/13/25 22:00 02/14/25 13:21 300 MG Levothyroxine Sodium 25 mcg DAILY PO 02/14/25 10:00 02/14/25 08:27 25 MCG Pravastatin Sodium 20 mg DAILY PO 02/14/25 10:00 02/14/25 08:28 20 MG laboratory and microbiology Laboratory Tests 02/13/25 05:04 Test 02/13/25 05:04 Range/Units Serum Glucose 111 H 74-106 mg/dL Problem List 1. Fatty liver Monitor 2. HLD Monitor 3. DM II with hyperglycemia Monitor, diabetic diet 4. Morbid obesity Monitor 5. Hypotension Monitor, hold BP meds, hold anticoagulation 6. SCOT with vmn Monitor, daily labs 7. Thrombocytopenia r/t liver cirrhosis Monitor, daily labs, obtain TSH level Assessment/Plan Subjective Patient is awake and alert. Objective Patient seen by cardiology they are suggesting neurology consult for encephalopathy and memory loss. Patient had questionable liver cirrhosis. CT shows nodule liver. Heart rate was bradycardic to 47. Plan Cardiology recommendations appreciated. Neurology consult. GI consult. Repeat labs ordered for a.m. Plan discussed with: Patient, Other SALINA GARCIA NP Feb 14, 2025 20:23
[2025-02-15] VITALS (8 sets, daily range): BP systolic 93–164; BP diastolic 70–109; PULSE 55–78; RESP 17–18; TEMP 96.2–98.8; O2SAT 91–100
--- NOTE | 2025-02-15 06:37 | DVHPN2 ---
Progress Note - Dictate Date Seen: Feb 15, 2025 Medical Necessity Reason Pt with a Central, PICC or Fol: No vital signs Vital Sign Date Time Temp Pulse Resp B/P (MAP) Pulse Ox O2 Delivery O2 Flow Rate FiO2 02/15/25 05:00 97.7 57 17 164/109 (127) 96 97.7 02/14/25 20:00 Room Air* 0 21 Total Intake and Output 02/14/25 02/14/25 02/15/25 15:00 23:00 07:00 Intake Total 500 ml 600 ml Output Total 700 ml 1100 ml Balance -200 ml -500 ml medications Current Medications Medications Dose Ordered Sig/Ren Route Start Time Stop Time Status Last Admin Dose Admin Sodium Chloride 1,000 ml @ 120 mls/hr Q8H20M IV 02/12/25 21:15 02/14/25 15:38 120 MLS/HR Acetaminophen 325 mg Q4HP PRN PO 02/12/25 21:15 Acetaminophen/ Hydrocodone Bitart 1 tab Q4HP PRN PO 02/12/25 21:15 Ondansetron HCl 4 mg Q4HP PRN IV 02/12/25 21:15 Docusate Sodium 100 mg BIDPRN PRN PO 02/12/25 21:15 Morphine Sulfate 2 mg Q4HPRN PRN IV 02/12/25 21:15 02/15/25 02:20 2 MG Nitroglycerin 0.4 mg Q5MINP PRN SL 02/12/25 21:15 Morphine Sulfate 2 mg Q30M PRN IV 02/12/25 21:15 Ceftriaxone Sodium 50 ml @ 100 mls/hr DAILY@09 IV 02/12/25 21:36 02/14/25 08:27 100 MLS/HR Diagnostic Test (Pha) 1 strip ACHS 02/13/25 17:00 02/15/25 06:36 1 STRIP Insulin Human Regular ACHS SC 02/13/25 17:00 02/14/25 22:21 4 UNITS Dextrose 50 ml UD PRN IV 02/13/25 16:00 Famotidine 20 mg DAILY PO 02/13/25 22:00 02/14/25 08:27 20 MG Duloxetine HCl 30 mg HS PO 02/13/25 22:00 02/14/25 21:20 30 MG Gabapentin 300 mg TID PO 02/13/25 22:00 02/15/25 05:54 300 MG Levothyroxine Sodium 25 mcg DAILY PO 02/14/25 10:00 02/14/25 08:27 25 MCG Pravastatin Sodium 20 mg DAILY PO 02/14/25 10:00 02/14/25 08:28 20 MG Hydralazine HCl 10 mg Q6H PO 02/15/25 04:30 02/15/25 04:46 10 MG Lisinopril 10 mg DAILY PO 02/15/25 10:00 laboratory and microbiology Laboratory Tests 02/13/25 05:04 Test 02/13/25 05:04 Range/Units Serum Glucose 111 H 74-106 mg/dL Assessment/Plan Patient is a 74-year-old gentleman was brought to the hospital for generalized weakness. He is poor historian. Reportedly the patient had generalized weakness with more affecting in the lower extremities and EMS were called by the . EMS found her blood pressure in 70s and brought the patient to the hospital. Patient herself denies any chest pain/shortness of breath/palpitations. He himself is very poor historian and denies any previous medical problems. But review of the old chart reveals history of liver cirrhosis, CKD, hepatitis-C, old history of pneumonia, pulmonary hypertension and also history of septic shock. Patient himself denies any of the above. Not in acute distress. Mucosa is pink and wet. No carotid bruit. No goiter. Not using accessory muscles of breathing. Lungs are clear to auscultation. Cardiac: Regular, no thrill. Systolic murmur 2/6 in left sternal border is heard. Abdomen is soft and distended. Questionable hepatomegaly, no mass, extremities do not reveal edema. Dorsalis pedis is 2+ bilateral. Past medical history reportedly includes hypertension, hyperlipidemia, diabetes mellitus, CKD, old history of CKD, old history of kidney stone, liver cirrhosis, old history of hepatitis-C, old history of pancreatitis, repeated UTIs, history of septic shock, hypothyroidism, history of appendectomy/tonsillectomy and also history of pneumonias. Echocardiogram of November 21, 2024 reported ejection fraction of 65%, biatrial enlargement, concentric left ventricular hypertrophy, moderate pulmonary valve insufficiency and right ventricular systolic pressure of 60 mm Hg Creatinine: 1.71 - 1.51 Potassium: 3.6 - 4.3 Lactic acid: 2.5 - 1.8 - 0.9 TSH: 1.30 BNP: 43.05 Trop (high sensitive): 4 - 5 U/A: wnl Chest x-ray revealed: IMPRESSION: 1. Stable cardiomegaly. 2. Resolved pulmonary vascular congestion and left pleural effusion when compared to my November 23, [address] revealed: IMPRESSION: 1. Left inguinal hernia containing a portion of the anterior urinary bladder wall. Mild thickening of the urinary bladder wall within the hernia which may reflect inflammation. 2. Rectal wall thickening, nonspecific however proctocolitis is not excluded. 3. Borderline splenomegaly. 4. Colonic diverticulosis without acute diverticulitis. 5. 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 Cirrhosis. EKG revealed sinus rhythm with no ST-T changes Patient is a 74-year-old gentleman who presented with generalized weakness. Reportedly the patient's blood pressure was low at home. Patient does have history of septic shock/repeated UTIs and pneumonia. He is poor historian. Lactic acid was high at the time of admission and later improved. Sepsis/pneumonia could have contributed to the clinical picture? It is of note the patient does have history of liver cirrhosis and is poor historian. Could component of encephalopathy contributed to the clinical picture? Patient also has been found to have pulmonary hypertension recently which in the correct clinical setting may result in generalized hypotension. ACS is not considered. Hypotension Encephalopathy SCOT on CKD Lactic acidosis Pulmonary hypertension, history of Diabetes mellitus History of liver cirrhosis Hyperlipidemia History of UTIs Cardiac suggestion for management: Manage on telemetry Fluid resuscitation is advised Follow-up electrolytes and kidney function tests and correct abnormalities. Keep potassium above 4 and magnesium above 2 Awaiting requested Echocardiogram You may consider Neurology evaluation for encephalopathy Further evaluation and management depends on the above and clinical course A total of 55 minutes was spent reviewing the patient record, examining the patient, making a diagnostic and therapeutic plan, discussing this plan with medical personnel, following up on diagnostic studies and following the patient for clinical stability excluding any and all procedures. At least 50% of this time was spent in direct, [id number] contact. Thank you for allowing me to participate in this patient's care. Further recommendations will depend on patient's clinical course. Please do not hesitate to contact me if you have any questions or concerns. This medical document was created using electronic medical record system with MModal computerized dictation system. Although this document has been carefully reviewed, there may still be some phonetic and typographical errors. These areas are purely typographical due to the imperfection of the software programs, and do not reflect any compromise in the patient's medical care. Plan discussed with: Patient (Patient and primary rn ) DONALD THOMASONP Feb 15, 2025 06:37
[2025-02-15] MEDS: LISINOPRIL 5 MG TAB PO SCH (08:20)
--- NOTE | 2025-02-15 17:28 | DVHCONRES ---
Date Seen: Feb 15, 2025 Resident Creating Document: BELLA JUNG RESIDENT Referring Physician SALINA GARCIA NP Reason for Consultation LIVER CIRRHOSIS History of Present Illness 74-year-old male with known liver cirrhosis (secondary to hepatitis C) admitted for generalized weakness and hypotension. GI consulted for cirrhosis management. * Current status: Stable today; no abdominal pain, nausea, vomiting, hematemesis, melena, or hematochezia. * Reports last bowel movement YESTERDAY; no diarrhea. * Diet: Cardiac diet; tolerating oral intake well without nausea/vomiting. * Antibiotics: Currently on ceftriaxone 1 g IV daily. * History: Last EGD~3 years ago with removal of a polyp. No history of recent GI bleeding. No colonoscopy done before * Denies jaundice, ascites-related discomfort, or confusion today. * History is vague; patient is a poor historian. Abdominal/Pelvic CT: 1. Cirrhosis with nodular liver contour; no focal hepatic lesions. 2. Rectal wall thickening nonspecific; proctocolitis not excluded. 3. Borderline splenomegaly. 4. Colonic diverticulosis without acute diverticulitis. 5. Left inguinal hernia containing a portion of the anterior urinary bladder wall with mild bladder wall thickeningpossible inflammation. 6. 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 Past Medical History CKF, DM, High Lipids, HTN, Kidney Stones, Thyroid, UTI'S Past Surgical History Appendectomy, Tonsillectomy Family History: Cerebrovascular accident (CVA) G8 FATHER Depression G8 MOTHER Diabetes mellitus FH: ovarian cancer G8 MOTHER Hypertension G8 MOTHER Family History Reviewed,noncontributory to illness, Family hx of DM, Family hx of Cancer, Family hx of stroke Social History Smoker: Non-Smoker Alcohol: Denies ETOH Use Drugs: Denies Drug Use Lives In: Home Allergies: Coded Allergies: NO KNOWN ALLERGIES (Unverified , 12/22/21) Home Meds Active Scripts Cephalexin Monohydrate (Cephalexin) 500 Mg Cap, 1 CAP PO QID for 7 Days, #28 CAP Prov:SALINA GARCIA NP 11/23/24 Doxycycline (Monohydrate) (Doxycycline) 100 Mg Cap, 100 MG PO BID for 7 Days, #14 CAP Prov:SALINA GARCIA NP 11/23/24 Polyethylene Glycol 3350 (Miralax) 17 Gm Pow, 17 GM PO DAILY@BREAKFAST for 30 Days, #120 POW Prov:JR WYATT MD 08/09/23 Cyclobenzaprine HCl (Cyclobenzaprine Hydrochlo) 10 Mg Tab, 10 MG PO BID PRN, #20 TAB Prov:MARGIE MARSHALL MD 10/30/22 Meloxicam (Meloxicam) 15 Mg Tab, 15 MG PO DAILY PRN, #10 TAB Prov:MARGIE MARSHALL MD 10/30/22 Tamsulosin Hcl (Flomax) 0.4 Mg Cap, 1 CAP PO DAILY, #30 CAP 11 Refills Prov:SALINA GARCIA LAMP INSPECTOR 10/29/22 Oxycodone Hcl (OXYCODONE HCL) 5 Mg Tb, 5 MG GT Q6HP PRN for 5 Days, #20 TAB Prov:SALINA GARCIA LAMP INSPECTOR 10/29/22 Reported Medications Lidocaine HCl (Lidocaine Hydrochloride) 3 % Cre, TOP 11/18/24 Gabapentin (Gabapentin) 300 Mg Cap, 1 CAP PO TID 11/18/24 Lisinopril (Lisinopril) 10 Mg Tab, 10 MG PO DAILY for 30 Days, MG 09/05/22 Hydromorphone Hcl (Hydromorphone Hcl) 2 Mg Tab, 1 TAB PO QID 12/23/21 Pravastatin Sodium (PRAVACHOL TABLET) 20 Mg Tb, 20 MG PO DAILY, TAB 11/14/21 Cholecalciferol (VITAMIN D3) 2,000 Unit Tab, 1 TAB PO DAILY, #30 TAB 5 Refills 11/26/20 Duloxetine HCl (Duloxetine HCl) 30 Mg Cap, 30 MG PO HS 07/17/19 Levothyroxine Sodium (Levothyroxine Sodium) 25 Mcg Tab, 25 MG PO DAILY 07/17/19 Insulin Regular (Human) (Novolin R) 100 Unit/Ml Inj SLIDING SCALE 07/17/19 Insulin Glargine (Basaglar Kwikpen) 100 Unit/Ml Inj, 25 UNITS SC HS 07/17/19 Current Medications Current Medications Medications (Trade) Dose Ordered Sig/Ren Route PRN Reason Start Time Stop Time Status Last Admin Hydralazine HCl (Apresoline Tablet) 10 mg Q6H PO 02/15/25 04:30 02/15/25 08:21 Lisinopril (Zestril Tablet) 10 mg DAILY PO 02/15/25 10:00 02/15/25 08:20 Review of Systems Constitutional: denies chills, denies fever, denies malaise Eyes: denies eye pain, denies vision change ENT: denies ear pain, denies headache, denies nasal congestion, denies painful swallowing, denies voice change Cardiovascular: denies chest pain, denies edema, denies orthopnea, denies palpitations, denies paroxysmal nocturnal dyspnea Respiratory: denies cough, denies shortness of breath Gastrointestinal: denies constipation, denies diarrhea, denies nausea, denies vomiting Vital Signs Vital Signs Date Time Temp Pulse Resp B/P (MAP) Pulse Ox O2 Delivery O2 Flow Rate FiO2 02/15/25 17:01 61 17 139/85 02/15/25 13:00 98.5 97 98.5 02/14/25 20:00 Room Air* 0 21 Physical Exam * Abdomen: Soft, non-tender, non-distended; no guarding/rebound. * No overt hepatosplenomegaly palpable on limited exam. * Bowel sounds present in all quadrants. * No shifting dullness or fluid wave on exam. Labs/Diagnostic Data Labs Test 02/15/25 16:44 02/15/25 07:57 02/14/25 06:45 02/14/25 06:08 Range/Units POC Glucose 130 H 70-106 mg/dl Ammonia 27 11-32 umol/L Urine Color Yellow Yellow Urine Clarity Clear Clear Urine pH 5.0 5.0-9.0 Urine Specific Cobb 1.020 1.001-1.035 Urine Protein Negative Negative Urine Ketones Negative Negative Urine Blood Negative Negative /uL Urine Nitrite Negative Negative Urine Bilirubin Negative Negative Urine Urobilinogen Normal Negative mg/dL Urine Leukocyte Esterase Negative Negative /uL Urine RBC 1 0 - 3 /hpf Urine Microscopic WBC 2 0-3 /HPF Urine Squamous Epithelial Cells Few <5 /hpf Urine Bacteria None seen None Seen /hpf Urine Glucose Normal Normal mg/dL Hemoglobin A1c 6.7 H <5.7 % A1C Triglycerides Level 100 < 150 mg/dL Cholesterol Level 87 < 200 mg/dL LDL Cholesterol 45 < 100 mg/dL HDL Cholesterol 28 L 40-59 mg/dL Thyroid Stimulating Hormone (TSH) 1.30 0.55-4.78 uIU/mL Test 02/13/25 19:20 8/6/25 17:15 02/13/25 07:09 02/13/25 05:04 Range/Units Urine Hyaline Casts Few 0 - 2 /lpf Urine Mucus Few None Seen Lactic Acid Level 0.9 0.4-2.0 mmol/L Troponin I High Sensitivity 4 </=54 ng/L White Blood Count 6.5 # 4.4-10.8 10^3/uL Red Blood Count 4.54 4.5-5.90 10^6/uL Hemoglobin 13.0 L 13.5-17.5 g/dL Hematocrit 39.9 L 41.0-53.0 % Mean Corpuscular Volume 88.0 80.0-100.0 fL Mean Corpuscular Hemoglobin 28.7 28.0-32.0 pg Mean Corpuscular Hemoglobin Concent 32.6 32.0-36.0 g/dL Red Cell Distribution Width 15.8 H 11.8-14.3 % Platelet Count 116 L 140-450 10^3/uL Mean Platelet Volume 9.1 6.9-10.8 fL Neutrophils (%) (Auto) 66.9 37.0-80.0 % Lymphocytes (%) (Auto) 22.4 10.0-50.0 % Monocytes (%) (Auto) 7.5 0.0-12.0 % Eosinophils (%) (Auto) 3.1 0.0-7.0 % Basophils (%) (Auto) 0.1 0.0-2.0 % Neutrophils # (Auto) 4.4 1.6-8.6 10 ^3/uL Lymphocytes # (Auto) 1.5 0.4-5.4 10 ^3/uL Monocytes # (Auto) 0.5 0-1.3 10 ^3/uL Eosinophils # (Auto) 0.2 0-0.8 10 ^3/uL Basophils # (Auto) 0 0-0.2 10 ^3/uL Nucleated Red Blood Cells 0.1 % Sodium Level 143 136-145 mmol/L Potassium Level 4.3 3.5-5.1 mmol/L Chloride Level 109 H 98-107 mmol/L Carbon Dioxide Level 22 20-31 mmol/L Anion Gap 12 5-15 Blood Urea Nitrogen 22 9-23 mg/dL Creatinine 1.51 H 0.700-1.30 mg/dL Glomerular Filtration Rate Calc 48 >90 mL/min BUN/Creatinine Ratio 14.6 10.0-20.0 Serum Glucose 111 H 74-106 mg/dL Calcium Level 8.3 L 8.7-10.4 mg/dL Total Bilirubin 1.3 H 0.2-1.0 mg/dL Aspartate Amino Transferase (AST) 17 13-40 U/L Alanine Aminotransferase (ALT) 11 7-40 U/L Alkaline Phosphatase 68 46-116 U/L B-Type Natriuretic Peptide 43.05 0-100 pg/mL Total Protein 6.4 5.7-8.2 g/dL Albumin 3.9 3.2-4.8 g/dL Microbiology Date/Time Source Procedure Growth Status 02/12/25 14:45 Blood Blood Culture - Preliminary NO GROWTH AFTER 72 HOURS OF INCUBATION. Resulted Assessment 1. Liver Cirrhosis compensated, no acute decompensation; borderline splenomegaly likely from portal hypertension. 2. Rectal Wall Thickening nonspecific; possible infectious, inflammatory, ischemic, or neoplastic etiology; no acute symptoms. 3. Colonic Diverticulosis without diverticulitis. 4. Left Inguinal Hernia (containing bladder wall) not incarcerated; mild wall thickening possibly inflammatory Plan/Recommendation Hepatology / Cirrhosis Management * Labs: * PT/INR tomorrow AM for synthetic function. * CMP tomorrow AM to monitor liver enzymes, renal function, and electrolytes. * Outpatient hepatology referral for HCV antiviral therapy evaluation and long- term cirrhosis surveillance. * HCC surveillance: outpatient liver ultrasound AFP every 6 months. * Continue ceftriaxone 1 g IV daily (infection prophylaxis/treatment coverage in cirrhosis). Continue Protonix Rectal Wall Thickening / Proctitis Rule Out * No acute intervention; monitor for bleeding, pain, diarrhea, fever. * Outpatient colonoscopy follow-up Bowel Regimen * Continue docusate sodium. * Add polyethylene glycol 17 g PO daily PRN if no contraindication. * Encourage hydration and fiber intake. Nutritional * Continue cardiac diet; monitor oral intake and tolerance. * Encourage mobility as tolerated to support bowel motility. Plan discussed with: Patient BELLA JUNG RESIDENT Feb 15, 2025 17:28
--- NOTE | 2025-02-15 21:41 | DVHSR ---
APPROVED REPORT EXAM: Two-dimensional and M-mode echocardiogram with Doppler and color Doppler. Blood Pressure: 164/109 mmHg INDICATION Hypotension RISK FACTORS Height: 70, Weight: 214 DIMENSIONS LVDd4.8 (3.8-5.7cm)LA (2D)4.1 (1.9-4.0cm)Aortic Root3.8 (2.0-3.7cm) LVDs3.4 (2.5-4.0cm)LA (MM) (1.9-4.0cm)Aortic Cusp Exc1.7 (1.5-2.0cm) EF (%) 55.0 (55-70%)Rt. Atrium3.6 (1.9-4.0cm)Asc. Aorta cm IVSd1.3 (0.7-1.1cm)RV (D) (1.8-2.4cm) PWd1.3 (0.7-1.1cm) Mitral Valve MitralMitral Stenosis E wave0.75m/sMV Mean GR.mmHg A wave0.77m/sMV Peak GR.60mmHg E/A ratio1.02D MVAcm2 DECEL [id number] 1/2 [id number] IVRTmsDop MVA2.93cm2 Aortic Valve Aortic ValveAortic Stenosis V11.21m/Eveline Mean GR.5mmHg V21.42m/Eveline Peak GR.8mmHg LVOT Diameter2.0 (1.8-2.4cm)Doppler AVA2.68cm2 Pulmonic Valve V20.86m/s Tricuspid Valve TR Velocity2.44m/s [id number] Conclusion Left ventricle: Mild concentric left ventricular hypertrophy was seen. LVEF was 55%. There was no gross wall motion abnormality. Left ventricular diastolic function was considered normal. Right ventricle was normal-sized with normal systolic function. Mild left atrial enlargement was see n. Right atrium was normal-sized. Aortic valve was trileaflet. There was no aortic insufficiency/stenosis. There was trace mitral reg urgitation. There was mild tricuspid regurgitation. There was mild pulmonary valve insufficiency. Right ventricular systolic pressure was assessed (normal) at 31 mm Hg. There was no pericardial effu bhvaya. IVC was normal-sized with normal respiratory variation.
--- NOTE | 2025-02-15 21:59 | DVHPN2 ---
Progress Note - Dictate Date Seen: Feb 15, 2025 Medical Necessity Reason Pt with a Central, PICC or Fol: No vital signs Vital Sign Date Time Temp Pulse Resp B/P (MAP) Pulse Ox O2 Delivery O2 Flow Rate FiO2 02/15/25 21:07 69 18 113/61 02/15/25 18:51 98.8 97 98.8 02/15/25 08:00 Room Air* 0 21 Total Intake and Output 02/14/25 02/14/25 02/15/25 15:00 23:00 07:00 Intake Total 500 ml 600 ml Output Total 700 ml 1100 ml Balance -200 ml -500 ml medications Current Medications Medications Dose Ordered Sig/Ren Route Start Time Stop Time Status Last Admin Dose Admin Sodium Chloride 1,000 ml @ 120 mls/hr Q8H20M IV 02/12/25 21:15 02/14/25 15:38 120 MLS/HR Acetaminophen 325 mg Q4HP PRN PO 02/12/25 21:15 Acetaminophen/ Hydrocodone Bitart 1 tab Q4HP PRN PO 02/12/25 21:15 Ondansetron HCl 4 mg Q4HP PRN IV 02/12/25 21:15 Docusate Sodium 100 mg BIDPRN PRN PO 02/12/25 21:15 Morphine Sulfate 2 mg Q4HPRN PRN IV 02/12/25 21:15 02/15/25 21:07 2 MG Nitroglycerin 0.4 mg Q5MINP PRN SL 02/12/25 21:15 Morphine Sulfate 2 mg Q30M PRN IV 02/12/25 21:15 Ceftriaxone Sodium 50 ml @ 100 mls/hr DAILY@09 IV 02/12/25 21:36 02/15/25 08:21 100 MLS/HR Diagnostic Test (Pha) 1 strip ACHS 02/13/25 17:00 02/15/25 16:53 1 STRIP Insulin Human Regular ACHS SC 02/13/25 17:00 02/15/25 11:27 3 UNITS Dextrose 50 ml UD PRN IV 02/13/25 16:00 Famotidine 20 mg DAILY PO 02/13/25 22:00 02/15/25 08:20 20 MG Duloxetine HCl 30 mg HS PO 02/13/25 22:00 02/14/25 21:20 30 MG Gabapentin 300 mg TID PO 02/13/25 22:00 02/15/25 13:52 300 MG Levothyroxine Sodium 25 mcg DAILY PO 02/14/25 10:00 02/15/25 08:20 25 MCG Pravastatin Sodium 20 mg DAILY PO 02/14/25 10:00 02/15/25 08:21 20 MG Hydralazine HCl 10 mg Q6H PO 02/15/25 04:30 02/15/25 08:21 10 MG Lisinopril 10 mg DAILY PO 02/15/25 10:00 02/15/25 08:20 10 MG laboratory and microbiology Laboratory Tests 02/13/25 05:04 Test 02/13/25 05:04 Range/Units Serum Glucose 111 H 74-106 mg/dL Problem List 1. Fatty liver Monitor 2. HLD Monitor 3. DM II with hyperglycemia Monitor, diabetic diet 4. Morbid obesity Monitor 5. Hypotension Monitor, hold BP meds, hold anticoagulation 6. SCOT with vmn Monitor, daily labs 7. Thrombocytopenia r/t liver cirrhosis Monitor, daily labs, obtain TSH level Assessment/Plan Subjective: Patient is awake and alert. Objective: I informed patient of MRI findings. Patient was found to have some episodes of bradycardia yesterday. No complaints of dizziness today. Patient has possible liver cirrhosis. GI has been consulted. Waiting on neurology evaluation for encephalopathy and memory loss. Cardiac narayanan patient was deemed stable. Plan: Continue current treatment. Waiting on pending consults. DC planning. Plan discussed with: Patient, Other SALINA GARCIA NP Feb 15, 2025 21:59
[2025-02-16] MEDS ORDERED: VANCOMYCIN PER PHARMACY 0 MG IV SCH (04:45)
[2025-02-16] MEDS: VANCOMYCIN 1GM/250ML KIT 250 ML IV SCH (05:15)
[2025-02-16] MEDS: PANTOPRAZOLE 40 MG TAB PO SCH (06:13)
--- NOTE | 2025-02-16 06:31 | DVHPN2 ---
Progress Note - Dictate Date Seen: Feb 16, 2025 Medical Necessity Reason Pt with a Central, PICC or Fol: No vital signs Vital Sign Date Time Temp Pulse Resp B/P (MAP) Pulse Ox O2 Delivery O2 Flow Rate FiO2 02/16/25 06:00 55 18 136/80 02/15/25 21:00 98.0 97 98.0 02/15/25 20:00 Room Air* 0 21 Total Intake and Output 02/15/25 02/15/25 02/16/25 15:00 23:00 07:00 Intake Total 50 ml 1340 ml Output Total 1000 ml 900 ml Balance 50 ml 340 ml -900 ml medications Current Medications Medications Dose Ordered Sig/Ren Route Start Time Stop Time Status Last Admin Dose Admin Sodium Chloride 1,000 ml @ 120 mls/hr Q8H20M IV 02/12/25 21:15 02/14/25 15:38 120 MLS/HR Acetaminophen 325 mg Q4HP PRN PO 02/12/25 21:15 Acetaminophen/ Hydrocodone Bitart 1 tab Q4HP PRN PO 02/12/25 21:15 Ondansetron HCl 4 mg Q4HP PRN IV 02/12/25 21:15 Docusate Sodium 100 mg BIDPRN PRN PO 02/12/25 21:15 Morphine Sulfate 2 mg Q4HPRN PRN IV 02/12/25 21:15 02/16/25 05:30 2 MG Nitroglycerin 0.4 mg Q5MINP PRN SL 02/12/25 21:15 Morphine Sulfate 2 mg Q30M PRN IV 02/12/25 21:15 Ceftriaxone Sodium 50 ml @ 100 mls/hr DAILY@09 IV 02/12/25 21:36 02/15/25 08:21 100 MLS/HR Diagnostic Test (Pha) 1 strip ACHS 02/13/25 17:00 02/15/25 22:24 1 STRIP Insulin Human Regular ACHS SC 02/13/25 17:00 02/15/25 22:24 4 UNITS Dextrose 50 ml UD PRN IV 02/13/25 16:00 Duloxetine HCl 30 mg HS PO 02/13/25 22:00 02/15/25 22:13 30 MG Gabapentin 300 mg TID PO 02/13/25 22:00 02/16/25 06:13 300 MG Levothyroxine Sodium 25 mcg DAILY PO 02/14/25 10:00 02/15/25 08:20 25 MCG Pravastatin Sodium 20 mg DAILY PO 02/14/25 10:00 02/15/25 08:21 20 MG Lisinopril 10 mg DAILY PO 02/15/25 10:00 02/15/25 08:20 10 MG Hydralazine HCl 10 mg Q6H PRN PO 02/15/25 22:26 Pantoprazole Sodium 40 mg DAILY@0600 PO 02/16/25 06:00 02/16/25 06:13 40 MG Vancomycin HCl 0 ml @ 0 mls/hr UD IV 02/16/25 04:45 UNV Vancomycin HCl 250 ml @ 125 mls/hr Q2H IV 02/16/25 04:45 02/16/25 08:44 02/16/25 05:15 125 MLS/HR laboratory and microbiology Laboratory Tests 02/13/25 05:04 Test 02/13/25 05:04 Range/Units Serum Glucose 111 H 74-106 mg/dL Assessment/Plan Patient is a 74-year-old gentleman was brought to the hospital for generalized weakness. He is poor historian. Reportedly the patient had generalized weakness with more affecting in the lower extremities and EMS were called by the . EMS found her blood pressure in 70s and brought the patient to the hospital. Patient herself denies any chest pain/shortness of breath/palpitations. He himself is very poor historian and denies any previous medical problems. But review of the old chart reveals history of liver cirrhosis, CKD, hepatitis-C, old history of pneumonia, pulmonary hypertension and also history of septic shock. Patient himself denies any of the above. Not in acute distress. Mucosa is pink and wet. No carotid bruit. No goiter. Not using accessory muscles of breathing. Lungs are clear to auscultation. Cardiac: Regular, no thrill. Systolic murmur 2/6 in left sternal border is heard. Abdomen is soft and distended. Questionable hepatomegaly, no mass, extremities do not reveal edema. Dorsalis pedis is 2+ bilateral. Past medical history reportedly includes hypertension, hyperlipidemia, diabetes mellitus, CKD, old history of CKD, old history of kidney stone, liver cirrhosis, old history of hepatitis-C, old history of pancreatitis, repeated UTIs, history of septic shock, hypothyroidism, history of appendectomy/tonsillectomy and also history of pneumonias. Echocardiogram of November 21, 2024 reported ejection fraction of 65%, biatrial enlargement, concentric left ventricular hypertrophy, moderate pulmonary valve insufficiency and right ventricular systolic pressure of 60 mm Hg Creatinine: 1.71 - 1.51 Potassium: 3.6 - 4.3 Lactic acid: 2.5 - 1.8 - 0.9 TSH: 1.30 BNP: 43.05 Trop (high sensitive): 4 - 5 U/A: wnl Chest x-ray revealed: IMPRESSION: 1. Stable cardiomegaly. 2. Resolved pulmonary vascular congestion and left pleural effusion when compared to my November 23, [address] revealed: IMPRESSION: 1. Left inguinal hernia containing a portion of the anterior urinary bladder wall. Mild thickening of the urinary bladder wall within the hernia which may reflect inflammation. 2. Rectal wall thickening, nonspecific however proctocolitis is not excluded. 3. Borderline splenomegaly. 4. Colonic diverticulosis without acute diverticulitis. 5. 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 Cirrhosis. Echocardiogram reported Left ventricle: Mild concentric left ventricular hypertrophy was seen. LVEF was 55%. There was no gross wall motion abnormality. Left ventricular diastolic function was considered normal. Right ventricle was normal-sized with normal systolic function. Mild left atrial enlargement was seen. Right atrium was normal-sized. Aortic valve was trileaflet. There was no aortic insufficiency/stenosis. There was trace mitral regurgitation. There was mild tricuspid regurgitation. There was mild pulmonary valve insufficiency. Right ventricular systolic pressure was assessed (normal) at 31 mm Hg. There was no pericardial effusion. IVC was normal-sized with normal respiratory variation. EKG revealed sinus rhythm with no ST-T changes Patient is a 74-year-old gentleman who presented with generalized weakness. Reportedly the patient's blood pressure was low at home. Patient does have history of septic shock/repeated UTIs and pneumonia. He is poor historian. Lactic acid was high at the time of admission and later improved. Sepsis/pneumonia could have contributed to the clinical picture? It is of note the patient does have history of liver cirrhosis and is poor historian. Could component of encephalopathy contributed to the clinical picture? Patient also has been found to have pulmonary hypertension recently which in the correct clinical setting may result in generalized hypotension. ACS is not considered. Hypotension Encephalopathy SCOT on CKD Lactic acidosis Pulmonary hypertension, history of Diabetes mellitus History of liver cirrhosis Hyperlipidemia History of UTIs Cardiac suggestion for management: Manage on telemetry Fluid resuscitation is advised Follow-up electrolytes and kidney function tests and correct abnormalities. Keep potassium above 4 and magnesium above 2 You may consider Neurology evaluation for encephalopathy Further evaluation and management depends on the above and clinical course A total of 55 minutes was spent reviewing the patient record, examining the patient, making a diagnostic and therapeutic plan, discussing this plan with medical personnel, following up on diagnostic studies and following the patient for clinical stability excluding any and all procedures. At least 50% of this time was spent in direct, [id number] contact. Thank you for allowing me to participate in this patient's care. Further recommendations will depend on patient's clinical course. Please do not hesitate to contact me if you have any questions or concerns. This medical document was created using electronic medical record system with [employer] computerized dictation system. Although this document has been carefully reviewed, there may still be some phonetic and typographical errors. These areas are purely typographical due to the imperfection of the software programs, and do not reflect any compromise in the patient's medical care. Plan discussed with: Patient DONALD THOMASON [facility] Feb 16, 2025 06:31
[2025-02-16 08:00] VITALS: PULSE 52
[2025-02-16 09:00] VITALS: BP 137/82; PULSE 54; RESP 18; TEMP 97.6; O2SAT 97
[2025-02-16] MEDS ORDERED: BACDST PO (09:11)
--- NOTE | 2025-02-16 09:13 | DVHDS2 ---
Discharge Summary Date of Admission Feb 12, 2025 at 21:13 Date of Discharge: Feb 16, 2025 Labs/Diagnostic Data: Laboratory Results Test 02/16/25 06:16 02/15/25 07:57 02/14/25 06:45 02/14/25 06:08 POC Glucose 128 mg/dl (70-106) Ammonia 27 umol/L (11-32) Urine Color Yellow (Yellow) Urine Clarity Clear (Clear) Urine pH 5.0 (5.0-9.0) Urine Specific Sikes 1.020 (1.001-1.035) Urine Protein Negative (Negative) Urine Ketones Negative (Negative) Urine Blood Negative /uL (Negative) Urine Nitrite Negative (Negative) Urine Bilirubin Negative (Negative) Urine Urobilinogen Normal mg/dL (Negative) Urine Leukocyte Esterase Negative /uL (Negative) Urine RBC 1 /hpf (0 - 3) Urine Microscopic WBC 2 /HPF (0-3) Urine Squamous Epithelial Cells Few /hpf (<5) Urine Bacteria None seen /hpf (None Seen) Urine Glucose Normal mg/dL (Normal) Hemoglobin A1c 6.7 % A1C (<5.7) Triglycerides Level 100 mg/dL (< 150) Cholesterol Level 87 mg/dL (< 200) LDL Cholesterol 45 mg/dL (< 100) HDL Cholesterol 28 mg/dL (40-59) Thyroid Stimulating Hormone (TSH) 1.30 uIU/mL (0.55-4.78) Test 02/13/25 19:20 02/13/25 17:15 02/13/25 07:09 02/13/25 05:04 Urine Hyaline Casts Few /lpf (0 - 2) Urine Mucus Few (None Seen) Lactic Acid Level 0.9 mmol/L (0.4-2.0) Troponin I High Sensitivity 4 ng/L (</=54) White Blood Count 6.5 10^3/uL (4.4-10.8) Red Blood Count 4.54 10^6/uL (4.5-5.90) Hemoglobin 13.0 g/dL (13.5-17.5) Hematocrit 39.9 % (41.0-53.0) Mean Corpuscular Volume 88.0 fL (80.0-100.0) Mean Corpuscular Hemoglobin 28.7 pg (28.0-32.0) Mean Corpuscular Hemoglobin Concent 32.6 g/dL (32.0-36.0) Red Cell Distribution Width 15.8 % (11.8-14.3) Platelet Count 116 10^3/uL (140-450) Mean Platelet Volume 9.1 fL (6.9-10.8) Neutrophils (%) (Auto) 66.9 % (37.0-80.0) Lymphocytes (%) (Auto) 22.4 % (10.0-50.0) Monocytes (%) (Auto) 7.5 % (0.0-12.0) Eosinophils (%) (Auto) 3.1 % (0.0-7.0) Basophils (%) (Auto) 0.1 % (0.0-2.0) Neutrophils # (Auto) 4.4 10 ^3/uL (1.6-8.6) Lymphocytes # (Auto) 1.5 10 ^3/uL (0.4-5.4) Monocytes # (Auto) 0.5 10 ^3/uL (0-1.3) Eosinophils # (Auto) 0.2 10 ^3/uL (0-0.8) Basophils # (Auto) 0 10 ^3/uL (0-0.2) Nucleated Red Blood Cells 0.1 % Sodium Level 143 mmol/L (136-145) Potassium Level 4.3 mmol/L (3.5-5.1) Chloride Level 109 mmol/L (98-107) Carbon Dioxide Level 22 mmol/L (20-31) Anion Gap 12 (5-15) Blood Urea Nitrogen 22 mg/dL (9-23) Creatinine 1.51 mg/dL (0.700-1.30) Glomerular Filtration Rate Calc 48 mL/min (>90) BUN/Creatinine Ratio 14.6 (10.0-20.0) Serum Glucose 111 mg/dL (74-106) Calcium Level 8.3 mg/dL (8.7-10.4) Total Bilirubin 1.3 mg/dL (0.2-1.0) Aspartate Amino Transferase (AST) 17 U/L (13-40) Alanine Aminotransferase (ALT) 11 U/L (7-40) Alkaline Phosphatase 68 U/L (46-116) B-Type Natriuretic Peptide 43.05 pg/mL (0-100) Total Protein 6.4 g/dL (5.7-8.2) Albumin 3.9 g/dL (3.2-4.8) Other Laboratory Tests 02/13/25 05:04 Brief Hx & Hospital Course: 74y M who presents to the ED via EMS for chief complaint of generalized weakness. Pt states he started to feel dizzy and weak and pt told and pt had his BP checked and states it was low Pt states he had these symptoms 1 months prior and states he was hospitalized and treated for sepsis. Pt otherwise denies any other symptoms at this time. Pt is noted to be bed-ridden. Patient was admitted for generalized weakness. Patient had lactic acidosis. Patient had complaints of memory loss and metabolic encephalopathy. UA was negative however urine culture was not done. Patient does have a history of recurrent UTI. Most likely encephalopathy and dizziness is related to maybe early symptoms of UTI. Oral antibiotics were sent to his pharmacy. Patient stated he did not have liver cirrhosis however CT imaging confirmed cirrhosis and GI was consulted and they also confirm the diagnosis of cirrhosis. Patient was instructed to follow-up with GI outpatient. Neurology was consulted however they were unable to see patient. /memory loss is not urgent. Patient instructed to follow-up with neurology outpatient for further workup and diagnosis. Patient will follow-up with her PCP in 1 week There were no complaints or new complaints upon discharge, all questions and concerns were answered. Patient was advised to return to the ER or call 911 if any headaches, dizziness, shortness of breath, chest pain, bleeding, fevers, or worsening of medical condition. Patient/Family was counseled about treatment plan, medications, possible side effects, patient verbalized understanding. All questions were answered to the best of my ability. The patient symptoms improved and they are okay to be DC. 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 Scheduled Cholecalciferol (Vitamin D3), 1 TAB PO DAILY, (Reported) Duloxetine HCl (Duloxetine HCl), 30 MG PO HS, (Reported) Gabapentin (Gabapentin), 1 CAP PO TID, (Reported) Insulin Glargine (Basaglar Kwikpen), 25 UNITS SC HS, (Reported) Levothyroxine Sodium (Levothyroxine Sodium), 25 MG PO DAILY, (Reported) Lisinopril (Lisinopril), 10 MG PO DAILY, (Reported) Pravastatin Sodium (Pravachol Tablet), 20 MG PO DAILY, (Reported) Sulfamethoxazole W/Trimethopri (Bactrim Ds Tablet), 1 TAB PO BID Tamsulosin Hcl (Flomax), 1 CAP PO DAILY Miscellaneous Medications Insulin Regular (Human) (Novolin R), (Reported) Discontinued Medications Cephalexin Monohydrate (Cephalexin), 1 CAP PO QID Cyclobenzaprine HCl (Cyclobenzaprine Hydrochlo), 10 MG PO BID PRN Doxycycline (Monohydrate) (Doxycycline), 100 MG PO BID Hydromorphone Hcl (Hydromorphone Hcl), 1 TAB PO QID, (Reported) Lidocaine HCl (Lidocaine Hydrochloride), TOP, (Reported) Meloxicam (Meloxicam), 15 MG PO DAILY PRN Oxycodone Hcl (Oxycodone Hcl), 5 MG GT Q6HP PRN Polyethylene Glycol 3350 (Miralax), 17 GM PO DAILY@[email or web address] Discharge Statement: "Patient was advised to return to the ER or call 911 if any headaches, dizziness, shortness of breath, chest pain, abdominal pain, bleeding, fevers, or worsening of medical condition. Patient was counseled about treatment plan, medications, possible side effects, patientverbalized understanding. All questions were answered to the best of my ability. This discharge took greater then 30 minutes in planning, reviewing documentation, counseling the patient, and discussing with other team members." ASSESSMENT ASSESSMENT Assessment Generalized weakness, most likely from developing UTI SALINA GARCIA NP Feb 16, 2025 09:13
[2025-02-16 10:42] VITALS: PULSE 56; RESP 18
[2025-02-16 10:42] LABS: Hematocrit 36.4 % (41.0-53.0); Hemoglobin 12.2 g/dL (13.5-17.5); Mean Corpuscular Hemoglobin 28.7 pg (28.0-32.0); Mean Corpuscular Volume 85.7 fL (80.0-100.0); Nucleated Red Blood Cells % 0.3 %
[2025-02-16 10:50] LABS: Albumin 3.7 g/dL (3.2-4.8); Alkaline Phosphatase 59 U/L (46-116); Anion Gap 8 (5-15); BUN/Creatinine Ratio 11.4 (10.0-20.0); Blood Urea Nitrogen 10 mg/dL (9-23); Carbon Dioxide 23 mmol/L (20-31); Potassium 3.9 mmol/L (3.5-5.1); Sodium 138 mmol/L (136-145); Total Protein 6.2 g/dL (5.7-8.2)
[2025-02-16 10:51] LABS: Bilirubin, Total 0.8 mg/dL (0.2-1.0)
[2025-02-16 10:54] LABS: Alanine Aminotransferase < 9 U/L (7-40); Calcium 8.3 mg/dL (8.7-10.4); Chloride 107 mmol/L (98-107); Glucose 262 mg/dL (74-106)
[2025-02-16 11:04] VITALS: BP 137/82; TEMP 36.4
[2025-02-16 11:13] LABS: INR 1.19 (0.9-1.15); Prothrombin Time 12.4 sec (9.3-11.8)
--- NOTE | 2025-02-16 12:07 | DVHPN2 ---
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 There was no nausea vomiting or abdominal pain Patient stated his hepatitis-C is inactive He has not had a prior colonoscopy vital signs Vital Sign Date Time Temp Pulse Resp B/P (MAP) Pulse Ox O2 Delivery O2 Flow Rate FiO2 02/16/25 11:04 36.4 02/16/25 10:12 54 18 137/82 02/16/25 09:00 97 02/16/25 08:00 Room Air* 0 21 Total Intake and Output 02/15/25 02/15/25 02/16/25 15:00 23:00 07:00 Intake Total 50 ml 1340 ml Output Total 1000 ml 900 ml Balance 50 ml 340 ml -900 ml medications Current Medications Medications Dose Ordered Sig/Ren Route Start Time Stop Time Status Last Admin Dose Admin Sodium Chloride 1,000 ml @ 120 mls/hr Q8H20M IV 02/12/25 21:15 02/16/25 09:16 120 MLS/HR Acetaminophen 325 mg Q4HP PRN PO 02/12/25 21:15 Acetaminophen/ Hydrocodone Bitart 1 tab Q4HP PRN PO 02/12/25 21:15 Ondansetron HCl 4 mg Q4HP PRN IV 02/12/25 21:15 Docusate Sodium 100 mg BIDPRN PRN PO 02/12/25 21:15 Morphine Sulfate 2 mg Q4HPRN PRN IV 02/12/25 21:15 02/16/25 10:12 2 MG Nitroglycerin 0.4 mg Q5MINP PRN SL 02/12/25 21:15 Morphine Sulfate 2 mg Q30M PRN IV 02/12/25 21:15 Ceftriaxone Sodium 50 ml @ 100 mls/hr DAILY@09 IV 02/12/25 21:36 02/16/25 09:13 100 MLS/HR Diagnostic Test (Pha) 1 strip ACHS 02/13/25 17:00 02/16/25 11:33 1 STRIP Insulin Human Regular ACHS SC 02/13/25 17:00 02/16/25 11:42 3 UNITS Dextrose 50 ml UD PRN IV 02/13/25 16:00 Duloxetine HCl 30 mg HS PO 02/13/25 22:00 02/15/25 22:13 30 MG Gabapentin 300 mg TID PO 02/13/25 22:00 02/16/25 06:13 300 MG Levothyroxine Sodium 25 mcg DAILY PO 02/14/25 10:00 02/16/25 09:14 25 MCG Pravastatin Sodium 20 mg DAILY PO 02/14/25 10:00 02/16/25 09:13 20 MG Lisinopril 10 mg DAILY PO 02/15/25 10:00 02/16/25 09:15 10 MG Hydralazine HCl 10 mg Q6H PRN PO 02/15/25 22:26 Pantoprazole Sodium 40 mg DAILY@0600 PO 02/16/25 06:00 02/16/25 06:13 40 MG Vancomycin HCl 0 ml @ 0 mls/hr UD IV 02/16/25 04:45 objective Awake and alert x3 with no focal deficit * Abdomen: Soft, non-tender, non-distended; no guarding/rebound. * No overt hepatosplenomegaly palpable on limited exam. * Bowel sounds present in all quadrants. * No shifting dullness or fluid wave on exam. laboratory and microbiology Laboratory Tests 02/16/25 10:00 Test 02/16/25 10:00 Range/Units Serum Glucose 262 #H 74-106 mg/dL Problems(with codes): (1) Generalized weakness (2) Sepsis, unspecified organism (3) Hepatitis C (4) Cirrhosis (5) Splenomegaly Prognosis Plan Discharge planning is in progress Patient was given my contact information to follow up with me as an outpatient if he so requires Otherwise patient will follow up with a gastro group to discuss screening colonoscopy and monitoring his liver and cirrhosis Once again thank you for allowing me to participate in the care of this patient Plan discussed with: Patient ZULMA MILLER MD Feb 16, 2025 12:07
== END 2025-02-16 13:49 | disposition home or self-care (01) | DRG 689 ==
LOC: ER 14:01 → EDBD 14:01 → OVERFLOW 21:13 → TELE-CENTR 02-13 17:51
PROVIDERS: ADMIT Nurse Practitioner; ATTEND Nurse Practitioner
DX: N30.01 Acute cystitis with hematuria (principal); G93.41 Metabolic encephalopathy; N17.0 Acute kidney failure with tubular necrosis; E87.20 Acidosis, unspecified; E11.65 Type 2 diabetes mellitus with hyperglycemia; D69.59 Other secondary thrombocytopenia; E66.01 Morbid (severe) obesity due to excess calories; E78.5 Hyperlipidemia, unspecified; F32.A Depression, unspecified; I95.9 Hypotension, unspecified; N18.9 Chronic kidney disease, unspecified; G90.89 Other disorders of autonomic nervous system; K76.0 Fatty (change of) liver, not elsewhere classified; K74.60 Unspecified cirrhosis of liver; K57.30 Diverticulosis of large intestine without perforation or abscess without bleeding; K40.90 Unilateral inguinal hernia, without obstruction or gangrene, not specified as recurrent; I12.9 Hypertensive chronic kidney disease with stage 1 through stage 4 chronic kidney disease, or unspecified chronic kidney disease; E11.22 Type 2 diabetes mellitus with diabetic chronic kidney disease; E03.9 Hypothyroidism, unspecified; Z79.899 Other long term (current) drug therapy; Z74.01 Bed confinement status; Z82.3 Family history of stroke; Z83.3 Family history of diabetes mellitus; Z82.49 Family history of ischemic heart disease and other diseases of the circulatory system; Z79.2 Long term (current) use of antibiotics; Z79.4 Long term (current) use of insulin; Z87.891 Personal history of nicotine dependence; Z87.440 Personal history of urinary (tract) infections; Z87.442 Personal history of urinary calculi; Z90.49 Acquired absence of other specified parts of digestive tract; Z87.01 Personal history of pneumonia (recurrent); Z68.31 Body mass index [BMI] 31.0-31.9, adult
CPT/HCPCS: 36415; 70540; 70551; 71045; 74176; 80048; 80053; 80061; 81001; 82140; 82962; 83036; 83605; 83880; 84443; 84484; 85025; 85610; 87040; 93005; 93306; 96360; 99291; G0378; J1815